=== PATIENT | male | born 1955 | race Caucasian/White ===

== ENCOUNTER 2016-10-23 18:37 | Emergency (ER) | payer OTHER ==
[2016-10-23 18:48] VITALS: BP 118/66; PULSE 99; TEMP 98.6; BMI 29.7
[2016-10-23] MEDS ORDERED: OXYCODONE/APAP 5/325MG COMBO TABLET ONE (19:18)
--- NOTE | 2016-10-23 19:27 | PDOC ---
History of Present Illness - General Chief Complaint: Injury Stated Complaint: RT FOOT INJURY Time Seen by Provider: 10/23/16 18:54 History Source: Patient Exam Limitations: No Limitations - History of Present Illness Initial Comments: 10/23/16 19:23 Patient states got up to go to the bathroom early in the morning, and collided with a piece of furniture. Jammed his right great toe. States has progressively become more painful, and ecchymotic. No other injury Past History - Past Medical History Allergies/Adverse Reactions: Allergies Allergy/AdvReac Type Severity Reaction Status Date / Time No Known Allergies Allergy Verified 10/23/16 18:44 Home Medications: Ambulatory Orders Albuterol Sulfate [Ventolin -] 2 mg PO PRN 08/10/16 Lisinopril [Prinivil] 10 mg PO DAILY 08/10/16 Simvastatin [Zocor -] 40 mg PO HS 08/10/16 Tiotropium [place] [Spiriva] 1 inh PO DAILY 08/10/16 Anemia: No Asthma: Yes Cancer: No Cardiac Disorders: No CVA: No COPD: Yes CHF: No Dementia: No Diabetes: No GI Disorders: No Disorders: No HTN: Yes Hypercholesterolemia: Yes Liver Disease: No Suicide Attempt (Hx): No Seizures: No Thyroid Disease: No - Surgical History Abdominal Surgery: No Appendectomy: No Cardiac Surgery: No Cholecystectomy: No Gastric Stapling: No GI Surgery: No Lung Surgery: No Neurologic Surgery: No Orthopedic Surgery: No - Psycho/Social/Smoking Cessation Hx Anxiety: No Suicidal Ideation: No Smoking Status: Yes Smoking History: Former smoker Have you smoked in the past 12 months: No Number of Cigarettes Smoked Daily: 10 Information on smoking cessation initiated: No 'Breaking Loose' booklet given: 06/27/16 Hx Alcohol Use: No Drug/Substance Use Hx: No Substance Use Type: None Hx Substance Use Treatment: No *Physical Exam - Vital Signs Last Vital Signs Temp Pulse Resp BP Pulse Ox 98.6 F 99 H 18 118/66 96 10/23/16 18:44 10/23/16 18:44 10/23/16 18:44 10/23/16 18:44 10/23/16 18:44 - Physical Exam General Appearance: Yes: Nourished, Appropriately Dressed, Apparent Distress, Mild Distress HEENT: positive: HALLEY, Normal ENT Inspection, TMs Normal, Pharynx Normal Neck: positive: Supple. negative: Tender Respiratory/Chest: positive: Respiratory Distress Gastrointestinal/Abdominal: positive: Soft Extremity: positive: Normal Capillary Refill, Tender, Swelling (left great toe with ecchymoses extending at an TP and to distal toe. Tenderness primarily at PIP joint) Integumentary: positive: Ecchymosis, Bruising Neurologic: positive: dental assistant II-XII NML intact, Fully Oriented, Alert, Normal Mood/ Affect, Normal Response, Motor Strength 01/01 ED Treatment Course - RADIOLOGY Radiology Studies Ordered: Category Date Time Status FOOT-RIGHT [RAD] Stat Radiology 10/23/16 19:01 Taken Progress Note - Progress Note Progress Note: X-ray shows tuft fracture, nondisplaced. Miguel tape and cast shoe applied, will follow-up as needed. Given 2 Percocet tablets for pain relief *DC/Admit/Observation/Transfer Diagnosis at time of Disposition: Fracture of right great toe Qualifiers: Encounter type: initial encounter Fracture type: closed Phalanx: distal Fracture alignment: nondisplaced Qualified Code(s): S92.424A - Nondisplaced fracture of distal phalanx of right great toe, initial encounter for closed fracture - Discharge Dispostion Disposition: HOME Condition at time of disposition: Stable Admit: No - Referrals Referrals: Mell Hernandez MD [Primary Care Provider] - Alberto Holt MD [Staff Physician] - - Patient Instructions Printed Discharge Instructions: DI for Toe Fracture Additional Instructions: Rest, ice to area on and off for 15 minutes 4-6 times a day Avoid heavy lifting or exercise until pain and swelling is resolved or until further directed Keep area highly elevated to reduce swelling Use cast shoe and miguel tape until pain resolves Followup with orthopedist in one to 2 days if not improving, if significantly improved may wait one week for followup with orthopedist May use ibuprofen 2-200 mg tablets every 6 hours as needed for pain
== END 2016-10-23 19:45 | disposition home or self-care (01) ==
LOC: JERFT 18:37
DX: S92.424A Nondisplaced fracture of distal phalanx of right great toe, initial encounter for closed fracture (principal); I10 Essential (primary) hypertension; J44.9 Chronic obstructive pulmonary disease, unspecified; J45.909 Unspecified asthma, uncomplicated; E78.00 Pure hypercholesterolemia, unspecified; W22.03XA Walked into furniture, initial encounter; Y93.01 Activity, walking, marching and hiking; Y92.038 Other place in apartment as the place of occurrence of the external cause
CPT/HCPCS: 73630-TC-RT; 99281-25

== ENCOUNTER 2016-11-29 15:23 | Inpatient (IN) | payer OTHER ==
[2016-11-29] MEDS ORDERED: ONDANSETRON 4 MG/2 ML VIAL ONE (15:38)
[2016-11-29] MEDS ORDERED: ALBUTEROL SO4 2.5/IPRATROPIUM 0.5 INH SOL 3 ML VIAL.NEB. NEB ONE ×4 (15:41→15:46)
[2016-11-29] MEDS ORDERED: DEXAMETHASONE SOD PHOSPHATE 10 MG/1 ML VIAL ONE (15:44)
[2016-11-29] MEDS ORDERED: MAGNESIUM SULF 50% (8.12 MEQ/2 ML-1 GM VIAL) IVPB ONE (15:46)
[2016-11-29] MEDS ORDERED: TERBUTALINE SULFATE 1 MG/1 ML VIAL SQ ONE ×2 (15:47→16:09)
--- NOTE | 2016-11-29 16:00 | PDOC ---
History of Present Illness - General History Source: EMS, Spouse Exam Limitations: Clinical Condition <Mercedes Corona - Last Filed: 11/29/16 17:12> - History of Present Illness Initial Comments: 11/29/16 16:03 - General History Source: EMS, Spouse Exam Limitations: Clinical Condition Patient arrives in extremis, severely short of breath, history limited due to clinical condition - History of Present Illness Initial Comments: 11/29/16 16:01 The patient is a 61-year-old man, accompanied by , with a significant past medical history of hypertension, chronic obstructive pulmonary disease ( requiring intubation on 2005) and emphysema who presents to the emergency department via EMS for further evaluation of shortness of breath. HPI limited as patient arrives in severe respiratory distress. As per patient's , his symptoms started approximately 1 month ago with an intermittent productive cough with yellow-green sputum. She states that his symptoms worsened over the the past 3 days, as he became increasingly short of breath. EMS was activated today, and on arrival, the patient was noted to be in the low 90s on a non- rebreather and was found to have diffuse expiratory wheezes in the field, and was in respiratory distress. He was given 10 milligrams of Decadron and is currently on his second Combivent. He was also placed on a BiPAP, with noted improvement of his shortness of breath and oxygen saturation of 98%. No fever, chills, sick contacts. History provided by EMS, old records and pts who is with him Allergies: No Known Drug Allergies. Past Surgical History: None reported Social History: Former cigarette use. No ETOH and recreational drug use. Primary Care Physician: Dr. Mell Hernandez Software Configuration Analyst: Dr. Juan Medina (Affiliated with [facility]) <Mercedes Corona - Last Filed: 11/29/16 16:02> - General Chief Complaint: Shortness of Breath Stated Complaint: COPD Time Seen by Provider: 11/29/16 15:44 <Kary Mederos - Last Filed: 11/29/16 21:43> - General Chief Complaint: Shortness of Breath Stated Complaint: COPD Time Seen by Provider: 11/29/16 15:44 Past History <Mercedes Corona - Last Filed: 11/29/16 17:12> - Past Medical History Anemia: No Asthma: Yes Cancer: No Cardiac Disorders: No CVA: No COPD: Yes CHF: No Dementia: No Diabetes: No GI Disorders: No Disorders: No HTN: Yes Hypercholesterolemia: Yes Liver Disease: No Suicide Attempt (Hx): No Seizures: No Thyroid Disease: No - Surgical History Abdominal Surgery: No Appendectomy: No Cardiac Surgery: No Cholecystectomy: No Gastric Stapling: No GI Surgery: No Lung Surgery: No Neurologic Surgery: No Orthopedic Surgery: No - Psycho/Social/Smoking Cessation Hx Anxiety: No Suicidal Ideation: No Smoking Status: Yes Smoking History: Former smoker Have you smoked in the past 12 months: Yes Number of Cigarettes Smoked Daily: 10 Information on smoking cessation initiated: No 'Breaking Loose' booklet given: 06/27/16 Hx Alcohol Use: No Drug/Substance Use Hx: No Substance Use Type: None Hx Substance Use Treatment: No <Kary Mederos - Last Filed: 11/29/16 21:43> - Past Medical History Allergies/Adverse Reactions: Allergies Allergy/AdvReac Type Severity Reaction Status Date / Time No Known Allergies Allergy Verified 11/29/16 15:42 Home Medications: Ambulatory Orders Albuterol Sulfate [Ventolin -] 2 mg PO PRN 08/10/16 Lisinopril [Prinivil] 10 mg PO DAILY 08/10/16 Simvastatin [Zocor -] 40 mg PO HS 08/10/16 Tiotropium [place] [Spiriva] 1 inh PO DAILY 08/10/16 Mometasone Furoate [Asmanex Hfa] 1 puff IH BID 11/29/16 Mometasone/Formoterol [Dulera 200 Mcg/5 Mcg Inhaler] 2 inh IH BID 11/29/16 Review of Systems - Review of Systems Able to Perform ROS?: No Comments:: 11/29/16 16:01 Patient in severe respiratory distress. <Mercedes Corona - Last Filed: 11/29/16 17:12> *Physical Exam - Vital Signs Last Vital Signs Temp Pulse Resp BP Pulse Ox 166 H 30 H 163/100 100 11/29/16 15:37 11/29/16 15:37 11/29/16 15:37 11/29/16 15:56 <Mercedes Corona - Last Filed: 11/29/16 17:12> - Vital Signs Last Vital Signs Temp Pulse Resp BP Pulse Ox 166 H 30 H 163/100 98 11/29/16 15:37 11/29/16 15:37 11/29/16 15:37 11/29/16 15:37 - Physical Exam Comments: 11/29/16 15:57 Physical exam Last Vital Signs Temp Pulse Resp BP Pulse Ox 166 H 30 H 163/100 98 11/29/16 15:37 11/29/16 15:37 11/29/16 15:37 11/29/16 15:37 Patient arrives in severe respiratory distress Seen immediately on arrival, documentation done later GENERAL: The patient is awake, alert, and in severe respiratory distress HEAD: Normal with no signs of trauma. EYES: sclera anicteric, conjunctiva are normal. ENT: Moist mucous membranes. NECK: Normal range of motion, supple LUNGS: There is a markedly prolonged expiratory phase and diffuse wheezing with very poor air movement HEART: Tachycardic Regular rate and rhythm, normal S1 and S2 without murmur, rub or gallop. ABDOMEN: Soft, nontender, normoactive bowel sounds. No guarding, no rebound. No masses appreciated. EXTREMITIES: Trace edema, no calf tenderness NEUROLOGICAL: Alert, in severe respiratory distress, moving all extremities SKIN: Warm, Dry, <Kary Mederos - Last Filed: 11/29/16 21:43> ED Treatment Course - LABORATORY CBC & Chemistry Diagram: 11/29/16 15:40 11/29/16 15:40 - ADDITIONAL ORDERS Additional order review: Laboratory Results 11/29/16 15:50 Carboxyhemoglobin 0.7 Methemoglobin 1.0 <Mercedes Corona - Last Filed: 11/29/16 17:12> - LABORATORY CBC & Chemistry Diagram: 11/29/16 15:40 11/29/16 15:40 - RADIOLOGY Radiology Studies Ordered: Category Date Time Status CHEST X-RAY PORTABLE* [RAD] Stat Radiology 11/29/16 15:45 Ordered <Kary Mederos - Last Filed: 11/29/16 21:43> Medical Decision Making - Medical Decision Making 11/29/16 17:[address] Yip. Immediate connection. Case was discussed. 11/29/16 17:10 MicroBlogged Hospitalist. 11/29/16 17:12 Response by Hospitalist. Case was discussed. <Mercedes Corona - Last Filed: 11/29/16 17:12> - Critical Care Time Total Critical Care Time (minutes): 45 Critical Care Statement: The care of this patient involved high complexity decision making to prevent further life threatening deterioration of the patient 's condition and/or to evalute & treat vital organ system(s) failure or risk of failure. - Medical Decision Making 11/29/16 15:58 Patient had 3 nebs prehospital and put on BiPAP prehospital He also had Decadron 10 mg IV prehospital He arrives in severe respiratory distress As I was setting up for intubation we put him on BiPAP, 13/01/16/50% On our BiPAP patient started improving Patient is now starting to improve on the BiPAP, and is starting to be in less respiratory distress Will give another 2 nebs, magnesium IV, terbutaline, patient already had steroids prehospital, and 3 nebs prehospital 11/29/16 16:04 EKG Sinus tachycardia 154 Normal AV and IV conduction time Normal QTC Diffuse nonspecific ST-T wave abnormalities When compared to the EKG of 08/10/16 Normal sinus rhythm was present at that time 11/29/16 16:08 Stat ABG just as are BiPAP was being applied (just took off EMS is BiPAP and ( 7.27/46/122/bicarbonate 20/sat 98% Patient much more comfortable on our BiPAP now heart rate is down to 130, patient is speaking in sentences Will check repeat ABG and approximately half hour 11/29/16 17:11 Much more comfortable now on the BiPAP, speaking on full sentences, heart rate down to 120 Chest x-ray as read by me-possible right-sided infiltrate Patient states he was in [place] a few weeks ago Will start coverage with Levaquin and Zosyn 11/29/16 17:[address] Yip-approves ICU bed Case discussed with hospitalist-will admit Impression-COPD exacerbation with severe respiratory distress, possible pneumonia <Kary Mederos - Last Filed: 11/29/16 21:43> *DC/Admit/Observation/Transfer - Attestations Scribe Attestion: 11/29/16 16:02 Documentation prepared by Mercedes Corona, acting as medical insurance claims specialist for Kary Mederos MD. <Mercedes Corona - Last Filed: 11/29/16 17:12> - Discharge Dispostion Admit: Yes <Kary Mederos - Last Filed: 11/29/16 21:43> Diagnosis at time of Disposition: COPD exacerbation, Respiratory distress Right lower lobe pneumonia Qualifiers: Pneumonia type: due to unspecified organism Qualified Code(s): J18.9 - Pneumonia, unspecified organism - Referrals
[2016-11-29 16:02] LABS: ALLENS TEST POSITIVE; ART PUNCT SITE RIGHT RADIAL; ARTERIAL BLOOD GAS BASE EXCESS -5.9 meq/l (-2-2); ARTERIAL BLOOD GAS HCO3 20.5 meq/L (22-26); ARTERIAL BLOOD GAS pH 7.27 (7.35-7.45); PT. ON O2? YES
[2016-11-29 16:03] LABS: LPM/O2% 50%
[2016-11-29 16:04] LABS: VENT RATE 16
[2016-11-29 16:07] LABS: MCH 28.6 pg (25.7-33.7); MCHC 32.1 g/dl (32.0-35.9); MEAN CELL VOLUME 89.2 fl (80-96); MEAN PLT VOLUME 9.6 fl (7.5-11.1); PLATELET COUNT 276 K/MM3 (134-434); RDW 13.8 % (11.9-15.9)
[2016-11-29] MEDS ORDERED: MAGNESIUM SULF 50% (8.12 MEQ/2 ML-1 GM VIAL) ONE (16:09)
[2016-11-29 16:26] LABS: ALBUMIN 3.7 g/dl (3.4-5.0); BILIRUBIN,TOTAL 0.4 mg/dL (0.2-1.0); CALCIUM 8.9 mg/dL (8.5-10.1); MAGNESIUM 2.4 mg/dL (1.8-2.4)
[2016-11-29 16:28] LABS: TROPONIN I 0.05 ng/ml (0.00-0.05)
[2016-11-29] MEDS ORDERED: LEVOFLOXACIN 500 MG IVPB 100 ML IVPB ONE ×2 (17:10→17:21)
[2016-11-29] MEDS ORDERED: PIPERACILLIN/TAZOB 3.375 GM 3.375 GM in DEXTROSE 5%-WATER - 50 ML IVPB ONE (17:10)
[2016-11-29] MEDS ORDERED: PIPERACILLIN/TAZOB 3.375 GM 50 ML IVPB ONE (17:21)
[2016-11-29] MEDS ORDERED: ONDANSETRON 4 MG/2 ML VIAL IVPB ONE (17:41)
--- NOTE | 2016-11-29 18:03 | HP ---
CHIEF COMPLAINT: Shortness of breath PCP: Dr. Hernandez HISTORY OF PRESENT ILLNESS: This 61 year old male presented to ER today with worsening SOB that has been developing over the last 4 weeks causing extreme diff in breathing today. He has a significant hx of COPD with a past intubation due to an exacerbation. During his EMS transport he received decadron, 3 duonebs and started on BiPap. In the ER the pt also received terbutaline, MagSulfate and moved on to ER BiPap. Initially his presentation was towards intubation however, once pt on BiPap for an hour, his much improved. He will be monitored in ICU for hosptial admission ER course was notable for: (1) COPD excerbation (2) leukocytosis (3) elevated bun'cr noted on labs. Recent Travel: denies PAST MEDICAL HISTORY: COPD, HTN PAST SURGICAL HISTORY: none Social History: Smoking:past Alcohol:denies Drugs: denies Family History: Allergies No Known Allergies Allergy (Verified 11/29/16 15:42) HOME MEDICATIONS: Home Medications Medication Instructions Recorded Albuterol Sulfate [Ventolin -] 2 mg PO PRN 08/10/16 Lisinopril [Prinivil] 10 mg PO DAILY 08/10/16 Simvastatin [Zocor -] 40 mg PO HS 08/10/16 Tiotropium [place] [Spiriva] 1 inh PO DAILY 08/10/16 REVIEW OF SYSTEMS CONSTITUTIONAL: Absent: fever, chills, diaphoresis, generalized weakness, malaise, loss of appetite, weight change HEENT: Absent: rhinorrhea, nasal congestion, throat pain, throat swelling, difficulty swallowing, mouth swelling, ear pain, eye pain, visual changes CARDIOVASCULAR: Absent: chest pain, syncope, palpitations, irregular heart rate, lightheadedness , peripheral edema RESPIRATORY: Positive for : SOB, cough, dyspnea, orthopnea, wheezing GASTROINTESTINAL: Absent: abdominal pain, abdominal distension, nausea, vomiting, diarrhea, constipation, melena, hematochezia GENITOURINARY: Absent: dysuria, frequency, urgency, hesitancy, hematuria, flank pain, genital pain MUSCULOSKELETAL: Absent: myalgia, arthralgia, joint swelling, back pain, neck pain SKIN: Absent: rash, itching, pallor HEMATOLOGIC/IMMUNOLOGIC: Absent: easy bleeding, easy bruising, lymphadenopathy, frequent infections ENDOCRINE: Absent: unexplained weight gain, unexplained weight loss, heat intolerance, cold intolerance NEUROLOGIC: Absent: headache, focal weakness or paresthesias, dizziness, unsteady gait, seizure, mental status changes, bladder or bowel incontinence PSYCHIATRIC: Absent: anxiety, depression, suicidal or homicidal ideation, hallucinations. PHYSICAL EXAMINATION Vital Signs - 24 hr 11/29/16 11/29/16 11/29/16 15:37 15:45 15:56 Temperature Pulse Rate 166 H Pulse Rate [ 150 H Right Radial] Respiratory 30 H 22 Rate Blood Pressure 163/100 Blood Pressure 146/84 [Left Arm] O2 Sat by Pulse 98 100 100 Oximetry (%) 11/29/16 16:53 Temperature 100.4 F H Pulse Rate Pulse Rate [ 132 H Right Radial] Respiratory 22 Rate Blood Pressure Blood Pressure 136/84 [Left Arm] O2 Sat by Pulse 100 Oximetry (%) GENERAL: Awake, alert, and fully oriented, in moderate respiratory acute distress. HEAD: Normal with no signs of trauma. NECK: Normal range of motion, supple without lymphadenopathy, JVD, or masses. LUNGS: Breath sounds equal, diminished bilaterally with right side congestion and rhonchi to auscultation. No wheezes currently or no crackles. No accessory muscle use. HEART: Tachycardic rate 130 and in NSR rhythm, normal S1 and S2 without murmur, rub or gallop. ABDOMEN: Soft, nontender, not distended, normoactive bowel sounds, no guarding, no rebound, no masses. No hepatomegaly or splenomegaly. MUSCULOSKELETAL: Normal range of motion at all joints. No bony deformities or tenderness. No CVA tenderness. UPPER EXTREMITIES: 2+ pulses, warm, well-perfused. No cyanosis. No clubbing. No peripheral edema. LOWER EXTREMITIES: 2+ pulses, warm, well-perfused. No calf tenderness. No peripheral edema. NEUROLOGICAL: Cranial nerves II-XII intact. Normal speech. Normal gait. PSYCHIATRIC: Cooperative. Good eye contact. Appropriate mood and affect. SKIN: Warm, dry, normal turgor, no rashes or lesions noted, normal capillary refill. Laboratory Results - last 24 hr 11/29/16 11/29/16 11/29/16 15:40 15:40 15:40 WBC 14.0 H RBC 4.32 Hgb 12.4 Hct 38.5 MCV 89.2 MCHC 32.1 RDW 13.8 Plt Count 276 MPV 9.6 Anticoagulation Therapy Puncture Site Right radial ABG pH 7.27 L ABG pCO2 at Pt Temp 46.2 H ABG pO2 at Pt Temp 122.0 H ABG HCO3 20.5 L ABG O2 Sat (Measured) 98.0 ABG O2 Content 18.2 ABG Base Excess -5.9 L Luis Eduardo Test Positive Carboxyhemoglobin Methemoglobin O2 Delivery Device Bipap ipap 16 epap 5 Oxygen Flow Rate 50% Vent Mode S/t Vent Rate 16 Mechanical Rate Pressure Support Vent Sodium 140 Potassium 4.8 Chloride 104 Carbon Dioxide 21 D Anion Gap 15 BUN 29 H Creatinine 2.0 H D Creat Clearance w eGFR 34.25 Random Glucose 177 H D Calcium 8.9 Magnesium 2.4 Total Bilirubin 0.4 D AST 51 H D ALT 51 D Alkaline Phosphatase 132 H D Creatine Kinase 109 Troponin I 0.05 D B-Natriuretic Peptide 47.23 Total Protein 7.0 Albumin 3.7 11/29/16 11/29/16 15:45 15:50 WBC RBC Hgb Hct MCV MCHC RDW Plt Count MPV Anticoagulation Therapy Y Puncture Site ABG pH ABG pCO2 at Pt Temp ABG pO2 at Pt Temp ABG HCO3 ABG O2 Sat (Measured) ABG O2 Content ABG Base Excess Luis Eduardo Test Carboxyhemoglobin 0.7 Methemoglobin 1.0 O2 Delivery Device Oxygen Flow Rate Vent Mode Vent Rate Mechanical Rate Y Pressure Support Vent Y Sodium Potassium Chloride Carbon Dioxide Anion Gap BUN Creatinine Creat Clearance w eGFR Random Glucose Calcium Magnesium Total Bilirubin AST ALT Alkaline Phosphatase Creatine Kinase Troponin I B-Natriuretic Peptide Total Protein Albumin ASSESSMENT/PLAN: 61 yr old male with hx of COPD now with current COPD excerbation and shortness of breath 1. COPD -continue Bipap 13/01/16/50% -ICU for monitor tonight -continue duonebs -CXR with ? Right side pna, started levaquin and zosyn -pulse ox -steriods 2. leukocytosis -continue antibiotics 3. elevated Bun /cr -repeat labs in AM -trend cr, first time noted a 2.0 Visit type - Emergency Visit Emergency Visit: Yes Care time: The patient presented to the Emergency Department on the above date and was hospitalized for further evaluation of their emergent condition. - New Patient This patient is new to me today: Yes Date on this admission: 11/29/16 - Critical Care Critical Care patient: Yes Total Critical Care Time (in minutes): 30 Critical Care Statement: The care of this patient involved high complexity decision making to prevent further life threatening deterioration of the patient 's condition and/or to evalute & treat vital organ system(s) failure or risk of failure.
[2016-11-29] MEDS ORDERED: ACETAMINOPHEN 325 MG TABLET (FP) PO PRN (18:06)
[2016-11-29 19:10] LABS: ALLENS TEST POSITIVE; ART PUNCT SITE RIGHT RADIAL; ARTERIAL BLD GAS O2 SATURATION 98.9 % (90-98.9); ARTERIAL BLOOD GAS BASE EXCESS -3.1 meq/l (-2-2); ARTERIAL BLOOD GAS HCO3 22.9 meq/L (22-26); LPM/O2% 50%; METHEMOGLOBIN 1.2 % (0.4-1.5); PT. ON O2? YES; TYPE OF O2 BIPAP
[2016-11-29 19:11] LABS: VENT RATE 16; VT/PRESS 16/5
--- NOTE | 2016-11-29 21:22 | CONSULT ---
Consult Consult Specialty:: Pulm/CC - History of Present Illness History of Present Illness: Pt is a 61yr old man with PMHx including emphysema with one prior intubation in 2005 and HTN. He presents to the ER with CC of SOB with productive green/white cough x "a few days". In the ER WBC 14, ABG with mixed resp/metabolic acidosis and BUN/Cr 29/2.0 (Cr was 1.3 on 08/10/16). Chest xray concerning for community acquire pneumonia. Upon assessment pt 126/77, HR low 100s (sinus on tele), sat upper 90s on bipap fio2 30%, RR 19. Pt denies chest pain/headache/n/v /diarrhea and endorses improved work of breathing with bipap and in NAD. - History Source History Provided By: Patient, Medical Record - Past Medical History Cardio/Vascular: Yes: HTN Pulmonary: Yes: Asthma - Past Surgical History Past Surgical History: Yes: None - Alcohol/Substance Use Hx Alcohol Use: No History of Substance Use: reports: None - Smoking History Smoking history: Former smoker Have you smoked in the past 12 months: Yes Aproximately how many cigarettes per day: 10 If you are a former smoker, when did you quit?: 08/2016 - Social History ADL: Independent History of Recent Travel: No Home Medications - Allergies Allergies/Adverse Reactions: Allergies Allergy/AdvReac Type Severity Reaction Status Date / Time No Known Allergies Allergy Verified 11/29/16 15:42 - Home Medications Home Medications: Ambulatory Orders Albuterol Sulfate [Ventolin -] 2 mg PO PRN 08/10/16 Lisinopril [Prinivil] 10 mg PO DAILY 08/10/16 Simvastatin [Zocor -] 40 mg PO HS 08/10/16 Tiotropium [place] [Spiriva] 1 inh PO DAILY 08/10/16 Mometasone Furoate [Asmanex Hfa] 1 puff IH BID 11/29/16 Mometasone/Formoterol [Dulera 200 Mcg/5 Mcg Inhaler] 2 inh IH BID 11/29/16 Review of Systems - Review of Systems Eyes: reports: Other (hx of cataract) Cardiovascular: reports: Shortness of Breath. denies: Chest Pain Respiratory: reports: Cough, SOB Gastrointestinal: denies: Constipation, Diarrhea, Nausea, Vomiting Genitourinary: denies: Dysuria Neurological: denies: Headache Physical Exam Vital Signs: Vital Signs Period Temp Pulse Resp BP Sys/Rendon Pulse Ox Last 24 Hr 100.4 F 110-166 11-30 118-163/66-100 97-100 Intake & Output 11/26/16 11/27/16 11/28/16 11/29/16 23:59 23:59 23:59 23:59 Intake Total 250 Output Total 1000 Balance -750 Weight 196 lb Constitutional: Yes: Well Nourished, No Distress, Calm Eyes: Yes: Other (bilaterally round and miotic). No: Sclera Icterus HENT: Yes: Normocephalic. No: Atraumatic Cardiovascular: Yes: Tachycardia (sinus on tele), S1, S2 Respiratory: Yes: Diminished (bilateral, diffuse with sounds appreciated in U/L lobes), On BiPap, Rales (faint bilateral at bases) Gastrointestinal: Yes: Normal Bowel Sounds, Soft, Abdomen, Obese, Distention. No: Tenderness ...Rectal Exam: Yes: Deferred Extremities: No: Calf Tenderness, Erythema, Pallor Edema: No Peripheral Pulses WNL: (+2 bilateral pedal pulses) Integumentary: Yes: WNL Neurological: Yes: WNL Labs: Abnormal Lab Results 11/29/16 11/29/16 11/29/16 15:40 15:40 15:40 WBC 14.0 H ABG pH 7.27 L ABG pCO2 at Pt Temp 46.2 H ABG pO2 at Pt Temp 122.0 H ABG HCO3 20.5 L ABG Base Excess -5.9 L BUN 29 H Creatinine 2.0 H D Random Glucose 177 H D AST 51 H D Alkaline Phosphatase 132 H D 11/29/16 19:05 WBC ABG pH 7.30 L ABG pCO2 at Pt Temp 47.7 H ABG pO2 at Pt Temp 151.0 H* ABG HCO3 ABG Base Excess -3.1 L BUN Creatinine Random Glucose AST Alkaline Phosphatase Imaging - Results Chest X-ray: Image Reviewed Assessment/Plan Pt is a 61yr old man with PMHx including emphysema and HTN. Pt now in the ICU for management of COPD exacerbation in setting of likely community acquired pneumonia. Pulm: -o2 support/bipap prn -Nebulizers standing (home) and prn -f/u repeat abg and chest xray in a.m -Started on IV steroids, taper as able ID: leukocytosis -f/u cultures -Dr. Edwards consulted -d/aminta Zosyn and Levaquin and started pt on daily Ceftriaxone pending ID eval -f/u lactic acid Renal: STEFAN (Cr 1.4 --2.0) -f/u bnp/urine creatinine/electrolytes -Monitor -Chest xray not concerning for fluid overload and pt without edema -f/u UA -IVF as tolerated -Replete electrolytes prn Cardiac -BP Control -f/u enzymes -ekg prn Neuro -Pain management Prophylactic -DVT
[2016-11-29] MEDS: MUPIROCIN 2% TOPICAL OINTMENT FOR DECOLONIZATION NS SCH (21:59)
[2016-11-29] MEDS: methylPREDNISolone NA SUCC 40 MG/1 ML VIAL IVPB SCH (21:59)
[2016-11-29] MEDS: CHLORHEXIDINE GLUCONATE 4% CLEANSER FOR DECOLONIZATION TP SCH (22:00)
[2016-11-29] MEDS ORDERED: PATIENT'S OWN MEDICATION (NON-FORMULARY) (Mometasone/Formoterol [Dulera 200 Mcg/5 Mcg Inha IH SCH (22:00)
[2016-11-29] MEDS ORDERED: MOMETASONE FUROATE IH SCH (22:00)
[2016-11-29] MEDS ORDERED: SODIUM CHLORIDE 250 ML IV STA (22:03)
[2016-11-29] MEDS ORDERED: LACTATED RINGERS SOLUTION 1,000 ML IV SCH (22:15)
[2016-11-29 22:22] LABS: PHOSPHOROUS 3.3 mg/dL (2.5-4.9)
[2016-11-29 22:38] LABS: TROPONIN I 2.46 ng/ml (0.00-0.05)
[2016-11-29] MEDS ORDERED: ATORVASTATIN CA 80 MG TABLET (FP) PO ONE (22:44)
[2016-11-29] MEDS ORDERED: METOPROLOL TARTRATE 5 MG/5 ML VIAL IVPUSH ONE (22:45)
[2016-11-29] MEDS ORDERED: ASPIRIN 81 MG CHEWABLE TABLETS PO ONE (23:28)
[2016-11-29] MEDS ORDERED: CLOPIDOGREL BISULFATE 300 MG TABLET PO ONE (23:34)
[2016-11-29 23:38] LABS: URINE APPEARANCE CLEAR; URINE BILIRUBIN NEGATIVE (NEGATIVE); URINE COLOR STRAW; URINE GLUCOSE (UA) NEGATIVE (NEGATIVE); URINE KETONE NEGATIVE (NEGATIVE); URINE LEUK ESTERASE NEGATIVE (NEGATIVE); URINE NITRITE NEGATIVE (NEGATIVE); URINE UROBILINOGEN NEGATIVE E.U./dl (0.2-1.0)
[2016-11-29 23:40] LABS: URINE BLOOD 2+ (NEGATIVE); URINE PROTEIN 1+ (NEGATIVE)
[2016-11-29] MEDS ORDERED: ALBUTEROL SO4 2.5/IPRATROPIUM 0.5 INH SOL 3 ML VIAL.NEB. NEB PRN (23:41)
[2016-11-29 23:51] LABS: INR 1.07 (0.82-1.09); PROTHROMBIN TIME (PATIENT) 11.8 SEC (9.98-11.88)
[2016-11-29 23:54] LABS: ACTIVATED PTT 29.8 SECONDS (26.9-34.4)
[2016-11-30 00:08] LABS: URINE BACTERIA RARE /hpf (NONE SEEN); URINE MUCUS RARE; URINE RBC 4 /hpf (0-3); URINE WBC <1 /hpf (3-5)
[2016-11-30] MEDS ORDERED: HEPARIN NA (PORCINE) 5,000 UNITS/ML 1ML VIAL IVPUSH PRN ×2 (00:20)
[2016-11-30] MEDS: HEPARIN INFUSION - 500 ML IVPB SCH (00:39)
[2016-11-30] MEDS ORDERED: PIPERACILLIN/TAZOB 3.375 GM/50 ML PRE-DOCKED IVPB SCH (02:00)
[2016-11-30] MEDS: methylPREDNISolone NA SUCC 40 MG/1 ML VIAL IVPB SCH (02:22)
[2016-11-30 03:44] LABS: TROPONIN I 3.08 ng/ml (0.00-0.05)
[2016-11-30] MEDS ORDERED: FUROSEMIDE 40 MG/4 ML INJECTABLE VIAL ONE (05:09)
[2016-11-30] MEDS ORDERED: morphine CARPU-JECT 2 MG/1 ML DISP.SYRIN IVPUSH ONE (05:10)
[2016-11-30] MEDS ORDERED: FUROSEMIDE 40 MG/4 ML INJECTABLE VIAL IVPUSH ONE ×2 (05:15→07:07)
[2016-11-30] MEDS ORDERED: methylPREDNISolone NA SUCC 125 MG/2 ML VIAL IVPB ONE (05:16)
[2016-11-30] MEDS ORDERED: morphine CARPU-JECT 2 MG/1 ML DISP.SYRIN ONE (06:00)
[2016-11-30 06:18] LABS: ARTERIAL BLD GAS O2 SATURATION 98.8 % (90-98.9)
[2016-11-30 06:19] LABS: ALLENS TEST POSITIVE; ART PUNCT SITE RIGHT RADIAL; ARTERIAL BLOOD GAS BASE EXCESS -10.8 meq/l (-2-2); ARTERIAL BLOOD GAS pH 7.15 (7.35-7.45); LPM/O2% 50%; PT. ON O2? YES
[2016-11-30 06:20] LABS: TYPE OF O2 BIPAP; VENT RATE 16; VT/PRESS 16/5
[2016-11-30 06:21] LABS: MCH 29.6 pg (25.7-33.7); MCHC 33.3 g/dl (32.0-35.9); MEAN CELL VOLUME 88.9 fl (80-96); MEAN PLT VOLUME 9.2 fl (7.5-11.1); NEUTROPHILS 94.6 % (42.8-82.8); PLATELET COUNT 238 K/MM3 (134-434); WHITE BLOOD COUNT 9.6 K/mm3 (4.0-10.0)
[2016-11-30] MEDS ORDERED: PROPOFOL 100 ML ONE (06:25)
[2016-11-30 06:46] LABS: ALBUMIN 3.5 g/dl (3.4-5.0); CALCIUM 8.5 mg/dL (8.5-10.1); CREATININE 1.9 mg/dL (0.7-1.3); MAGNESIUM 2.6 mg/dL (1.8-2.4); PHOSPHOROUS 6.2 mg/dL (2.5-4.9)
--- NOTE | 2016-11-30 06:49 | PN ---
Progress Note (short form) - Note Progress Note: Called to bedside at 0500 for acute respiratory decompensation secondary to minimal movement. Gen: In moderate distress, diaphoretic Pulm: Wheezing appreciated in bilateral lower lobes, RR 30s, on bipap 50% sating 90s. Diminished breath sounds throughout Cardiac: Tachycardia to 140, denies chest pain Ex: No edema Renal: Using urinal, yellow output Pt given respiratory treatment x 2, 2mg morphine, 80mg solu-medrol, with improvement to work of breathing. Stat chest xray, IVF stopped and 20mg lasix trial. Pt states he feels better, HR decreased to lower 100s, 02 sat upper 90s. Called to bedside at 0615 -- Pt again with acute respiratory distress secondary to minimal movement in bed. Diaphoretic, accessory muscle use, poor airway movement appreciated on auscultation. Nebulizer and morphine given with little improvement. ABG 7.15/53.8/199/18 . Pt agrees to intubation. Discussed with Dr. Chicas who agrees with intubation. Per request Dr. Casarez discussed intubation with and she requests to be be here before pt intubated. Pt 148/ 88,HR 120s (sinus on tele, see chart for EKG), 100% on bipap fio2 50%, RR mid teens. Case discussed again with Dr. Turcios, awaiting to arrive for imminent intubation.
[2016-11-30] MEDS ORDERED: ALBUTEROL SO4 2.5/IPRATROPIUM 0.5 INH SOL 3 ML VIAL.NEB. NEB PRN (06:51)
[2016-11-30 07:03] LABS: TOT PROT 6.5 g/dl (6.4-8.2)
[2016-11-30 07:49] LABS: BILIRUBIN,TOTAL 0.6 mg/dL (0.2-1.0)
[2016-11-30 07:50] LABS: TROPONIN I 2.81 ng/ml (0.00-0.05)
[2016-11-30 09:04] LABS: ARTERIAL BLD GAS O2 SATURATION 95.5 % (90-98.9); ARTERIAL BLOOD GAS HCO3 22.1 meq/L (22-26); ARTERIAL BLOOD GAS PO2 79.8 mmHg (80-100); ARTERIAL BLOOD GAS pH 7.34 (7.35-7.45)
[2016-11-30 09:06] LABS: ALLENS TEST POSITIVE; ART PUNCT SITE LEFT RADIAL; LPM/O2% 45%; MECH. VENT. BIPAP; PT. ON O2? YES; TYPE OF O2 BIPAP; VENT RATE 16; VT/PRESS 16/5
[2016-11-30] MEDS: CEFTRIAXONE 50 ML IVPB SCH (09:32)
[2016-11-30] MEDS: MUPIROCIN 2% TOPICAL OINTMENT FOR DECOLONIZATION NS SCH ×2 (09:32→21:48)
[2016-11-30] MEDS: METOPROLOL TARTRATE 25 MG TABLET (FP) PO SCH ×2 (09:36→21:49)
[2016-11-30] MEDS ORDERED: TIOTROPIUM BROMIDE 18 MCG/INH (DEVICE W/ 5 CAPSULES) IH SCH (10:00)
[2016-11-30] MEDS ORDERED: ACLIDINIUM BROMIDE 400 MCG/INH AERO.POWD IH SCH (10:00)
[2016-11-30] MEDS ORDERED: LISINOPRIL 10 MG TABLET (FP) PO SCH (10:00)
[2016-11-30] MEDS ORDERED: LEVOFLOXACIN 500 MG IVPB 100 ML IVPB SCH (10:00)
--- NOTE | 2016-11-30 11:53 | CON.CARD ---
Consult Consult Specialty:: Cardiology - History of Present Illness History of Present Illness: The patient is a 61-year-old man, accompanied by , with a significant past medical history of hypertension, chronic obstructive pulmonary disease ( requiring intubation on 2005) and emphysema who presents to the emergency department via EMS for further evaluation of shortness of breath. HPI limited as patient arrives in severe respiratory distress. As per patient's , his symptoms started approximately 1 month ago with an intermittent productive cough with yellow-green sputum. She states that his symptoms worsened over the the past 3 days, as he became increasingly short of breath. EMS was activated today, and on arrival, the patient was noted to be in the low 90s on a non- rebreather and was found to have diffuse expiratory wheezes in the field, and was in respiratory distress. He was given 10 milligrams of Decadron and is currently on his second Combivent. He was also placed on a BiPAP, with noted improvement of his shortness of breath and oxygen saturation of 98%. No fever, chills, sick contacts. History provided by EMS, old records and pts who is with him - Past Medical History Cardio/Vascular: Yes: HTN Pulmonary: Yes: Asthma - Past Surgical History Past Surgical History: Yes: None - Alcohol/Substance Use Hx Alcohol Use: No History of Substance Use: reports: None - Smoking History Smoking history: Former smoker Have you smoked in the past 12 months: Yes Aproximately how many cigarettes per day: 10 If you are a former smoker, when did you quit?: 08/2016 - Social History ADL: Independent History of Recent Travel: No Home Medications - Allergies Allergies/Adverse Reactions: Allergies Allergy/AdvReac Type Severity Reaction Status Date / Time No Known Allergies Allergy Verified 11/29/16 15:42 - Home Medications Home Medications: Ambulatory Orders Albuterol Sulfate [Ventolin -] 2 mg PO PRN 08/10/16 Lisinopril [Prinivil] 10 mg PO DAILY 08/10/16 Simvastatin [Zocor -] 40 mg PO HS 08/10/16 Tiotropium [place] [Spiriva] 1 inh PO DAILY 08/10/16 Mometasone Furoate [Asmanex Hfa] 1 puff IH BID 11/29/16 Mometasone/Formoterol [Dulera 200 Mcg/5 Mcg Inhaler] 2 inh IH BID 11/29/16 Review of Systems - Review of Systems Constitutional: reports: No Symptoms Eyes: reports: No Symptoms HENT: reports: No Symptoms Neck: reports: No Symptoms Cardiovascular: reports: No Symptoms Respiratory: reports: SOB, SOB on Exertion Gastrointestinal: reports: No Symptoms Genitourinary: reports: No Symptoms Breasts: reports: No Symptoms Reported Musculoskeletal: reports: No Symptoms Integumentary: reports: No Symptoms Neurological: reports: No Symptoms Endocrine: reports: No Symptoms Hematology/Lymphatic: reports: No Symptoms Psychiatric: reports: No Symptoms Vital Signs: Vital Signs Temperature 98.9 F 11/30/16 10:00 Pulse Rate 105 H 11/30/16 10:45 Respiratory Rate 24 11/30/16 10:00 Blood Pressure 123/73 11/30/16 10:00 O2 Sat by Pulse Oximetry (%) 98 11/30/16 10:45 Constitutional: Yes: Well Nourished, No Distress, Calm Eyes: Yes: WNL, Conjunctiva Clear, EOM Intact HENT: Yes: WNL, Atraumatic, Normocephalic Neck: Yes: WNL, Supple, Trachea Midline Respiratory: Yes: WNL, Regular, CTA Bilaterally Gastrointestinal: Yes: WNL, Normal Bowel Sounds Renal/: Yes: WNL Cardiovascular: Yes: WNL, Regular Rate and Rhythm Musculoskeletal: Yes: WNL Extremities: Yes: WNL Integumentary: Yes: WNL Neurological: Yes: WNL, Alert, Oriented ...Motor Strength: WNL Psychiatric: Yes: WNL, Alert, Oriented - Other Data Labs, Other Data: CBC, BMP 11/30/16 05:20 11/30/16 05:20 INR, PTT INR 1.07 (0.82-1.09) 11/29/16 22:10 Troponin, BNP 11/29/16 11/29/16 11/30/16 21:30 21:30 02:45 Troponin I 2.46 H* D 3.08 H* B-Natriuretic Peptide 261.92 H 11/30/16 05:20 Troponin I 2.81 H* B-Natriuretic Peptide 6095.60 H Troponin, BNP 11/29/16 11/29/16 11/30/16 21:30 21:30 02:45 Troponin I 2.46 H* D 3.08 H* B-Natriuretic Peptide 261.92 H 11/30/16 05:20 Troponin I 2.81 H* B-Natriuretic Peptide 6095.60 H Imaging - Results Chest X-ray: Image Reviewed (basilar infiltrates) EKG: Image Reviewed (s tachy) Assessment/Plan acute resp failure pna copd htn arf s tachy r/o PE elevated tni's nonstemi vs pe plan abx asa plavix heparine-per mi protoco; rx as per pulmonary and ID echo serial ce cardiac w/u and PE w/u d/w Cervantes CCtime 70min
[2016-11-30] MEDS ORDERED: methylPREDNISolone NA SUCC 40 MG/1 ML VIAL IVPB ONE (12:00)
[2016-11-30] MEDS: ALBUTEROL SO4 2.5/IPRATROPIUM 0.5 INH SOL 3 ML VIAL.NEB. NEB SCH ×3 (12:08→23:03)
[2016-11-30] MEDS: PANTOPRAZOLE SODIUM 100 ML IVPB SCH (12:14)
[2016-11-30] MEDS: AZITHROMYCIN IVPB 250 ML IVPB SCH (12:14)
[2016-11-30] MEDS: methylPREDNISolone NA SUCC 125 MG/2 ML VIAL IVPB SCH ×3 (12:16→21:47)
--- NOTE | 2016-11-30 12:31 | PN ---
Teaching Attending Note Name of Resident: Charu Casarez ATTENDING PHYSICIAN STATEMENT I saw and evaluated the patient. I reviewed the resident's note and discussed the case with the resident. I agree with the resident's findings and plan as documented. SUBJECTIVE: Pt seen and examined in the ICU. Remains on BiPAP, states breathing slightly improved. ABG showing resolving acute hypercapnea. No fevers or chills. Denies chest pain. OBJECTIVE: Last Vital Signs Temp Pulse Resp BP Pulse Ox 98.9 F 105 H 24 131/74 99 11/30/16 10:00 11/30/16 12:00 11/30/16 12:00 11/30/16 12:00 11/30/16 12:07 Intake & Output 11/27/16 11/28/16 11/29/16 11/30/16 23:59 23:59 23:59 23:59 Intake Total 250 870 Output Total 1300 400 Balance -1050 470 Weight 196 lb Gen: tachypneic on BiPAP Heart: tachycardic, regular Lung: distant breath sounds Abd: soft, nontender Ext: no edema CBC, BMP 11/30/16 05:20 11/30/16 05:20 ABG Results ABG pH 7.34 (7.35-7.45) L D 11/30/16 09:00 ABG pCO2 at Pt Temp 42.4 mmHg (35-45) D 11/30/16 09:00 ABG pO2 at Pt Temp 79.8 mmHg (80-100) L D 11/30/16 09:00 ABG HCO3 22.1 meq/L (22-26) 11/30/16 09:00 ABG O2 Sat (Measured) 95.5 % (90-98.9) 11/30/16 09:00 ABG O2 Content 16.2 % vol (15-22) 11/30/16 09:00 ABG Base Excess -3.0 meq/l (-2-2) L 11/30/16 09:00 Active Medications Acetaminophen (Tylenol -) 650 mg PO Q4H PRN PRN Reason: FEVER OR PAIN Albuterol Sulfate (Ventolin 0.083% Nebulizer Soln -) 1 amp NEB Q4H PRN PRN Reason: SHORT OF BREATH/WHEEZING Albuterol/Ipratropium (Duoneb -) 1 amp NEB QIDR [facility] Last Admin: 11/30/16 12:08 Dose: 1 amp Aspirin (Asa -) 81 mg PO DAILY@2200 [facility] Atorvastatin Calcium (Lipitor -) 80 mg PO HS [facility] Chlorhexidine Gluconate (Hibiclens For Decolonization -) 1 applic TP HS [facility] Last Admin: 11/29/16 22:00 Dose: 1 applic Clopidogrel Bisulfate (Plavix -) 75 mg PO DAILY@2200 [facility] Heparin Sodium (Porcine) (Heparin -) 1,000 unit IVPUSH PRN PRN PRN Reason: Heparin Heparin Sodium (Porcine) (Heparin -) 5,000 unit IVPUSH PRN PRN PRN Reason: Heparin Ceftriaxone Sodium (Rocephin 1gm Ivpb (Pre-Docked)) 50 mls @ 100 mls/hr IVPB DAILY [facility] Last Admin: 11/30/16 09:32 Dose: 100 mls/hr Heparin Sodium/Dextrose (Heparin Infusion -) 500 mls @ 20 mls/hr IVPB TITR [facility] ; 1,000 UNITS/HR PRN Reason: Protocol Last Admin: 11/30/16 00:39 Dose: 20 mls/hr Azithromycin (Zithromax 500mg Ivpb (Pre-Docked)) 250 mls @ 250 mls/hr IVPB DAILY [facility] Last Admin: 11/30/16 12:14 Dose: 250 mls/hr Pantoprazole Sodium (Protonix 40mg Ivpb (Pre-Docked)) 100 mls @ 200 mls/hr IVPB DAILY [facility] Last Admin: 11/30/16 12:14 Dose: 200 mls/hr Methylprednisolone Sodium Succinate (Solu-Medrol -) 60 mg IVPB Q6H-IV [facility] Last Admin: 11/30/16 12:16 Dose: 60 mg Metoprolol Tartrate (Lopressor -) 12.5 mg PO BID [facility] Last Admin: 11/30/16 09:36 Dose: 12.5 mg Mupirocin (Bactroban Ointment (For Decolonization) -) 1 applic NS BID [facility] Stop: 12/04/16 21:59 Last Admin: 11/30/16 09:32 Dose: 1 applic Non-Formulary Medication (Mometasone Furoate [Asmanex Hfa]) 1 puff IH BID [facility] Non-Formulary Medication (Mometasone/Formoterol [Dulera 200 Mcg/5 Mcg Inhaler]) 2 inh IH BID [facility] ASSESSMENT AND PLAN: Acute Hypoxic and Hypercapneic Respiratory Failure Acute COPD Exacerbation Pneumonia Sepsis Acute NSTEMI vs Demand Ischemia Acute Kidney Injury - continue antibiotics - f/u cultures - ASA, plavix - continue anticoagulation - O2 to keep Spo2 >90% - BiPAP to assist in work of breathing - standing medrol - inhaled bronchodilators - trend cardiac enzymes - echocardiogram - will need cardiac work up when stable - DVT/GI prophyalxis - continue ICU monitoring for tenuous respiratory status
--- NOTE | 2016-11-30 13:50 | PN ---
Physical Exam: SUBJECTIVE: Patient seen and examined at bed side. patient less dyspnic on bipap. in no current acute distress sitting comfortably. denies cp, fevers, chills, n/v/d. 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 OBJECTIVE: Vital Signs Period Temp Pulse Resp BP Sys/Rendon Pulse Ox Last 24 Hr 98.4 F-98.9 F 84-138 11-33 105-164/65-128 97-100 GENERAL: The patient is awake, alert, and fully oriented, in no acute distress. on bipap HEAD: Normal with no signs of trauma. EYES: PERRL, extraocular movements intact, sclera anicteric, conjunctiva clear. No ptosis. ENT: Ears normal, nares patent, oropharynx clear without exudates, moist mucous membranes. NECK: Trachea midline, full range of motion, supple. LUNGS: Distent breath sounds, Breath sounds equal, clear to auscultation bilaterally, no wheezes, no crackles, no accessory muscle use. HEART: Regular rate and rhythm, S1, S2 without murmur, rub or gallop. ABDOMEN: Soft, nontender, nondistended, normoactive bowel sounds, no guarding, no rebound, no hepatosplenomegaly, no masses. EXTREMITIES: 2+ pulses, warm, well-perfused, no edema. NEUROLOGICAL: Cranial nerves II through XII grossly intact. Normal speech, gait not observed. PSYCH: Normal mood, normal affect. SKIN: Warm, dry, normal turgor, no rashes or lesions noted Laboratory Results - last 24 hr 11/29/16 11/29/16 11/29/16 19:05 21:30 21:30 WBC RBC Hgb Hct MCV MCHC RDW Plt Count MPV Neutrophils % Lymphocytes % Monocytes % Eosinophils % Basophils % INR PTT (Actin FS) Puncture Site Right radial ABG pH 7.30 L ABG pCO2 at Pt Temp 47.7 H ABG pO2 at Pt Temp 151.0 H* ABG HCO3 22.9 ABG O2 Sat (Measured) 98.9 ABG O2 Content 16.8 ABG Base Excess -3.1 L Luis Eduardo Test Positive Carboxyhemoglobin 0.9 Methemoglobin 1.2 O2 Delivery Device Bipap Oxygen Flow Rate 50% Vent Mode S/t Vent Rate 16 Mechanical Rate PEEP 0.0 Pressure Support Vent 16/5 Sodium Potassium Chloride Carbon Dioxide Anion Gap BUN Creatinine Creat Clearance w eGFR POC Glucometer Random Glucose Lactic Acid 1.217 Calcium Phosphorus 3.3 D Magnesium Total Bilirubin AST ALT Alkaline Phosphatase Creatine Kinase 502 H D Creatine Kinase Index 1.4 CK-MB (CK-2) 6.792 H CK-MB (CK-2) Rel Index Troponin I 2.46 H* D B-Natriuretic Peptide Total Protein Albumin Urine Color Urine Appearance Urine pH Ur Specific [place] Urine Protein Urine Glucose (UA) Urine Ketones Urine Blood Urine Nitrite Urine Bilirubin Urine Urobilinogen Ur Leukocyte Esterase Urine RBC Urine WBC Ur Epithelial Cells Urine Bacteria Urine Mucus Ur Random Sodium Ur Random Potassium Ur Random Chloride Urine Creatinine 11/29/16 11/29/16 11/29/16 21:30 21:30 22:10 WBC RBC Hgb Hct MCV MCHC RDW Plt Count MPV Neutrophils % Lymphocytes % Monocytes % Eosinophils % Basophils % INR PTT (Actin FS) Puncture Site ABG pH ABG pCO2 at Pt Temp ABG pO2 at Pt Temp ABG HCO3 ABG O2 Sat (Measured) ABG O2 Content ABG Base Excess Luis Eduardo Test Carboxyhemoglobin Methemoglobin O2 Delivery Device Oxygen Flow Rate Vent Mode Vent Rate Mechanical Rate PEEP Pressure Support Vent Sodium Potassium Chloride Carbon Dioxide Anion Gap BUN Creatinine Creat Clearance w eGFR POC Glucometer Random Glucose Lactic Acid Calcium Phosphorus Magnesium Total Bilirubin AST ALT Alkaline Phosphatase Creatine Kinase Creatine Kinase Index CK-MB (CK-2) CK-MB (CK-2) Rel Index Cancelled Troponin I B-Natriuretic Peptide 261.92 H Total Protein Albumin Urine Color Urine Appearance Urine pH Ur Specific [place] Urine Protein Urine Glucose (UA) Urine Ketones Urine Blood Urine Nitrite Urine Bilirubin Urine Urobilinogen Ur Leukocyte Esterase Urine RBC Urine WBC Ur Epithelial Cells Urine Bacteria Urine Mucus Ur Random Sodium 88 Ur Random Potassium 19.1 Ur Random Chloride 86 Urine Creatinine 11/29/16 11/29/16 11/29/16 22:10 22:10 22:10 WBC RBC Hgb Hct MCV MCHC RDW Plt Count MPV Neutrophils % Lymphocytes % Monocytes % Eosinophils % Basophils % INR 1.07 PTT (Actin FS) 29.8 Puncture Site ABG pH ABG pCO2 at Pt Temp ABG pO2 at Pt Temp ABG HCO3 ABG O2 Sat (Measured) ABG O2 Content ABG Base Excess Luis Eduardo Test Carboxyhemoglobin Methemoglobin O2 Delivery Device Oxygen Flow Rate Vent Mode Vent Rate Mechanical Rate PEEP Pressure Support Vent Sodium Potassium Chloride Carbon Dioxide Anion Gap BUN Creatinine Creat Clearance w eGFR POC Glucometer Random Glucose Lactic Acid Calcium Phosphorus Magnesium Total Bilirubin AST ALT Alkaline Phosphatase Creatine Kinase Creatine Kinase Index CK-MB (CK-2) CK-MB (CK-2) Rel Index Troponin I B-Natriuretic Peptide Total Protein Albumin Urine Color Straw Urine Appearance Clear Urine pH 5.0 Ur Specific [place] 1.011 Urine Protein 1+ H Urine Glucose (UA) Negative Urine Ketones Negative Urine Blood 2+ H Urine Nitrite Negative Urine Bilirubin Negative Urine Urobilinogen Negative Ur Leukocyte Esterase Negative Urine RBC 4 Urine WBC <1 Ur Epithelial Cells Rare Urine Bacteria Rare Urine Mucus Rare Ur Random Sodium Ur Random Potassium Ur Random Chloride Urine Creatinine 50.3 11/30/16 11/30/16 11/30/16 02:45 02:45 05:20 WBC 9.6 D RBC 4.03 Hgb 11.9 Hct 35.8 MCV 88.9 MCHC 33.3 RDW 14.0 Plt Count 238 MPV 9.2 Neutrophils % 94.6 H D Lymphocytes % 3.4 L D Monocytes % 2.0 L Eosinophils % 0.0 D Basophils % 0.0 INR PTT (Actin FS) Puncture Site ABG pH ABG pCO2 at Pt Temp ABG pO2 at Pt Temp ABG HCO3 ABG O2 Sat (Measured) ABG O2 Content ABG Base Excess Luis Eduardo Test Carboxyhemoglobin Methemoglobin O2 Delivery Device Oxygen Flow Rate Vent Mode Vent Rate Mechanical Rate PEEP Pressure Support Vent Sodium Potassium Chloride Carbon Dioxide Anion Gap BUN Creatinine Creat Clearance w eGFR POC Glucometer Random Glucose Lactic Acid Calcium Phosphorus Magnesium Total Bilirubin AST ALT Alkaline Phosphatase Creatine Kinase 653 H D Creatine Kinase Index 1.3 CK-MB (CK-2) 8.443 H CK-MB (CK-2) Rel Index Cancelled Troponin I 3.08 H* B-Natriuretic Peptide Total Protein Albumin Urine Color Urine Appearance Urine pH Ur Specific [place] Urine Protein Urine Glucose (UA) Urine Ketones Urine Blood Urine Nitrite Urine Bilirubin Urine Urobilinogen Ur Leukocyte Esterase Urine RBC Urine WBC Ur Epithelial Cells Urine Bacteria Urine Mucus Ur Random Sodium Ur Random Potassium Ur Random Chloride Urine Creatinine 11/30/16 11/30/16 11/30/16 05:20 05:28 06:00 WBC RBC Hgb Hct MCV MCHC RDW Plt Count MPV Neutrophils % Lymphocytes % Monocytes % Eosinophils % Basophils % INR PTT (Actin FS) 57.7 H D Puncture Site ABG pH ABG pCO2 at Pt Temp ABG pO2 at Pt Temp ABG HCO3 ABG O2 Sat (Measured) ABG O2 Content ABG Base Excess Luis Eduardo Test Carboxyhemoglobin Methemoglobin O2 Delivery Device Oxygen Flow Rate Vent Mode Vent Rate Mechanical Rate PEEP Pressure Support Vent Sodium 138 Potassium 4.8 Chloride 101 Carbon Dioxide 23 Anion Gap 14 BUN 33 H Creatinine 1.9 H Creat Clearance w eGFR 36.34 POC Glucometer 108.53358 Random Glucose 174 H Lactic Acid Calcium 8.5 Phosphorus 6.2 H D Magnesium 2.6 H Total Bilirubin 0.6 D AST 52 H ALT 57 Alkaline Phosphatase 125 H Creatine Kinase 758 H Creatine Kinase Index CK-MB (CK-2) CK-MB (CK-2) Rel Index Troponin I 2.81 H* B-Natriuretic Peptide 6095.60 H Total Protein 6.5 Albumin 3.5 Urine Color Urine Appearance Urine pH Ur Specific [place] Urine Protein Urine Glucose (UA) Urine Ketones Urine Blood Urine Nitrite Urine Bilirubin Urine Urobilinogen Ur Leukocyte Esterase Urine RBC Urine WBC Ur Epithelial Cells Urine Bacteria Urine Mucus Ur Random Sodium Ur Random Potassium Ur Random Chloride Urine Creatinine 11/30/16 11/30/16 06:16 09:00 WBC RBC Hgb Hct MCV MCHC RDW Plt Count MPV Neutrophils % Lymphocytes % Monocytes % Eosinophils % Basophils % INR PTT (Actin FS) Puncture Site Right radial Left radial ABG pH 7.15 L* D 7.34 L D ABG pCO2 at Pt Temp 53.8 H 42.4 D ABG pO2 at Pt Temp 199.0 H* 79.8 L D ABG HCO3 18.0 L 22.1 ABG O2 Sat (Measured) 98.8 95.5 ABG O2 Content 18.0 16.2 ABG Base Excess -10.8 L* -3.0 L Luis Eduardo Test Positive Positive Carboxyhemoglobin Methemoglobin O2 Delivery Device Bipap Bipap Oxygen Flow Rate 50% 45% Vent Mode S/t S/t Vent Rate 16 16 Mechanical Rate Bipap PEEP 0.0 0.0 Pressure Support Vent 16/5 16/5 Sodium Potassium Chloride Carbon Dioxide Anion Gap BUN Creatinine Creat Clearance w eGFR POC Glucometer Random Glucose Lactic Acid Calcium Phosphorus Magnesium Total Bilirubin AST ALT Alkaline Phosphatase Creatine Kinase Creatine Kinase Index CK-MB (CK-2) CK-MB (CK-2) Rel Index Troponin I B-Natriuretic Peptide Total Protein Albumin Urine Color Urine Appearance Urine pH Ur Specific [place] Urine Protein Urine Glucose (UA) Urine Ketones Urine Blood Urine Nitrite Urine Bilirubin Urine Urobilinogen Ur Leukocyte Esterase Urine RBC Urine WBC Ur Epithelial Cells Urine Bacteria Urine Mucus Ur Random Sodium Ur Random Potassium Ur Random Chloride Urine Creatinine Active Medications Generic Name Dose Route Start Last Admin Trade Name Freq PRN Reason Stop Dose Admin Acetaminophen 650 mg 11/29/16 18:06 Tylenol - PO Q4H PRN FEVER OR PAIN Albuterol Sulfate 1 amp 11/30/16 11:31 Ventolin 0.083% Nebulizer Soln - NEB Q4H PRN SHORT OF BREATH/WHEEZING Albuterol/Ipratropium 1 amp 11/30/16 12:00 11/30/16 12:08 Duoneb - NEB 1 amp QIDR [facility] Administration Aspirin 81 mg 11/30/16 22:00 Asa - PO DAILY@2200 [facility] Atorvastatin Calcium 80 mg 11/30/16 22:00 Lipitor - PO [facility] Chlorhexidine Gluconate 1 applic 11/29/16 22:00 11/29/16 22:00 Hibiclens For Decolonization - TP 1 applic HS [facility] Administration Clopidogrel Bisulfate 75 mg 11/30/16 22:00 Plavix - PO DAILY@2200 [facility] Heparin Sodium (Porcine) 1,000 unit 11/30/16 00:20 Heparin - IVPUSH PRN PRN Heparin Heparin Sodium (Porcine) 5,000 unit 11/30/16 00:20 Heparin - IVPUSH PRN PRN Heparin Ceftriaxone Sodium 50 mls @ 100 mls/hr 11/30/16 10:00 11/30/16 09:32 Rocephin 1gm Ivpb (Pre-Docked) IVPB 100 mls/hr DAILY [facility] Administration Heparin Sodium/Dextrose 500 mls @ 20 mls/hr 11/30/16 00:30 11/30/16 00:39 Heparin Infusion - IVPB 20 mls/hr TITR [facility] Administration Protocol 1,000 UNITS/HR Azithromycin 250 mls @ 250 mls/hr 11/30/16 12:00 11/30/16 12:14 Zithromax 500mg Ivpb (Pre-Docked) IVPB 250 mls/hr DAILY [facility] Administration Pantoprazole Sodium 100 mls @ 200 mls/hr 11/30/16 12:00 11/30/16 12:14 Protonix 40mg Ivpb (Pre-Docked) IVPB 200 mls/hr DAILY [facility] Administration Methylprednisolone Sodium Succinate 60 mg 11/30/16 12:00 11/30/16 12:16 Solu-Medrol - IVPB 60 mg Q6H-IV [facility] Administration Metoprolol Tartrate 12.5 mg 11/30/16 10:00 11/30/16 09:36 Lopressor - PO 12.5 mg BID [facility] Administration Mupirocin 1 applic 11/29/16 22:00 11/30/16 09:32 Bactroban Ointment (For Decolonization) - NS 12/04/16 21:59 1 applic BID [facility] Administration Non-Formulary Medication 1 puff 11/29/16 22:00 Mometasone Furoate [Asmanex Hfa] IH BID [facility] Non-Formulary Medication 2 inh 11/29/16 22:00 Mometasone/Formoterol [Dulera 200 Mcg/5 Mcg Inhaler] IH BID [facility] ASSESSMENT/PLAN: Pt is a 61yr old man with PMHx including emphysema and HTN. Pt now in the ICU for management of COPD exacerbation in setting of likely community acquired pneumonia. Pulm: Acute COPD Exacerbation with Acute Hypoxic and Hypercapneic Respiratory Failure possibly exacerbated by pneumonia -r/o PE will differ Ct in light of STEFAN. -BiPAP to assist in work of breathing -O2 to keep Spo2 >90% -Nebulizers standing (home) and prn -f/u repeat abg and chest xray in a.m -Started on IV Solu-Medrol 60mg TID, taper as able -continue ceftriaxone and start azithromycin. -Inhaled bronchodilators -ABG in am ID: Sepsis secondary to Pneumonia leukocytosis -f/u cultures -Dr. Edwards consulted -continue ceftriaxone and start azithromycinl -f/u lactic acid Renal: STEFAN (Cr 1.4 --2.0) -f/u bnp/urine creatinine/electrolytes -Monitor -Chest xray not concerning for fluid overload and pt without edema -f/u UA -IVF as tolerated -Replete electrolytes prn Cardiac: Acute NSTEMI vs Demand Ischemia, elevated troponins (nonstemi vs pe) trending up 3.41 at 12:00. no current chest pain. -ASA, plavix, heprin per [place] protocol -continue anticoagulation -trend cardiac enzymes -echocardiogram -will need cardiac work up when stable -BP Control -f/u enzymes -ekg prn Neuro -Pain management Prophylactic -DVT/GI -Protonix -regular diet as tolerated dispo: continue ICU monitoring Visit type - Emergency Visit Emergency Visit: Yes ED Registration Date: 11/29/16 Care time: The patient presented to the Emergency Department on the above date and was hospitalized for further evaluation of their emergent condition. - New Patient This patient is new to me today: Yes Date on this admission: 11/29/16 - Critical Care Critical Care patient: Yes Total Critical Care Time (in minutes): 46 Critical Care Statement: The care of this patient involved high complexity decision making to prevent further life threatening deterioration of the patient 's condition and/or to evalute & treat vital organ system(s) failure or risk of failure.
--- NOTE | 2016-11-30 17:11 | CONSULT ---
Consult Consult Specialty:: infectious disease Reason for Consultation:: pneumonia - History of Present Illness Chief Complaint: sob History of Present Illness: 61 year old male presented to with worsening SOB that has been developing over the last 4 weeks causing extreme diff in breathing today. He has a significant hx of COPD with a past intubation due to an exacerbation. During his EMS transport he received decadron, 3 duonebs and started on BiPap. In the ER the pt also received terbutaline, MagSulfate and moved on to ER BiPap. Initially his presentation was towards intubation however, once pt on BiPap for an hour, his much improved. the above was the admission history taken from the charts and the transfer. Patient was close to intubation but settled down patient currently on ventimask and breathing much better patient has been sick on and off He has a very poor exercise tolerance and gets sob on short distances.his use of prednisone has been increasing patient has been avid smoker and stopped smoking since aug of this year - History Source History Provided By: Patient, Family Member Limitations to Obtaining History: No Limitations - Past Medical History Cardio/Vascular: Yes: HTN Pulmonary: Yes: Asthma - Past Surgical History Past Surgical History: Yes: None - Alcohol/Substance Use Hx Alcohol Use: No History of Substance Use: reports: None - Smoking History Smoking history: Former smoker Have you smoked in the past 12 months: Yes Aproximately how many cigarettes per day: 10 If you are a former smoker, when did you quit?: 08/2016 - Social History ADL: Independent History of Recent Travel: No Home Medications - Allergies Allergies/Adverse Reactions: Allergies Allergy/AdvReac Type Severity Reaction Status Date / Time No Known Allergies Allergy Verified 11/29/16 15:42 - Home Medications Home Medications: Ambulatory Orders Albuterol Sulfate [Ventolin -] 2 mg PO PRN 08/10/16 Lisinopril [Prinivil] 10 mg PO DAILY 08/10/16 Simvastatin [Zocor -] 40 mg PO HS 08/10/16 Tiotropium Vardaman [Spiriva] 1 inh PO DAILY 08/10/16 Mometasone Furoate [Asmanex Hfa] 1 puff IH BID 11/29/16 Mometasone/Formoterol [Dulera 200 Mcg/5 Mcg Inhaler] 2 inh IH BID 11/29/16 Review of Systems - Review of Systems Constitutional: reports: Fever Eyes: reports: No Symptoms HENT: reports: No Symptoms Neck: reports: No Symptoms Cardiovascular: reports: No Symptoms Respiratory: reports: SOB, SOB on Exertion, Other Gastrointestinal: reports: No Symptoms Musculoskeletal: reports: No Symptoms Integumentary: reports: No Symptoms Neurological: reports: No Symptoms Endocrine: reports: No Symptoms Hematology/Lymphatic: reports: No Symptoms Physical Exam Vital Signs: Vital Signs Temperature 98.8 F 11/30/16 12:56 Pulse Rate 105 H 11/30/16 12:56 Respiratory Rate 24 11/30/16 12:56 Blood Pressure 128/91 11/30/16 12:56 O2 Sat by Pulse Oximetry (%) 98 11/30/16 16:53 Constitutional: Yes: Calm, Mild Distress Eyes: Yes: Conjunctiva Clear HENT: Yes: Atraumatic, Normocephalic Neck: Yes: Supple Cardiovascular: Yes: Regular Rate and Rhythm Respiratory: Yes: Regular, Other (distant resp sounds barrell chest) Gastrointestinal: Yes: Normal Bowel Sounds, Soft Musculoskeletal: Yes: WNL Extremities: Yes: WNL Neurological: Yes: Alert, Oriented Psychiatric: Yes: Alert, Oriented Labs: CBC, BMP 11/30/16 05:20 11/30/16 05:20 Imaging - Results Chest X-ray: Report Reviewed, Image Reviewed Assessment/Plan Acute Hypoxic and Hypercapneic Respiratory Failure COPD Exacerbation Pneumonia Sepsis Acute Kidney Injury plan continue current line of abx monitor for fevers watch wbc if patient spikes fever will escalate abx patient still requiring venti mask incentive elis await for cx report cc time 45 min
--- NOTE | 2016-11-30 18:05 | PN ---
Physical Exam: SUBJECTIVE: Patient seen and examined in the ICU. States he is tolerating BIPAP. OBJECTIVE: On bipap, appears stable Troponins rising On a Heparin drip Vital Signs Period Temp Pulse Resp BP Sys/Rendon Pulse Ox Last 24 Hr 98.4 F-98.9 F 84-138 11-33 105-164/65-128 97-100 GENERAL: The patient is awake, alert, and fully oriented, in no acute distress. on bipap therapy, tolerating HEAD: Normal with no signs of trauma. EYES: PERRL, extraocular movements intact, sclera anicteric, conjunctiva clear. No ptosis. ENT: Ears normal, nares patent, oropharynx clear without exudates, moist mucous membranes. NECK: Trachea midline, full range of motion, supple. LUNGS: Breath sounds equal, clear to auscultation bilaterally, no wheezes, no crackles, no accessory muscle use. HEART: Regular rate and rhythm, S1, S2 without murmur, rub or gallop. ABDOMEN: Soft, nontender, nondistended, normoactive bowel sounds, no guarding, no rebound, no hepatosplenomegaly, no masses. EXTREMITIES: 2+ pulses, warm, well-perfused, no edema. NEUROLOGICAL: Normal speech, gait not observed. PSYCH: Normal mood, normal affect. SKIN: Warm, dry, normal turgor, no rashes or lesions noted Laboratory Results - last 24 hr 11/29/16 11/29/16 11/29/16 19:05 21:30 21:30 WBC RBC Hgb Hct MCV MCHC RDW Plt Count MPV Neutrophils % Lymphocytes % Monocytes % Eosinophils % Basophils % INR PTT (Actin FS) Puncture Site Right radial ABG pH 7.30 L ABG pCO2 at Pt Temp 47.7 H ABG pO2 at Pt Temp 151.0 H* ABG HCO3 22.9 ABG O2 Sat (Measured) 98.9 ABG O2 Content 16.8 ABG Base Excess -3.1 L Luis Eduardo Test Positive Carboxyhemoglobin 0.9 Methemoglobin 1.2 O2 Delivery Device Bipap Oxygen Flow Rate 50% Vent Mode S/t Vent Rate 16 Mechanical Rate PEEP 0.0 Pressure Support Vent 16/5 Sodium Potassium Chloride Carbon Dioxide Anion Gap BUN Creatinine Creat Clearance w eGFR POC Glucometer Random Glucose Lactic Acid 1.217 Calcium Phosphorus 3.3 D Magnesium Total Bilirubin AST ALT Alkaline Phosphatase Creatine Kinase 502 H D Creatine Kinase Index 1.4 CK-MB (CK-2) 6.792 H CK-MB (CK-2) Rel Index Troponin I 2.46 H* D B-Natriuretic Peptide Total Protein Albumin Urine Color Urine Appearance Urine pH Ur Specific [place] Urine Protein Urine Glucose (UA) Urine Ketones Urine Blood Urine Nitrite Urine Bilirubin Urine Urobilinogen Ur Leukocyte Esterase Urine RBC Urine WBC Ur Epithelial Cells Urine Bacteria Urine Mucus Ur Random Sodium Ur Random Potassium Ur Random Chloride Urine Creatinine 11/29/16 11/29/16 11/29/16 21:30 21:30 22:10 WBC RBC Hgb Hct MCV MCHC RDW Plt Count MPV Neutrophils % Lymphocytes % Monocytes % Eosinophils % Basophils % INR PTT (Actin FS) Puncture Site ABG pH ABG pCO2 at Pt Temp ABG pO2 at Pt Temp ABG HCO3 ABG O2 Sat (Measured) ABG O2 Content ABG Base Excess Luis Eduardo Test Carboxyhemoglobin Methemoglobin O2 Delivery Device Oxygen Flow Rate Vent Mode Vent Rate Mechanical Rate PEEP Pressure Support Vent Sodium Potassium Chloride Carbon Dioxide Anion Gap BUN Creatinine Creat Clearance w eGFR POC Glucometer Random Glucose Lactic Acid Calcium Phosphorus Magnesium Total Bilirubin AST ALT Alkaline Phosphatase Creatine Kinase Creatine Kinase Index CK-MB (CK-2) CK-MB (CK-2) Rel Index Cancelled Troponin I B-Natriuretic Peptide 261.92 H Total Protein Albumin Urine Color Urine Appearance Urine pH Ur Specific [place] Urine Protein Urine Glucose (UA) Urine Ketones Urine Blood Urine Nitrite Urine Bilirubin Urine Urobilinogen Ur Leukocyte Esterase Urine RBC Urine WBC Ur Epithelial Cells Urine Bacteria Urine Mucus Ur Random Sodium 88 Ur Random Potassium 19.1 Ur Random Chloride 86 Urine Creatinine 11/29/16 11/29/16 11/29/16 22:10 22:10 22:10 WBC RBC Hgb Hct MCV MCHC RDW Plt Count MPV Neutrophils % Lymphocytes % Monocytes % Eosinophils % Basophils % INR 1.07 PTT (Actin FS) 29.8 Puncture Site ABG pH ABG pCO2 at Pt Temp ABG pO2 at Pt Temp ABG HCO3 ABG O2 Sat (Measured) ABG O2 Content ABG Base Excess Luis Eduardo Test Carboxyhemoglobin Methemoglobin O2 Delivery Device Oxygen Flow Rate Vent Mode Vent Rate Mechanical Rate PEEP Pressure Support Vent Sodium Potassium Chloride Carbon Dioxide Anion Gap BUN Creatinine Creat Clearance w eGFR POC Glucometer Random Glucose Lactic Acid Calcium Phosphorus Magnesium Total Bilirubin AST ALT Alkaline Phosphatase Creatine Kinase Creatine Kinase Index CK-MB (CK-2) CK-MB (CK-2) Rel Index Troponin I B-Natriuretic Peptide Total Protein Albumin Urine Color Straw Urine Appearance Clear Urine pH 5.0 Ur Specific [place] 1.011 Urine Protein 1+ H Urine Glucose (UA) Negative Urine Ketones Negative Urine Blood 2+ H Urine Nitrite Negative Urine Bilirubin Negative Urine Urobilinogen Negative Ur Leukocyte Esterase Negative Urine RBC 4 Urine WBC <1 Ur Epithelial Cells Rare Urine Bacteria Rare Urine Mucus Rare Ur Random Sodium Ur Random Potassium Ur Random Chloride Urine Creatinine 50.3 11/30/16 11/30/16 11/30/16 02:45 02:45 05:20 WBC 9.6 D RBC 4.03 Hgb 11.9 Hct 35.8 MCV 88.9 MCHC 33.3 RDW 14.0 Plt Count 238 MPV 9.2 Neutrophils % 94.6 H D Lymphocytes % 3.4 L D Monocytes % 2.0 L Eosinophils % 0.0 D Basophils % 0.0 INR PTT (Actin FS) Puncture Site ABG pH ABG pCO2 at Pt Temp ABG pO2 at Pt Temp ABG HCO3 ABG O2 Sat (Measured) ABG O2 Content ABG Base Excess Luis Eduardo Test Carboxyhemoglobin Methemoglobin O2 Delivery Device Oxygen Flow Rate Vent Mode Vent Rate Mechanical Rate PEEP Pressure Support Vent Sodium Potassium Chloride Carbon Dioxide Anion Gap BUN Creatinine Creat Clearance w eGFR POC Glucometer Random Glucose Lactic Acid Calcium Phosphorus Magnesium Total Bilirubin AST ALT Alkaline Phosphatase Creatine Kinase 653 H D Creatine Kinase Index 1.3 CK-MB (CK-2) 8.443 H CK-MB (CK-2) Rel Index Cancelled Troponin I 3.08 H* B-Natriuretic Peptide Total Protein Albumin Urine Color Urine Appearance Urine pH Ur Specific [place] Urine Protein Urine Glucose (UA) Urine Ketones Urine Blood Urine Nitrite Urine Bilirubin Urine Urobilinogen Ur Leukocyte Esterase Urine RBC Urine WBC Ur Epithelial Cells Urine Bacteria Urine Mucus Ur Random Sodium Ur Random Potassium Ur Random Chloride Urine Creatinine 11/30/16 11/30/16 11/30/16 05:20 05:28 06:00 WBC RBC Hgb Hct MCV MCHC RDW Plt Count MPV Neutrophils % Lymphocytes % Monocytes % Eosinophils % Basophils % INR PTT (Actin FS) 57.7 H D Puncture Site ABG pH ABG pCO2 at Pt Temp ABG pO2 at Pt Temp ABG HCO3 ABG O2 Sat (Measured) ABG O2 Content ABG Base Excess Luis Eduardo Test Carboxyhemoglobin Methemoglobin O2 Delivery Device Oxygen Flow Rate Vent Mode Vent Rate Mechanical Rate PEEP Pressure Support Vent Sodium 138 Potassium 4.8 Chloride 101 Carbon Dioxide 23 Anion Gap 14 BUN 33 H Creatinine 1.9 H Creat Clearance w eGFR 36.34 POC Glucometer [phone] Random Glucose 174 H Lactic Acid Calcium 8.5 Phosphorus 6.2 H D Magnesium 2.6 H Total Bilirubin 0.6 D AST 52 H ALT 57 Alkaline Phosphatase 125 H Creatine Kinase 758 H Creatine Kinase Index CK-MB (CK-2) CK-MB (CK-2) Rel Index Troponin I 2.81 H* B-Natriuretic Peptide 6095.60 H Total Protein 6.5 Albumin 3.5 Urine Color Urine Appearance Urine pH Ur Specific [place] Urine Protein Urine Glucose (UA) Urine Ketones Urine Blood Urine Nitrite Urine Bilirubin Urine Urobilinogen Ur Leukocyte Esterase Urine RBC Urine WBC Ur Epithelial Cells Urine Bacteria Urine Mucus Ur Random Sodium Ur Random Potassium Ur Random Chloride Urine Creatinine 11/30/16 11/30/16 11/30/16 06:16 09:00 12:10 WBC RBC Hgb Hct MCV MCHC RDW Plt Count MPV Neutrophils % Lymphocytes % Monocytes % Eosinophils % Basophils % INR PTT (Actin FS) Puncture Site Right radial Left radial ABG pH 7.15 L* D 7.34 L D ABG pCO2 at Pt Temp 53.8 H 42.4 D ABG pO2 at Pt Temp 199.0 H* 79.8 L D ABG HCO3 18.0 L 22.1 ABG O2 Sat (Measured) 98.8 95.5 ABG O2 Content 18.0 16.2 ABG Base Excess -10.8 L* -3.0 L Luis Eduardo Test Positive Positive Carboxyhemoglobin Methemoglobin O2 Delivery Device Bipap Bipap Oxygen Flow Rate 50% 45% Vent Mode S/t S/t Vent Rate 16 16 Mechanical Rate Bipap PEEP 0.0 0.0 Pressure Support Vent 16/5 16/5 Sodium Potassium Chloride Carbon Dioxide Anion Gap BUN Creatinine Creat Clearance w eGFR POC Glucometer Random Glucose Lactic Acid Calcium Phosphorus Magnesium Total Bilirubin AST ALT Alkaline Phosphatase Creatine Kinase Creatine Kinase Index CK-MB (CK-2) CK-MB (CK-2) Rel Index Troponin I 3.41 H* B-Natriuretic Peptide Total Protein Albumin Urine Color Urine Appearance Urine pH Ur Specific [place] Urine Protein Urine Glucose (UA) Urine Ketones Urine Blood Urine Nitrite Urine Bilirubin Urine Urobilinogen Ur Leukocyte Esterase Urine RBC Urine WBC Ur Epithelial Cells Urine Bacteria Urine Mucus Ur Random Sodium Ur Random Potassium Ur Random Chloride Urine Creatinine 11/30/16 15:59 WBC RBC Hgb Hct MCV MCHC RDW Plt Count MPV Neutrophils % Lymphocytes % Monocytes % Eosinophils % Basophils % INR PTT (Actin FS) Puncture Site ABG pH ABG pCO2 at Pt Temp ABG pO2 at Pt Temp ABG HCO3 ABG O2 Sat (Measured) ABG O2 Content ABG Base Excess Luis Eduardo Test Carboxyhemoglobin Methemoglobin O2 Delivery Device Oxygen Flow Rate Vent Mode Vent Rate Mechanical Rate PEEP Pressure Support Vent Sodium Potassium Chloride Carbon Dioxide Anion Gap BUN Creatinine Creat Clearance w eGFR POC Glucometer [phone] Random Glucose Lactic Acid Calcium Phosphorus Magnesium Total Bilirubin AST ALT Alkaline Phosphatase Creatine Kinase Creatine Kinase Index CK-MB (CK-2) CK-MB (CK-2) Rel Index Troponin I B-Natriuretic Peptide Total Protein Albumin Urine Color Urine Appearance Urine pH Ur Specific [place] Urine Protein Urine Glucose (UA) Urine Ketones Urine Blood Urine Nitrite Urine Bilirubin Urine Urobilinogen Ur Leukocyte Esterase Urine RBC Urine WBC Ur Epithelial Cells Urine Bacteria Urine Mucus Ur Random Sodium Ur Random Potassium Ur Random Chloride Urine Creatinine Active Medications Generic Name Dose Route Start Last Admin Trade Name Freq PRN Reason Stop Dose Admin Acetaminophen 650 mg 11/29/16 18:06 Tylenol - PO Q4H PRN FEVER OR PAIN Albuterol Sulfate 1 amp 11/30/16 11:31 Ventolin 0.083% Nebulizer Soln - NEB Q4H PRN SHORT OF BREATH/WHEEZING Albuterol/Ipratropium 1 amp 11/30/16 12:00 11/30/16 17:08 Duoneb - NEB 1 amp QIDR [facility] Administration Aspirin 81 mg 11/30/16 22:00 Asa - PO DAILY@2200 [facility] Atorvastatin Calcium 80 mg 11/30/16 22:00 Lipitor - PO HS [facility] Chlorhexidine Gluconate 1 applic 11/29/16 22:00 11/29/16 22:00 Hibiclens For Decolonization - TP 1 applic HS [facility] Administration Clopidogrel Bisulfate 75 mg 11/30/16 22:00 Plavix - PO DAILY@2200 [facility] Heparin Sodium (Porcine) 1,000 unit 11/30/16 00:20 Heparin - IVPUSH PRN PRN Heparin Heparin Sodium (Porcine) 5,000 unit 11/30/16 00:20 Heparin - IVPUSH PRN PRN Heparin Ceftriaxone Sodium 50 mls @ 100 mls/hr 11/30/16 10:00 11/30/16 09:32 Rocephin 1gm Ivpb (Pre-Docked) IVPB 100 mls/hr DAILY EFRAÍN Administration Heparin Sodium/Dextrose 500 mls @ 20 mls/hr 11/30/16 00:30 11/30/16 00:39 Heparin Infusion - IVPB 20 mls/hr TITR EFRAÍN Administration Protocol 1,000 UNITS/HR Azithromycin 250 mls @ 250 mls/hr 11/30/16 12:00 11/30/16 12:14 Zithromax 500mg Ivpb (Pre-Docked) IVPB 250 mls/hr DAILY EFRAÍN Administration Pantoprazole Sodium 100 mls @ 200 mls/hr 11/30/16 12:00 11/30/16 12:14 Protonix 40mg Ivpb (Pre-Docked) IVPB 200 mls/hr DAILY EFRAÍN Administration Methylprednisolone Sodium Succinate 60 mg 11/30/16 12:00 11/30/16 16:15 Solu-Medrol - IVPB 60 mg Q6H-IV EFRAÍN Administration Metoprolol Tartrate 12.5 mg 11/30/16 10:00 11/30/16 09:36 Lopressor - PO 12.5 mg BID EFRAÍN Administration Mupirocin 1 applic 11/29/16 22:00 11/30/16 09:32 Bactroban Ointment (For Decolonization) - NS 12/04/16 21:59 1 applic BID EFRAÍN Administration Non-Formulary Medication 1 puff 11/29/16 22:00 Mometasone Furoate [Asmanex Hfa] IH BID [facility] Non-Formulary Medication 2 inh 11/29/16 22:00 Mometasone/Formoterol [Dulera 200 Mcg/5 Mcg Inhaler] IH BID [facility] ASSESSMENT/PLAN: Patient is a 61 yr old male with a past medical history of emphysema and HTN. Patient was admitted to the ICU for acute COPD exacerbation in the setting of community acquired pneumonia. He is not home oxygen dependent. [id number]/[id number] Chest Xray - No new congestive changes since prior study 11/29/2016 Renal ultrasound - bilateral renal cysts Pulmonary: Acute COPD Exacerbation with acute hypoxia, likely exacerbated by pneumonia requiring BIPAP Assessment/Plan: On Bipap to assist the work of breathing, oxygen levels stable , goal is >90% Has nebulizer treatments prn On Solumedrol taper, On Antibiotics of Ceftriaxone and Azithromycin Monitor respiratory status Repeat ABG and chest xray in a.m ID: Sepsis: Met SIRS criteria on admission Assessment/Plan: Sepsis likely secondary to to Pneumonia Leukocytosis, tachycardia, fevers on admission On Ceftriaxone, Azithromycin per ID Blood and Urine cultures negative Lactic acid remained normal ID following : Acute Kidney Injury in the setting of sepsis - improving Assessment/Plan: Follow up on BUN/Creatinine Continue IVF Cardiology: Elevated Troponins - NSTEMI vs Demand Ischemia, elevated troponins Denies chest pain On ASA, Plavix, Heparin Drip Monitor cardiac enzymes Echo, once stable, will need further cardiac workup F.E.N. Fluids: On heparin drip Electrolytes: monitor Nutrition: as tolerated Disposition: continue ICU monitoring Visit type - Emergency Visit Emergency Visit: Yes ED Registration Date: 11/29/16 Care time: The patient presented to the Emergency Department on the above date and was hospitalized for further evaluation of their emergent condition. - New Patient This patient is new to me today: Yes Date on this admission: 12/01/16 - Critical Care Critical Care patient: Yes Total Critical Care Time (in minutes): 45 Critical Care Statement: The care of this patient involved high complexity decision making to prevent further life threatening deterioration of the patient 's condition and/or to evalute & treat vital organ system(s) failure or risk of failure. - Discharge Referral Referred to [facility] Med P.C.: No
[2016-11-30] MEDS ORDERED: ALPRAZolam 0.25 MG TABLET PO ONE (21:30)
[2016-11-30] MEDS: ASPIRIN 81 MG CHEWABLE TABLETS PO SCH (21:48)
[2016-11-30] MEDS: ATORVASTATIN CA 80 MG TABLET (FP) PO SCH (21:49)
[2016-11-30] MEDS: CHLORHEXIDINE GLUCONATE 4% CLEANSER FOR DECOLONIZATION TP SCH (21:49)
[2016-11-30] MEDS: CLOPIDOGREL BISULFATE 75 MG TABLET (FP) PO SCH (21:49)
[2016-12-01] MEDS: methylPREDNISolone NA SUCC 125 MG/2 ML VIAL IVPB SCH ×4 (02:48→20:29)
[2016-12-01] MEDS: HEPARIN INFUSION - 500 ML IVPB SCH ×2 (02:48→22:00)
[2016-12-01] MEDS ORDERED: morphine CARPU-JECT 2 MG/1 ML DISP.SYRIN ONE (04:55)
[2016-12-01] MEDS: ALBUTEROL SO4 2.5/IPRATROPIUM 0.5 INH SOL 3 ML VIAL.NEB. NEB SCH ×3 (05:22→18:11)
[2016-12-01 06:19] LABS: BASOPHIL 0.2 % (0-2.0); MCH 29.2 pg (25.7-33.7); MCHC 33.4 g/dl (32.0-35.9); MEAN CELL VOLUME 87.5 fl (80-96); MEAN PLT VOLUME 9.2 fl (7.5-11.1); NEUTROPHILS 92.8 % (42.8-82.8); PLATELET COUNT 252 K/MM3 (134-434); RDW 13.9 % (11.9-15.9); WHITE BLOOD COUNT 16.2 K/mm3 (4.0-10.0)
[2016-12-01 06:56] LABS: ALBUMIN 3.6 g/dl (3.4-5.0); MAGNESIUM 2.7 mg/dL (1.8-2.4)
[2016-12-01 07:00] LABS: BILIRUBIN,TOTAL 0.4 mg/dL (0.2-1.0); CREATININE 1.8 mg/dL (0.7-1.3); PHOSPHOROUS 5.6 mg/dL (2.5-4.9); TOT PROT 6.7 g/dl (6.4-8.2)
[2016-12-01] MEDS ORDERED: morphine CARPU-JECT 2 MG/1 ML DISP.SYRIN IVPUSH ONE (07:00)
[2016-12-01 07:20] LABS: TROPONIN I 1.12 ng/ml (0.00-0.05)
[2016-12-01 07:33] LABS: ARTERIAL BLD GAS O2 SATURATION 98.1 % (90-98.9); ARTERIAL BLOOD GAS BASE EXCESS -0.1 meq/l (-2-2); ARTERIAL BLOOD GAS HCO3 25.1 meq/L (22-26); ARTERIAL BLOOD GAS pH 7.36 (7.35-7.45)
[2016-12-01 07:34] LABS: ALLENS TEST POSITIVE; ART PUNCT SITE RIGHT RADIAL; LPM/O2% 50%; PT. ON O2? yes
--- NOTE | 2016-12-01 07:41 | PN ---
Physical Exam: SUBJECTIVE: Patient seen and examined at a bed side. patient had an episode of anxiety last night on bipap with history of anxiety. denies cp, fevrs, chills, N/V/D. last BM 6 days ago, normally he has one to two BM a week. desaturated on RA, saturating well on bipap and venti mask. Trial on NC today. duplex legs today. toponin trending down OBJECTIVE: Vital Signs Period Temp Pulse Resp BP Sys/Rendon Pulse Ox Last 24 Hr 98.2 F-98.9 F 71-130 11- 122-151/68-91 94-100 GENERAL: The patient is awake, alert, and fully oriented, in no acute distress. on NC sitting comfortably. HEAD: Normal with no signs of trauma. EYES: PERRL, extraocular movements intact, sclera anicteric, conjunctiva clear. No ptosis. ENT: Ears normal, nares patent, oropharynx clear without exudates, moist mucous membranes. NECK: Trachea midline, full range of motion, supple. LUNGS: increased air entry, in breath sounds from yesterday, expiratory wheezing , no crackles, no accessory muscle use on NC. HEART: Regular rate and rhythm, S1, S2 without murmur, rub or gallop. ABDOMEN: Soft, nontender, mild distended, normoactive bowel sounds, no guarding , no rebound, no hepatosplenomegaly, no masses. EXTREMITIES: 2+ pulses, warm, well-perfused, no edema. NEUROLOGICAL: Normal speech, gait not observed. no focal neurological def PSYCH: Normal mood, normal affect. SKIN: Warm, dry, normal turgor, no rashes or lesions noted Laboratory Results - last 24 hr 11/30/16 11/30/16 11/30/16 02:45 02:45 05:20 WBC RBC Hgb Hct MCV MCHC RDW Plt Count MPV Neutrophils % Lymphocytes % Monocytes % Eosinophils % Basophils % PTT (Actin FS) Puncture Site ABG pH ABG pCO2 at Pt Temp ABG pO2 at Pt Temp ABG HCO3 ABG O2 Sat (Measured) ABG O2 Content ABG Base Excess Luis Eduardo Test O2 Delivery Device Oxygen Flow Rate Vent Mode Vent Rate Mechanical Rate PEEP Pressure Support Vent Sodium Potassium Chloride Carbon Dioxide Anion Gap BUN Creatinine Creat Clearance w eGFR POC Glucometer Random Glucose Calcium Phosphorus Magnesium Total Bilirubin 0.6 D AST ALT Alkaline Phosphatase Creatine Kinase Creatine Kinase Index 1.3 CK-MB (CK-2) 8.443 H CK-MB (CK-2) Rel Index Cancelled Troponin I 2.81 H* Total Protein Albumin 11/30/16 11/30/16 11/30/16 06:00 09:00 12:10 WBC RBC Hgb Hct MCV MCHC RDW Plt Count MPV Neutrophils % Lymphocytes % Monocytes % Eosinophils % Basophils % PTT (Actin FS) 57.7 H D Puncture Site Left radial ABG pH 7.34 L D ABG pCO2 at Pt Temp 42.4 D ABG pO2 at Pt Temp 79.8 L D ABG HCO3 22.1 ABG O2 Sat (Measured) 95.5 ABG O2 Content 16.2 ABG Base Excess -3.0 L Luis Eduardo Test Positive O2 Delivery Device Bipap Oxygen Flow Rate 45% Vent Mode S/t Vent Rate 16 Mechanical Rate Bipap PEEP 0.0 Pressure Support Vent 16/5 Sodium Potassium Chloride Carbon Dioxide Anion Gap BUN Creatinine Creat Clearance w eGFR POC Glucometer Random Glucose Calcium Phosphorus Magnesium Total Bilirubin AST ALT Alkaline Phosphatase Creatine Kinase Creatine Kinase Index CK-MB (CK-2) CK-MB (CK-2) Rel Index Troponin I 3.41 H* Total Protein Albumin 11/30/16 11/30/16 12/01/16 15:59 17:30 05:05 WBC RBC Hgb Hct MCV MCHC RDW Plt Count MPV Neutrophils % Lymphocytes % Monocytes % Eosinophils % Basophils % PTT (Actin FS) 63.8 H Puncture Site ABG pH ABG pCO2 at Pt Temp ABG pO2 at Pt Temp ABG HCO3 ABG O2 Sat (Measured) ABG O2 Content ABG Base Excess Luis Eduardo Test O2 Delivery Device Oxygen Flow Rate Vent Mode Vent Rate Mechanical Rate PEEP Pressure Support Vent Sodium Potassium Chloride Carbon Dioxide Anion Gap BUN Creatinine Creat Clearance w eGFR POC Glucometer [phone] Random Glucose Calcium Phosphorus Magnesium Total Bilirubin AST ALT Alkaline Phosphatase Creatine Kinase Creatine Kinase Index CK-MB (CK-2) CK-MB (CK-2) Rel Index Troponin I 2.19 H* D Total Protein Albumin 12/01/16 12/01/16 12/01/16 05:05 06:00 06:00 WBC 16.2 H D RBC 4.21 Hgb 12.3 Hct 36.8 MCV 87.5 MCHC 33.4 RDW 13.9 Plt Count 252 MPV 9.2 Neutrophils % 92.8 H Lymphocytes % 2.0 L D Monocytes % 5.0 D Eosinophils % 0.0 Basophils % 0.2 D PTT (Actin FS) Puncture Site ABG pH ABG pCO2 at Pt Temp ABG pO2 at Pt Temp ABG HCO3 ABG O2 Sat (Measured) ABG O2 Content ABG Base Excess Luis Eduardo Test O2 Delivery Device Oxygen Flow Rate Vent Mode Vent Rate Mechanical Rate PEEP Pressure Support Vent Sodium 137 Potassium 4.4 Chloride 97 L Carbon Dioxide 28 D Anion Gap 12 BUN 44 H D Creatinine 1.8 H Creat Clearance w eGFR 38.68 POC Glucometer Random Glucose 137 H D Calcium 9.0 Phosphorus 5.6 H Magnesium 2.7 H Total Bilirubin 0.4 D AST 47 H ALT 53 Alkaline Phosphatase 115 Creatine Kinase 907 H Creatine Kinase Index CK-MB (CK-2) CK-MB (CK-2) Rel Index Troponin I 1.12 H* D Total Protein 6.7 Albumin 3.6 12/01/16 06:00 WBC RBC Hgb Hct MCV MCHC RDW Plt Count MPV Neutrophils % Lymphocytes % Monocytes % Eosinophils % Basophils % PTT (Actin FS) Puncture Site ABG pH ABG pCO2 at Pt Temp ABG pO2 at Pt Temp ABG HCO3 ABG O2 Sat (Measured) ABG O2 Content ABG Base Excess Luis Eduardo Test O2 Delivery Device Oxygen Flow Rate Vent Mode Vent Rate Mechanical Rate PEEP Pressure Support Vent Sodium Potassium Chloride Carbon Dioxide Anion Gap BUN Creatinine Creat Clearance w eGFR POC Glucometer Random Glucose Calcium Phosphorus Magnesium Total Bilirubin AST ALT Alkaline Phosphatase Creatine Kinase Creatine Kinase Index CK-MB (CK-2) CK-MB (CK-2) Rel Index Cancelled Troponin I Total Protein Albumin Active Medications Generic Name Dose Route Start Last Admin Trade Name Freq PRN Reason Stop Dose Admin Acetaminophen 650 mg 11/29/16 18:06 Tylenol - PO Q4H PRN FEVER OR PAIN Albuterol Sulfate 1 amp 11/30/16 11:31 Ventolin 0.083% Nebulizer Soln - NEB Q4H PRN SHORT OF BREATH/WHEEZING Albuterol/Ipratropium 1 amp 11/30/16 12:00 12/01/16 05:22 Duoneb - NEB 1 amp QIDR EFRAÍN Administration Aspirin 81 mg 11/30/16 22:00 11/30/16 21:48 Asa - PO 81 mg DAILY@2200 EFRAÍN Administration Atorvastatin Calcium 80 mg 11/30/16 22:00 11/30/16 21:49 Lipitor - PO 80 mg HS EFRAÍN Administration Chlorhexidine Gluconate 1 applic 11/29/16 22:00 11/30/16 21:49 Hibiclens For Decolonization - TP 1 applic HS EFRAÍN Administration Clopidogrel Bisulfate 75 mg 11/30/16 22:00 11/30/16 21:49 Plavix - PO 75 mg DAILY@2200 EFRAÍN Administration Heparin Sodium (Porcine) 1,000 unit 11/30/16 00:20 Heparin - IVPUSH PRN PRN Heparin Heparin Sodium (Porcine) 5,000 unit 11/30/16 00:20 Heparin - IVPUSH PRN PRN Heparin Ceftriaxone Sodium 50 mls @ 100 mls/hr 11/30/16 10:00 11/30/16 09:32 Rocephin 1gm Ivpb (Pre-Docked) IVPB 100 mls/hr DAILY EFRAÍN Administration Heparin Sodium/Dextrose 500 mls @ 20 mls/hr 11/30/16 00:30 12/01/16 02:48 Heparin Infusion - IVPB 20 mls/hr TITR EFRAÍN Administration Protocol 1,000 UNITS/HR Azithromycin 250 mls @ 250 mls/hr 11/30/16 12:00 11/30/16 12:14 Zithromax 500mg Ivpb (Pre-Docked) IVPB 250 mls/hr DAILY EFRAÍN Administration Pantoprazole Sodium 100 mls @ 200 mls/hr 11/30/16 12:00 11/30/16 12:14 Protonix 40mg Ivpb (Pre-Docked) IVPB 200 mls/hr DAILY EFRAÍN Administration Methylprednisolone Sodium Succinate 60 mg 11/30/16 12:00 12/01/16 02:48 Solu-Medrol - IVPB 60 mg Q6H-IV EFRAÍN Administration Metoprolol Tartrate 12.5 mg 11/30/16 10:00 11/30/16 21:49 Lopressor - PO 12.5 mg BID EFRAÍN Administration Mupirocin 1 applic 11/29/16 22:00 11/30/16 21:48 Bactroban Ointment (For Decolonization) - NS 12/04/16 21:59 1 applic BID EFRAÍN Administration Non-Formulary Medication 1 puff 11/29/16 22:00 Mometasone Furoate [Asmanex Hfa] IH BID [facility] Non-Formulary Medication 2 inh 11/29/16 22:00 Mometasone/Formoterol [Dulera 200 Mcg/5 Mcg Inhaler] IH BID [facility] Bilateral lower extremity venous ultrasound. Clinical information given: evaluate for DVT There is no sonographic evidence of deep vein thrombosis. An approximately 3 x 1.7 x 1.3 cm hypoechoic structure is seen within the left popliteal fossa probably representing a cyst. Intraluminal debris is noted. There is no obvious right popliteal fossa cyst. Impression: No DVT is identified involving either leg. Please see above. A 3 x 1.7 x 1.3 cm left popliteal cyst is noted containing internal debris. ASSESSMENT/PLAN: Pt is a 61yr old man with PMHx including emphysema and HTN. Pt now in the ICU for management of COPD exacerbation in setting of likely community acquired pneumonia. Pulm: Acute COPD Exacerbation with Acute Hypoxic and Hypercapneic Respiratory Failure possibly exacerbated by pneumonia. clinically patient less dyspnic yes requires high volume oxygen on NC. -r/o PE will differ Ct in light of STEFAN. -duplex legs no DVT, left popliteal cyst. -BiPAP to assist in work of breathing PRN -O2 to keep Spo2 >90% -Nebulizers standing (home) and prn -f/u repeat abg and chest xray in a.m -continue n IV Solu-Medrol 60mg q6h, taper as able- breathing improving more breath sounds today. -continue ceftriaxone day 2 and start azithromycin day 2. -Inhaled bronchodilators -ABG in am ID: Sepsis secondary to Pneumonia- improving, afebrile, leukocytosis 2/2 to demargination -f/u cultures -continue ceftriaxone and start azithromycinl -f/u lactic acid Renal: STEFAN (base line ~Cr 1.4). improving -f/u bnp -Monitor -Chest xray not concerning for fluid overload and pt without edema -f/u UA -IVF as tolerated -Replete electrolytes prn Cardiac: Acute NSTEMI vs Demand Ischemia, troponins trending down,(nonstemi vs pe) trending down, no current chest pain. -ASA, plavix, heprin per [place] protocol -continue anticoagulation -trend cardiac enzymes -echocardiogram- LV sytolic function moderatly reduced. technically limited, will repeat once patient stable. -will need cardiac work up when stable -BP Control -f/u enzymes -ekg prn left popliteal cyst on duplex legs. -monitor and treat as outpatient Neuro -Pain management Prophylactic -DVT/GI -Protonix -regular diet as tolerated dispo: continue ICU monitoring Visit type - Emergency Visit Emergency Visit: Yes ED Registration Date: 11/29/16 Care time: The patient presented to the Emergency Department on the above date and was hospitalized for further evaluation of their emergent condition. - New Patient This patient is new to me today: No - Critical Care Critical Care patient: Yes Total Critical Care Time (in minutes): 45 Critical Care Statement: The care of this patient involved high complexity decision making to prevent further life threatening deterioration of the patient 's condition and/or to evalute & treat vital organ system(s) failure or risk of failure.
--- NOTE | 2016-12-01 08:04 | EKG ---
Test Reason : Blood Pressure : / mmHG Vent. Rate : 099 BPM Atrial Rate : 099 BPM P-R Int : 162 ms QRS Dur : 068 ms QT Int : 340 ms P-R-T Axes : 073 012 011 degrees QTc Int : 436 ms NORMAL SINUS RHYTHM SEPTAL INFARCT , AGE UNDETERMINED NONSPECIFIC T WAVE ABNORMALITY WHEN COMPARED WITH ECG OF 29-NOV-2016 15:34, VENT. RATE HAS DECREASED BY 55 BPM SEPTAL INFARCT IS NOW PRESENT ST NO LONGER DEPRESSED IN LATERAL LEADS NONSPECIFIC T WAVE ABNORMALITY NOW EVIDENT IN INFERIOR LEADS Confirmed by RAJAT MARTINEZ, EVANGELINA ([id number]) on 12/01/2016 8:03:58 AM Referred By: Confirmed By:EVANGELINA EARL MD
[2016-12-01 09:25] LABS: THYROID STIMULATING HORMONE 0.27 uIU/ml (0.358-3.74)
[2016-12-01] MEDS: ALBUTEROL SO4 0.083% IH SOL 2.5 MG/3 ML VIAL.NEB. NEB PRN ×2 (10:00→14:05)
[2016-12-01] MEDS: PANTOPRAZOLE SODIUM 100 ML IVPB SCH (10:14)
[2016-12-01] MEDS: CEFTRIAXONE 50 ML IVPB SCH (10:14)
[2016-12-01] MEDS: METOPROLOL TARTRATE 25 MG TABLET (FP) PO SCH ×2 (10:15→21:43)
[2016-12-01] MEDS: MUPIROCIN 2% TOPICAL OINTMENT FOR DECOLONIZATION NS SCH ×2 (10:15→22:00)
[2016-12-01] MEDS: AZITHROMYCIN IVPB 250 ML IVPB SCH (11:09)
--- NOTE | 2016-12-01 12:12 | PN ---
Teaching Attending Note Name of Resident: Charu Casarez ATTENDING PHYSICIAN STATEMENT I saw and evaluated the patient. I reviewed the resident's note and discussed the case with the resident. I agree with the resident's findings and plan as documented. SUBJECTIVE: Pt seen and examined in the ICU. Still short of breath but improving from yesterday. Tolerating off BiPAP. OBJECTIVE: Last Vital Signs Temp Pulse Resp BP Pulse Ox 98.2 F 86 16 137/84 92 L 12/01/16 10:00 12/01/16 10:00 12/01/16 10:00 12/01/16 10:00 12/01/16 11:10 Intake & Output 11/28/16 11/29/16 11/30/16 12/01/16 23:59 23:59 23:59 23:59 Intake Total 250 2010 640 Output Total 1300 2000 Balance -1050 10 640 Weight 196 lb 195 lb 5 oz Gen: mildly tachypneic at rest Heart: RRR Lung: distant breath sounds, scattered wheeze Abd: soft, nontender Ext: no edema CBC, BMP 12/01/16 05:05 12/01/16 06:00 Active Medications Acetaminophen (Tylenol -) 650 mg PO Q4H PRN PRN Reason: FEVER OR PAIN Albuterol Sulfate (Ventolin 0.083% Nebulizer Soln -) 1 amp NEB Q4H PRN PRN Reason: SHORT OF BREATH/WHEEZING Last Admin: 12/01/16 10:00 Dose: 1 amp Albuterol/Ipratropium (Duoneb -) 1 amp NEB QIDR [facility] Last Admin: 12/01/16 11:33 Dose: 1 amp Aspirin (Asa -) 81 mg PO DAILY@0 [facility] Last Admin: 11/30/16 21:48 Dose: 81 mg Atorvastatin Calcium (Lipitor -) 80 mg PO HS [facility] Last Admin: 11/30/16 21:49 Dose: 80 mg Chlorhexidine Gluconate (Hibiclens For Decolonization -) 1 applic TP HS [facility] Last Admin: 11/30/16 21:49 Dose: 1 applic Clopidogrel Bisulfate (Plavix -) 75 mg PO DAILY@2200 [facility] Last Admin: 11/30/16 21:49 Dose: 75 mg Docusate Sodium (Colace -) 100 mg PO BID [facility] Heparin Sodium (Porcine) (Heparin -) 1,000 unit IVPUSH PRN PRN PRN Reason: Heparin Heparin Sodium (Porcine) (Heparin -) 5,000 unit IVPUSH PRN PRN PRN Reason: Heparin Ceftriaxone Sodium (Rocephin 1gm Ivpb (Pre-Docked)) 50 mls @ 100 mls/hr IVPB DAILY [facility] Last Admin: 12/01/16 10:14 Dose: 100 mls/hr Heparin Sodium/Dextrose (Heparin Infusion -) 500 mls @ 20 mls/hr IVPB TITR EFRAÍN ; 1,000 UNITS/HR PRN Reason: Protocol Last Admin: 12/01/16 02:48 Dose: 20 mls/hr Azithromycin (Zithromax 500mg Ivpb (Pre-Docked)) 250 mls @ 250 mls/hr IVPB DAILY [facility] Last Admin: 12/01/16 11:09 Dose: 250 mls/hr Pantoprazole Sodium (Protonix 40mg Ivpb (Pre-Docked)) 100 mls @ 200 mls/hr IVPB DAILY [facility] Last Admin: 12/01/16 10:14 Dose: 200 mls/hr Methylprednisolone Sodium Succinate (Solu-Medrol -) 60 mg IVPB Q6H-IV [facility] Last Admin: 12/01/16 10:15 Dose: 60 mg Metoprolol Tartrate (Lopressor -) 12.5 mg PO BID [facility] Last Admin: 12/01/16 10:15 Dose: 12.5 mg Mupirocin (Bactroban Ointment (For Decolonization) -) 1 applic NS BID [facility] Stop: 12/04/16 21:59 Last Admin: 12/01/16 10:15 Dose: 1 applic Non-Formulary Medication (Mometasone Furoate [Asmanex Hfa]) 1 puff IH BID [facility] Non-Formulary Medication (Mometasone/Formoterol [Dulera 200 Mcg/5 Mcg Inhaler]) 2 inh IH BID [facility] ASSESSMENT AND PLAN: Acute Hypoxic and Hypercapneic Respiratory Failure Acute COPD Exacerbation Pneumonia Sepsis Acute NSTEMI vs Demand Ischemia Acute Kidney Injury - continue antibiotics - f/u cultures - ASA, plavix - continue anticoagulation - check LE dopplers - O2 to keep Spo2 >90% - BiPAP to assist in work of breathing - continue medrol at current dose - inhaled bronchodilators - will need cardiac work up when stable - DVT/GI prophyalxis - continue ICU monitoring for tenuous respiratory status
--- NOTE | 2016-12-01 13:10 | PN ---
Progress Note, Physician Chief Complaint: Pt, with and son visiting, denies chest pain or dyspnea. History of Present Illness: The patient is a 61-year-old man, accompanied by , with a significant past medical history of hypertension, chronic obstructive pulmonary disease ( requiring intubation in 2005) and emphysema, who presents to the emergency department via EMS for further evaluation of shortness of breath. HPI limited as patient arrives in severe respiratory distress. As per patient's , his symptoms started approximately 1 month ago with an intermittent productive cough with yellow-green sputum. She states that his symptoms worsened over the the past 3 days, as he became increasingly short of breath. EMS was activated today, and on arrival, the patient was noted to be in the low 90s on a non- rebreather and was found to have diffuse expiratory wheezes in the field, and was in respiratory distress. He was given 10 milligrams of Decadron and received a second Combivent. He was also placed on a BiPAP, with noted improvement of his shortness of breath and oxygen saturation of 98%. No fever, chills, sick contacts. History provided by EMS, old records and pts who is with him Allergies: No Known Drug Allergies. Past Surgical History: None reported Social History: Former cigarette use. No ETOH and recreational drug use. Primary Care Physician: Dr. Mell Hernandez Jewelry Salesperson: Dr. Juan Medina (Affiliated with [facility]) - Current Medication List Current Medications: Active Medications Acetaminophen (Tylenol -) 650 mg PO Q4H PRN PRN Reason: FEVER OR PAIN Albuterol Sulfate (Ventolin 0.083% Nebulizer Soln -) 1 amp NEB Q4H PRN PRN Reason: SHORT OF BREATH/WHEEZING Last Admin: 12/01/16 10:00 Dose: 1 amp Albuterol/Ipratropium (Duoneb -) 1 amp NEB QIDR [facility] Last Admin: 12/01/16 11:33 Dose: 1 amp Aspirin (Asa -) 81 mg PO DAILY@2200 [facility] Last Admin: 11/30/16 21:48 Dose: 81 mg Atorvastatin Calcium (Lipitor -) 80 mg PO HS [facility] Last Admin: 11/30/16 21:49 Dose: 80 mg Chlorhexidine Gluconate (Hibiclens For Decolonization -) 1 applic TP HS [facility] Last Admin: 11/30/16 21:49 Dose: 1 applic Clopidogrel Bisulfate (Plavix -) 75 mg PO DAILY@2200 [facility] Last Admin: 11/30/16 21:49 Dose: 75 mg Docusate Sodium (Colace -) 100 mg PO BID [facility] Heparin Sodium (Porcine) (Heparin -) 1,000 unit IVPUSH PRN PRN PRN Reason: Heparin Heparin Sodium (Porcine) (Heparin -) 5,000 unit IVPUSH PRN PRN PRN Reason: Heparin Ceftriaxone Sodium (Rocephin 1gm Ivpb (Pre-Docked)) 50 mls @ 100 mls/hr IVPB DAILY [facility] Last Admin: 12/01/16 10:14 Dose: 100 mls/hr Heparin Sodium/Dextrose (Heparin Infusion -) 500 mls @ 20 mls/hr IVPB TITR EFRAÍN ; 1,000 UNITS/HR PRN Reason: Protocol Last Admin: 12/01/16 02:48 Dose: 20 mls/hr Azithromycin (Zithromax 500mg Ivpb (Pre-Docked)) 250 mls @ 250 mls/hr IVPB DAILY [facility] Last Admin: 12/01/16 11:09 Dose: 250 mls/hr Pantoprazole Sodium (Protonix 40mg Ivpb (Pre-Docked)) 100 mls @ 200 mls/hr IVPB DAILY [facility] Last Admin: 12/01/16 10:14 Dose: 200 mls/hr Methylprednisolone Sodium Succinate (Solu-Medrol -) 60 mg IVPB Q6H-IV [facility] Last Admin: 12/01/16 10:15 Dose: 60 mg Metoprolol Tartrate (Lopressor -) 12.5 mg PO BID [facility] Last Admin: 12/01/16 10:15 Dose: 12.5 mg Mupirocin (Bactroban Ointment (For Decolonization) -) 1 applic NS BID [facility] Stop: 12/04/16 21:59 Last Admin: 12/01/16 10:15 Dose: 1 applic Non-Formulary Medication (Mometasone Furoate [Asmanex Hfa]) 1 puff IH BID [facility] Non-Formulary Medication (Mometasone/Formoterol [Dulera 200 Mcg/5 Mcg Inhaler]) 2 inh IH BID [facility] - Objective Vital Signs: Vital Signs Temperature 98.2 F 12/01/16 10:00 Pulse Rate 88 12/01/16 12:00 Respiratory Rate 16 12/01/16 12:00 Blood Pressure 123/71 12/01/16 12:00 O2 Sat by Pulse Oximetry (%) 92 L 12/01/16 11:10 Constitutional: Yes: No Distress, Calm Labs: CBC, BMP 12/01/16 05:05 12/01/16 06:00 INR, PTT INR 1.07 (0.82-1.09) 11/29/16 22:10 Problem List - Problems (1) Asthma exacerbation in COPD Code(s): J44.1 - CHRONIC OBSTRUCTIVE PULMONARY DISEASE W (ACUTE) EXACERBATION J45.901 - UNSPECIFIED ASTHMA WITH (ACUTE) EXACERBATION (2) Hypertension Code(s): I10 - ESSENTIAL (PRIMARY) HYPERTENSION (3) Renal insufficiency Code(s): N28.9 - DISORDER OF KIDNEY AND URETER, UNSPECIFIED (4) Right lower lobe pneumonia Code(s): J18.9 - PNEUMONIA, UNSPECIFIED ORGANISM Qualifiers: Pneumonia type: due to unspecified organism Qualified Code(s): J18.1 - Lobar pneumonia, unspecified organism (5) Acute on chronic systolic (congestive) heart failure Assessment/Plan: Continue metoprolol. Restart lisinopril (pt is on 10 mg daily at home); f/u BUN/Cr, electrolytes (hx chronic renal insufficiency). TNI trending down, but still >0.5. Coronary artery evaluation when stable (pt had stress treadmill MIBI in 2007 at [facility], but says he had a bad reaction, with severe dyspnea and rapid heart rate. He will require dobuatmine stress MIBI and/or coronary angiogram). F/u TFTs (TSH is low). Code(s): I50.23 - ACUTE ON CHRONIC SYSTOLIC (CONGESTIVE) HEART FAILURE (6) Hyperlipidemia Assessment/Plan: was on simvastatin at home; agree with change to the more potent atorvastatin, and at a higher dose (f/u mildly elevated AST). Code(s): E78.5 - HYPERLIPIDEMIA, UNSPECIFIED (7) Elevated troponin Assessment/Plan: TNI trending down, but still > 0.5. The elevation portends increased risk of future cardiac event, whether or not it was due to a NSTEMI at this time. LDL cholesterol 147 mg/dL;f/u profile after being on lipitor 80 mg/d; may require addition of Zetia. Will require coronary artery evaluation when stable. Code(s): R74.8 - ABNORMAL LEVELS OF OTHER SERUM ENZYMES
[2016-12-01] MEDS: LISINOPRIL 10 MG TABLET (FP) PO SCH (14:25)
[2016-12-01] MEDS: DOCUSATE SODIUM 100 MG CAPSULE (FP) PO SCH ×2 (14:27→21:43)
--- NOTE | 2016-12-01 15:38 | PN ---
Progress Note, Physician History of Present Illness: patient feeling much better still continues to de sat transitioned to nasal cannula feeling better - Current Medication List Current Medications: Active Medications Acetaminophen (Tylenol -) 650 mg PO Q4H PRN PRN Reason: FEVER OR PAIN Last Admin: 12/01/16 14:00 Dose: 650 mg Albuterol Sulfate (Ventolin 0.083% Nebulizer Soln -) 1 amp NEB Q4H PRN PRN Reason: SHORT OF BREATH/WHEEZING Last Admin: 12/01/16 14:05 Dose: 1 amp Albuterol/Ipratropium (Duoneb -) 1 amp NEB QIDR [facility] Last Admin: 12/01/16 11:33 Dose: 1 amp Aspirin (Asa -) 81 mg PO DAILY@0 [facility] Last Admin: 11/30/16 21:48 Dose: 81 mg Atorvastatin Calcium (Lipitor -) [address] [facility] Last Admin: 11/30/16 21:49 Dose: 80 mg Chlorhexidine Gluconate (Hibiclens For Decolonization -) [address] [facility] Last Admin: 11/30/16 21:49 Dose: 1 applic Clopidogrel Bisulfate (Plavix -) 75 mg PO DAILY@2199 [facility] Last Admin: 11/30/16 21:49 Dose: 75 mg Docusate Sodium (Colace -) 100 mg PO BID [facility] Last Admin: 12/01/16 14:27 Dose: Not Given Heparin Sodium (Porcine) (Heparin -) 1,000 unit IVPUSH PRN PRN PRN Reason: Heparin Heparin Sodium (Porcine) (Heparin -) 5,000 unit IVPUSH PRN PRN PRN Reason: Heparin Ceftriaxone Sodium (Rocephin 1gm Ivpb (Pre-Docked)) 50 mls @ 100 mls/hr IVPB DAILY [facility] Last Admin: 12/01/16 10:14 Dose: 100 mls/hr Heparin Sodium/Dextrose (Heparin Infusion -) 500 mls @ 20 mls/hr IVPB TITR [facility] ; 1,000 UNITS/HR PRN Reason: Protocol Last Admin: 12/01/16 02:48 Dose: 20 mls/hr Azithromycin (Zithromax 500mg Ivpb (Pre-Docked)) 250 mls @ 250 mls/hr IVPB DAILY [facility] Last Admin: 12/01/16 11:09 Dose: 250 mls/hr Pantoprazole Sodium (Protonix 40mg Ivpb (Pre-Docked)) 100 mls @ 200 mls/hr IVPB DAILY [facility] Last Admin: 12/01/16 10:14 Dose: 200 mls/hr Lisinopril (Prinivil) 10 mg PO DAILY [facility] Last Admin: 12/01/16 14:25 Dose: 10 mg Methylprednisolone Sodium Succinate (Solu-Medrol -) 60 mg IVPB Q6H-IV [facility] Last Admin: 12/01/16 14:25 Dose: 60 mg Metoprolol Tartrate (Lopressor -) 12.5 mg PO BID [facility] Last Admin: 12/01/16 10:15 Dose: 12.5 mg Mupirocin (Bactroban Ointment (For Decolonization) -) 1 applic NS BID [facility] Stop: 12/04/16 21:59 Last Admin: 12/01/16 10:15 Dose: 1 applic Non-Formulary Medication (Mometasone Furoate [Asmanex Hfa]) 1 puff IH BID [facility] Non-Formulary Medication (Mometasone/Formoterol [Dulera 200 Mcg/5 Mcg Inhaler]) 2 inh IH BID [facility] - Objective Vital Signs: Vital Signs Temperature 99.3 F 12/01/16 14:00 Pulse Rate 84 12/01/16 14:00 Respiratory Rate 16 12/01/16 14:00 Blood Pressure 134/72 12/01/16 14:00 O2 Sat by Pulse Oximetry (%) 94 L 12/01/16 14:00 Constitutional: Yes: No Distress, Calm Cardiovascular: Yes: Regular Rate and Rhythm Respiratory: Yes: Regular, Poor Air Entry (bases), Other (distant air sound) Gastrointestinal: Yes: Normal Bowel Sounds, Soft Musculoskeletal: Yes: WNL Extremities: Yes: WNL Integumentary: Yes: WNL Neurological: Yes: Alert, Oriented Psychiatric: Yes: Alert, Oriented Labs: CBC, BMP 12/01/16 05:05 12/01/16 06:00 INR, PTT INR 1.07 (0.82-1.09) 11/29/16 22:10 - ....Imaging Chest X-ray: Report Reviewed, Image Reviewed Assessment/Plan Acute Hypoxic and Hypercapneic Respiratory Failure COPD Exacerbation Pneumonia Sepsis Acute Kidney Injury plan continue current line of abx monitor for fevers watch wbc incentive elis await for cx report await for sputum report discussed in detail with family cc time 40 min
[2016-12-01 17:22] LABS: THYROID STIMULATING HORMONE 0.26 uIU/ml (0.358-3.74)
--- NOTE | 2016-12-01 17:43 | EKG ---
Test Reason : Blood Pressure : / mmHG Vent. Rate : 123 BPM Atrial Rate : 123 BPM P-R Int : 160 ms QRS Dur : 072 ms QT Int : 302 ms P-R-T Axes : 080 013 042 degrees QTc Int : 432 ms SINUS TACHYCARDIA NONSPECIFIC ST ABNORMALITY ABNORMAL ECG WHEN COMPARED WITH ECG OF 29-NOV-2016 22:54, Confirmed by ISAEL BOJORQUEZ MD ([id number]) on 12/01/2016 5:43:12 PM Referred By: Confirmed By:ISAEL BOJORQUEZ MD
--- NOTE | 2016-12-01 17:46 | EKG ---
Test Reason : Blood Pressure : / mmHG Vent. Rate : 154 BPM Atrial Rate : 144 BPM P-R Int : 000 ms QRS Dur : 076 ms QT Int : 240 ms P-R-T Axes : 000 019 097 degrees QTc Int : 384 ms PROBABLE SINUS TACHYCARDIA NONSPECIFIC ST AND T WAVE ABNORMALITY ABNORMAL ECG WHEN COMPARED WITH ECG OF 10-AUG-2016 18:25, VENT. RATE HAS INCREASED BY 73 BPM Confirmed by ISAEL BOJORQUEZ MD ([id number]) on 12/01/2016 5:46:42 PM Referred By: Confirmed By:ISAEL BOOJRQUEZ MD
--- NOTE | 2016-12-01 18:06 | PN ---
Physical Exam: SUBJECTIVE: Patient seen and examined, states he feels well, denies chest pain or shortness of breath. Seen earlier in ICU, at bedside. OBJECTIVE: Tolerating 4 liters of nasal cannual, oxygen saturation @ 92%, breathing non labored Wheezing noted on bilateral lung escalera Incentive spirometer as tolerated when more stable Troponins trending down Vital Signs Period Temp Pulse Resp BP Sys/Rendon Pulse Ox Last 24 Hr 98.2 F-99.3 F 71-99 11-18 122-151/69-86 92-100 GENERAL: The patient is awake, alert, and fully oriented, in no acute distress. on 4 liters of nasal cannula, tolerating it fairly @ 4 liters HEAD: Normal with no signs of trauma. EYES: PERRL, extraocular movements intact, sclera anicteric, conjunctiva clear. No ptosis. ENT: Ears normal, nares patent, oropharynx clear without exudates, moist mucous membranes. NECK: Trachea midline, full range of motion, supple. LUNGS: anterior lung sounds with wheezing, posterior lungs with wheezing HEART: Regular rate and rhythm, S1, S2 without murmur, rub or gallop. ABDOMEN: Soft, nontender, nondistended, normoactive bowel sounds, no guarding, no rebound, no hepatosplenomegaly, no masses. EXTREMITIES: 2+ pulses, warm, well-perfused, no edema. NEUROLOGICAL: Normal speech, gait not observed. PSYCH: Normal mood, normal affect. SKIN: Warm, dry, normal turgor, no rashes or lesions noted Laboratory Results - last 24 hr 11/30/16 12/01/16 12/01/16 17:30 05:05 05:05 WBC 16.2 H D RBC 4.21 Hgb 12.3 Hct 36.8 MCV 87.5 MCHC 33.4 RDW 13.9 Plt Count 252 MPV 9.2 Neutrophils % 92.8 H Lymphocytes % 2.0 L D Monocytes % 5.0 D Eosinophils % 0.0 Basophils % 0.2 D PTT (Actin FS) 63.8 H Puncture Site ABG pH ABG pCO2 at Pt Temp ABG pO2 at Pt Temp ABG HCO3 ABG O2 Sat (Measured) ABG O2 Content ABG Base Excess Luis Eduardo Test O2 Delivery Device Oxygen Flow Rate PEEP Sodium Potassium Chloride Carbon Dioxide Anion Gap BUN Creatinine Creat Clearance w eGFR Random Glucose Calcium Phosphorus Magnesium Total Bilirubin AST ALT Alkaline Phosphatase Creatine Kinase Creatine Kinase Index CK-MB (CK-2) CK-MB (CK-2) Rel Index Troponin I 2.19 H* D Total Protein Albumin Triglycerides Cholesterol Total LDL Cholesterol HDL Cholesterol TSH 12/01/16 12/01/16 12/01/16 06:00 06:00 06:00 WBC RBC Hgb Hct MCV MCHC RDW Plt Count MPV Neutrophils % Lymphocytes % Monocytes % Eosinophils % Basophils % PTT (Actin FS) Puncture Site ABG pH ABG pCO2 at Pt Temp ABG pO2 at Pt Temp ABG HCO3 ABG O2 Sat (Measured) ABG O2 Content ABG Base Excess Luis Eduardo Test O2 Delivery Device Oxygen Flow Rate PEEP Sodium 137 Potassium 4.4 Chloride 97 L Carbon Dioxide 28 D Anion Gap 12 BUN 44 H D Creatinine 1.8 H Creat Clearance w eGFR 38.68 Random Glucose 137 H D Calcium 9.0 Phosphorus 5.6 H Magnesium 2.7 H Total Bilirubin 0.4 D AST 47 H ALT 53 Alkaline Phosphatase 115 Creatine Kinase 907 H Creatine Kinase Index 0.9 CK-MB (CK-2) 8.749 H CK-MB (CK-2) Rel Index Cancelled Troponin I 1.12 H* D Total Protein 6.7 Albumin 3.6 Triglycerides 138 Cholesterol 227 H Total LDL Cholesterol 149 H HDL Cholesterol 72 H TSH 0.27 L 12/01/16 07:25 WBC RBC Hgb Hct MCV MCHC RDW Plt Count MPV Neutrophils % Lymphocytes % Monocytes % Eosinophils % Basophils % PTT (Actin FS) Puncture Site Right radial ABG pH 7.36 ABG pCO2 at Pt Temp 45.5 H ABG pO2 at Pt Temp 106.0 H D ABG HCO3 25.1 ABG O2 Sat (Measured) 98.1 ABG O2 Content 16.5 ABG Base Excess -0.1 Luis Eduardo Test Positive O2 Delivery Device ventimask Oxygen Flow Rate 50% PEEP 0.0 Sodium Potassium Chloride Carbon Dioxide Anion Gap BUN Creatinine Creat Clearance w eGFR Random Glucose Calcium Phosphorus Magnesium Total Bilirubin AST ALT Alkaline Phosphatase Creatine Kinase Creatine Kinase Index CK-MB (CK-2) CK-MB (CK-2) Rel Index Troponin I Total Protein Albumin Triglycerides Cholesterol Total LDL Cholesterol HDL Cholesterol TSH Active Medications Generic Name Dose Route Start Last Admin Trade Name Freq PRN Reason Stop Dose Admin Acetaminophen 650 mg 11/29/16 18:06 12/01/16 14:00 Tylenol - PO 650 mg Q4H PRN Administration FEVER OR PAIN Albuterol Sulfate 1 amp 11/30/16 11:31 12/01/16 14:05 Ventolin 0.083% Nebulizer Soln - NEB 1 amp Q4H PRN Administration SHORT OF BREATH/WHEEZING Albuterol/Ipratropium 1 amp 11/30/16 12:00 12/01/16 11:33 Duoneb - NEB 1 amp QIDR [facility] Administration Aspirin 81 mg 11/30/16 22:00 11/30/16 21:48 Asa - PO 81 mg DAILY@2200 [facility] Administration Atorvastatin Calcium 80 mg 11/30/16 22:00 11/30/16 21:49 Lipitor - PO 80 mg HS [facility] Administration Chlorhexidine Gluconate 1 applic 11/29/16 22:00 11/30/16 21:49 Hibiclens For Decolonization - TP 1 applic HS [facility] Administration Clopidogrel Bisulfate 75 mg 11/30/16 22:00 11/30/16 21:49 Plavix - PO 75 mg DAILY@2200 [facility] Administration Docusate Sodium 100 mg 12/01/16 11:30 12/01/16 14:27 Colace - PO Not Given BID [facility] Heparin Sodium (Porcine) 1,000 unit 11/30/16 00:20 Heparin - IVPUSH PRN PRN Heparin Heparin Sodium (Porcine) 5,000 unit 11/30/16 00:20 Heparin - IVPUSH PRN PRN Heparin Ceftriaxone Sodium 50 mls @ 100 mls/hr 11/30/16 10:00 12/01/16 10:14 Rocephin 1gm Ivpb (Pre-Docked) IVPB 100 mls/hr DAILY [facility] Administration Heparin Sodium/Dextrose 500 mls @ 20 mls/hr 11/30/16 00:30 12/01/16 02:48 Heparin Infusion - IVPB 20 mls/hr TITR [facility] Administration Protocol 1,000 UNITS/HR Azithromycin 250 mls @ 250 mls/hr 11/30/16 12:00 12/01/16 11:09 Zithromax 500mg Ivpb (Pre-Docked) IVPB 250 mls/hr DAILY [facility] Administration Pantoprazole Sodium 100 mls @ 200 mls/hr 11/30/16 12:00 12/01/16 10:14 Protonix 40mg Ivpb (Pre-Docked) IVPB 200 mls/hr DAILY [facility] Administration Lisinopril 10 mg 12/01/16 13:45 12/01/16 14:25 Prinivil PO 10 mg DAILY [facility] Administration Methylprednisolone Sodium Succinate 60 mg 11/30/16 12:00 12/01/16 14:25 Solu-Medrol - IVPB 60 mg Q6H-IV [facility] Administration Metoprolol Tartrate 12.5 mg 11/30/16 10:00 12/01/16 10:15 Lopressor - PO 12.5 mg BID [facility] Administration Mupirocin 1 applic 11/29/16 22:00 12/01/16 10:15 Bactroban Ointment (For Decolonization) - NS 12/04/16 21:59 1 applic BID [facility] Administration Non-Formulary Medication 1 puff 11/29/16 22:00 Mometasone Furoate [Asmanex Hfa] IH BID [facility] Non-Formulary Medication 2 inh 11/29/16 22:00 Mometasone/Formoterol [Dulera 200 Mcg/5 Mcg Inhaler] IH BID [facility] ASSESSMENT/PLAN: Patient is a 61 yr old male with a past medical history of emphysema and HTN. Patient was admitted to the ICU for acute COPD exacerbation in the setting of community acquired pneumonia. He is not home oxygen dependent. Imagin11/29/2106 Chest Xray - No new congestive changes since prior study 11/29/2016 Renal ultrasound - bilateral renal cysts Pulmonary: Acute COPD Exacerbation with acute hypoxia, likely exacerbated by pneumonia initially requiring BIPAP and possible intubation Assessment/Plan: Now tolerting 4 liters of nasal cannula. Oxygen levels stable, goal is >90%, currently 92% on 4 liters Has nebulizer treatments prn On Solumedrol 60mg IVPB q6 hours, taper as tolerated On Antibiotics of Ceftriaxone and Azithromycin Monitor respiratory status ABG with normal PH and acid base disorder ID: Sepsis: Met SIRS criteria on admission Assessment/Plan: Sepsis likely secondary to to Pneumonia Leukocytosis, tachycardia, fevers on admission On Ceftriaxone, Azithromycin per ID Blood and Urine cultures negative to date Lactic acid remained normal ID following : Acute Kidney Injury in the setting of sepsis - improving Assessment/Plan: Follow up on BUN/Creatinine Continue IVF Cardiology: Elevated Troponins - NSTEMI vs Demand Ischemia, elevated troponins Assessment/Plan: Denies chest pain, troponins trending down On ASA, Plavix, Heparin Drip Monitor cardiac enzymes Echo, once stable, will need further cardiac workup Coronary artery evaluation when stable as per cardiology Hyperlipidemia Assessment/Plan: On Atorvastatin 80mg @ hs F.E.N. Fluids: On heparin drip Electrolytes: monitor Nutrition: as tolerated Disposition: continue ICU monitoring Visit type - Emergency Visit Emergency Visit: Yes ED Registration Date: 11/29/16 Care time: The patient presented to the Emergency Department on the above date and was hospitalized for further evaluation of their emergent condition. - New Patient This patient is new to me today: No - Critical Care Critical Care patient: Yes Total Critical Care Time (in minutes): 60 Critical Care Statement: The care of this patient involved high complexity decision making to prevent further life threatening deterioration of the patient 's condition and/or to evalute & treat vital organ system(s) failure or risk of failure. - Discharge Referral Referred to [facility] No
[2016-12-01 19:51] LABS: TROPONIN I 0.65 ng/ml (0.00-0.05)
[2016-12-01] MEDS ORDERED: ALPRAZolam 0.25 MG TABLET PO ONE (21:00)
[2016-12-01] MEDS: CLOPIDOGREL BISULFATE 75 MG TABLET (FP) PO SCH (21:43)
[2016-12-01] MEDS: ASPIRIN 81 MG CHEWABLE TABLETS PO SCH (21:44)
[2016-12-01] MEDS: ATORVASTATIN CA 80 MG TABLET (FP) PO SCH (21:44)
[2016-12-01] MEDS: CHLORHEXIDINE GLUCONATE 4% CLEANSER FOR DECOLONIZATION TP SCH (22:00)
[2016-12-02] MEDS: methylPREDNISolone NA SUCC 125 MG/2 ML VIAL IVPB SCH ×4 (02:06→21:19)
[2016-12-02] MEDS: ALBUTEROL SO4 2.5/IPRATROPIUM 0.5 INH SOL 3 ML VIAL.NEB. NEB SCH ×4 (05:35→17:47)
[2016-12-02 06:13] LABS: MCH 29.5 pg (25.7-33.7); MCHC 33.9 g/dl (32.0-35.9); MEAN CELL VOLUME 87.1 fl (80-96); MEAN PLT VOLUME 9.6 fl (7.5-11.1); PLATELET COUNT 234 K/MM3 (134-434); RDW 13.8 % (11.9-15.9); WHITE BLOOD COUNT 13.5 K/mm3 (4.0-10.0)
[2016-12-02 06:46] LABS: CALCIUM 8.8 mg/dL (8.5-10.1); CREATININE 1.6 mg/dL (0.7-1.3); MAGNESIUM 2.6 mg/dL (1.8-2.4); PHOSPHOROUS 4.3 mg/dL (2.5-4.9)
[2016-12-02] MEDS ORDERED: LISINOPRIL 5 MG TABLET (FP) PO SCH (10:00)
[2016-12-02] MEDS: PANTOPRAZOLE SODIUM 100 ML IVPB SCH (10:01)
[2016-12-02] MEDS: LISINOPRIL 10 MG TABLET (FP) PO SCH (10:02)
[2016-12-02] MEDS: CEFTRIAXONE 50 ML IVPB SCH (10:03)
[2016-12-02] MEDS: METOPROLOL TARTRATE 25 MG TABLET (FP) PO SCH ×2 (10:03→21:18)
[2016-12-02] MEDS: DOCUSATE SODIUM 100 MG CAPSULE (FP) PO SCH ×3 (10:03→21:25)
[2016-12-02] MEDS: MUPIROCIN 2% TOPICAL OINTMENT FOR DECOLONIZATION NS SCH (10:03)
[2016-12-02] MEDS: ALBUTEROL SO4 0.083% IH SOL 2.5 MG/3 ML VIAL.NEB. NEB PRN ×2 (10:20→14:15)
[2016-12-02] MEDS: AZITHROMYCIN IVPB 250 ML IVPB SCH (10:34)
[2016-12-02 10:39] LABS: TROPONIN I 0.57 ng/ml (0.00-0.05)
--- NOTE | 2016-12-02 13:39 | PN ---
Progress Note, Physician History of Present Illness: The patient is a 61-year-old man, accompanied by , with a significant past medical history of hypertension, chronic obstructive pulmonary disease ( requiring intubation on 2005) and emphysema who presents to the emergency department via EMS for further evaluation of shortness of breath. HPI limited as patient arrives in severe respiratory distress. As per patient's , his symptoms started approximately 1 month ago with an intermittent productive cough with yellow-green sputum. She states that his symptoms worsened over the the past 3 days, as he became increasingly short of breath. EMS was activated today, and on arrival, the patient was noted to be in the low 90s on a non- rebreather and was found to have diffuse expiratory wheezes in the field, and was in respiratory distress. He was given 10 milligrams of Decadron and is currently on his second Combivent. He was also placed on a BiPAP, with noted improvement of his shortness of breath and oxygen saturation of 98%. No fever, chills, sick contacts. History provided by EMS, old records and pts who is with him - Current Medication List Current Medications: Active Medications Acetaminophen (Tylenol -) 650 mg PO Q4H PRN PRN Reason: FEVER OR PAIN Last Admin: 12/01/16 14:00 Dose: 650 mg Albuterol Sulfate (Ventolin 0.083% Nebulizer Soln -) 1 amp NEB Q4H PRN PRN Reason: SHORT OF BREATH/WHEEZING Last Admin: 12/02/16 10:20 Dose: 1 amp Albuterol/Ipratropium (Duoneb -) 1 amp NEB QIDR [facility] Last Admin: 12/02/16 11:12 Dose: 1 amp Aspirin (Asa -) 81 mg PO DAILY@0 [facility] Last Admin: 12/01/16 21:44 Dose: 81 mg Atorvastatin Calcium (Lipitor -) 80 mg PO [facility] Last Admin: 12/01/16 21:44 Dose: 80 mg Chlorhexidine Gluconate (Hibiclens For Decolonization -) 1 applic TP [facility] Last Admin: 12/01/16 22:00 Dose: 1 applic Clopidogrel Bisulfate (Plavix -) 75 mg PO DAILY@2200 [facility] Last Admin: 12/01/16 21:43 Dose: 75 mg Docusate Sodium (Colace -) 100 mg PO BID [facility] Last Admin: 12/02/16 10:03 Dose: 100 mg Heparin Sodium (Porcine) (Heparin -) 1,000 unit IVPUSH PRN PRN PRN Reason: Heparin Heparin Sodium (Porcine) (Heparin -) 5,000 unit IVPUSH PRN PRN PRN Reason: Heparin Ceftriaxone Sodium (Rocephin 1gm Ivpb (Pre-Docked)) 50 mls @ 100 mls/hr IVPB DAILY [facility] Last Admin: 12/02/16 10:03 Dose: 100 mls/hr Heparin Sodium/Dextrose (Heparin Infusion -) 500 mls @ 20 mls/hr IVPB TITR [facility] ; 1,000 UNITS/HR PRN Reason: Protocol Last Admin: 12/01/16 22:00 Dose: 20 mls/hr Azithromycin (Zithromax 500mg Ivpb (Pre-Docked)) 250 mls @ 250 mls/hr IVPB DAILY [facility] Last Admin: 12/02/16 10:34 Dose: 250 mls/hr Pantoprazole Sodium (Protonix 40mg Ivpb (Pre-Docked)) 100 mls @ 200 mls/hr IVPB DAILY [facility] Last Admin: 12/02/16 10:01 Dose: 200 mls/hr Lisinopril (Prinivil) 10 mg PO DAILY [facility] Last Admin: 12/02/16 10:02 Dose: 10 mg Methylprednisolone Sodium Succinate (Solu-Medrol -) 60 mg IVPB Q6H-IV [facility] Last Admin: 12/02/16 09:58 Dose: 60 mg Metoprolol Tartrate (Lopressor -) 12.5 mg PO BID [facility] Last Admin: 12/02/16 10:03 Dose: 12.5 mg Mupirocin (Bactroban Ointment (For Decolonization) -) 1 applic NS BID [facility] Stop: 12/04/16 21:59 Last Admin: 12/02/16 10:03 Dose: 1 applic - Objective Vital Signs: Vital Signs Temperature 98.6 F 12/02/16 10:00 Pulse Rate 74 12/02/16 12:19 Respiratory Rate 22 12/02/16 12:19 Blood Pressure 132/87 12/02/16 12:19 O2 Sat by Pulse Oximetry (%) 93 L 12/02/16 11:37 Eyes: Yes: WNL, Conjunctiva Clear, EOM Intact HENT: Yes: WNL, Atraumatic, Normocephalic Neck: Yes: WNL, Supple, Trachea Midline Cardiovascular: Yes: WNL, Regular Rate and Rhythm Respiratory: Yes: WNL, Regular, CTA Bilaterally Gastrointestinal: Yes: WNL, Normal Bowel Sounds Genitourinary: Yes: WNL Musculoskeletal: Yes: WNL Extremities: Yes: WNL Edema: No Integumentary: Yes: WNL Neurological: Yes: WNL, Alert, Oriented ...Motor Strength: WNL Psychiatric: Yes: WNL Labs: CBC, BMP 12/02/16 05:20 12/02/16 05:20 INR, PTT INR 1.07 (0.82-1.09) 11/29/16 22:10 Assessment/Plan 1) Asthma exacerbation in COPD Code(s): J44.1 - CHRONIC OBSTRUCTIVE PULMONARY DISEASE W (ACUTE) EXACERBATION J45.901 - UNSPECIFIED ASTHMA WITH (ACUTE) EXACERBATION (2) Hypertension Code(s): I10 - ESSENTIAL (PRIMARY) HYPERTENSION (3) Renal insufficiency Code(s): N28.9 - DISORDER OF KIDNEY AND URETER, UNSPECIFIED (4) Right lower lobe pneumonia Code(s): J18.9 - PNEUMONIA, UNSPECIFIED ORGANISM Qualifiers: Pneumonia type: due to unspecified organism Qualified Code(s): J18.1 - Lobar pneumonia, unspecified organism (5) Acute on chronic systolic (congestive) heart failure Assessment/Plan: Continue metoprolol. Restart lisinopril (pt is on 10 mg daily at home); f/u BUN/Cr, electrolytes (hx chronic renal insufficiency). TNI trending down, Coronary artery evaluation when stable (pt had stress treadmill MIBI in 2007 at [facility], but says he had a bad reaction, with severe dyspnea and rapid heart rate. He will require dobuatmine stress MIBI and/or coronary angiogram). F/u TFTs (TSH is low). Code(s): I50.23 - ACUTE ON CHRONIC SYSTOLIC (CONGESTIVE) HEART FAILURE (6) Hyperlipidemia Assessment/Plan: was on simvastatin at home; agree with change to the more potent atorvastatin, and at a higher dose (f/u mildly elevated AST). Code(s): E78.5 - HYPERLIPIDEMIA, UNSPECIFIED (7) Elevated troponin Assessment/Plan: TNI trending down, but still > 0.5. The elevation portends increased risk of future cardiac event, whether or not it was due to a NSTEMI at this time. LDL cholesterol 147 mg/dL;f/u profile after being on lipitor 80 mg/d; may require addition of Zetia. Will require coronary artery evaluation when stable. Code(s): R74.8 - ABNORMAL LEVELS OF OTHER SERUM ENZYMES cc time 35 min
--- NOTE | 2016-12-02 15:49 | PN ---
Teaching Attending Note Name of Resident: Charu Casarez ATTENDING PHYSICIAN STATEMENT I saw and evaluated the patient. I reviewed the resident's note and discussed the case with the resident. I agree with the resident's findings and plan as documented. SUBJECTIVE: Pt seen and examined in the ICU. Breathing slowly improving. Denies chest pain. Used BiPAP overnight, currently on nasal cannula. OBJECTIVE: Last Vital Signs Temp Pulse Resp BP Pulse Ox 98.9 F 74 22 132/87 92 L 12/02/16 13:41 12/02/16 13:41 12/02/16 13:41 12/02/16 12:00 12/02/16 15:39 Intake & Output 11/29/16 11/30/16 12/01/16 12/02/16 23:59 23:59 23:59 23:59 Intake Total 250 2009 740 340 Output Total 1300 1999 1800 1550 Balance -1050 10 -5370 -1210 Weight 196 lb 195 lb 5 oz 191 lb 9.307 oz Gen: tachypneic with speaking Heart: RRR Lung: poor air movement, scattered wheezes Abd: soft, nontender Ext: no edema CBC, BMP 12/02/16 05:20 12/02/16 05:20 Active Medications Acetaminophen (Tylenol -) 650 mg PO Q4H PRN PRN Reason: FEVER OR PAIN Last Admin: 12/01/16 14:00 Dose: 650 mg Albuterol Sulfate (Ventolin 0.083% Nebulizer Soln -) 1 amp NEB Q4H PRN PRN Reason: SHORT OF BREATH/WHEEZING Last Admin: 12/02/16 14:15 Dose: 1 amp Albuterol/Ipratropium (Duoneb -) 1 amp NEB QIDR [facility] Last Admin: 12/02/16 11:12 Dose: 1 amp Aspirin (Asa -) 81 mg PO DAILY@0 [facility] Last Admin: 12/01/16 21:44 Dose: 81 mg Atorvastatin Calcium (Lipitor -) 80 mg PO [facility] Last Admin: 12/01/16 21:44 Dose: 80 mg Chlorhexidine Gluconate (Hibiclens For Decolonization -) 1 applic TP [facility] Last Admin: 12/01/16 22:00 Dose: 1 applic Clopidogrel Bisulfate (Plavix -) 75 mg PO DAILY@0 [facility] Last Admin: 12/01/16 21:43 Dose: 75 mg Docusate Sodium (Colace -) 100 mg PO BID [facility] Last Admin: 12/02/16 10:03 Dose: 100 mg Heparin Sodium (Porcine) (Heparin -) 1,000 unit IVPUSH PRN PRN PRN Reason: Heparin Heparin Sodium (Porcine) (Heparin -) 5,000 unit IVPUSH PRN PRN PRN Reason: Heparin Ceftriaxone Sodium (Rocephin 1gm Ivpb (Pre-Docked)) 50 mls @ 100 mls/hr IVPB DAILY [facility] Last Admin: 12/02/16 10:03 Dose: 100 mls/hr Heparin Sodium/Dextrose (Heparin Infusion -) 500 mls @ 20 mls/hr IVPB TITR [facility] ; 1,000 UNITS/HR PRN Reason: Protocol Last Admin: 12/01/16 22:00 Dose: 20 mls/hr Azithromycin (Zithromax 500mg Ivpb (Pre-Docked)) 250 mls @ 250 mls/hr IVPB DAILY [facility] Last Admin: 12/02/16 10:34 Dose: 250 mls/hr Pantoprazole Sodium (Protonix 40mg Ivpb (Pre-Docked)) 100 mls @ 200 mls/hr IVPB DAILY [facility] Last Admin: 12/02/16 10:01 Dose: 200 mls/hr Lisinopril (Prinivil) 10 mg PO DAILY [facility] Last Admin: 12/02/16 10:02 Dose: 10 mg Methylprednisolone Sodium Succinate (Solu-Medrol -) 60 mg IVPB Q6H-IV [facility] Last Admin: 12/02/16 09:58 Dose: 60 mg Metoprolol Tartrate (Lopressor -) 12.5 mg PO BID [facility] Last Admin: 12/02/16 10:03 Dose: 12.5 mg Mupirocin (Bactroban Ointment (For Decolonization) -) 1 applic NS BID [facility] Stop: 12/04/16 21:59 Last Admin: 12/02/16 10:03 Dose: 1 applic ASSESSMENT AND PLAN: Acute Hypoxic and Hypercapneic Respiratory Failure Acute COPD Exacerbation Pneumonia Sepsis Acute NSTEMI vs Demand Ischemia Acute Kidney Injury - continue antibiotics - ASA, plavix - LE dopplers negative, have alternative explanation for hypoxia given severe COPD exacerbation/pneumonia, do not clinically suspect PE at this time, can d/c anticoagulation - O2 to keep Spo2 >90% - BiPAP to assist in work of breathing - continue medrol at current dose - inhaled bronchodilators - will need cardiac work up when stable - DVT/GI prophyalxis - can monitor on telemetry with continuous pulse oximetry monitoring critical care time spent reviewing chart, evaluating patient and formulating plan 36 min
[2016-12-02] MEDS ORDERED: LORAZEPAM CARPU-JECT 2 MG/ML DISP.SYRIN IVPUSH PRN (16:40)
--- NOTE | 2016-12-02 16:54 | PN ---
Progress Note, Physician History of Present Illness: looks a lot better tolerating nasal cannula breathing better - Current Medication List Current Medications: Active Medications Acetaminophen (Tylenol -) 650 mg PO Q4H PRN PRN Reason: FEVER OR PAIN Last Admin: 12/01/16 14:00 Dose: 650 mg Albuterol Sulfate (Ventolin 0.083% Nebulizer Soln -) 1 amp NEB Q4H PRN PRN Reason: SHORT OF BREATH/WHEEZING Last Admin: 12/02/16 14:15 Dose: 1 amp Albuterol/Ipratropium (Duoneb -) 1 amp NEB QIDR [facility] Last Admin: 12/02/16 11:12 Dose: 1 amp Aspirin (Asa -) 81 mg PO DAILY@2200 [facility] Last Admin: 12/01/16 21:44 Dose: 81 mg Atorvastatin Calcium (Lipitor -) 80 mg PO HS [facility] Last Admin: 12/01/16 21:44 Dose: 80 mg Chlorhexidine Gluconate (Hibiclens For Decolonization -) 1 applic TP [facility] Last Admin: 12/01/16 22:00 Dose: 1 applic Clopidogrel Bisulfate (Plavix -) 75 mg PO DAILY@0 [facility] Last Admin: 12/01/16 21:43 Dose: 75 mg Docusate Sodium (Colace -) 100 mg PO BID [facility] Last Admin: 12/02/16 10:03 Dose: 100 mg Heparin Sodium (Porcine) (Heparin -) 1,000 unit IVPUSH PRN PRN PRN Reason: Heparin Heparin Sodium (Porcine) (Heparin -) 5,000 unit IVPUSH PRN PRN PRN Reason: Heparin Ceftriaxone Sodium (Rocephin 1gm Ivpb (Pre-Docked)) 50 mls @ 100 mls/hr IVPB DAILY [facility] Last Admin: 12/02/16 10:03 Dose: 100 mls/hr Heparin Sodium/Dextrose (Heparin Infusion -) 500 mls @ 20 mls/hr IVPB TITR EFRAÍN ; 1,000 UNITS/HR PRN Reason: Protocol Last Admin: 12/01/16 22:00 Dose: 20 mls/hr Azithromycin (Zithromax 500mg Ivpb (Pre-Docked)) 250 mls @ 250 mls/hr IVPB DAILY [facility] Last Admin: 12/02/16 10:34 Dose: 250 mls/hr Pantoprazole Sodium (Protonix 40mg Ivpb (Pre-Docked)) 100 mls @ 200 mls/hr IVPB DAILY [facility] Last Admin: 12/02/16 10:01 Dose: 200 mls/hr Lisinopril (Prinivil) 10 mg PO DAILY [facility] Last Admin: 12/02/16 10:02 Dose: 10 mg Lorazepam (Ativan Injection -) 1 mg IVPUSH Q12H PRN PRN Reason: ANXIETY Methylprednisolone Sodium Succinate (Solu-Medrol -) 60 mg IVPB Q6H-IV [facility] Last Admin: 12/02/16 09:58 Dose: 60 mg Metoprolol Tartrate (Lopressor -) 12.5 mg PO BID [facility] Last Admin: 12/02/16 10:03 Dose: 12.5 mg Mupirocin (Bactroban Ointment (For Decolonization) -) 1 applic NS BID [facility] Stop: 12/04/16 21:59 Last Admin: 12/02/16 10:03 Dose: 1 applic - Objective Vital Signs: Vital Signs Temperature 98.9 F 12/02/16 13:41 Pulse Rate 78 12/02/16 16:32 Respiratory Rate 23 12/02/16 16:32 Blood Pressure 164/95 12/02/16 16:32 O2 Sat by Pulse Oximetry (%) 92 L 12/02/16 15:39 Constitutional: Yes: No Distress, Calm Neck: Yes: Supple, Trachea Midline Cardiovascular: Yes: Regular Rate and Rhythm Respiratory: Yes: Regular, Poor Air Entry (bases) Gastrointestinal: Yes: Normal Bowel Sounds, Soft Musculoskeletal: Yes: WNL Extremities: Yes: WNL Integumentary: Yes: WNL Neurological: Yes: Alert, Oriented Psychiatric: Yes: Alert, Oriented Labs: CBC, BMP 12/02/16 05:20 12/02/16 05:20 INR, PTT INR 1.07 (0.82-1.09) 11/29/16 22:10 - ....Imaging Chest X-ray: Report Reviewed, Image Reviewed Assessment/Plan Acute Hypoxic and Hypercapneic Respiratory Failure COPD Exacerbation Pneumonia Sepsis Acute Kidney Injury plan continue abx for now will start deescalating from tomorrow incentive elis resp support rest as per icu cc time 40 min
--- NOTE | 2016-12-02 19:22 | PN ---
Physical Exam: SUBJECTIVE: Patient seen and examined at a bed side. Used BiPAP overnight, patient had an episode of anxiety and desaturation on 3L NC this morning, relived when switched to Venti mask and Bipap. last one BM to days denies cp, fevers, chills, N/V/D. troponin trending down OBJECTIVE: Vital Signs Period Temp Pulse Resp BP Sys/Rendon Pulse Ox Last 24 Hr 98.6 F-99.4 F 74-95 15-23 117-164/54-99 92-100 GENERAL: The patient is awake, alert, and fully oriented, in no acute distress. on NC sitting comfortably. eating breakfast with a large salt shaker from home next to him. HEAD: Normal with no signs of trauma. EYES: PERRL, extraocular movements intact, sclera anicteric, conjunctiva clear. No ptosis. ENT: Ears normal, nares patent, oropharynx clear without exudates, moist mucous membranes. NECK: Trachea midline, full range of motion, supple. LUNGS: increased air entry on left from yesterday, some improvment on air entry on left. expiratory wheezing , no crackles, no accessory muscle use on NC. HEART: Regular rate and rhythm, S1, S2 without murmur, rub or gallop. ABDOMEN: Soft, nontender, mild distended, normoactive bowel sounds, no guarding , no rebound, no hepatosplenomegaly, no masses. EXTREMITIES: 2+ pulses, warm, well-perfused, no edema. NEUROLOGICAL: Normal speech, gait not observed. no focal neurological def PSYCH: Normal mood, normal affect. SKIN: Warm, dry, normal turgor, no rashes or lesions noted Laboratory Results - last 24 hr 12/01/16 12/01/16 12/01/16 06:00 06:28 14:32 WBC RBC Hgb Hct MCV MCHC RDW Plt Count MPV PTT (Actin FS) Sodium Potassium Chloride Carbon Dioxide Anion Gap BUN Creatinine POC Glucometer 170.34941 [phone] Random Glucose Calcium Phosphorus Magnesium Creatine Kinase Creatine Kinase Index CK-MB (CK-2) CK-MB (CK-2) Rel Index Troponin I Free T3 2.8 12/01/16 12/01/16 12/01/16 16:30 16:30 22:52 WBC RBC Hgb Hct MCV MCHC RDW Plt Count MPV PTT (Actin FS) Sodium Potassium Chloride Carbon Dioxide Anion Gap BUN Creatinine POC Glucometer [phone] Random Glucose Calcium Phosphorus Magnesium Creatine Kinase 473 H D Creatine Kinase Index CK-MB (CK-2) CK-MB (CK-2) Rel Index Cancelled Troponin I 0.65 H* D Free T3 12/02/16 12/02/16 12/02/16 05:20 05:20 05:20 WBC 13.5 H RBC 4.02 Hgb 11.9 Hct 35.0 L MCV 87.1 MCHC 33.9 RDW 13.8 Plt Count 234 MPV 9.6 PTT (Actin FS) Sodium 139 Potassium 3.6 Chloride 98 Carbon Dioxide 27 Anion Gap 14 BUN 43 H Creatinine 1.6 H POC Glucometer Random Glucose 160 H Calcium 8.8 Phosphorus 4.3 D Magnesium 2.6 H Creatine Kinase 270 D Creatine Kinase Index 2.5 CK-MB (CK-2) 6.694 H CK-MB (CK-2) Rel Index Cancelled Troponin I 0.57 H Free T3 12/02/16 12/02/16 12/02/16 05:36 06:10 07:10 WBC RBC Hgb Hct MCV MCHC RDW Plt Count MPV PTT (Actin FS) 54.4 H Sodium Potassium Chloride Carbon Dioxide Anion Gap BUN Creatinine POC Glucometer 164.99359 Random Glucose Calcium Phosphorus Magnesium Creatine Kinase Cancelled Creatine Kinase Index CK-MB (CK-2) CK-MB (CK-2) Rel Index Troponin I Cancelled Free T3 Active Medications Generic Name Dose Route Start Last Admin Trade Name Freq PRN Reason Stop Dose Admin Acetaminophen 650 mg 11/29/16 18:06 12/01/16 14:00 Tylenol - PO 650 mg Q4H PRN Administration FEVER OR PAIN Albuterol Sulfate 1 amp 11/30/16 11:31 12/02/16 14:15 Ventolin 0.083% Nebulizer Soln - NEB 1 amp Q4H PRN Administration SHORT OF BREATH/WHEEZING Albuterol/Ipratropium 1 amp 11/30/16 12:00 12/02/16 17:47 Duoneb - NEB 1 amp QIDR EFRAÍN Administration Aspirin 81 mg 11/30/16 22:00 12/01/16 21:44 Asa - PO 81 mg DAILY@2200 EFRAÍN Administration Atorvastatin Calcium 80 mg 11/30/16 22:00 12/01/16 21:44 Lipitor - PO 80 mg HS EFRAÍN Administration Chlorhexidine Gluconate 1 applic 11/29/16 22:00 12/01/16 22:00 Hibiclens For Decolonization - TP 1 applic HS EFRAÍN Administration Clopidogrel Bisulfate 75 mg 11/30/16 22:00 12/01/16 21:43 Plavix - PO 75 mg DAILY@2200 EFRAÍN Administration Docusate Sodium 100 mg 12/01/16 11:30 12/02/16 10:03 Colace - PO 100 mg BID EFRAÍN Administration Heparin Sodium (Porcine) 1,000 unit 11/30/16 00:20 Heparin - IVPUSH PRN PRN Heparin Heparin Sodium (Porcine) 5,000 unit 11/30/16 00:20 Heparin - IVPUSH PRN PRN Heparin Ceftriaxone Sodium 50 mls @ 100 mls/hr 11/30/16 10:00 12/02/16 10:03 Rocephin 1gm Ivpb (Pre-Docked) IVPB 100 mls/hr DAILY EFRAÍN Administration Heparin Sodium/Dextrose 500 mls @ 20 mls/hr 11/30/16 00:30 12/01/16 22:00 Heparin Infusion - IVPB 20 mls/hr TITR EFRAÍN Administration Protocol 1,000 UNITS/HR Azithromycin 250 mls @ 250 mls/hr 11/30/16 12:00 12/02/16 10:34 Zithromax 500mg Ivpb (Pre-Docked) IVPB 250 mls/hr DAILY EFRAÍN Administration Pantoprazole Sodium 100 mls @ 200 mls/hr 11/30/16 12:00 12/02/16 10:01 Protonix 40mg Ivpb (Pre-Docked) IVPB 200 mls/hr DAILY EFRAÍN Administration Lisinopril 10 mg 12/01/16 13:45 12/02/16 10:02 Prinivil PO 10 mg DAILY EFRAÍN Administration Lorazepam 1 mg 12/02/16 16:40 Ativan Injection - IVPUSH Q12H PRN ANXIETY Methylprednisolone Sodium Succinate 60 mg 11/30/16 12:00 12/02/16 17:23 Solu-Medrol - IVPB 60 mg Q6H-IV EFRAÍN Administration Metoprolol Tartrate 12.5 mg 11/30/16 10:00 12/02/16 10:03 Lopressor - PO 12.5 mg BID EFRAÍN Administration Mupirocin 1 applic 04/02/17 22:00 12/02/16 10:03 Bactroban Ointment (For Decolonization) - NS 12/04/16 21:59 1 applic BID EFRAÍN Administration ASSESSMENT/PLAN: Pt is a 61yr old man with PMHx including emphysema and HTN. Pt now in the ICU for management of COPD exacerbation in setting of likely community acquired pneumonia. Pulm: Acute COPD Exacerbation with Acute Hypoxic and Hypercapneic Respiratory Failure possibly exacerbated by pneumonia. clinically patient less dyspnic yes requires high volume oxygen on NC. - LE Doppler negative, have alternative explanation for hypoxia given severe COPD exacerbation/pneumonia, do not clinically suspect PE at this time, can d/c anticoagulation -CXR concerned for retrocardiac mass or infiltrate per radiology Dr. Nuha Buitrago. -BiPAP to assist in work of breathing PRN -O2 to keep Spo2 >90% -Nebulizers standing (home) and prn -d/c patient home inhalers -f/u repeat abg and chest xray in a.m -continue current dose IV Solu-Medrol 60mg q6h, taper as able- breathing improving more breath sounds today on the left. -continue ceftriaxone day 3 and start azithromycin day 3. will start deescalating from tomorrow -incentive elis ID: Sepsis secondary to Pneumonia- improving, afebrile, leukocytosis 2/2 to demargination -f/u cultures -continue ceftriaxone and start azithromycinl -f/u lactic acid Renal: STEFAN (base line ~Cr 1.4). improving -f/u bnp -Monitor -Chest xray not concerning for fluid overload and pt without edema -f/u UA -IVF as tolerated -Replete electrolytes prn Cardiac: Acute NSTEMI vs Demand Ischemia, troponins trending down,(nonstemi vs pe) trending down, no current chest pain. -ASA, plavix, -d/c heprin - have alternative explanation for hypoxia given severe COPD exacerbation/pneumonia, do not clinically suspect PE at this time, -trend cardiac enzymes -echocardiogram- LV sytolic function moderatly reduced. technically limited, will repeat once patient stable. -will need cardiac work up when stable -BP Control -f/u enzymes -ekg prn Acute on chronic systolic CHF: -Continue metoprolol. -Restart lisinopril (pt is on 10 mg daily at home); -f/u BUN/Cr, electrolytes (hx chronic renal insufficiency). (pt had stress treadmill MIBI in 2007 at [facility], but says he had a bad reaction, with severe dyspnea and rapid heart rate. He will require dobuatmine stress MIBI and/or coronary angiogram) per cardiology attending -Coronary artery evaluation when stable LDL cholesterol 147 mg/dL;f/u profile after being on lipitor 80 mg/d; Patient reports high calorie, sodium, lipid diet, patient reports drinking cola 2 liter bottle per day. discussed with patient diet and lifestyle modification. patient is reluctant to changing lifestyle. will consider adding Zetia. left popliteal cyst on duplex legs. -monitor and treat as outpatient Neuro -Pain management Prophylactic -DVT heparin sq -GI Protonix -low fat diet diet as tolerated Dispo:transfer to [facility] with continuous pulse oximetry monitoring Visit type - Emergency Visit Emergency Visit: Yes ED Registration Date: 11/29/16 Care time: The patient presented to the Emergency Department on the above date and was hospitalized for further evaluation of their emergent condition. - New Patient This patient is new to me today: No - Critical Care Critical Care patient: Yes Total Critical Care Time (in minutes): 52 Critical Care Statement: The care of this patient involved high complexity decision making to prevent further life threatening deterioration of the patient 's condition and/or to evalute & treat vital organ system(s) failure or risk of failure.
[2016-12-02] MEDS ORDERED: ACETAMINOPHEN 325 MG TABLET (FP) PO PRN (20:51)
[2016-12-02] MEDS ORDERED: ALBUTEROL SO4 0.083% IH SOL 2.5 MG/3 ML VIAL.NEB. NEB PRN (20:51)
[2016-12-02] MEDS ORDERED: HEPARIN NA (PORCINE) 5,000 UNITS/ML 1ML VIAL IVPUSH PRN ×2 (20:51)
--- NOTE | 2016-12-02 20:55 | PN ---
Physical Exam: SUBJECTIVE: Patient seen and examined in ICU. Moving around causes resp distress. He wants to sit in chair today OBJECTIVE: Vital Signs Period Temp Pulse Resp BP Sys/Rendon Pulse Ox Last 24 Hr 98.6 F-99.4 F 74-94 15-23 117-164/54-99 92-100 PE Neuro: alert, awake, cn 2-12intact Pulm: Diminished, + wheezing, poor air entry +NC CV:s s1 s2 rrr no mrg Abd: s nt nd + bs : reid Ext: warm no le edema Laboratory Results - last 24 hr 12/01/16 12/01/16 12/01/16 06:00 06:28 14:32 WBC RBC Hgb Hct MCV MCHC RDW Plt Count MPV PTT (Actin FS) Sodium Potassium Chloride Carbon Dioxide Anion Gap BUN Creatinine POC Glucometer 170.17034 [phone] Random Glucose Calcium Phosphorus Magnesium Creatine Kinase Creatine Kinase Index CK-MB (CK-2) CK-MB (CK-2) Rel Index Troponin I Free T3 2.8 12/01/16 12/01/16 12/02/16 16:30 22:52 05:20 WBC 13.5 H RBC 4.02 Hgb 11.9 Hct 35.0 L MCV 87.1 MCHC 33.9 RDW 13.8 Plt Count 234 MPV 9.6 PTT (Actin FS) Sodium Potassium Chloride Carbon Dioxide Anion Gap BUN Creatinine POC Glucometer 168.83721 Random Glucose Calcium Phosphorus Magnesium Creatine Kinase Creatine Kinase Index CK-MB (CK-2) CK-MB (CK-2) Rel Index Cancelled Troponin I Free T3 12/02/16 12/02/16 12/02/16 05:20 05:20 05:36 WBC RBC Hgb Hct MCV MCHC RDW Plt Count MPV PTT (Actin FS) Sodium 139 Potassium 3.6 Chloride 98 Carbon Dioxide 27 Anion Gap 14 BUN 43 H Creatinine 1.6 H POC Glucometer 164.71458 Random Glucose 160 H Calcium 8.8 Phosphorus 4.3 D Magnesium 2.6 H Creatine Kinase 270 D Creatine Kinase Index 2.5 CK-MB (CK-2) 6.694 H CK-MB (CK-2) Rel Index Cancelled Troponin I 0.57 H Free T3 12/02/16 12/02/16 06:10 07:10 WBC RBC Hgb Hct MCV MCHC RDW Plt Count MPV PTT (Actin FS) 54.4 H Sodium Potassium Chloride Carbon Dioxide Anion Gap BUN Creatinine POC Glucometer Random Glucose Calcium Phosphorus Magnesium Creatine Kinase Cancelled Creatine Kinase Index CK-MB (CK-2) CK-MB (CK-2) Rel Index Troponin I Cancelled Free T3 Current Medications Generic Name Dose Route Start Last Admin Trade Name Freq PRN Reason Stop Dose Admin Acetaminophen 650 mg 12/02/16 20:51 Tylenol - PO Q4H PRN FEVER OR PAIN Albuterol Sulfate 1 amp 12/02/16 20:51 Ventolin 0.083% Nebulizer Soln - NEB Q4H PRN SHORT OF BREATH/WHEEZING Albuterol/Ipratropium 1 amp 12/03/16 00:00 Duoneb - NEB QIDR [facility] Aspirin 81 mg 12/02/16 22:00 Asa - PO DAILY@2200 [facility] Atorvastatin Calcium 80 mg 12/02/16 22:00 Lipitor - PO HS [facility] Clopidogrel Bisulfate 75 mg 12/02/16 22:00 Plavix - PO DAILY@2200 [facility] Docusate Sodium 100 mg 12/02/16 22:00 Colace - PO BID [facility] Heparin Sodium (Porcine) 5,000 unit 12/02/16 22:00 Heparin - SQ TID [facility] Heparin Sodium (Porcine) 1,000 unit 12/02/16 20:51 Heparin - IVPUSH PRN PRN Heparin Heparin Sodium (Porcine) 5,000 unit 12/02/16 20:51 Heparin - IVPUSH PRN PRN Heparin Ceftriaxone Sodium 50 mls @ 100 mls/hr 12/03/16 10:00 Rocephin 1gm Ivpb (Pre-Docked) IVPB DAILY [facility] Pantoprazole Sodium 100 mls @ 200 mls/hr 12/03/16 10:00 Protonix 40mg Ivpb (Pre-Docked) IVPB DAILY [facility] Azithromycin 250 mls @ 250 mls/hr 12/03/16 10:00 Zithromax 500mg Ivpb (Pre-Docked) IVPB DAILY [facility] Lisinopril 10 mg 12/03/16 10:00 Prinivil PO DAILY [facility] Lorazepam 1 mg 12/02/16 16:40 Ativan Injection - IVPUSH Q12H PRN ANXIETY Methylprednisolone Sodium Succinate 60 mg 12/02/16 21:00 Solu-Medrol - IVPB Q6H-IV EFRAÍN Metoprolol Tartrate 12.5 mg 12/02/16 22:00 Lopressor - PO BID EFRAÍN Assessment: 61 year old male with hypertension, chronic obstructive pulmonary disease (requiring intubation in 2005) and emphysema admitted with worsening shortness of breath. Plan: 1. Acute hypoxic respiratory failure d/t Severe COPD exacerbation - BiPAP HS and PRN - Medrol 60mg q6hr - Supplemental 02, goal spo2 >92% 2. Sepsis d/t Community PNA - Continue Ceftriaxone - Continue Azithro - ID seeing 3. Elevated trops/CAD - Possible NSTEMI vs. demand - Trops downtrended however >0.5 - Will need cath in future, once stable - Continue ASA/Plavix - Heparin gtt stopped, less likely PE as dopplers negative and hypoxia likely due to severe copd with acute episode in AM - Discussed w/ ICU attending 3. HTN - Lisinopril 10mg daily 4. Acute on chronic CHF - Continue metoprolol 12.5mg BID 5. STEFAN - Resolving Visit type - Emergency Visit Emergency Visit: Yes ED Registration Date: 11/29/16 Care time: The patient presented to the Emergency Department on the above date and was hospitalized for further evaluation of their emergent condition. - New Patient This patient is new to me today: Yes Date on this admission: 12/02/16 - Critical Care Critical Care patient: No
[2016-12-02] MEDS: CLOPIDOGREL BISULFATE 75 MG TABLET (FP) PO SCH (21:18)
[2016-12-02] MEDS: ATORVASTATIN CA 80 MG TABLET (FP) PO SCH (21:18)
[2016-12-02] MEDS: HEPARIN NA (PORCINE) 5,000 UNITS/ML 1ML VIAL SQ SCH (21:19)
[2016-12-02] MEDS: ASPIRIN 81 MG CHEWABLE TABLETS PO SCH (21:19)
[2016-12-03] MEDS: ALBUTEROL SO4 2.5/IPRATROPIUM 0.5 INH SOL 3 ML VIAL.NEB. NEB SCH ×5 (00:17→23:33)
[2016-12-03] MEDS: methylPREDNISolone NA SUCC 125 MG/2 ML VIAL IVPB SCH ×4 (04:17→22:03)
[2016-12-03] MEDS: HEPARIN NA (PORCINE) 5,000 UNITS/ML 1ML VIAL SQ SCH ×3 (06:09→22:03)
[2016-12-03 08:04] LABS: MCH 29.2 pg (25.7-33.7); MCHC 33.3 g/dl (32.0-35.9); MEAN CELL VOLUME 87.9 fl (80-96); MEAN PLT VOLUME 9.5 fl (7.5-11.1); PLATELET COUNT 201 K/MM3 (134-434); RDW 13.7 % (11.9-15.9); WHITE BLOOD COUNT 13.5 K/mm3 (4.0-10.0)
[2016-12-03 08:29] LABS: CALCIUM 8.6 mg/dL (8.5-10.1); MAGNESIUM 2.7 mg/dL (1.8-2.4)
[2016-12-03 08:31] LABS: CREATININE 1.6 mg/dL (0.7-1.3); PHOSPHOROUS 4.3 mg/dL (2.5-4.9)
[2016-12-03] MEDS ORDERED: PANTOPRAZOLE SODIUM 100 ML IVPB SCH (10:00)
[2016-12-03] MEDS: ALPRAZolam 0.25 MG TABLET PO PRN ×2 (10:31→23:32)
[2016-12-03] MEDS: LISINOPRIL 10 MG TABLET (FP) PO SCH (10:32)
[2016-12-03] MEDS: AZITHROMYCIN IVPB 250 ML IVPB SCH (10:33)
[2016-12-03] MEDS: CEFTRIAXONE 50 ML IVPB SCH (10:33)
[2016-12-03] MEDS: DOCUSATE SODIUM 100 MG CAPSULE (FP) PO SCH (10:33)
[2016-12-03] MEDS: METOPROLOL TARTRATE 25 MG TABLET (FP) PO SCH ×2 (10:33→22:05)
--- NOTE | 2016-12-03 11:10 | PN ---
Physical Exam: SUBJECTIVE: Patient seen and examined. He became SOB and tired ambulating to nurses station. He is OOB to chair now, stable on NC Events: - Ibrahim pulled; + void - Heparin gtt discontinued yesterday 12/02 OBJECTIVE: Vital Signs Period Temp Pulse Resp BP Sys/Rendon Pulse Ox Last 24 Hr 98.3 F-99 F 70-81 20-24 124-164/66-95 92-96 PE Neuro: alert, awake, cn 2-12 intact Pulm: air entry improved, however still diminished, no wheezing, + NC 4L CV:s s1 s2 rrr no mrg Abd: s nt nd + bs Ext: warm no le edema CBCD WBC 13.5 K/mm3 (4.0-10.0) H 12/03/16 05:50 RBC 4.10 M/mm3 (4.00-5.60) 12/03/16 05:50 Hgb 12.0 GM/dL (11.7-16.9) 12/03/16 05:50 Hct 36.0 % (35.4-49) 12/03/16 05:50 MCV 87.9 fl (80-96) 12/03/16 05:50 MCHC 33.3 g/dl (32.0-35.9) 12/03/16 05:50 RDW 13.7 % (11.9-15.9) 12/03/16 05:50 Plt Count 201 K/MM3 (134-434) 12/03/16 05:50 MPV 9.5 fl (7.5-11.1) 12/03/16 05:50 CMP Sodium 141 mmol/L (136-145) 12/03/16 05:50 Potassium 4.4 mmol/L (3.5-5.1) D 12/03/16 05:50 Chloride 102 mmol/L (98-107) 12/03/16 05:50 Carbon Dioxide 25 mmol/L (21-32) 12/03/16 05:50 Anion Gap 14 (8-16) 12/03/16 05:50 BUN 50 mg/dL (7-18) H 12/03/16 05:50 Creatinine 1.6 mg/dL (0.7-1.3) H 12/03/16 05:50 Creat Clearance w eGFR 38.68 (>60) 12/01/16 06:00 Calcium 8.6 mg/dL (8.5-10.1) 12/03/16 05:50 Total Bilirubin 0.4 mg/dL (0.2-1.0) D 12/01/16 06:00 AST 47 U/L (15-37) H 12/01/16 06:00 ALT 53 U/L (12-78) 12/01/16 06:00 Alkaline Phosphatase 115 U/L (45-117) 12/01/16 06:00 Total Protein 6.7 g/dl (6.4-8.2) 12/01/16 06:00 Albumin 3.6 g/dl (3.4-5.0) 12/01/16 06:00 Active Medications Generic Name Dose Route Start Last Admin Trade Name Freq PRN Reason Stop Dose Admin Acetaminophen 650 mg 12/02/16 20:51 Tylenol - PO Q4H PRN FEVER OR PAIN Albuterol Sulfate 1 amp 12/02/16 20:51 Ventolin 0.083% Nebulizer Soln - NEB Q4H PRN SHORT OF BREATH/WHEEZING Albuterol/Ipratropium 1 amp 12/03/16 00:00 12/03/16 06:15 Duoneb - NEB 1 amp QIDR EFRAÍN Administration Alprazolam 0.5 mg 12/03/16 09:17 12/03/16 10:31 Xanax - PO 0.5 mg BID PRN Administration Aspirin 81 mg 12/02/16 22:00 12/02/16 21:19 Asa - PO 81 mg DAILY@2200 EFRAÍN Administration Atorvastatin Calcium 80 mg 12/02/16 22:00 12/02/16 21:18 Lipitor - PO 80 mg HS EFRAÍN Administration Clopidogrel Bisulfate 75 mg 12/02/16 22:00 12/02/16 21:18 Plavix - PO 75 mg DAILY@2200 EFRAÍN Administration Docusate Sodium 100 mg 12/02/16 22:00 12/03/16 10:33 Colace - PO Not Given BID [facility] Heparin Sodium (Porcine) 5,000 unit 12/02/16 22:00 12/03/16 06:09 Heparin - SQ 5,000 unit TID EFRAÍN Administration Ceftriaxone Sodium 50 mls @ 100 mls/hr 12/03/16 10:00 12/03/16 10:33 Rocephin 1gm Ivpb (Pre-Docked) IVPB 100 mls/hr DAILY EFRAÍN Administration Pantoprazole Sodium 100 mls @ 200 mls/hr 12/03/16 10:00 12/03/16 10:33 Protonix 40mg Ivpb (Pre-Docked) IVPB 200 mls/hr DAILY EFRAÍN Administration Azithromycin 250 mls @ 250 mls/hr 12/03/16 10:00 12/03/16 10:33 Zithromax 500mg Ivpb (Pre-Docked) IVPB 250 mls/hr DAILY EFRAÍN Administration Lisinopril 10 mg 12/03/16 10:00 12/03/16 10:32 Prinivil PO 10 mg DAILY EFRAÍN Administration Methylprednisolone Sodium Succinate 60 mg 12/02/16 21:00 12/03/16 09:31 Solu-Medrol - IVPB 60 mg Q6H-IV EFRAÍN Administration Metoprolol Tartrate 12.5 mg 12/02/16 22:00 12/03/16 10:33 Lopressor - PO 12.5 mg BID EFRAÍN Administration Assessment: 61 year old male with hypertension, chronic obstructive pulmonary disease (requiring intubation in 2005) and emphysema admitted with worsening shortness of breath. Plan: 1. Acute hypoxic respiratory failure d/t Severe COPD exacerbation - Medrol 60mg q6hr - BiPAP HS and PRN - Supplemental 02, goal spo2 >92% - Pulm seeing 2. Sepsis d/t Community PNA - Continue Ceftriaxone (day 4) - Continue Azithro (day 4) - ID to de escalate today 3. Elevated trops/CAD - Possible NSTEMI vs. demand - Trops downtrended however >0.5 - Will need cath in future, once stable - Continue ASA/Plavix 4. HTN - Lisinopril 10mg daily 5. Acute on chronic CHF - Continue metoprolol 12.5mg BID 6. STEFAN - Baseline appears ~1.4 - If worsens will trial gentle fluids - On CHEKO Visit type - Emergency Visit Emergency Visit: Yes ED Registration Date: 11/29/16 Care time: The patient presented to the Emergency Department on the above date and was hospitalized for further evaluation of their emergent condition. - New Patient This patient is new to me today: No - Critical Care Critical Care patient: No
[2016-12-03] MEDS ORDERED: PT OWN MED DRAWER 7, Y5N ONE (14:35)
[2016-12-03] MEDS: METHADONE HCL 10 MG TABLET PO SCH ×2 (16:12→17:51)
--- NOTE | 2016-12-03 16:46 | PN ---
Progress Note, Physician History of Present Illness: patient doing much better no issues still requiring nasal cannula but says much better - Current Medication List Current Medications: Active Medications Acetaminophen (Tylenol -) 650 mg PO Q4H PRN PRN Reason: FEVER OR PAIN Albuterol Sulfate (Ventolin 0.083% Nebulizer Soln -) 1 amp NEB Q4H PRN PRN Reason: SHORT OF BREATH/WHEEZING Albuterol/Ipratropium (Duoneb -) 1 amp NEB QIDR [facility] Last Admin: 12/03/16 11:00 Dose: 1 amp Alprazolam (Xanax -) 0.5 mg PO BID PRN Last Admin: 12/03/16 10:31 Dose: 0.5 mg Aspirin (Asa -) 81 mg PO DAILY@2200 [facility] Last Admin: 12/02/16 21:19 Dose: 81 mg Atorvastatin Calcium (Lipitor -) 80 mg PO HS [facility] Last Admin: 12/02/16 21:18 Dose: 80 mg Clopidogrel Bisulfate (Plavix -) 75 mg PO DAILY@2200 [facility] Last Admin: 12/02/16 21:18 Dose: 75 mg Heparin Sodium (Porcine) (Heparin -) 5,000 unit SQ TID [facility] Last Admin: 12/03/16 16:09 Dose: 5,000 unit Ceftriaxone Sodium (Rocephin 1gm Ivpb (Pre-Docked)) 50 mls @ 100 mls/hr IVPB DAILY [facility] Last Admin: 12/03/16 10:33 Dose: 100 mls/hr Azithromycin (Zithromax 500mg Ivpb (Pre-Docked)) 250 mls @ 250 mls/hr IVPB DAILY [facility] Last Admin: 12/03/16 10:33 Dose: 250 mls/hr Lisinopril (Prinivil) 10 mg PO DAILY [facility] Last Admin: 12/03/16 10:32 Dose: 10 mg Methadone HCl (Dolophine -) 50 mg PO DAILY [facility] Last Admin: 12/03/16 16:12 Dose: 50 mg Methylprednisolone Sodium Succinate (Solu-Medrol -) 60 mg IVPB Q6H-IV [facility] Last Admin: 12/03/16 16:09 Dose: 60 mg Metoprolol Tartrate (Lopressor -) 12.5 mg PO BID [facility] Last Admin: 12/03/16 10:33 Dose: 12.5 mg Pantoprazole Sodium (Protonix -) 40 mg PO DAILY [facility] - Objective Vital Signs: Vital Signs Temperature 98.8 F 12/03/16 14:49 Pulse Rate 83 12/03/16 14:49 Respiratory Rate 20 12/03/16 14:49 Blood Pressure 128/69 12/03/16 14:49 O2 Sat by Pulse Oximetry (%) 93 L 12/02/16 20:53 Constitutional: Yes: No Distress, Calm HENT: Yes: Atraumatic Neck: Yes: Supple, Trachea Midline Cardiovascular: Yes: Regular Rate and Rhythm Respiratory: Yes: Regular, Poor Air Entry Gastrointestinal: Yes: Normal Bowel Sounds, Soft Musculoskeletal: Yes: WNL Extremities: Yes: WNL Neurological: Yes: Alert, Oriented Psychiatric: Yes: Alert Labs: CBC, BMP 12/03/16 05:50 12/03/16 05:50 INR, PTT INR 1.07 (0.82-1.09) 11/29/16 22:10 Assessment/Plan Acute Hypoxic and Hypercapneic Respiratory Failure COPD Exacerbation Pneumonia Sepsis Acute Kidney Injury plan continue abx for now will stop abx tomorrow incentive elis resp support
--- NOTE | 2016-12-03 16:49 | PN ---
Progress Note (short form) - Note Progress Note: Breathing slowly improving. Denies chest pain. Tolerating NC O2. Intake & Output 11/30/16 12/01/16 12/02/16 12/03/16 23:59 23:59 23:59 23:59 Intake Total 2009 740 1130 Output Total 1999 1799 2350 900 Balance 10 -1060 -1220 -900 Weight 195 lb 5 oz 191 lb 9.307 oz 188 lb 12.8 oz Last Vital Signs Temp Pulse Resp BP Pulse Ox 98.8 F 83 20 128/69 93 L 12/03/16 14:49 12/03/16 14:49 12/03/16 14:49 12/03/16 14:49 12/02/16 20:53 Active Medications Acetaminophen (Tylenol -) 650 mg PO Q4H PRN PRN Reason: FEVER OR PAIN Albuterol Sulfate (Ventolin 0.083% Nebulizer Soln -) 1 amp NEB Q4H PRN PRN Reason: SHORT OF BREATH/WHEEZING Albuterol/Ipratropium (Duoneb -) 1 amp NEB QIDR [facility] Last Admin: 12/03/16 11:00 Dose: 1 amp Alprazolam (Xanax -) 0.5 mg PO BID PRN Last Admin: 12/03/16 10:31 Dose: 0.5 mg Aspirin (Asa -) 81 mg PO DAILY@2200 [facility] Last Admin: 12/02/16 21:19 Dose: 81 mg Atorvastatin Calcium (Lipitor -) 80 mg PO HS [facility] Last Admin: 12/02/16 21:18 Dose: 80 mg Clopidogrel Bisulfate (Plavix -) 75 mg PO DAILY@2200 [facility] Last Admin: 12/02/16 21:18 Dose: 75 mg Heparin Sodium (Porcine) (Heparin -) 5,000 unit SQ TID [facility] Last Admin: 12/03/16 16:09 Dose: 5,000 unit Ceftriaxone Sodium (Rocephin 1gm Ivpb (Pre-Docked)) 50 mls @ 100 mls/hr IVPB DAILY [facility] Last Admin: 12/03/16 10:33 Dose: 100 mls/hr Azithromycin (Zithromax 500mg Ivpb (Pre-Docked)) 250 mls @ 250 mls/hr IVPB DAILY [facility] Last Admin: 12/03/16 10:33 Dose: 250 mls/hr Lisinopril (Prinivil) 10 mg PO DAILY [facility] Last Admin: 12/03/16 10:32 Dose: 10 mg Methadone HCl (Dolophine -) 50 mg PO DAILY [facility] Last Admin: 12/03/16 16:12 Dose: 50 mg Methylprednisolone Sodium Succinate (Solu-Medrol -) 60 mg IVPB Q6H-IV [facility] Last Admin: 12/03/16 16:09 Dose: 60 mg Metoprolol Tartrate (Lopressor -) 12.5 mg PO BID [facility] Last Admin: 12/03/16 10:33 Dose: 12.5 mg Pantoprazole Sodium (Protonix -) 40 mg PO DAILY [facility] Gen: NAD Heart: RRR Lung: decreased BS at the bases, scattered wheezes/rhonchi Abd: soft, nontender Ext: no edema Laboratory Results - last 24 hr 12/03/16 12/03/16 12/03/16 05:50 05:50 05:50 WBC 13.5 H RBC 4.10 Hgb 12.0 Hct 36.0 MCV 87.9 MCHC 33.3 RDW 13.7 Plt Count 201 MPV 9.5 PTT (Actin FS) 26.2 L D Sodium 141 Potassium 4.4 D Chloride 102 Carbon Dioxide 25 Anion Gap 14 BUN 50 H Creatinine 1.6 H Random Glucose 142 H Calcium 8.6 Phosphorus 4.3 Magnesium 2.7 H ASSESSMENT AND PLAN: Acute Hypoxic and Hypercapneic Respiratory Failure Acute COPD Exacerbation Pneumonia Sepsis Acute NSTEMI vs Demand Ischemia Acute Kidney Injury - continue antibiotics per ID - ASA, plavix - O2 to keep Spo2 >90% - BiPAP to assist in work of breathing - continue medrol at current dose -> taper in AM if stable/improved - inhaled bronchodilators - will need cardiac work up when stable - DVT/GI prophyalxis - No smoking Dr Yip
[2016-12-03] MEDS: ATORVASTATIN CA 80 MG TABLET (FP) PO SCH (22:04)
[2016-12-03] MEDS: ASPIRIN 81 MG CHEWABLE TABLETS PO SCH (22:04)
[2016-12-03] MEDS: CLOPIDOGREL BISULFATE 75 MG TABLET (FP) PO SCH (22:05)
[2016-12-04] MEDS: methylPREDNISolone NA SUCC 125 MG/2 ML VIAL IVPB SCH ×4 (03:49→21:46)
[2016-12-04] MEDS: HEPARIN NA (PORCINE) 5,000 UNITS/ML 1ML VIAL SQ SCH ×3 (06:29→21:46)
[2016-12-04] MEDS: ALBUTEROL SO4 2.5/IPRATROPIUM 0.5 INH SOL 3 ML VIAL.NEB. NEB SCH ×4 (06:40→23:10)
[2016-12-04 07:32] LABS: MCHC 32.7 g/dl (32.0-35.9); MEAN CELL VOLUME 88.8 fl (80-96); MEAN PLT VOLUME 9.7 fl (7.5-11.1); PLATELET COUNT 199 K/MM3 (134-434); RDW 13.8 % (11.9-15.9); WHITE BLOOD COUNT 12.2 K/mm3 (4.0-10.0)
[2016-12-04 07:53] LABS: ALBUMIN 3.2 g/dl (3.4-5.0); CALCIUM 8.9 mg/dL (8.5-10.1)
[2016-12-04 07:57] LABS: BILIRUBIN,TOTAL 0.3 mg/dL (0.2-1.0); COCKROFT - GAULT 54.71; CREATININE 1.8 mg/dL (0.7-1.3); TOT PROT 6.1 g/dl (6.4-8.2)
[2016-12-04 08:29] LABS: TYPE OF O2 BIPAP; VT/PRESS 16/5
--- NOTE | 2016-12-04 09:27 | PN ---
Progress Note, Physician Chief Complaint: Pt, denies chest pain or dyspnea. He does not want to undergo stress testing or coronary angiogram. History of Present Illness: The patient is a 61-year-old man, accompanied by , with a significant past medical history of hypertension, chronic obstructive pulmonary disease ( requiring intubation in 2005) and emphysema, who presents to the emergency department via EMS for further evaluation of shortness of breath. HPI limited as patient arrives in severe respiratory distress. As per patient's , his symptoms started approximately 1 month ago with an intermittent productive cough with yellow-green sputum. She states that his symptoms worsened over the the past 3 days, as he became increasingly short of breath. EMS was activated today, and on arrival, the patient was noted to be in the low 90s on a non- rebreather and was found to have diffuse expiratory wheezes in the field, and was in respiratory distress. He was given 10 milligrams of Decadron and received a second Combivent. He was also placed on a BiPAP, with noted improvement of his shortness of breath and oxygen saturation of 98%. No fever, chills, sick contacts. History provided by EMS, old records and pts who is with him Allergies: No Known Drug Allergies. Past Surgical History: None reported Social History: Former cigarette use. No ETOH and recreational drug use. Primary Care Physician: Dr. Mell Hernandez [employer] Ware[employer] Supervisor: Dr. Juan Medina (Affiliated with [facility]) - Current Medication List Current Medications: Active Medications Acetaminophen (Tylenol -) 650 mg PO Q4H PRN PRN Reason: FEVER OR PAIN Albuterol Sulfate (Ventolin 0.083% Nebulizer Soln -) 1 amp NEB Q4H PRN PRN Reason: SHORT OF BREATH/WHEEZING Albuterol/Ipratropium (Duoneb -) 1 amp NEB QIDR [facility] Last Admin: 12/04/16 06:40 Dose: Not Given Alprazolam (Xanax -) 0.5 mg PO BID PRN Last Admin: 12/03/16 23:32 Dose: 0.5 mg Aspirin (Asa -) 81 mg PO DAILY@2200 [facility] Last Admin: 12/03/16 22:04 Dose: 81 mg Atorvastatin Calcium (Lipitor -) 80 mg PO HS [facility] Last Admin: 12/03/16 22:04 Dose: 80 mg Clopidogrel Bisulfate (Plavix -) 75 mg PO DAILY@2200 [facility] Last Admin: 12/03/16 22:05 Dose: 75 mg Heparin Sodium (Porcine) (Heparin -) 5,000 unit SQ TID [facility] Last Admin: 12/04/16 06:29 Dose: 5,000 unit Ceftriaxone Sodium (Rocephin 1gm Ivpb (Pre-Docked)) 50 mls @ 100 mls/hr IVPB DAILY [facility] Last Admin: 12/03/16 10:33 Dose: 100 mls/hr Azithromycin (Zithromax 500mg Ivpb (Pre-Docked)) 250 mls @ 250 mls/hr IVPB DAILY [facility] Last Admin: 12/03/16 10:33 Dose: 250 mls/hr Lisinopril (Prinivil) 10 mg PO DAILY [facility] Last Admin: 12/03/16 10:32 Dose: 10 mg Methadone HCl (Dolophine -) 50 mg PO DAILY [facility] Last Admin: 12/03/16 17:51 Dose: Not Given Methylprednisolone Sodium Succinate (Solu-Medrol -) 60 mg IVPB Q6H-IV [facility] Last Admin: 12/04/16 03:49 Dose: 60 mg Metoprolol Tartrate (Lopressor -) 12.5 mg PO BID [facility] Last Admin: 12/03/16 22:05 Dose: 12.5 mg Pantoprazole Sodium (Protonix -) 40 mg PO DAILY [facility] - Objective Vital Signs: Vital Signs Temperature 98.1 F 12/03/16 21:00 Pulse Rate 78 12/04/16 05:53 Respiratory Rate 20 12/04/16 05:53 Blood Pressure 135/75 12/04/16 05:53 O2 Sat by Pulse Oximetry (%) 97 12/03/16 22:00 Constitutional: Yes: Anxious Eyes: Yes: WNL HENT: Yes: WNL Neck: Yes: WNL Cardiovascular: Yes: Regular Rate and Rhythm Respiratory: Yes: Diminished Gastrointestinal: Yes: Soft ...Rectal Exam: Yes: Deferred Genitourinary: No: Anuria Musculoskeletal: Yes: Muscle Weakness Edema: Yes Edema: LLE: Trace, RLE: Trace Peripheral Pulses WNL: Yes Peripheral Pulses: Left Doralis Pedis: 1+ Neurological: Yes: Alert, Oriented Psychiatric: Yes: Alert, Oriented Labs: CBC, BMP 12/04/16 05:35 12/04/16 05:35 INR, PTT INR 1.07 (0.82-1.09) 11/29/16 22:10 Problem List - Problems (1) Asthma exacerbation in COPD Assessment/Plan: steroids, bronchodilators, O2 per manager monitoring. Pt is dyspneic on minimal exertion (eg just getting up from bed to go to the bathroom). Code(s): J44.1 - CHRONIC OBSTRUCTIVE PULMONARY DISEASE W (ACUTE) EXACERBATION J45.901 - UNSPECIFIED ASTHMA WITH (ACUTE) EXACERBATION (2) Hypertension Code(s): I10 - ESSENTIAL (PRIMARY) HYPERTENSION (3) Renal insufficiency Code(s): N28.9 - DISORDER OF KIDNEY AND URETER, UNSPECIFIED (4) Right lower lobe pneumonia Code(s): J18.9 - PNEUMONIA, UNSPECIFIED ORGANISM Qualifiers: Pneumonia type: due to unspecified organism Qualified Code(s): J18.1 - Lobar pneumonia, unspecified organism (5) Acute on chronic systolic (congestive) heart failure Assessment/Plan: Continue metoprolol. Restarted lisinopril (pt is on 10 mg daily at home); f/u BUN/Cr, electrolytes ( hx chronic renal insufficiency). TNI trending down, but still >0.5. Coronary artery evaluation when stable (pt had stress treadmill MIBI in 2007 at [facility], but says he had a bad reaction, with severe dyspnea and rapid heart rate. He will require dobuatmine stress MIBI and/or coronary angiogram). At present, however, pt does not want to undergo any furhter testing of the coronaries, despite being told of elevated TNI and the risks he has of future major cardiac events. Free T3 wnl. Code(s): I50.23 - ACUTE ON CHRONIC SYSTOLIC (CONGESTIVE) HEART FAILURE (6) Hyperlipidemia Assessment/Plan: was on simvastatin at home; agree with change to the more potent atorvastatin, and at a higher dose (f/u mildly elevated AST). Code(s): E78.5 - HYPERLIPIDEMIA, UNSPECIFIED (7) Elevated troponin Code(s): R74.8 - ABNORMAL LEVELS OF OTHER SERUM ENZYMES
[2016-12-04] MEDS: METHADONE HCL 10 MG TABLET PO SCH (09:36)
[2016-12-04] MEDS: PANTOPRAZOLE 40 MG TABLET (FP) PO SCH (09:37)
[2016-12-04] MEDS: METOPROLOL TARTRATE 25 MG TABLET (FP) PO SCH ×2 (09:37→21:46)
[2016-12-04] MEDS: LISINOPRIL 10 MG TABLET (FP) PO SCH (09:37)
[2016-12-04] MEDS: CEFTRIAXONE 50 ML IVPB SCH (09:39)
[2016-12-04] MEDS: AZITHROMYCIN IVPB 250 ML IVPB SCH (09:39)
--- NOTE | 2016-12-04 13:19 | PN ---
Progress Note (short form) - Note Progress Note: PULMONARY H/O COPDRECENTLY QUIT SMOKING/H/O ETT/MVV IN PAST FOR COPD AWAKE/ANXIOUS VSS/AFEBRILE ANICTERIC DISTANT B/L BREATH SOUNDS S1S2 BS+ OBESE NO EDEMA LABS/MEDS/NOTES/IMAGING/MEDS REVIEWED Acute Hypoxic and Hypercapneic Respiratory Failure Acute COPD Exacerbation Pneumonia Sepsis Acute NSTEMI vs Demand Ischemia Acute Kidney Injury - continue antibiotics per ID - ASA, plavix - O2 to keep Spo2 >90% - BiPAP to assist in work of breathing - continue medrol at current dose -> taper in AM if stable/improved - inhaled bronchodilators - will need cardiac work up when stable - DVT/GI prophyalxis - No smoking Dwain MADRIGAL MD
--- NOTE | 2016-12-04 15:56 | PN ---
Progress Note, Physician History of Present Illness: stable no new issues no complaints - Current Medication List Current Medications: Active Medications Acetaminophen (Tylenol -) 650 mg PO Q4H PRN PRN Reason: FEVER OR PAIN Albuterol Sulfate (Ventolin 0.083% Nebulizer Soln -) 1 amp NEB Q4H PRN PRN Reason: SHORT OF BREATH/WHEEZING Albuterol/Ipratropium (Duoneb -) 1 amp NEB QIDR [facility] Last Admin: 12/04/16 11:15 Dose: 1 amp Alprazolam (Xanax -) 0.5 mg PO BID PRN Last Admin: 12/03/16 23:32 Dose: 0.5 mg Aspirin (Asa -) 81 mg PO DAILY@2200 [facility] Last Admin: 12/03/16 22:04 Dose: 81 mg Atorvastatin Calcium (Lipitor -) 80 mg PO HS [facility] Last Admin: 12/03/16 22:04 Dose: 80 mg Clopidogrel Bisulfate (Plavix -) 75 mg PO DAILY@2200 [facility] Last Admin: 12/03/16 22:05 Dose: 75 mg Heparin Sodium (Porcine) (Heparin -) 5,000 unit SQ TID [facility] Last Admin: 12/04/16 14:00 Dose: Not Given Lisinopril (Prinivil) 10 mg PO DAILY [facility] Last Admin: 12/04/16 09:37 Dose: 10 mg Methadone HCl (Dolophine -) 50 mg PO DAILY [facility] Last Admin: 12/04/16 09:36 Dose: 50 mg Methylprednisolone Sodium Succinate (Solu-Medrol -) 60 mg IVPB Q6H-IV [facility] Last Admin: 12/04/16 15:44 Dose: 60 mg Metoprolol Tartrate (Lopressor -) 12.5 mg PO BID [facility] Last Admin: 12/04/16 09:37 Dose: 12.5 mg Pantoprazole Sodium (Protonix -) 40 mg PO DAILY [facility] Last Admin: 12/04/16 09:37 Dose: 40 mg - Objective Vital Signs: Vital Signs Temperature 98.4 F 12/04/16 14:07 Pulse Rate 83 12/04/16 14:07 Respiratory Rate 20 12/04/16 14:07 Blood Pressure 135/74 12/04/16 14:07 O2 Sat by Pulse Oximetry (%) 97 12/03/16 22:00 Constitutional: Yes: No Distress, Calm Cardiovascular: Yes: Regular Rate and Rhythm Respiratory: Yes: Regular, On Nasal O2 Gastrointestinal: Yes: Normal Bowel Sounds, Soft Musculoskeletal: Yes: WNL Extremities: Yes: WNL Neurological: Yes: Alert, Oriented Psychiatric: Yes: Alert, Oriented Labs: CBC, BMP 12/04/16 05:35 12/04/16 05:35 INR, PTT INR 1.07 (0.82-1.09) 11/29/16 22:10 - ....Imaging Chest X-ray: Report Reviewed, Image Reviewed Assessment/Plan Acute Hypoxic and Hypercapneic Respiratory Failure COPD Exacerbation Pneumonia Sepsis Acute Kidney Injury plan stoppen abx continue as per pul incentive spior physio rest as per primary
--- NOTE | 2016-12-04 16:03 | PN ---
Progress Note (short form) - Note Progress Note: Subjective: The patient was seen and examined at the bedside, he reports breathing is "easier" today. He states he is getting up and walking to the bathroom without shortness of breath. Current Medications Generic Name Dose Route Start Last Admin Trade Name Freq PRN Reason Stop Dose Admin Acetaminophen 650 mg 12/02/16 20:51 Tylenol - PO Q4H PRN FEVER OR PAIN Albuterol Sulfate 1 amp 12/02/16 20:51 Ventolin 0.083% Nebulizer Soln - NEB Q4H PRN SHORT OF BREATH/WHEEZING Albuterol/Ipratropium 1 amp 12/03/16 00:00 12/04/16 11:15 Duoneb - NEB 1 amp QIDR [facility] Administration Alprazolam 0.5 mg 12/03/16 09:17 12/03/16 23:32 Xanax - PO 0.5 mg BID PRN Administration Aspirin 81 mg 12/02/16 22:00 12/03/16 22:04 Asa - PO 81 mg DAILY@2200 [facility] Administration Atorvastatin Calcium 80 mg 12/02/16 22:00 12/03/16 22:04 Lipitor - PO 80 mg HS [facility] Administration Clopidogrel Bisulfate 75 mg 12/02/16 22:00 12/03/16 22:05 Plavix - PO 75 mg DAILY@2200 [facility] Administration Heparin Sodium (Porcine) 5,000 unit 12/02/16 22:00 12/04/16 14:00 Heparin - SQ Not Given TID [facility] Lisinopril 10 mg 12/03/16 10:00 12/04/16 09:37 Prinivil PO 10 mg DAILY [facility] Administration Methadone HCl 50 mg 12/03/16 14:45 12/04/16 09:36 Dolophine - PO 50 mg DAILY [facility] Administration Methylprednisolone Sodium Succinate 60 mg 12/02/16 21:00 12/04/16 15:44 Solu-Medrol - IVPB 60 mg Q6H-IV [facility] Administration Metoprolol Tartrate 12.5 mg 12/02/16 22:00 12/04/16 09:37 Lopressor - PO 12.5 mg BID [facility] Administration Pantoprazole Sodium 40 mg 12/04/16 10:00 12/04/16 09:37 Protonix - PO 40 mg DAILY [facility] Administration Objective: Vital Signs Period Temp Pulse Resp BP Sys/Rendon Pulse Ox Last 24 Hr 98.1 F-98.8 F 78-88 18-20 135-141/74-87 97 Phyiscal Exam: General: NAD, A&Ox3 Lungs: Diminished breath sounds b/l. Mild wheezing noted. Remains on nasal cannula Heart: RRR, S1S2 Abd: Soft, non-tender, non-distended. Normoactive bowel sounds Ext: Multiple bruising to b/l upper extremities Neuro: CN 2-12 intact CBCD WBC 12.2 K/mm3 (4.0-10.0) H 12/04/16 05:35 RBC 4.05 M/mm3 (4.00-5.60) 12/04/16 05:35 Hgb 11.7 GM/dL (11.7-16.9) 12/04/16 05:35 Hct 35.9 % (35.4-49) 12/04/16 05:35 MCV 88.8 fl (80-96) 12/04/16 05:35 MCHC 32.7 g/dl (32.0-35.9) 12/04/16 05:35 RDW 13.8 % (11.9-15.9) 12/04/16 05:35 Plt Count 199 K/MM3 (134-434) 12/04/16 05:35 MPV 9.7 fl (7.5-11.1) 12/04/16 05:35 CMP Sodium 139 mmol/L (136-145) 12/04/16 05:35 Potassium 4.7 mmol/L (3.5-5.1) 12/04/16 05:35 Chloride 101 mmol/L (98-107) 12/04/16 05:35 Carbon Dioxide 25 mmol/L (21-32) 12/04/16 05:35 Anion Gap 13 (8-16) 12/04/16 05:35 BUN 54 mg/dL (7-18) H 12/04/16 05:35 Creatinine 1.8 mg/dL (0.7-1.3) H 12/04/16 05:35 Creat Clearance w eGFR 38.68 (>60) 12/04/16 05:35 Random Glucose 182 mg/dL (74-106) H D 12/04/16 05:35 Calcium 8.9 mg/dL (8.5-10.1) 12/04/16 05:35 Total Bilirubin 0.3 mg/dL (0.2-1.0) D 12/04/16 05:35 AST 20 U/L (15-37) D 12/04/16 05:35 ALT 42 U/L (12-78) D 12/04/16 05:35 Alkaline Phosphatase 84 U/L (45-117) D 12/04/16 05:35 Total Protein 6.1 g/dl (6.4-8.2) L 12/04/16 05:35 Albumin 3.2 g/dl (3.4-5.0) L 12/04/16 05:35 CARDIAC ENZYMES Creatine Kinase 270 IU/L (39-308) D 12/02/16 05:20 Troponin I 0.57 ng/ml (0.00-0.05) H 12/02/16 05:20 Microbiology 12/01/16 13:30 Sputum - Expectorated Gram Stain - Final 12/01/16 13:30 Sputum - Expectorated Sputum Culture - Final NORMAL RESPIRATORY MARGARET 11/29/16 22:10 Nasopharyngeal Swab Respiratory Virus Panel - Preliminary 11/29/16 17:20 Blood - Peripheral Venous Blood Culture - Preliminary NO GROWTH OBTAINED AFTER 96 HOURS, INCUBATION TO CONTINUE FOR 1 DAYS. 11/29/16 17:20 Blood - Peripheral Venous Blood Culture - Preliminary NO GROWTH OBTAINED AFTER 96 HOURS, INCUBATION TO CONTINUE FOR 1 DAYS. 11/29/16 22:10 Urine - Urine Clean Catch Urine Culture - Final NO GROWTH OBTAINED 11/29/16 22:10 Nasopharyngeal Swab Influenza Types A,B Antigen (STACI) - Final 11/29/16 22:10 Nasopharyngeal Swab - Final Assessment: This is a 61 year old male with PMHx of HTN, COPD (requiring intubation in 2005), emphysema, who presented with shortness of breath. Plan: 1) Pulmonary: Acute hypoxic respiratory failure 2/2 severe COPD exacerbation - Continue Solu-Medrol at current dose 60mg q6h - Bipap qhs - O2 via NC prn - Duonebs - Appreciate pulmonary consult 2) ID: Sepsis 2/2 community acquired pneumonia - Stopped all abx on 12/04 - Remains afebrile - Leukocytosis (likely reactive to steroids) - Appreciate ID consult 3) Cardiology: Acute on chronic systolic heart failure - Continue Metoprolol - Continue Lisinopril Elevated troponins - Peaked at 3.41, trended down - Continue ASA - Continue Plavix - Will need cath once stable from pulmonary perspective HTN - As above 4) : STEFAN on CKD - Baseline Cr ~1.4 - Worsening today 1.8 - Will hold ACEi - Renal ultrasound with b/l renal cysts (CTAP 08/10 with no mention of renal cysts) - F/u repeat urine electrolytes - F/u nephrology consult 5) F/E/N: - Cholesterol/fat/sodium restricted diet - Monitor electrolytes 6) Prophylaxis: - OOB ambulating - On Heparin 5,000u sq tid 7) Dispo: - Requires continued inpatient care CODE STATUS: FULL CODE Visit type - Emergency Visit Emergency Visit: Yes ED Registration Date: 11/29/16 Care time: The patient presented to the Emergency Department on the above date and was hospitalized for further evaluation of their emergent condition. - New Patient This patient is new to me today: Yes Date on this admission: 12/04/16 - Critical Care Critical Care patient: No
[2016-12-04] MEDS: ATORVASTATIN CA 80 MG TABLET (FP) PO SCH (21:46)
[2016-12-04] MEDS: CLOPIDOGREL BISULFATE 75 MG TABLET (FP) PO SCH (21:46)
[2016-12-04] MEDS: ASPIRIN 81 MG CHEWABLE TABLETS PO SCH (21:46)
[2016-12-04] MEDS: ALPRAZolam 0.25 MG TABLET PO PRN (23:18)
[2016-12-05] MEDS: methylPREDNISolone NA SUCC 125 MG/2 ML VIAL IVPB SCH ×3 (03:13→17:18)
[2016-12-05] MEDS: HEPARIN NA (PORCINE) 5,000 UNITS/ML 1ML VIAL SQ SCH ×3 (06:13→21:29)
[2016-12-05] MEDS: ALBUTEROL SO4 2.5/IPRATROPIUM 0.5 INH SOL 3 ML VIAL.NEB. NEB SCH ×4 (06:39→23:15)
[2016-12-05 07:46] LABS: MCH 29.1 pg (25.7-33.7); MCHC 32.9 g/dl (32.0-35.9); MEAN CELL VOLUME 88.5 fl (80-96); MEAN PLT VOLUME 9.6 fl (7.5-11.1); PLATELET COUNT 188 K/MM3 (134-434); RDW 13.9 % (11.9-15.9); WHITE BLOOD COUNT 11.8 K/mm3 (4.0-10.0)
[2016-12-05 08:19] LABS: CALCIUM 8.8 mg/dL (8.5-10.1); COCKROFT - GAULT 55.8; CREATININE 1.7 mg/dL (0.7-1.3)
[2016-12-05] MEDS: METHADONE HCL 10 MG TABLET PO SCH (09:09)
[2016-12-05] MEDS: METOPROLOL TARTRATE 25 MG TABLET (FP) PO SCH ×2 (09:47→21:28)
[2016-12-05] MEDS: PANTOPRAZOLE 40 MG TABLET (FP) PO SCH (09:47)
--- NOTE | 2016-12-05 10:27 | PN ---
Progress Note (short form) - Note Progress Note: PULMONARY H/O COPD RECENTLY QUIT SMOKING /H/O ETT/MVV IN PAST FOR RESP FAILURE AWAKE/ANXIOUS VSS/AFEBRILE ANICTERIC DISTANT B/L BREATH SOUNDS S1S2 BS+ OBESE NO EDEMA LABS/MEDS/NOTES/IMAGING/MEDS REVIEWED Acute Hypoxic and Hypercapneic Respiratory Failure Acute COPD Exacerbation Pneumonia Sepsis Acute Kidney Injury - continue antibiotics per ID - ASA, plavix - O2 to keep Spo2 >90% - BiPAP to assist in work of breathing - taper medrol - inhaled bronchodilators - will need cardiac work up when stable - DVT/GI prophyalxis - smoking cessation - ok to transfer to med walker Dwain MADRIGAL MD
--- NOTE | 2016-12-05 13:48 | PN ---
Progress Note, Physician History of Present Illness: stable improving - Current Medication List Current Medications: Active Medications Acetaminophen (Tylenol -) 650 mg PO Q4H PRN PRN Reason: FEVER OR PAIN Albuterol Sulfate (Ventolin 0.083% Nebulizer Soln -) 1 amp NEB Q4H PRN PRN Reason: SHORT OF BREATH/WHEEZING Albuterol/Ipratropium (Duoneb -) 1 amp NEB QIDR [facility] Last Admin: 12/05/16 11:50 Dose: 1 amp Alprazolam (Xanax -) 0.5 mg PO BID PRN Last Admin: 12/04/16 23:18 Dose: 0.5 mg Aspirin (Asa -) 81 mg PO DAILY@2200 [facility] Last Admin: 12/04/16 21:46 Dose: 81 mg Atorvastatin Calcium (Lipitor -) 80 mg PO HS [facility] Last Admin: 12/04/16 21:46 Dose: 80 mg Clopidogrel Bisulfate (Plavix -) 75 mg PO DAILY@2200 [facility] Last Admin: 12/04/16 21:46 Dose: 75 mg Heparin Sodium (Porcine) (Heparin -) 5,000 unit SQ TID [facility] Last Admin: 12/05/16 06:13 Dose: 5,000 unit Lisinopril (Prinivil) 10 mg PO DAILY [facility] Last Admin: 12/04/16 09:37 Dose: 10 mg Methadone HCl (Dolophine -) 50 mg PO DAILY [facility] Last Admin: 12/05/16 09:09 Dose: 50 mg Methylprednisolone Sodium Succinate (Solu-Medrol -) 60 mg IVPB Q6H-IV [facility] Last Admin: 12/05/16 09:10 Dose: 60 mg Metoprolol Tartrate (Lopressor -) 12.5 mg PO BID [facility] Last Admin: 12/05/16 09:47 Dose: 12.5 mg Pantoprazole Sodium (Protonix -) 40 mg PO DAILY [facility] Last Admin: 12/05/16 09:47 Dose: 40 mg - Objective Vital Signs: Vital Signs Temperature 98.0 F 12/05/16 09:00 Pulse Rate 81 12/05/16 09:00 Respiratory Rate 20 12/05/16 10:00 Blood Pressure 137/54 12/05/16 09:00 O2 Sat by Pulse Oximetry (%) 96 12/05/16 10:00 Constitutional: Yes: No Distress, Calm Cardiovascular: Yes: Regular Rate and Rhythm Respiratory: Yes: Regular, On Nasal O2, Poor Air Entry Gastrointestinal: Yes: Normal Bowel Sounds, Soft Musculoskeletal: Yes: WNL Extremities: Yes: WNL Neurological: Yes: Alert, Oriented Psychiatric: Yes: Alert Labs: CBC, BMP 12/05/16 05:35 12/05/16 05:35 INR, PTT INR 1.07 (0.82-1.09) 11/29/16 22:10 Assessment/Plan Acute Hypoxic and Hypercapneic Respiratory Failure COPD Exacerbation Pneumonia Sepsis Acute Kidney Injury plan stable off of abx continue as per pul incentive spior physio rest as per primary
--- NOTE | 2016-12-05 14:01 | PN ---
Progress Note, Physician Chief Complaint: Pt, denies chest pain; dyspnea even just getting up to go to the bathroom. History of Present Illness: The patient is a 61-year-old man, accompanied by , with a significant past medical history of hypertension, chronic obstructive pulmonary disease ( requiring intubation in 2005), emphysema, and obesity, who presents to the emergency department via EMS for further evaluation of shortness of breath. HPI limited as patient arrives in severe respiratory distress. As per patient's , his symptoms started approximately 1 month ago with an intermittent productive cough with yellow-green sputum. She states that his symptoms worsened over the the past 3 days, as he became increasingly short of breath. EMS was activated today, and on arrival, the patient was noted to be in the low 90s on a non-rebreather and was found to have diffuse expiratory wheezes in the field, and was in respiratory distress. He was given 10 milligrams of Decadron and received a second Combivent. He was also placed on a BiPAP, with noted improvement of his shortness of breath and oxygen saturation of 98%. No fever, chills, sick contacts. History provided by EMS, old records and pts who is with him Allergies: No Known Drug Allergies. Past Surgical History: None reported Social History: Former cigarette use. No ETOH and recreational drug use. Primary Care Physician: Dr. Mell Hernandez Mail Order Sorter: Dr. Juan Medina (Affiliated with [facility]) - Current Medication List Current Medications: Active Medications Acetaminophen (Tylenol -) 650 mg PO Q4H PRN PRN Reason: FEVER OR PAIN Albuterol Sulfate (Ventolin 0.083% Nebulizer Soln -) 1 amp NEB Q4H PRN PRN Reason: SHORT OF BREATH/WHEEZING Albuterol/Ipratropium (Duoneb -) 1 amp NEB QIDR [facility] Last Admin: 12/05/16 11:50 Dose: 1 amp Alprazolam (Xanax -) 0.5 mg PO BID PRN Last Admin: 12/04/16 23:18 Dose: 0.5 mg Aspirin (Asa -) 81 mg PO DAILY@2200 [facility] Last Admin: 12/04/16 21:46 Dose: 81 mg Atorvastatin Calcium (Lipitor -) 80 mg PO HS [facility] Last Admin: 12/04/16 21:46 Dose: 80 mg Clopidogrel Bisulfate (Plavix -) 75 mg PO DAILY@2200 [facility] Last Admin: 12/04/16 21:46 Dose: 75 mg Heparin Sodium (Porcine) (Heparin -) 5,000 unit SQ TID [facility] Last Admin: 12/05/16 06:13 Dose: 5,000 unit Lisinopril (Prinivil) 10 mg PO DAILY [facility] Last Admin: 12/04/16 09:37 Dose: 10 mg Methadone HCl (Dolophine -) 50 mg PO DAILY [facility] Last Admin: 12/05/16 09:09 Dose: 50 mg Methylprednisolone Sodium Succinate (Solu-Medrol -) 60 mg IVPB Q6H-IV [facility] Last Admin: 12/05/16 09:10 Dose: 60 mg Metoprolol Tartrate (Lopressor -) 12.5 mg PO BID [facility] Last Admin: 12/05/16 09:47 Dose: 12.5 mg Pantoprazole Sodium (Protonix -) 40 mg PO DAILY [facility] Last Admin: 12/05/16 09:47 Dose: 40 mg - Objective Vital Signs: Vital Signs Temperature 98.0 F 12/05/16 09:00 Pulse Rate 81 12/05/16 09:00 Respiratory Rate 20 12/05/16 10:00 Blood Pressure 137/54 12/05/16 09:00 O2 Sat by Pulse Oximetry (%) 96 12/05/16 10:00 Constitutional: Yes: Anxious, Obese Eyes: Yes: WNL HENT: Yes: WNL Neck: Yes: WNL Cardiovascular: Yes: Tachycardia Respiratory: Yes: Diminished. No: Wheezes Gastrointestinal: Yes: Soft, Abdomen, Obese ...Rectal Exam: Yes: Deferred Genitourinary: No: Anuria Breast(s): Yes: WNL Musculoskeletal: Yes: Muscle Weakness Extremities: Yes: Cool Edema: No Peripheral Pulses WNL: No Peripheral Pulses: Left Doralis Pedis: 1+, Right Dorsalis Pedis: 1+ Integumentary: Yes: WNL Neurological: Yes: Alert, Oriented Psychiatric: Yes: Alert, Oriented Labs: CBC, BMP 12/05/16 05:35 12/05/16 05:35 INR, PTT INR 1.07 (0.82-1.09) 11/29/16 22:10 - ....Imaging Chest X-ray: Image Reviewed (no acute pathology (12/03/16).) Problem List - Problems (1) Asthma exacerbation in COPD Assessment/Plan: steroids, bronchodilators, 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 Pt is dyspneic on minimal exertion (eg just getting up from bed to go to the bathroom). Besices COPD, hi is likely severely deconditioned (as he says, he does virtually nothing in the way of physical activity, and is overweight). Code(s): J44.1 - CHRONIC OBSTRUCTIVE PULMONARY DISEASE W (ACUTE) EXACERBATION J45.901 - UNSPECIFIED ASTHMA WITH (ACUTE) EXACERBATION (2) Hypertension Code(s): I10 - ESSENTIAL (PRIMARY) HYPERTENSION (3) Renal insufficiency Code(s): N28.9 - DISORDER OF KIDNEY AND URETER, UNSPECIFIED (4) Right lower lobe pneumonia Code(s): J18.9 - PNEUMONIA, UNSPECIFIED ORGANISM Qualifiers: Pneumonia type: due to unspecified organism Qualified Code(s): J18.1 - Lobar pneumonia, unspecified organism (5) Acute on chronic systolic (congestive) heart failure Assessment/Plan: Continue metoprolol. Restarted lisinopril (pt is on 10 mg daily at home); f/u BUN/Cr, electrolytes ( hx chronic renal insufficiency). TNI trending down, but still >0.5. Ideally, coronary artery evaluation when stable (pt had stress treadmill MIBI in 2007 at [facility], but says he had a bad reaction, with severe dyspnea and rapid heart rate. He will require dobuatmine stress MIBI and/or coronary angiogram). At present, however, pt does not want to undergo any furhter testing of the coronaries ((he reiterated this today), despite being told of elevated TNI and the risks he has of future major cardiac events. Free T3 wnl. Code(s): I50.23 - ACUTE ON CHRONIC SYSTOLIC (CONGESTIVE) HEART FAILURE (6) Hyperlipidemia Assessment/Plan: was on simvastatin at home; agree with change to the more potent atorvastatin, and at a higher dose (f/u mildly elevated AST). Code(s): E78.5 - HYPERLIPIDEMIA, UNSPECIFIED (7) Elevated troponin Code(s): R74.8 - ABNORMAL LEVELS OF OTHER SERUM ENZYMES
--- NOTE | 2016-12-05 14:08 | PN ---
Progress Note, Physician Chief Complaint: Pt, denies chest pain; dyspnea is less severe when he gets up and walks across the room. History of Present Illness: The patient is a 61-year-old man, accompanied by , with a significant past medical history of hypertension, chronic obstructive pulmonary disease ( requiring intubation in 2005), emphysema, and obesity, who presents to the emergency department via EMS for further evaluation of shortness of breath. HPI limited as patient arrives in severe respiratory distress. As per patient's , his symptoms started approximately 1 month ago with an intermittent productive cough with yellow-green sputum. She states that his symptoms worsened over the the past 3 days, as he became increasingly short of breath. EMS was activated today, and on arrival, the patient was noted to be in the low 90s on a non-rebreather and was found to have diffuse expiratory wheezes in the field, and was in respiratory distress. He was given 10 milligrams of Decadron and received a second Combivent. He was also placed on a BiPAP, with noted improvement of his shortness of breath and oxygen saturation of 98%. No fever, chills, sick contacts. History provided by EMS, old records and pts who is with him Allergies: No Known Drug Allergies. Past Surgical History: None reported Social History: Former cigarette use. No ETOH and recreational drug use. Primary Care Physician: Dr. Mell Hernandez Hotel Server: Dr. Juan Medina (Affiliated with [facility]) - Current Medication List Current Medications: Active Medications Acetaminophen (Tylenol -) 650 mg PO Q4H PRN PRN Reason: FEVER OR PAIN Albuterol Sulfate (Ventolin 0.083% Nebulizer Soln -) 1 amp NEB Q4H PRN PRN Reason: SHORT OF BREATH/WHEEZING Albuterol/Ipratropium (Duoneb -) 1 amp NEB QIDR [facility] Last Admin: 12/05/16 11:50 Dose: 1 amp Alprazolam (Xanax -) 0.5 mg PO BID PRN Last Admin: 12/04/16 23:18 Dose: 0.5 mg Aspirin (Asa -) 81 mg PO DAILY@2200 [facility] Last Admin: 12/04/16 21:46 Dose: 81 mg Atorvastatin Calcium (Lipitor -) 80 mg PO HS [facility] Last Admin: 12/04/16 21:46 Dose: 80 mg Clopidogrel Bisulfate (Plavix -) 75 mg PO DAILY@2200 [facility] Last Admin: 12/04/16 21:46 Dose: 75 mg Heparin Sodium (Porcine) (Heparin -) 5,000 unit SQ TID [facility] Last Admin: 12/05/16 06:13 Dose: 5,000 unit Lisinopril (Prinivil) 10 mg PO DAILY [facility] Last Admin: 12/04/16 09:37 Dose: 10 mg Methadone HCl (Dolophine -) 50 mg PO DAILY [facility] Last Admin: 12/05/16 09:09 Dose: 50 mg Methylprednisolone Sodium Succinate (Solu-Medrol -) 60 mg IVPB Q6H-IV [facility] Last Admin: 12/05/16 09:10 Dose: 60 mg Metoprolol Tartrate (Lopressor -) 12.5 mg PO BID [facility] Last Admin: 12/05/16 09:47 Dose: 12.5 mg Pantoprazole Sodium (Protonix -) 40 mg PO DAILY [facility] Last Admin: 12/05/16 09:47 Dose: 40 mg - Objective Vital Signs: Vital Signs Temperature 98.0 F 12/05/16 09:00 Pulse Rate 81 12/05/16 09:00 Respiratory Rate 20 12/05/16 10:00 Blood Pressure 137/54 12/05/16 09:00 O2 Sat by Pulse Oximetry (%) 96 12/05/16 10:00 Constitutional: Yes: Calm Eyes: Yes: WNL HENT: Yes: WNL Neck: Yes: WNL Cardiovascular: Yes: Regular Rate and Rhythm Respiratory: Yes: Diminished Gastrointestinal: Yes: Soft ...Rectal Exam: Yes: Deferred Genitourinary: No: Anuria Extremities: Yes: Cool Edema: No Peripheral Pulses WNL: Yes Integumentary: Yes: WNL Neurological: Yes: Alert, Oriented Psychiatric: Yes: Alert, Oriented Labs: CBC, BMP 12/05/16 05:35 12/05/16 05:35 INR, PTT INR 1.07 (0.82-1.09) 11/29/16 22:10 Abnormal Lab Results 12/05/16 12/05/16 05:35 05:35 WBC 11.8 H RBC 3.91 L Hgb 11.4 L Hct 34.6 L BUN 51 H Creatinine 1.7 H Random Glucose 160 H Problem List - Problems (1) Asthma exacerbation in COPD Assessment/Plan: steroids, bronchodilators, O2 per radiation therapist. Pt is dyspneic on minimal exertion (eg just getting up from bed to go to the bathroom). Besides COPD, hi is likely severely deconditioned (as he says, he does virtually nothing in the way of physical activity, and is overweight). Code(s): J44.1 - CHRONIC OBSTRUCTIVE PULMONARY DISEASE W (ACUTE) EXACERBATION J45.901 - UNSPECIFIED ASTHMA WITH (ACUTE) EXACERBATION (2) Hypertension Assessment/Plan: continue present medications. Diet modifications, weight loss, and increase in exercise are important. Code(s): I10 - ESSENTIAL (PRIMARY) HYPERTENSION (3) Renal insufficiency Code(s): N28.9 - DISORDER OF KIDNEY AND URETER, UNSPECIFIED (4) Right lower lobe pneumonia Code(s): J18.9 - PNEUMONIA, UNSPECIFIED ORGANISM Qualifiers: Pneumonia type: due to unspecified organism Qualified Code(s): J18.1 - Lobar pneumonia, unspecified organism (5) Acute on chronic systolic (congestive) heart failure Code(s): I50.23 - ACUTE ON CHRONIC SYSTOLIC (CONGESTIVE) HEART FAILURE (6) Hyperlipidemia Assessment/Plan: was on simvastatin at home; agree with change to the more potent atorvastatin, and at a higher dose (f/u mildly elevated AST). Code(s): E78.5 - HYPERLIPIDEMIA, UNSPECIFIED (7) Elevated troponin Assessment/Plan: Likely due to NSTEMI. TNI trending down, but still > 0.5. LDL cholesterol 147 mg/dL;f/u profile after being on lipitor 80 mg/d; may require addition of Zetia. Will require coronary artery evaluation when stable, but pt does not want either stress MIBI or angiogram. Telemetry may be discontinued (order was done yesterday). Code(s): R74.8 - ABNORMAL LEVELS OF OTHER SERUM ENZYMES (8) NSTEMI (non-ST elevated myocardial infarction) Assessment/Plan: see under "elevated TNI". Code(s): I21.4 - NON-ST ELEVATION (NSTEMI) MYOCARDIAL INFARCTION
[2016-12-05 14:36] VITALS: BMI 27.8
--- NOTE | 2016-12-05 14:36 | CON.NEP ---
Consult Consult Specialty:: nephrology Reason for Consultation:: ckd/ renal cysts - History of Present Illness Chief Complaint: dyspnea History of Present Illness: This is a 61 yearold man whopresented with dyspnea,copd exacerbation who also was found to have renal insufficiency and renal cysts. His renal function has improved since admission. Says he can urinate well. Has no history of ckd or renal cysts. Has back pain but does not take NSAIDs. - Past Medical History Cardio/Vascular: Yes: HTN Pulmonary: Yes: Asthma, COPD, O2 Dependent - Past Surgical History Past Surgical History: Yes: None - Alcohol/Substance Use Hx Alcohol Use: No History of Substance Use: reports: None - Smoking History Smoking history: Former smoker Have you smoked in the past 12 months: Yes Aproximately how many cigarettes per day: 10 If you are a former smoker, when did you quit?: 08/2016 - Social History ADL: Independent History of Recent Travel: No Home Medications - Allergies Allergies/Adverse Reactions: Allergies Allergy/AdvReac Type Severity Reaction Status Date / Time No Known Allergies Allergy Verified 11/29/16 15:42 - Home Medications Home Medications: Ambulatory Orders Albuterol Sulfate [Ventolin -] 2 mg PO PRN 08/10/16 Lisinopril [Prinivil] 10 mg PO DAILY 08/10/16 Simvastatin [Zocor -] 40 mg PO HS 08/10/16 Tiotropium [place] [Spiriva] 1 inh PO DAILY 08/10/16 Mometasone Furoate [Asmanex Hfa] 1 puff IH BID 11/29/16 Mometasone/Formoterol [Dulera 200 Mcg/5 Mcg Inhaler] 2 inh IH BID 11/29/16 Alprazolam [Xanax] 0.5 mg PO BID 12/03/16 Review of Systems - Review of Systems Constitutional: reports: No Symptoms Eyes: reports: No Symptoms HENT: reports: No Symptoms Neck: reports: No Symptoms Cardiovascular: reports: No Symptoms Respiratory: reports: Cough, SOB, SOB on Exertion Gastrointestinal: reports: No Symptoms Genitourinary: reports: No Symptoms Breasts: reports: No Symptoms Reported Musculoskeletal: reports: Back Pain Integumentary: reports: No Symptoms Neurological: reports: No Symptoms Endocrine: reports: No Symptoms Hematology/Lymphatic: reports: No Symptoms Psychiatric: reports: No Symptoms Nephrology Consult - Height Height: 5 ft 9 in - Weight Weight: 188 lb 4 oz - BMI Body Mass Index (BMI): 27.8 - Lab Results CBC,BMP: CBC, BMP 12/05/16 05:35 12/05/16 05:35 Anion Gap: Anion Gap Anion Gap 11 (8-16) 12/05/16 05:35 - Imaging Ultrasound: Report Reviewed (renal cysts- one is complex) - Physical Examination Vital Signs: Vital Signs Temperature 98.0 F 12/05/16 09:00 Pulse Rate 81 12/05/16 09:00 Respiratory Rate 20 12/05/16 10:00 Blood Pressure 137/54 12/05/16 09:00 O2 Sat by Pulse Oximetry (%) 96 12/05/16 10:00 Constitutional: Yes: Well Nourished, Mild Distress Eyes: Yes: Conjunctiva Clear HENT: Yes: Atraumatic, Normocephalic Neck: Yes: Supple, Trachea Midline Cardiovascular: Yes: Regular Rate and Rhythm Respiratory: Yes: Rhonchi, SOB Gastrointestinal: Yes: Normal Bowel Sounds Renal/: Yes: WNL Musculoskeletal: Yes: Back Pain Extremities: Yes: WNL Edema: LLE: Trace, RLE: Trace Integumentary: Yes: WNL Neurological: Yes: Alert, Oriented Psychiatric: Yes: Alert, Oriented Assessment/Plan IMPRESSION 1. CKD 2. 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 calcifications in liver 4. copd exacerbation 5. mild marisela. Had Fena of 2.5 PLAN pt already had a CT scan of kidneys and no mention of malignancy obtain urine for protein and creatinine hep panel mayra spep repeat bmp will follow MV
--- NOTE | 2016-12-05 14:47 | PN ---
Physical Exam: SUBJECTIVE: Patient seen and examined. His breathing is better, he can walk to the end of the walters without distress. OBJECTIVE: Vital Signs Period Temp Pulse Resp BP Sys/Rendon Pulse Ox Last 24 Hr 98 F-98.2 F 65-87 20-20 126-151/54-109 96 PE Neuro: alert, awake, cn 2-12 intact Pulm: bilateral rhonchi, air movement improved, no cough +NC CV:s s1 s2 rrr no mrg Abd: s nt nd + bs Ext: warm no le edema Laboratory Results - last 24 hr 12/05/16 12/05/16 05:35 05:35 WBC 11.8 H RBC 3.91 L Hgb 11.4 L Hct 34.6 L MCV 88.5 MCHC 32.9 RDW 13.9 Plt Count 188 MPV 9.6 Sodium 139 Potassium 4.7 Chloride 101 Carbon Dioxide 27 Anion Gap 11 BUN 51 H Creatinine 1.7 H Random Glucose 160 H Calcium 8.8 Active Medications Generic Name Dose Route Start Last Admin Trade Name Freq PRN Reason Stop Dose Admin Acetaminophen 650 mg 12/02/16 20:51 Tylenol - PO Q4H PRN FEVER OR PAIN Albuterol Sulfate 1 amp 12/02/16 20:51 Ventolin 0.083% Nebulizer Soln - NEB Q4H PRN SHORT OF BREATH/WHEEZING Albuterol/Ipratropium 1 amp 12/03/16 00:00 12/05/16 11:50 Duoneb - NEB 1 amp QIDR [facility] Administration Alprazolam 0.5 mg 12/03/16 09:17 12/04/16 23:18 Xanax - PO 0.5 mg BID PRN Administration Aspirin 81 mg 12/02/16 22:00 12/04/16 21:46 Asa - PO 81 mg DAILY@2200 [facility] Administration Atorvastatin Calcium 80 mg 12/02/16 22:00 12/04/16 21:46 Lipitor - PO 80 mg HS [facility] Administration Clopidogrel Bisulfate 75 mg 12/02/16 22:00 12/04/16 21:46 Plavix - PO 75 mg DAILY@2200 [facility] Administration Heparin Sodium (Porcine) 5,000 unit 12/02/16 22:00 12/05/16 06:13 Heparin - SQ 5,000 unit TID [facility] Administration Lisinopril 10 mg 12/03/16 10:00 12/04/16 09:37 Prinivil PO 10 mg DAILY [facility] Administration Methadone HCl 50 mg 12/03/16 14:45 12/05/16 09:09 Dolophine - PO 50 mg DAILY [facility] Administration Methylprednisolone Sodium Succinate 40 mg 12/05/16 18:00 Solu-Medrol - IVPB Q8H-IV [facility] Metoprolol Tartrate 12.5 mg 12/02/16 22:00 12/05/16 09:47 Lopressor - PO 12.5 mg BID [facility] Administration Pantoprazole Sodium 40 mg 12/04/16 10:00 12/05/16 09:47 Protonix - PO 40 mg DAILY [facility] Administration Assessment: 61 year old male with hypertension, chronic obstructive pulmonary disease (requiring intubation in 2005) and emphysema admitted with worsening shortness of breath. Plan: 1. Acute hypoxic respiratory failure 2/2 severe COPD exacerbation - Taper medrol 40mg q8 - Bipap qhs - Duonebs - D/w Pulm 2. Sepsis 2/2 community acquired pneumonia - Continue observing off abx, stopped 12/04 - Remains afebrile - Leukocytosis (likely reactive to steroids) 3. STEFAN on CKD - Baseline Cr ~1.4, FeNA 2.5 - Renal work up initiated, ROLAND, SPEP, urine protein/cr ratio - Hold CHEKO - Renal ultrasound with b/l renal cysts, CT negative for renal malignancy - Renal seeing 4. Acute on chronic systolic heart failure - Continue Metoprolol 12.5mg BID - Continue Lisinopril 10mg 5. Elevated troponins/CAD - Peaked at 3.41, down trended - Continue ASA - Continue Plavix - Will need cath once stable from pulmonary perspective 6. HTN - Lisinopril 10mg daily Visit type - Emergency Visit Emergency Visit: Yes ED Registration Date: 11/29/16 Care time: The patient presented to the Emergency Department on the above date and was hospitalized for further evaluation of their emergent condition. - New Patient This patient is new to me today: No - Critical Care Critical Care patient: No
[2016-12-05 14:58] LABS: URINE CREATININE 52.9 mg/dL
--- NOTE | 2016-12-05 16:27 | EKG ---
Test Reason : Blood Pressure : / mmHG Vent. Rate : 088 BPM Atrial Rate : 088 BPM P-R Int : 152 ms QRS Dur : 080 ms QT Int : 364 ms P-R-T Axes : 082 033 024 degrees QTc Int : 440 ms NORMAL SINUS RHYTHM NORMAL ECG WHEN COMPARED WITH ECG OF 30-NOV-2016 06:17, ST NO LONGER DEPRESSED IN ANTEROLATERAL LEADS NONSPECIFIC T WAVE ABNORMALITY NO LONGER EVIDENT IN LATERAL LEADS Confirmed by CANDIDO MARTINEZ, KAILYN ([id number]) on 12/05/2016 4:27:29 PM Referred By: KAILYN REY Confirmed By:KAILYN REY MD
[2016-12-05] MEDS: ASPIRIN 81 MG CHEWABLE TABLETS PO SCH (21:28)
[2016-12-05] MEDS: CLOPIDOGREL BISULFATE 75 MG TABLET (FP) PO SCH (21:29)
[2016-12-05] MEDS: ATORVASTATIN CA 80 MG TABLET (FP) PO SCH (21:29)
[2016-12-05] MEDS: ALPRAZolam 0.25 MG TABLET PO PRN (22:59)
[2016-12-05 23:21] LABS: URINE CREATININE 56.1 mg/dL
[2016-12-06] MEDS: methylPREDNISolone NA SUCC 125 MG/2 ML VIAL IVPB SCH ×2 (03:29→09:09)
[2016-12-06] MEDS: HEPARIN NA (PORCINE) 5,000 UNITS/ML 1ML VIAL SQ SCH ×3 (06:10→21:59)
[2016-12-06] MEDS: ALBUTEROL SO4 2.5/IPRATROPIUM 0.5 INH SOL 3 ML VIAL.NEB. NEB SCH ×4 (06:26→23:19)
[2016-12-06 08:12] LABS: BASOPHIL 0.1 % (0-2.0); MCHC 32.6 g/dl (32.0-35.9); MEAN CELL VOLUME 89.1 fl (80-96); NEUTROPHILS 93.2 % (42.8-82.8); PLATELET COUNT 197 K/MM3 (134-434); RDW 13.9 % (11.9-15.9); WHITE BLOOD COUNT 13.9 K/mm3 (4.0-10.0)
[2016-12-06 08:38] LABS: CALCIUM 8.6 mg/dL (8.5-10.1); COCKROFT - GAULT 59.34; CREATININE 1.6 mg/dL (0.7-1.3)
[2016-12-06] MEDS: PANTOPRAZOLE 40 MG TABLET (FP) PO SCH (09:09)
[2016-12-06] MEDS: METOPROLOL TARTRATE 25 MG TABLET (FP) PO SCH ×2 (09:09→22:00)
[2016-12-06] MEDS: LISINOPRIL 10 MG TABLET (FP) PO SCH (09:10)
[2016-12-06] MEDS: METHADONE HCL 10 MG TABLET PO SCH (09:11)
--- NOTE | 2016-12-06 10:20 | PN ---
Progress Note (short form) - Note Progress Note: PULMONARY H/O COPD RECENTLY QUIT SMOKING /H/O ETT/MVV IN PAST FOR RESP FAILURE AWAKE/ VSS/AFEBRILE ANICTERIC DISTANT B/L BREATH SOUNDS S1S2 BS+ OBESE NO EDEMA LABS/MEDS/NOTES/IMAGING/MEDS REVIEWED Acute Hypoxic and Hypercapneic Respiratory Failure Acute COPD Exacerbation Pneumonia Sepsis Acute Kidney Injury - continue antibiotics per ID - ASA, plavix - O2 to keep Spo2 >90% - BiPAP to assist in work of breathing - medrol discontinued/prednisone started - inhaled bronchodilators - DVT/GI prophyalxis - smoking cessation - ok to transfer to med walker Dwain MADRIGAL MD
[2016-12-06] MEDS ORDERED: LISINOPRIL 10 MG TABLET (FP) PO ONE (10:45)
--- NOTE | 2016-12-06 10:49 | PN ---
Progress Note, Physician - Current Medication List Current Medications: Active Medications Acetaminophen (Tylenol -) 650 mg PO Q4H PRN PRN Reason: FEVER OR PAIN Albuterol Sulfate (Ventolin 0.083% Nebulizer Soln -) 1 amp NEB Q4H PRN PRN Reason: SHORT OF BREATH/WHEEZING Albuterol/Ipratropium (Duoneb -) 1 amp NEB QIDR [facility] Last Admin: 12/06/16 06:26 Dose: 1 amp Alprazolam (Xanax -) 0.5 mg PO BID PRN Last Admin: 12/05/16 22:59 Dose: 0.5 mg Aspirin (Asa -) 81 mg PO DAILY@2200 [facility] Last Admin: 12/05/16 21:28 Dose: 81 mg Atorvastatin Calcium (Lipitor -) 80 mg PO HS [facility] Last Admin: 12/05/16 21:29 Dose: 80 mg Clopidogrel Bisulfate (Plavix -) 75 mg PO DAILY@2200 [facility] Last Admin: 12/05/16 21:29 Dose: 75 mg Heparin Sodium (Porcine) (Heparin -) 5,000 unit SQ TID [facility] Last Admin: 12/06/16 06:10 Dose: 5,000 unit Lisinopril (Prinivil) 10 mg PO DAILY [facility] Last Admin: 12/06/16 09:10 Dose: 10 mg Methadone HCl (Dolophine -) 50 mg PO DAILY [facility] Last Admin: 12/06/16 09:11 Dose: 50 mg Metoprolol Tartrate (Lopressor -) 12.5 mg PO BID [facility] Last Admin: 12/06/16 09:09 Dose: 12.5 mg Pantoprazole Sodium (Protonix -) 40 mg PO DAILY [facility] Last Admin: 12/06/16 09:09 Dose: 40 mg Prednisone (Deltasone -) 40 mg PO DAILY [facility] - Objective Vital Signs: Vital Signs Temperature 98.0 F 12/06/16 08:46 Pulse Rate 81 12/06/16 08:46 Respiratory Rate 20 12/06/16 08:46 Blood Pressure 145/70 12/06/16 08:46 O2 Sat by Pulse Oximetry (%) 99 12/05/16 20:55 Labs: CBC, BMP 12/06/16 05:35 12/06/16 05:35 INR, PTT INR 1.07 (0.82-1.09) 11/29/16 22:10 Problem List - Problems (1) Asthma exacerbation in COPD Assessment/Plan: steroids, bronchodilators, O2 per dispatcher motor vehicle. Pt is dyspneic on minimal exertion (eg just getting up from bed to go to the bathroom). Besides COPD, hi is likely severely deconditioned (as he says, he does virtually nothing in the way of physical activity, and is overweight). ? hx bronchial asthma; apparently tolertes metoprolol. Code(s): J44.1 - CHRONIC OBSTRUCTIVE PULMONARY DISEASE W (ACUTE) EXACERBATION J45.901 - UNSPECIFIED ASTHMA WITH (ACUTE) EXACERBATION (2) Hypertension Assessment/Plan: Increase lisinopril from 10 mg to 20 mg daily; f/u BUN/Cr (at "baseline" noted since 06/14) and electrolytes. Diet modifications, weight loss, and increase in exercise are important. Code(s): I10 - ESSENTIAL (PRIMARY) HYPERTENSION (3) Renal insufficiency Assessment/Plan: f/u serially; on incresed lisinopril for HTN. Code(s): N28.9 - DISORDER OF KIDNEY AND URETER, UNSPECIFIED (4) Right lower lobe pneumonia Code(s): J18.9 - PNEUMONIA, UNSPECIFIED ORGANISM Qualifiers: Pneumonia type: due to unspecified organism Qualified Code(s): J18.1 - Lobar pneumonia, unspecified organism (5) Acute on chronic systolic (congestive) heart failure Assessment/Plan: Continue metoprolol. Restarted lisinopril (pt is on 10 mg daily at home; increased to 20 mg daily for elevatged BP); f/u BUN/Cr, electrolytes (hx chronic renal insufficiency). TNI trending down, but still >0.5. Ideally, coronary artery evaluation when stable (pt had stress treadmill MIBI in 2007 at [facility], but says he had a bad reaction, with severe dyspnea and rapid heart rate. He will require dobuatmine stress MIBI and/or coronary angiogram). At present, however, pt does not want to undergo any furhter testing of the coronaries ((he reiterated this), despite being told of elevated TNI and the risks he has of future major cardiac events. Free T3 wnl. Code(s): I50.23 - ACUTE ON CHRONIC SYSTOLIC (CONGESTIVE) HEART FAILURE (6) Hyperlipidemia Assessment/Plan: was on simvastatin at home; agree with change to the more potent atorvastatin, and at a higher dose (f/u mildly elevated AST). Code(s): E78.5 - HYPERLIPIDEMIA, UNSPECIFIED (7) Elevated troponin Assessment/Plan: Likely due to NSTEMI. TNI trending down, but still > 0.5. LDL cholesterol 147 mg/dL;f/u profile after being on lipitor 80 mg/d; may require addition of Zetia. Will require coronary artery evaluation when stable, but pt does not want either stress MIBI or angiogram. Telemetry may be discontinued. Code(s): R74.8 - ABNORMAL LEVELS OF OTHER SERUM ENZYMES (8) NSTEMI (non-ST elevated myocardial infarction) Assessment/Plan: see under "elevated TNI". Code(s): I21.4 - NON-ST ELEVATION (NSTEMI) MYOCARDIAL INFARCTION (9) Obesity Assessment/Plan: poor dietary habits (high salt and fast foods) noted while in hospital. Code(s): E66.9 - OBESITY, UNSPECIFIED
[2016-12-06] MEDS: predniSONE 20 MG TABLET (UD) PO SCH (12:13)
--- NOTE | 2016-12-06 13:10 | PN ---
Progress Note (short form) - Note Progress Note: RENAL Pt awake and alert has no complaints Last Vital Signs Temp Pulse Resp BP Pulse Ox 98.0 F 100 H 20 145/70 93 L 12/06/16 08:46 12/06/16 12:54 12/06/16 10:00 12/06/16 08:46 12/06/16 12:54 lungs mild exp wheeze on right cvs s1s2 rr abd soft ext no edema neuro a+ox3 CBC, BMP 12/06/16 05:35 12/06/16 05:35 Current Medications Generic Name Dose Route Start Last Admin Trade Name Freq PRN Reason Stop Dose Admin Acetaminophen 650 mg 12/02/16 20:51 Tylenol - PO Q4H PRN FEVER OR PAIN Albuterol Sulfate 1 amp 12/02/16 20:51 Ventolin 0.083% Nebulizer Soln - NEB Q4H PRN SHORT OF BREATH/WHEEZING Albuterol/Ipratropium 1 amp 12/03/16 00:00 12/06/16 12:19 Duoneb - NEB 1 amp QIDR EFRA[facility]N Administration Alprazolam 0.5 mg 12/03/16 09:17 12/05/16 22:59 Xanax - PO 0.5 mg BID PRN Administration Aspirin 81 mg 12/02/16 22:00 12/05/16 21:28 Asa - PO 81 mg DAILY@2200 [facility] Administration Atorvastatin Calcium 80 mg 12/02/16 22:00 12/05/16 21:29 Lipitor - PO 80 mg HS [facility] Administration Clopidogrel Bisulfate 75 mg 12/02/16 22:00 12/05/16 21:29 Plavix - PO 75 mg DAILY@2200 [facility] Administration Heparin Sodium (Porcine) 5,000 unit 12/02/16 22:00 12/06/16 06:10 Heparin - SQ 5,000 unit TID [facility] Administration Lisinopril 20 mg 12/07/16 10:00 Prinivil PO DAILY [facility] Methadone HCl 50 mg 12/03/16 14:45 12/06/16 09:11 Dolophine - PO 50 mg DAILY [facility] Administration Metoprolol Tartrate 12.5 mg 12/02/16 22:00 12/06/16 09:09 Lopressor - PO 12.5 mg BID [facility]N Administration Pantoprazole Sodium 40 mg 12/04/16 10:00 12/06/16 09:09 Protonix - PO 40 mg DAILY [facility] Administration Prednisone 40 mg 12/06/16 10:30 12/06/16 12:13 Deltasone - PO 40 mg DAILY [facility] Administration IMPRESSION 1. CKD 2. 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 calcifications in liver 4. copd exacerbation 5. mild marisela. Had Fena of 2.5 PLAN pt already had a CT scan of kidneys and no mention of malignancy obtain urine for protein and creatinine- showed a PC ratio of 0.375 other work up pending will need outpatient follow up MV
--- NOTE | 2016-12-06 14:44 | PN ---
Physical Exam: SUBJECTIVE: Patient seen and examined. He has no acute complaints, he is not using his NC while sitting in bed. OBJECTIVE: Vital Signs Period Temp Pulse Resp BP Sys/Rendon Pulse Ox Last 24 Hr 98.0 F-98.9 F 68-100 20-20 137-148/70-84 93-99 PE Neuro: alert, awake, cn 2-12 intact Pulm: bilateral rhonchi L>R CV:s s1 s2 rrr no mrg Abd: s nt nd + bs Ext: warm no le edema 12/06/16 12/06/16 05:35 05:35 WBC 13.9 H RBC 3.95 L Hgb 11.5 L Hct 35.2 L MCV 89.1 MCHC 32.6 RDW 13.9 Plt Count 197 MPV 10.0 Neutrophils % 93.2 H Lymphocytes % 1.8 L Monocytes % 4.9 Eosinophils % 0.0 Basophils % 0.1 Sodium 139 Potassium 4.8 Chloride 102 Carbon Dioxide 27 Anion Gap 10 BUN 44 H Creatinine 1.6 H Random Glucose 148 H Calcium 8.6 U Random Total Protein Urine Creatinine Protein/Creatinin Ratio Hepatitis C Antibody 12/05/16 20:40 U Random Total Protein 21 H Urine Creatinine 56.1 Protein/Creatinin Ratio 0.375 Active Medications Generic Name Dose Route Start Last Admin Trade Name Freq PRN Reason Stop Dose Admin Acetaminophen 650 mg 12/02/16 20:51 Tylenol - PO Q4H PRN FEVER OR PAIN Albuterol Sulfate 1 amp 12/02/16 20:51 Ventolin 0.083% Nebulizer Soln - NEB Q4H PRN SHORT OF BREATH/WHEEZING Albuterol/Ipratropium 1 amp 12/03/16 00:00 12/06/16 12:19 Duoneb - NEB 1 amp QIDR [facility] Administration Alprazolam 0.5 mg 12/03/16 09:17 12/05/16 22:59 Xanax - PO 0.5 mg BID PRN Administration Aspirin 81 mg 12/02/16 22:00 12/05/16 21:28 Asa - PO 81 mg DAILY@2200 [facility] Administration Atorvastatin Calcium 80 mg 12/02/16 22:00 12/05/16 21:29 Lipitor - PO 80 mg HS [facility] Administration Clopidogrel Bisulfate 75 mg 12/02/16 22:00 12/05/16 21:29 Plavix - PO 75 mg DAILY@2200 [facility] Administration Heparin Sodium (Porcine) 5,000 unit 12/02/16 22:00 12/06/16 06:10 Heparin - SQ 5,000 unit TID [facility] Administration Lisinopril 20 mg 12/07/16 10:00 Prinivil PO DAILY [facility] Methadone HCl 50 mg 12/03/16 14:45 12/06/16 09:11 Dolophine - PO 50 mg DAILY [facility] Administration Metoprolol Tartrate 12.5 mg 12/02/16 22:00 12/06/16 09:09 Lopressor - PO 12.5 mg BID [facility] Administration Pantoprazole Sodium 40 mg 12/04/16 10:00 12/06/16 09:09 Protonix - PO 40 mg DAILY [facility] Administration Prednisone 40 mg 12/06/16 10:30 12/06/16 12:13 Deltasone - PO 40 mg DAILY [facility] Administration Imaging: -Renal US: b/l renal cysts, CT negative for renal malignancy Assessment: 61 year old male with hypertension, chronic obstructive pulmonary disease (requiring intubation in 2005) and emphysema admitted with worsening shortness of breath. Plan: 1. Acute hypoxic respiratory failure 2/2 severe COPD exacerbation - Taper medrol to prednisone 40mg daily today - Bipap qhs - Duonebs qid - Pre and post home o2 for tomorrow 2. Sepsis 2/2 community acquired pneumonia - Continue observing off abx, stopped 12/04 - Leukocytosis (likely reactive to steroids) 3. STEFAN on CKD - Baseline Cr ~1.4, today improved - Urine PC ration .375 - Renal work up initiated, ROLAND, SPEP - Ok to monitor on CHEKO 4. Acute on chronic systolic heart failure - Continue Metoprolol 12.5mg BID - Increase Lisinopril 20mg 5. Elevated troponins/CAD - Peaked at 3.41, down trended - Continue ASA - Continue Plavix - Will need cath once stable from pulmonary perspective 6. HTN - Meds above Visit type - Emergency Visit Emergency Visit: Yes ED Registration Date: 11/29/16 Care time: The patient presented to the Emergency Department on the above date and was hospitalized for further evaluation of their emergent condition. - New Patient This patient is new to me today: No - Critical Care Critical Care patient: No
--- NOTE | 2016-12-06 17:06 | PN ---
Progress Note, Physician History of Present Illness: doing much better breathing without nasal cannula able to walk - Current Medication List Current Medications: Active Medications Acetaminophen (Tylenol -) 650 mg PO Q4H PRN PRN Reason: FEVER OR PAIN Albuterol Sulfate (Ventolin 0.083% Nebulizer Soln -) 1 amp NEB Q4H PRN PRN Reason: SHORT OF BREATH/WHEEZING Albuterol/Ipratropium (Duoneb -) 1 amp NEB QIDR [facility] Last Admin: 12/06/16 12:19 Dose: 1 amp Alprazolam (Xanax -) 0.5 mg PO BID PRN Last Admin: 12/05/16 22:59 Dose: 0.5 mg Aspirin (Asa -) 81 mg PO DAILY@2200 [facility] Last Admin: 12/05/16 21:28 Dose: 81 mg Atorvastatin Calcium (Lipitor -) 80 mg PO HS [facility] Last Admin: 12/05/16 21:29 Dose: 80 mg Clopidogrel Bisulfate (Plavix -) 75 mg PO DAILY@2200 [facility] Last Admin: 12/05/16 21:29 Dose: 75 mg Heparin Sodium (Porcine) (Heparin -) 5,000 unit SQ TID [facility] Last Admin: 12/06/16 16:20 Dose: 5,000 unit Lisinopril (Prinivil) 20 mg PO DAILY [facility] Methadone HCl (Dolophine -) 50 mg PO DAILY [facility] Last Admin: 12/06/16 09:11 Dose: 50 mg Metoprolol Tartrate (Lopressor -) 12.5 mg PO BID [facility] Last Admin: 12/06/16 09:09 Dose: 12.5 mg Pantoprazole Sodium (Protonix -) 40 mg PO DAILY [facility] Last Admin: 12/06/16 09:09 Dose: 40 mg Prednisone (Deltasone -) 40 mg PO DAILY [facility] Last Admin: 12/06/16 12:13 Dose: 40 mg - Objective Vital Signs: Vital Signs Temperature 98.0 F 12/06/16 08:46 Pulse Rate 100 H 12/06/16 12:54 Respiratory Rate 20 12/06/16 10:00 Blood Pressure 145/70 12/06/16 08:46 O2 Sat by Pulse Oximetry (%) 93 L 12/06/16 12:54 Constitutional: Yes: No Distress, Calm Cardiovascular: Yes: Regular Rate and Rhythm Respiratory: Yes: Regular, Poor Air Entry Gastrointestinal: Yes: Normal Bowel Sounds, Soft Musculoskeletal: Yes: WNL Extremities: Yes: WNL Neurological: Yes: Alert, Oriented Psychiatric: Yes: Alert, Oriented Labs: CBC, BMP 12/06/16 05:35 12/06/16 05:35 INR, PTT INR 1.07 (0.82-1.09) 11/29/16 22:10 Assessment/Plan Acute Hypoxic and Hypercapneic Respiratory Failure COPD Exacerbation Pneumonia Sepsis Acute Kidney Injury plan stable off of abx continue as per pul incentive spior physio rest as per primary
[2016-12-06] MEDS: ATORVASTATIN CA 80 MG TABLET (FP) PO SCH (21:59)
[2016-12-06] MEDS: ALPRAZolam 0.25 MG TABLET PO PRN (22:00)
[2016-12-06] MEDS: CLOPIDOGREL BISULFATE 75 MG TABLET (FP) PO SCH (22:00)
[2016-12-06] MEDS: ASPIRIN 81 MG CHEWABLE TABLETS PO SCH (22:00)
[2016-12-07] MEDS: HEPARIN NA (PORCINE) 5,000 UNITS/ML 1ML VIAL SQ SCH ×2 (05:51→14:18)
[2016-12-07] MEDS: ALBUTEROL SO4 2.5/IPRATROPIUM 0.5 INH SOL 3 ML VIAL.NEB. NEB SCH ×2 (06:22→11:15)
[2016-12-07 07:54] LABS: CALCIUM 8.7 mg/dL (8.5-10.1)
[2016-12-07 07:56] LABS: COCKROFT - GAULT 62.95; CREATININE 1.5 mg/dL (0.7-1.3)
[2016-12-07 07:58] LABS: BASOPHIL 0.1 % (0-2.0); MCH 29.2 pg (25.7-33.7); MCHC 32.7 g/dl (32.0-35.9); MEAN CELL VOLUME 89.2 fl (80-96); NEUTROPHILS 87.1 % (42.8-82.8); PLATELET COUNT 209 K/MM3 (134-434); RDW 13.8 % (11.9-15.9)
[2016-12-07] MEDS ORDERED: LISINOPRIL 20 MG TABLET (FP) PO SCH (10:00)
[2016-12-07] MEDS: predniSONE 20 MG TABLET (UD) PO SCH (10:05)
[2016-12-07] MEDS: METHADONE HCL 10 MG TABLET PO SCH (10:06)
[2016-12-07] MEDS: METOPROLOL TARTRATE 25 MG TABLET (FP) PO SCH (10:06)
[2016-12-07] MEDS: PANTOPRAZOLE 40 MG TABLET (FP) PO SCH (10:07)
--- NOTE | 2016-12-07 11:39 | PN ---
Progress Note, Physician History of Present Illness: pulmonary alert,feeling better,nad,-cp - Current Medication List Current Medications: Active Medications Acetaminophen (Tylenol -) 650 mg PO Q4H PRN PRN Reason: FEVER OR PAIN Albuterol Sulfate (Ventolin 0.083% Nebulizer Soln -) 1 amp NEB Q4H PRN PRN Reason: SHORT OF BREATH/WHEEZING Albuterol/Ipratropium (Duoneb -) 1 amp NEB QIDR [facility] Last Admin: 12/07/16 06:22 Dose: 1 amp Alprazolam (Xanax -) 0.5 mg PO BID PRN Last Admin: 12/06/16 22:00 Dose: 0.5 mg Aspirin (Asa -) 81 mg PO DAILY@2200 [facility] Last Admin: 12/06/16 22:00 Dose: 81 mg Atorvastatin Calcium (Lipitor -) 80 mg PO HS [facility] Last Admin: 12/06/16 21:59 Dose: 80 mg Clopidogrel Bisulfate (Plavix -) 75 mg PO DAILY@2200 [facility] Last Admin: 12/06/16 22:00 Dose: 75 mg Heparin Sodium (Porcine) (Heparin -) 5,000 unit SQ TID [facility] Last Admin: 12/07/16 05:51 Dose: 5,000 unit Lisinopril (Prinivil) 20 mg PO DAILY [facility] Last Admin: 12/07/16 10:07 Dose: 20 mg Methadone HCl (Dolophine -) 50 mg PO DAILY [facility] Last Admin: 12/07/16 10:06 Dose: 50 mg Metoprolol Tartrate (Lopressor -) 12.5 mg PO BID [facility] Last Admin: 12/07/16 10:06 Dose: 12.5 mg Pantoprazole Sodium (Protonix -) 40 mg PO DAILY [facility] Last Admin: 12/07/16 10:07 Dose: 40 mg Prednisone (Deltasone -) 40 mg PO DAILY [facility] Last Admin: 12/07/16 10:05 Dose: 40 mg - Objective Vital Signs: Vital Signs Temperature 98 F 12/07/16 05:28 Pulse Rate 63 12/07/16 05:28 Respiratory Rate 20 12/07/16 05:28 Blood Pressure 111/57 12/07/16 05:28 O2 Sat by Pulse Oximetry (%) 96 12/06/16 20:38 Constitutional: Yes: Well Nourished, Calm Eyes: Yes: WNL HENT: Yes: WNL Neck: Yes: WNL Cardiovascular: Yes: Regular Rate and Rhythm, S1, S2 Respiratory: Yes: Diminished Gastrointestinal: Yes: Normal Bowel Sounds, Soft Extremities: Yes: WNL Edema: No Labs: CBC, BMP 12/07/16 05:35 12/07/16 05:35 INR, PTT INR 1.07 (0.82-1.09) 11/29/16 22:10 Problem List - Problems (1) Asthma exacerbation in COPD Code(s): J44.1 - CHRONIC OBSTRUCTIVE PULMONARY DISEASE W (ACUTE) EXACERBATION J45.901 - UNSPECIFIED ASTHMA WITH (ACUTE) EXACERBATION (2) Elevated troponin Code(s): R74.8 - ABNORMAL LEVELS OF OTHER SERUM ENZYMES (3) Obesity Code(s): E66.9 - OBESITY, UNSPECIFIED (4) Renal insufficiency Code(s): N28.9 - DISORDER OF KIDNEY AND URETER, UNSPECIFIED (5) COPD exacerbation Code(s): J44.1 - CHRONIC OBSTRUCTIVE PULMONARY DISEASE W (ACUTE) EXACERBATION (6) Hyperlipidemia Code(s): E78.5 - HYPERLIPIDEMIA, UNSPECIFIED (7) Hypertension Code(s): I10 - ESSENTIAL (PRIMARY) HYPERTENSION (8) NSTEMI (non-ST elevated myocardial infarction) Code(s): I21.4 - NON-ST ELEVATION (NSTEMI) MYOCARDIAL INFARCTION (9) Acute respiratory failure with hypoxia Code(s): J96.01 - ACUTE RESPIRATORY FAILURE WITH HYPOXIA (10) Acute respiratory failure with hypoxia and hypercapnia Code(s): J96.01 - ACUTE RESPIRATORY FAILURE WITH HYPOXIA J96.02 - ACUTE RESPIRATORY FAILURE WITH HYPERCAPNIA Assessment/Plan ASSESSMENT AND PLAN: Acute Hypoxic and Hypercapneic Respiratory Failure Acute COPD Exacerbation improving Pneumonia Sepsis Acute NSTEMI vs Demand Ischemia Acute Kidney Injury - ASA, plavix - O2 to keep Spo2 >90% - prednisone - inhaled bronchodilators - cardiac work up - DVT/GI prophyalxis DR MCLEAN
--- NOTE | 2016-12-07 13:40 | PN ---
Progress Note, Physician History of Present Illness: The patient is a 61-year-old man, accompanied by , with a significant past medical history of hypertension, chronic obstructive pulmonary disease ( requiring intubation on 2005) and emphysema who presents to the emergency department via EMS for further evaluation of shortness of breath. HPI limited as patient arrives in severe respiratory distress. As per patient's , his symptoms started approximately 1 month ago with an intermittent productive cough with yellow-green sputum. She states that his symptoms worsened over the the past 3 days, as he became increasingly short of breath. EMS was activated today, and on arrival, the patient was noted to be in the low 90s on a non- rebreather and was found to have diffuse expiratory wheezes in the field, and was in respiratory distress. He was given 10 milligrams of Decadron and is currently on his second Combivent. He was also placed on a BiPAP, with noted improvement of his shortness of breath and oxygen saturation of 98%. No fever, chills, sick contacts. History provided by EMS, old records and pts who is with him - Current Medication List Current Medications: Active Medications Acetaminophen (Tylenol -) 650 mg PO Q4H PRN PRN Reason: FEVER OR PAIN Albuterol Sulfate (Ventolin 0.083% Nebulizer Soln -) 1 amp NEB Q4H PRN PRN Reason: SHORT OF BREATH/WHEEZING Albuterol/Ipratropium (Duoneb -) 1 amp NEB QIDR [facility] Last Admin: 12/07/16 06:22 Dose: 1 amp Alprazolam (Xanax -) 0.5 mg PO BID PRN Last Admin: 12/06/16 22:00 Dose: 0.5 mg Aspirin (Asa -) 81 mg PO DAILY@2199 [facility] Last Admin: 12/06/16 22:00 Dose: 81 mg Atorvastatin Calcium (Lipitor -) 80 mg PO HS [facility] Last Admin: 12/06/16 21:59 Dose: 80 mg Clopidogrel Bisulfate (Plavix -) 75 mg PO DAILY@0 [facility] Last Admin: 12/06/16 22:00 Dose: 75 mg Heparin Sodium (Porcine) (Heparin -) 5,000 unit SQ TID [facility] Last Admin: 12/07/16 05:51 Dose: 5,000 unit Lisinopril (Prinivil) 20 mg PO DAILY [facility] Last Admin: 12/07/16 10:07 Dose: 20 mg Methadone HCl (Dolophine -) 50 mg PO DAILY [facility] Last Admin: 12/07/16 10:06 Dose: 50 mg Metoprolol Tartrate (Lopressor -) 12.5 mg PO BID [facility] Last Admin: 12/07/16 10:06 Dose: 12.5 mg Pantoprazole Sodium (Protonix -) 40 mg PO DAILY [facility] Last Admin: 12/07/16 10:07 Dose: 40 mg Prednisone (Deltasone -) 40 mg PO DAILY [facility] Last Admin: 12/07/16 10:05 Dose: 40 mg - Objective Vital Signs: Vital Signs Temperature 97.9 F 12/07/16 10:00 Pulse Rate 77 12/07/16 10:00 Respiratory Rate 20 12/07/16 10:00 Blood Pressure 129/73 12/07/16 10:00 O2 Sat by Pulse Oximetry (%) 97 12/07/16 10:00 Eyes: Yes: WNL, Conjunctiva Clear, EOM Intact HENT: Yes: WNL, Atraumatic, Normocephalic Neck: Yes: WNL, Supple, Trachea Midline Cardiovascular: Yes: WNL, Regular Rate and Rhythm Respiratory: Yes: WNL, Regular, CTA Bilaterally Gastrointestinal: Yes: WNL, Normal Bowel Sounds Genitourinary: Yes: WNL Musculoskeletal: Yes: WNL Extremities: Yes: WNL Edema: No Integumentary: Yes: WNL Neurological: Yes: WNL, Alert, Oriented ...Motor Strength: WNL Psychiatric: Yes: WNL Labs: CBC, BMP 12/07/16 05:35 12/07/16 05:35 INR, PTT INR 1.07 (0.82-1.09) 11/29/16 22:10 Assessment/Plan - Problems (1) Asthma exacerbation in COPD Assessment/Plan: steroids, bronchodilators, O2 per hand glove cleaner. apparently tolertes metoprolol. Code(s): J44.1 - CHRONIC OBSTRUCTIVE PULMONARY DISEASE W (ACUTE) EXACERBATION J45.901 - UNSPECIFIED ASTHMA WITH (ACUTE) EXACERBATION (2) Hypertension Assessment/Plan: BP well controled Increase lisinopril from 10 mg to 20 mg daily; f/u BUN/Cr (at "baseline" noted since 06/14) and electrolytes. Diet modifications, weight loss, and increase in exercise are important. Code(s): I10 - ESSENTIAL (PRIMARY) HYPERTENSION (3) Renal insufficiency Assessment/Plan: f/u serially; on incresed lisinopril for HTN. Code(s): N28.9 - DISORDER OF KIDNEY AND URETER, UNSPECIFIED (4) Right lower lobe pneumonia Code(s): J18.9 - PNEUMONIA, UNSPECIFIED ORGANISM Qualifiers: Pneumonia type: due to unspecified organism Qualified Code(s): J18.1 - Lobar pneumonia, unspecified organism (5) Acute on chronic systolic (congestive) heart failure Assessment/Plan: Ideally, coronary artery evaluation when stable (pt had stress treadmill MIBI in 2007 at [facility], but says he had a bad reaction, with severe dyspnea and rapid heart rate. He will require dobuatmine stress MIBI and/or coronary angiogram). At present, however, pt does not want to undergo any furhter testing of the coronaries ((he reiterated this), despite being told of elevated TNI and the risks he has of future major cardiac events. Code(s): I50.23 - ACUTE ON CHRONIC SYSTOLIC (CONGESTIVE) HEART FAILURE (6) Hyperlipidemia Assessment/Plan: was on simvastatin at home; agree with change to the more potent atorvastatin, and at a higher dose (f/u mildly elevated AST). Code(s): E78.5 - HYPERLIPIDEMIA, UNSPECIFIED (7) Elevated troponin Assessment/Plan: Likely due to NSTEMI. TNI trending down, but still > 0.5. LDL cholesterol 147 mg/dL;f/u profile after being on lipitor 80 mg/d; may require addition of Zetia. Will require coronary artery evaluation when stable, but pt does not want either stress MIBI or angiogram. Telemetry may be discontinued. Code(s): R74.8 - ABNORMAL LEVELS OF OTHER SERUM ENZYMES (8) NSTEMI (non-ST elevated myocardial infarction) Assessment/Plan: see under "elevated TNI". Code(s): I21.4 - NON-ST ELEVATION (NSTEMI) MYOCARDIAL INFARCTION (9) Obesity Assessment/Plan: poor dietary habits (high salt and fast foods) noted while in hospital. Code(s): E66.9 - OBESITY, UNSPECIFIED will d/c telemetry since patient reluctant to have any further cardiac workup.
--- NOTE | 2016-12-07 14:20 | PN ---
Progress Note, Physician History of Present Illness: Pt seen and examined at bedside. He is awake and alert. He says he feels well. He denies dysuria or hematuria. - Current Medication List Current Medications: Active Medications Acetaminophen (Tylenol -) 650 mg PO Q4H PRN PRN Reason: FEVER OR PAIN Albuterol Sulfate (Ventolin 0.083% Nebulizer Soln -) 1 amp NEB Q4H PRN PRN Reason: SHORT OF BREATH/WHEEZING Albuterol/Ipratropium (Duoneb -) 1 amp NEB QIDR [facility] Last Admin: 12/07/16 11:15 Dose: 1 amp Alprazolam (Xanax -) 0.5 mg PO BID PRN Last Admin: 12/06/16 22:00 Dose: 0.5 mg Aspirin (Asa -) 81 mg PO DAILY@2200 [facility] Last Admin: 12/06/16 22:00 Dose: 81 mg Atorvastatin Calcium (Lipitor -) 80 mg PO HS [facility] Last Admin: 12/06/16 21:59 Dose: 80 mg Clopidogrel Bisulfate (Plavix -) 75 mg PO DAILY@2200 [facility] Last Admin: 12/06/16 22:00 Dose: 75 mg Heparin Sodium (Porcine) (Heparin -) 5,000 unit SQ TID [facility] Last Admin: 12/07/16 05:51 Dose: 5,000 unit Lisinopril (Prinivil) 20 mg PO DAILY [facility] Last Admin: 12/07/16 10:07 Dose: 20 mg Methadone HCl (Dolophine -) 50 mg PO DAILY [facility] Last Admin: 12/07/16 10:06 Dose: 50 mg Metoprolol Tartrate (Lopressor -) 12.5 mg PO BID [facility] Last Admin: 12/07/16 10:06 Dose: 12.5 mg Pantoprazole Sodium (Protonix -) 40 mg PO DAILY [facility] Last Admin: 12/07/16 10:07 Dose: 40 mg Prednisone (Deltasone -) 40 mg PO DAILY [facility] Last Admin: 12/07/16 10:05 Dose: 40 mg - Objective Vital Signs: Vital Signs Temperature 97.9 F 12/07/16 10:00 Pulse Rate 77 12/07/16 10:00 Respiratory Rate 20 12/07/16 10:00 Blood Pressure 129/73 12/07/16 10:00 O2 Sat by Pulse Oximetry (%) 97 12/07/16 10:00 Constitutional: Yes: Calm Eyes: Yes: Conjunctiva Clear HENT: Yes: Atraumatic Cardiovascular: Yes: S1, S2 Respiratory: Yes: CTA Bilaterally Gastrointestinal: Yes: Normal Bowel Sounds, Soft Genitourinary: Yes: WNL Musculoskeletal: Yes: WNL Edema: No Neurological: Yes: Oriented Psychiatric: Yes: Oriented Labs: CBC, BMP 12/07/16 05:35 12/07/16 05:35 INR, PTT INR 1.07 (0.82-1.09) 11/29/16 22:10 Assessment/Plan Current Medications Generic Name Dose Route Start Last Admin Trade Name Freq PRN Reason Stop Dose Admin Acetaminophen 650 mg 12/02/16 20:51 Tylenol - PO Q4H PRN FEVER OR PAIN Albuterol Sulfate 1 amp 12/02/16 20:51 Ventolin 0.083% Nebulizer Soln - NEB Q4H PRN SHORT OF BREATH/WHEEZING Albuterol/Ipratropium 1 amp 12/03/16 00:00 12/07/16 11:15 Duoneb - NEB 1 amp QIDR [facility] Administration Alprazolam 0.5 mg 12/03/16 09:17 12/06/16 22:00 Xanax - PO 0.5 mg BID PRN Administration Aspirin 81 mg 12/02/16 22:00 12/06/16 22:00 Asa - PO 81 mg DAILY@2200 [facility] Administration Atorvastatin Calcium 80 mg 12/02/16 22:00 12/06/16 21:59 Lipitor - PO 80 mg HS [facility] Administration Clopidogrel Bisulfate 75 mg 12/02/16 22:00 12/06/16 22:00 Plavix - PO 75 mg DAILY@2200 [facility] Administration Heparin Sodium (Porcine) 5,000 unit 12/02/16 22:00 12/07/16 14:18 Heparin - SQ Not Given TID [facility] Lisinopril 20 mg 12/07/16 10:00 12/07/16 10:07 Prinivil PO 20 mg DAILY [facility] Administration Methadone HCl 50 mg 12/03/16 14:45 12/07/16 10:06 Dolophine - PO 50 mg DAILY [facility] Administration Metoprolol Tartrate 12.5 mg 12/02/16 22:00 12/07/16 10:06 Lopressor - PO 12.5 mg BID [facility] Administration Pantoprazole Sodium 40 mg 12/04/16 10:00 12/07/16 10:07 Protonix - PO 40 mg DAILY [facility] Administration Prednisone 40 mg 12/06/16 10:30 12/07/16 10:05 Deltasone - PO 40 mg DAILY [facility] Administration Impression 1. CKD with acute component 2. HTN 3. CAD 4. COPD 5. hyperlipidemia 6. Sepsis 7. PNA 8. renal cysts 9. CHF Plan - renal function is stabilizing - will see pt in office - avoid nsaids - renal workup is in progress - discussed with medical team Dr Reid
--- NOTE | 2016-12-07 14:46 | DS ---
Physical Exam: SUBJECTIVE: Patient seen and examined. He is ambulating without difficulty, he has no cough, no chest pain reported OBJECTIVE: Vital Signs Period Temp Pulse Resp BP Sys/Rendon Pulse Ox Last 24 Hr 97.9 F-99 F 63-91 20-20 111-138/57-73 96-97 PE Neuro: alert, awake, cn 2-12 intact Pulm: basilar crackles, no wheezing, no sob CV:s s1 s2 rrr no mrg Abd: s nt nd + bs Ext: warm no le edema Laboratory Results - last 24 hr 12/07/16 12/07/16 12/07/16 05:35 05:35 05:35 WBC 17.0 H RBC 3.98 L Hgb 11.6 L Hct 35.5 MCV 89.2 MCHC 32.7 RDW 13.8 Plt Count 209 MPV 10.0 Neutrophils % 87.1 H Lymphocytes % 3.9 L D Monocytes % 8.9 D Eosinophils % 0.0 Basophils % 0.1 Sodium 142 Potassium 4.4 Chloride 102 Carbon Dioxide 29 Anion Gap 11 BUN 43 H Creatinine 1.5 H Random Glucose 99 D Hemoglobin A1c % 7.3 H D Calcium 8.7 HOSPITAL COURSE: Date of Admission:11/29/16 Date of Discharge: 12/07/16 Minutes to complete discharge: 35 Discharge Summary Reason For Visit: COPD, RIGHT LOWER LOBE PNEUMONIA Current Active Problems Acute on chronic systolic (congestive) heart failure (Acute) Acute respiratory failure with hypoxia (Acute) Acute respiratory failure with hypoxia and hypercapnia (Acute) Asthma exacerbation in COPD (Acute) Elevated troponin (Acute) Hyperlipidemia (Acute) Hypertension (Acute) NSTEMI (non-ST elevated myocardial infarction) (Acute) Obesity (Acute) Renal insufficiency (Acute) Right lower lobe pneumonia (Acute) Hospital Course: Initial Hospital Course: Briefly, this 61 year old male with hypertension, chronic obstructive pulmonary disease (requiring intubation in 2005) and emphysema admitted with worsening SOB that has been developing over the last 4 weeks causing. He has a significant hx of COPD with a past intubation due to an exacerbation. Bipap was started with EMS, presented to the ED given further steroid and respiratory treatments and sent to the ICU. He was not intubated, he was stable on Biapap. Imaging: -Renal US: b/l renal cysts, CT negative for renal malignancy Subsequent Hospital Course/Progress Note/Discharge Summary by p: Plan: 1. Acute hypoxic respiratory failure 2/2 severe COPD exacerbation - s/p IV steroids - Home with Prednisone taper - Resume home COPD meds as listed - Pulm f/u 2. Sepsis 2/2 community acquired pneumonia - s/p 5 days ceftriaxone/azithro completed on 12/04 3. STEFAN on CKD - Baseline Cr ~1.4, today near baseline - Urine PC ration .375 - Renal work up initiated, ROLAND, SPEP - Ok to monitor on CHEKO - Renal follow up in office, referral enclosed 4. Acute on chronic systolic heart failure - Started and will go home Metoprolol 12.5mg BID - Increased Lisinopril 20mg, to maintain 5. Elevated troponins/CAD - Peaked at 3.41, down trended - Started on ASA - Started on Plavix - Will need cath once stable from pulmonary perspective - Cardiology follow up in office in 1-2 weeks 6. HTN - Meds above 7. 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 (referrals enclosed) - Steroid taper as above - Pt aware and agrees to above plan Condition: Stable - Instructions Diet, Activity, Other Instructions: Please return to the ED for any new, persistent, or worsening symptoms. Follow up with your PCP in 1 week In 1-2 weeks make appt with [employer] Dr. Mcadams so he can do stress test in your office. New cardiac medications: Metoprolol 12.5mg BID, Plavix 75mg daily, Aspirin 81mg daily, Lisinopril increased to 20mg daily Take home COPD medications as regular and finish your Prednisone taper (steroids ) as directed and until completed Referral information for Kidney Doctor: Dr. Reid is enclosed, you will need to make an appt for a Wednesday in 1-2 weeks for follow up on your Kindey blood tests Referrals: Jurgen Bradley MD [Staff Physician] - Mell Hernandez MD [Primary Care Provider] - Segundo Mcadams MD [Staff Physician] - Devan Reid MD [Staff Physician] - Disposition: HOME - Home Medications Comprehensive Discharge Medication List: Ambulatory Orders Albuterol Sulfate [Ventolin -] 2 mg PO PRN 08/10/16 Tiotropium [place] [Spiriva] 1 inh PO DAILY 08/10/16 Mometasone Furoate [Asmanex Hfa] 1 puff IH BID 11/29/16 Mometasone/Formoterol [Dulera 200 Mcg/5 Mcg Inhaler] 2 inh IH BID 11/29/16 Alprazolam [Xanax] 0.5 mg PO BID 12/03/16 Aspirin [ASA -] 81 mg PO DAILY #30 tab 12/07/16 Atorvastatin Ca [Lipitor] 80 mg PO HS #30 tablet 12/07/16 Clopidogrel Bisulfate [Plavix -] 75 mg PO DAILY #30 tablet 12/07/16 Lisinopril [Prinivil] 20 mg PO DAILY #30 tablet 12/07/16 Metoprolol Tartrate [Lopressor -] 12.5 mg PO BID #30 tablet 12/07/16 Prednisone 10 mg PO DAILY #22 tablet 12/07/16 This patient is new to me today: No Emergency Visit: Yes ED Registration Date: 11/29/16 Care time: The patient presented to the Emergency Department on the above date and was hospitalized for further evaluation of their emergent condition. Critical Care patient: No - Discharge Referral Referred to [facility] Med P.C.: No
[2016-12-07 15:11] VITALS: BP 119/74; PULSE 80; TEMP 98.8
[2016-12-08 06:06] LABS: HBeAG Negative (Negative); HEP B SURFACE AB Non Reactive (.); HEP BE AB Negative (Negative)
[2016-12-09 00:07] LABS: A/G RATIO 1.3 (0.7-1.7); ALBUMIN 3.2 g/dL (2.9-4.4); GLOBULIN, TOTAL 2.4 g/dL (2.2-3.9); M-SPIKE Not Observed g/dL (Not Observed); TOTAL PROTEIN 5.6 g/dL (6.0-8.5)
== END 2016-12-07 17:41 | disposition home or self-care (01) | DRG 871 ==
LOC: JER 15:23 → JERBED 17:17 → JICU 20:52 → J4W 12-02 22:07
PROVIDERS: ADMIT Internal Medicine; ATTEND Nurse Practitioner Acute Care
PROC: 5A09557 Assistance with Respiratory Ventilation, Greater than 96 Consecutive Hours, Continuous Positive Airway Pressure (ICD-10-PCS; principal; 2016-12-03)
DX: A41.9 Sepsis, unspecified organism (principal); J18.9 Pneumonia, unspecified organism; J96.01 Acute respiratory failure with hypoxia; I50.23 Acute on chronic systolic (congestive) heart failure; J96.02 Acute respiratory failure with hypercapnia; J44.1 Chronic obstructive pulmonary disease with (acute) exacerbation; I13.0 Hypertensive heart and chronic kidney disease with heart failure and stage 1 through stage 4 chronic kidney disease, or unspecified chronic kidney disease; N17.9 Acute kidney failure, unspecified; N18.9 Chronic kidney disease, unspecified; I25.10 Atherosclerotic heart disease of native coronary artery without angina pectoris; N28.1 Cyst of kidney, acquired; E66.9 Obesity, unspecified; Z68.28 Body mass index [BMI] 28.0-28.9, adult; Z87.891 Personal history of nicotine dependence
CPT/HCPCS: 36415; 36600; 71010-TC; 76775-TC; 80048; 80053; 80061; 81003; 81015; 82375; 82436; 82550; 82553; 82570; 82803; 83036; 83050; 83605; 83721; 83735; 83880; 84100; 84133; 84155; 84156; 84165; 84300; 84443; 84481; 84484; 85025; 85027; 85610; 85730; 86038; 86704; 86705; 86706; 86707; 87040; 87070; 87086; 87205; 87254; 87340; 87350; 87804; 93005; 93010; 93306-TC; 93970-TC; 94640; 94660; 94761; 97116-GP; 97161-GP; 99285-25; J1644

== ENCOUNTER → 2017-02-01 | Emergency (ER) | payer OTHER ==
[~2017-02-01] MED LIST: ALBUTEROL SO4 2.5/IPRATROPIUM 0.5 INH SOL 3 ML VIAL.NEB. NEB ONE; SODIUM POLYSTYRENE SULFONATE 15 GM/60 ML BOTTLE ONE; SODIUM POLYSTYRENE SULFONATE 15 GM/60 ML BOTTLE PO ONE; methylPREDNISolone NA SUCC 125 MG/2 ML VIAL IVPB ONE; methylPREDNISolone NA SUCC 125 MG/2 ML VIAL ONE
--- NOTE | 2017-02-01 15:45 | PDOC ---
Rapid Medical Evaluation Chief Complaint: Shortness of Breath Medical Evaluation: Allergies Allergy/AdvReac Type Severity Reaction Status Date / Time No Known Allergies Allergy Verified 11/29/16 15:42 02/01/17 15:43 I have performed a brief in-person evaluation of this patient. The patient presents with a chief complaint of:short of breath, cough, back pain , history of COPD Pertinent physical exam findings:none I have ordered the following:CXR The patient will proceed to the ED for further evaluation.
[2017-02-01 15:47] VITALS: BMI 28.4
--- NOTE | 2017-02-01 17:53 | PDOC ---
History of Present Illness - History of Present Illness Initial Comments: 02/01/17 17:55 Patient is a 61 year old male with significant medical hx of HTN, COPD ( requiring intubation 2005) who is presenting to the ED with one week of back pain and one day of shortness of breath. The patient reports developing back pain a week ago that started lower and traveled upwards. Right now, his pain is localized to his upper back and worsens with positional change, coughing, and sneezing. His pain is relieved when he lies back at certain angles. The patient had an onset of shortness of breath last night, which he characterizes as an exacerbation of her COPD, that is not accompanied with any chest pain, and relieved with three treatments of ProAir. Patient was recently discharged from admission for COPD exacerbation and right lower lobe pneumonia two months ago ( - 12/07); he states that his back pain is similar to his past pneumonia. Patient denies any fevers, chills, nausea, vomiting, diarrhea, cough, or chest pain. PCP: Mell Hernandez MD [employer]: Dr. Juan Medina (Affiliated with [facility]) Surgical Hx: Cataract surgery Social Hx: Former tobacco smoker after 40 years of use. Denies alcohol or illicit drug use. <Dolly Lorenzo - Last Filed: 02/01/17 18:29> <Deepti Campbell - Last Filed: 02/01/17 23:33> - General Chief Complaint: Shortness of Breath Stated Complaint: SOB, BACK PAIN Past History <Dolly Lorenzo - Last Filed: 02/01/17 18:29> - Past Medical History Anemia: No Asthma: Yes Cancer: No Cardiac Disorders: No CVA: No COPD: Yes CHF: No Dementia: No Diabetes: No GI Disorders: No Disorders: No HTN: Yes Hypercholesterolemia: Yes Liver Disease: No Suicide Attempt (Hx): No Seizures: No Thyroid Disease: No - Surgical History Abdominal Surgery: No Appendectomy: No Cardiac Surgery: No Cholecystectomy: No Gastric Stapling: No GI Surgery: No Lung Surgery: No Neurologic Surgery: No Orthopedic Surgery: No - Psycho/Social/Smoking Cessation Hx Anxiety: No Suicidal Ideation: No Smoking Status: Yes Smoking History: Former smoker Have you smoked in the past 12 months: No Number of Cigarettes Smoked Daily: 10 If you are a former smoker, when did you quit?: 08/2016 Information on smoking cessation initiated: No 'Breaking Loose' booklet given: 06/27/16 Hx Alcohol Use: No Drug/Substance Use Hx: No Substance Use Type: None Hx Substance Use Treatment: No <Deepti Campbell - Last Filed: 02/01/17 23:33> - Past Medical History Allergies/Adverse Reactions: Allergies Allergy/AdvReac Type Severity Reaction Status Date / Time No Known Allergies Allergy Verified 11/29/16 15:42 Home Medications: Ambulatory Orders Albuterol Sulfate [Ventolin -] 2 mg PO PRN 08/10/16 Tiotropium [place] [Spiriva] 1 inh PO DAILY 08/10/16 Mometasone Furoate [Asmanex Hfa] 1 puff IH BID 11/29/16 Alprazolam [Xanax] 0.5 mg PO BID 12/03/16 Aspirin [ASA -] 81 mg PO DAILY #30 tab 12/07/16 Atorvastatin Ca [Lipitor] 80 mg PO HS #30 tablet 12/07/16 Clopidogrel Bisulfate [Plavix -] 75 mg PO DAILY #30 tablet 12/07/16 Lisinopril [Prinivil] 20 mg PO DAILY #30 tablet 12/07/16 Metoprolol Tartrate [Lopressor -] 12.5 mg PO BID #30 tablet 12/07/16 Respiratory Specific PMHX - Complaint Specific PMHX Angina: No Bronchitis: Yes Pneumonia: No Pulmonary Embolus: No <Deepti Campbell - Last Filed: 02/01/17 23:33> Review of Systems - Review of Systems Comments:: 02/01/17 17:55 CONSTITUTIONAL: Absent: fever, chills, diaphoresis, generalized weakness, malaise, loss of appetite HEENT: Absent: rhinorrhea, nasal congestion, throat pain, throat swelling, difficulty swallowing, mouth swelling, ear pain, eye pain, visual changes CARDIOVASCULAR: Absent: chest pain, syncope, palpitations, irregular heart rate, lightheadedness , peripheral edema RESPIRATORY: Present: shortness of breath Absent: cough, dyspnea with exertion, orthopnea, wheezing, stridor, hemoptysis GASTROINTESTINAL: Absent: abdominal pain, abdominal distension, nausea, vomiting, diarrhea, constipation, melena, hematochezia GENITOURINARY: Absent: dysuria, frequency, urgency, hesitancy, hematuria, flank pain, genital pain MUSCULOSKELETAL: Present: upper back pain Absent: myalgia, arthralgia, joint swelling SKIN: Absent: rash, itching, pallor HEMATOLOGIC/IMMUNOLOGIC: Absent: easy bleeding, easy bruising, lymphadenopathy, frequent infections ENDOCRINE: Absent: unexplained weight gain, unexplained weight loss, heat intolerance, cold intolerance NEUROLOGIC: Absent: headache, focal weakness or paresthesia, dizziness, unsteady gait, seizure, mental status changes, bladder or bowel incontinence. PSYCHIATRIC: Absent: anxiety, depression, suicidal or homicidal ideation, hallucinations <Dolly Lorenzo - Last Filed: 02/01/17 18:29> *Physical Exam - Vital Signs Last Vital Signs Temp Pulse Resp BP Pulse Ox 98.0 F 100 H 20 126/72 98 02/01/17 15:41 02/01/17 15:41 02/01/17 15:41 02/01/17 15:41 02/01/17 15:41 - Physical Exam Comments: 02/01/17 17:55 GENERAL: Well developed, well nourished. Awake and alert. No acute distress. HEENT: Normocephalic, atraumatic. PERRLA, EOMI. No conjunctival pallor. Sclera are non- icteric. Moist mucous membranes. Oropharynx is clear. NECK: Supple. Full ROM. No JVD. Carotid pulses 2+ and symmetric, without bruits. No thyromegaly. No lymphadenopathy. CARDIOVASCULAR: Regular rate and rhythm. No murmurs, rubs, or gallops. Distal pulses are 2+ and symmetric. PULMONARY: Slightly decreased breath sounds, tachypneic. No evidence of respiratory distress. No wheezing, rales or rhonchi. ABDOMINAL: Soft. Non-tender. Non-distended. No rebound or guarding. No organomegaly. Normoactive bowel sounds. MUSCULOSKELETAL: Normal range of motion at all joints. No bony deformities or tenderness. No CVA tenderness. EXTREMITIES: No cyanosis. No clubbing. No edema. No calf tenderness. SKIN: Warm and dry. Normal capillary refill. No rashes. No jaundice. NEUROLOGICAL: Alert, awake, appropriate. Cranial nerves 2-12 intact. Normal speech. Gait is normal without ataxia. PSYCHIATRIC: Cooperative. Good eye contact. Appropriate mood and affect. <Dolly Lorenzo - Last Filed: 02/01/17 18:29> - Vital Signs Last Vital Signs Temp Pulse Resp BP Pulse Ox 98.0 F 100 H 20 126/72 98 02/01/17 15:41 02/01/17 15:41 02/01/17 15:41 02/01/17 15:41 02/01/17 15:41 <Deepti Campbell - Last Filed: 02/01/17 23:33> ED Treatment Course - LABORATORY CBC & Chemistry Diagram: 02/01/17 18:15 02/01/17 18:15 - RADIOLOGY Radiograph Interpretation: 02/01/17 18:29 Chest X-Ray Impression: No significant interval change or acute lung disease is present. Reported By: Red Pop MD <Dolly Lorenzo - Last Filed: 02/01/17 18:29> - LABORATORY CBC & Chemistry Diagram: 02/01/17 18:15 02/01/17 18:15 <Deepti Campbell - Last Filed: 02/01/17 23:33> Medical Decision Making - Medical Decision Making 02/01/17 23:30 pt came in with c/o thoracic pain for past week no anterior chest pain PMH of copd -mild wheezing on exam -cxr no infiltrates -denies fever,chills,productive cough labs reviewed, chronic kidney insuff ct of chest did show a new finding since last ct scan . He hsa T4 compression fracture IMP copd, T4 compression fracture <Deepti Campbell - Last Filed: 02/01/17 23:33> *DC/Admit/Observation/Transfer - Attestations Scribe Attestion: 02/01/17 17:56 Documentation prepared by Dolly Lorenzo, acting as medical billing specialist for Deepti Campbell MD. <Dolly Lorenzo - Last Filed: 02/01/17 18:29> <Deepti Campbell - Last Filed: 02/01/17 23:33> Diagnosis at time of Disposition: COPD exacerbation Back pain Qualifiers: Back pain location: thoracic back pain Chronicity: unspecified Back pain laterality: bilateral Qualified Code(s): M54.6 - Pain in thoracic spine - Discharge Dispostion Disposition: HOME Condition at time of disposition: Stable - Referrals Referrals: Din,Mell, MD [Primary Care Provider] - - Patient Instructions Printed Discharge Instructions: DI for Chronic Obstructive Pulmonary Disease, DI for Thoracic Back Pain Additional Instructions: please follow up with your physician this week
[2017-02-01 18:35] LABS: MCH 29.6 pg (25.7-33.7); MCHC 33.2 g/dl (32.0-35.9); MEAN CELL VOLUME 89.3 fl (80-96); MEAN PLT VOLUME 9.5 fl (7.5-11.1); PLATELET COUNT 248 K/MM3 (134-434); RDW 14.8 % (11.9-15.9); WHITE BLOOD COUNT 10.7 K/mm3 (4.0-10.0)
[2017-02-01 18:53] LABS: ALBUMIN 3.6 g/dl (3.4-5.0); CALCIUM 9.7 mg/dL (8.5-10.1); COCKROFT - GAULT 58.9; CREATININE 1.6 mg/dL (0.7-1.3)
[2017-02-01 18:54] LABS: TROPONIN I < 0.02 ng/ml (0.00-0.05)
[2017-02-01 18:56] LABS: BILIRUBIN,TOTAL 0.2 mg/dL (0.2-1.0)
[2017-02-01 20:05] LABS: METAMYELOCYTE 1 % (0-2); PLATELET ESTIMATE ADEQUATE (NORMAL)
[2017-02-01 23:36] VITALS: BP 129/70; PULSE 98; TEMP 98.1
--- NOTE | 2017-02-02 11:42 | EKG ---
Test Reason : Blood Pressure : / mmHG Vent. Rate : 088 BPM Atrial Rate : 088 BPM P-R Int : 164 ms QRS Dur : 072 ms QT Int : 340 ms P-R-T Axes : 065 004 021 degrees QTc Int : 411 ms NORMAL SINUS RHYTHM NORMAL ECG WHEN COMPARED WITH ECG OF 04-DEC-2016 10:39, NO SIGNIFICANT CHANGE WAS FOUND Confirmed by STEFANIA BOWMAN MD ([id number]) on 02/02/2017 11:42:00 AM Referred By: Confirmed By:STEFANIA BOWMAN MD
== END | disposition home or self-care (01) ==
LOC: JER 15:05
PROC: 3E0F7GC Introduction of Other Therapeutic Substance into Respiratory Tract, Via Natural or Artificial Opening (ICD-10-PCS; principal; 2017-02-01)
PROC: 3E0333Z Introduction of Anti-inflammatory into Peripheral Vein, Percutaneous Approach (ICD-10-PCS; 2017-02-01)
DX: J44.1 Chronic obstructive pulmonary disease with (acute) exacerbation (principal); I10 Essential (primary) hypertension
CPT/HCPCS: 36415; 71020-TC; 71250-TC; 80053; 82550; 84484; 85025; 93005; 93010; 99284-25

== ENCOUNTER 2018-06-01 15:27 | Observation (INO) | payer OTHER ==
--- NOTE | 2018-06-01 16:13 | PDOC ---
Attending Attestation - Resident Resident Name: Kwesi Torres - ED Attending Attestation I have performed the following: I have examined & evaluated the patient, The case was reviewed & discussed with the resident, I agree w/resident's findings & plan, Exceptions are as noted - HPI HPI: 06/01/18 16:43 62yo male with asthma, cad, chf, copd on chronic 2L home o2 presents for eval of 2 episodes of GATES/SOB/palpitations. No cp. States mild LE swelling. Chronic LB pain. No orthopnea. Pt states he used his nebs and increased O2 last night to resolve the episode. States he took xanax today because he felt panicky after the sob started again. No cp during either event. No bm x 3 days. Feels abd is larger than normal. - Physicial Exam PE: 06/01/18 16:54 Gen: aaox3, conversational dyspnea, on NC 2L heent: mmm, perrl, eomi heart: +s1s2 tachy lungs: cta b/l abd: soft, no tympany, +bs, no ttp ext: trace edema LE neuro: awake, at baseline MS, anxious - Medical Decision Making 06/01/18 16:13 I, Dr. Ann Marie Bowie, DO, attest that this document has been prepared under my direction and personally reviewed by me in its entirety. I further attest, that it accurately reflects all work, treatment, procedures and medical decision -making performed by me. 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
--- NOTE | 2018-06-01 16:22 | PDOC ---
History of Present Illness - General Chief Complaint: Shortness of Breath Stated Complaint: DIFFICULTY BREATHING Time Seen by Provider: 06/01/18 15:52 - History of Present Illness Initial Comments: 62 yo male with a hx of asthma, cad, chf, copd on chronic 2L home o2 presents to the ED with his heart racing and stating he had an anxiety attack earlier on today which resolved after he self administered xanax. The patient currently has no complaints. Denies chest pain, SOB, difficulty breathing, palpitations, diaphoresis, impending doom, or chest tightness. He has mild lower back pain as a result of multiple compression fractures but he states that's not why he came into the ER. Social hx: Denies alcohol, cigarrette use, or illicit drug use. PCP: Past History - Past Medical History Allergies/Adverse Reactions: Allergies Allergy/AdvReac Type Severity Reaction Status Date / Time No Known Allergies Allergy Verified 06/01/18 15:51 Home Medications: Ambulatory Orders Albuterol Sulfate [Ventolin -] 2 mg PO PRN 08/10/16 Tiotropium [place] [Spiriva] 1 inh PO DAILY 08/10/16 Mometasone Furoate [Asmanex Hfa] 1 puff IH BID 11/29/16 Alprazolam [Xanax] 0.5 mg PO BID 12/03/16 Aspirin [ASA -] 81 mg PO DAILY #30 tab 12/07/16 Atorvastatin Ca [Lipitor] 80 mg PO HS #30 tablet 12/07/16 Lisinopril [Prinivil] 20 mg PO DAILY #30 tablet 12/07/16 Azithromycin [Zithromax 250mg Tablets -] 250 mg PO DAILY #5 tab 10/23/17 Montelukast Na [Singulair -] 10 mg PO HS #30 tablet 10/23/17 Pantoprazole Sodium [Protonix -] 40 mg PO DAILY #30 tablet.ec 10/23/17 Prednisone 10 mg PO DAILY #60 tablet 10/23/17 Famotidine [Pepcid -] 20 mg PO BID #14 tablet 02/25/18 Polyethylene Glycol 3350 [Miralax (For Bowel Prep) -] 17 gm PO BID #1 bottle Anemia: No Asthma: Yes Cancer: No Cardiac Disorders: No CVA: No COPD: Yes CHF: No Dementia: No Diabetes: No GI Disorders: No Disorders: No HTN: Yes Hypercholesterolemia: Yes Liver Disease: No Seizures: No Thyroid Disease: No - Surgical History Abdominal Surgery: No Appendectomy: No Cardiac Surgery: No Cholecystectomy: No Gastric Stapling: No GI Surgery: No Lung Surgery: No Neurologic Surgery: No Orthopedic Surgery: No - Suicide/Smoking/Psychosocial Hx Smoking Status: Yes Smoking History: Never smoked Have you smoked in the past 12 months: No Number of Cigarettes Smoked Daily: 10 If you are a former smoker, when did you quit?: 08/2016 Information on smoking cessation initiated: No 'Breaking Loose' booklet given: 06/27/16 Hx Alcohol Use: No Drug/Substance Use Hx: No Substance Use Type: None Hx Substance Use Treatment: No Review of Systems - Review of Systems Constitutional: Yes: See HPI. No: Chills, Diaphoresis, Fever HEENTM: No: Blurred Vision, Throat Pain, Throat Swelling Respiratory: No: Cough, Orthopnea, Shortness of Breath, SOB with Exertion, Wheezing, Productive cough, Hemoptysis Cardiac (ROS): No: Chest Pain, Irregular Heart Rate, Lightheadedness, Palpitations ABD/GI: No: Abdominal Distended, Constipated, Diarrhea, Nausea, Poor Fluid Intake, Vomiting : No: Burning, Dysuria, Frequency, Flank Pain, Hematuria Musculoskeletal: Yes: Back Pain, Joint Pain, Joint Stiffness. No: Muscle Weakness, Neck Pain Integumentary: Yes: Change in Hair/Nails (clubbing). No: Bruising, Change in Color Neurological: No: Headache, Numbness, Paresthesia, Unsteady Gait, Dizziness Psychiatric: Yes: Anxiety, Depression Endocrine: No: Excessive Sweating, Flushing, Intolerance to Cold Hematologic/Lymphatic: Yes: Anemia. No: Blood Clots, Easy Bleeding, Easy Bruising, Bleeding Diathesis *Physical Exam - Vital Signs Last Vital Signs Temp Pulse Resp BP Pulse Ox 98.3 F 90 24 H 134/72 100 06/01/18 15:48 06/01/18 15:48 06/01/18 15:48 06/01/18 15:48 06/01/18 16:01 - Physical Exam General Appearance: Yes: Nourished, Appropriately Dressed. No: Apparent Distress HEENT: positive: EOMI, HALLEY, Normal ENT Inspection, Normal Voice Neck: positive: Trachea midline, Supple. negative: Tender, Rigid, Lymphadenopathy (R), Lymphadenopathy (L) Respiratory/Chest: positive: Lungs Clear, Normal Breath Sounds, Respiratory Distress. negative: Accessory Muscle Use, Decreased Breath Sounds, Rhonchi, Wheezing, Dullness Cardiovascular: positive: Regular Rhythm, S1, S2, Tachycardia. negative: JVD, Murmur Vascular Pulses: Dorsalis-Pedis (R): 2+, Doralis-Pedis (L): 2+ Gastrointestinal/Abdominal: positive: Normal Bowel Sounds, Soft. negative: Tender, Increased Bowel Sounds, Distended, Guarding, Rebound Lymphatic: negative: Adenopathy Musculoskeletal: positive: Normal Inspection, Decreased Range of Motion, Vertebral Tenderness. negative: CVA Tenderness Extremity: positive: Normal Capillary Refill, Normal Inspection, Normal Range of Motion, Cyanosis Integumentary: positive: Normal Color, Dry, Warm, Cyanotic. negative: Jaundice Neurologic: positive: project development leader II-XII NML intact, Fully Oriented, Alert, Normal Mood/ Affect, Normal Response, Motor Strength 01/01 ED Treatment Course - LABORATORY CBC & Chemistry Diagram: 06/01/18 16:45 06/01/18 16:45 Medical Decision Making - Medical Decision Making 62 yo M w/ a hx of COPD, asthma, anxiety, cad, chf, here after having an anxiety attack. He also had an anxiety attack last night. Here in the ED we are trying to figure out what is causing his increased frequency of anxiety attacks. EKG showed new septal Q waves not seen on his prior EKG. Given his cardiac hx we will keep him in the hospital and look for other sources of stress. Plan: Cbc, cmp, cardiac profile, CXR, abdominal xr re-assess. CXR showed new thoracic vertebral fractures. Plan is to OBS patient for SOB and new EKG changes. *DC/Admit/Observation/Transfer Diagnosis at time of Disposition: Abnormal finding on EKG, SOB (shortness of breath) - Discharge Dispostion Condition at time of disposition: Guarded Decision to Admit order: Yes - Referrals - Patient Instructions - Post Discharge Activity
[2018-06-01] MEDS ORDERED: IBUPROFEN 600 MG TABLET (FP) PO ONE ×2 (16:24→16:26)
[2018-06-01 17:13] LABS: BASO % 0.4 % (0-2.0); EOS % 0.1 % (0-4.5); HEMATOCRIT 28.6 % (35.4-49); HEMOGLOBIN 9.2 GM/dL (11.7-16.9); MCH 28.5 pg (25.7-33.7); MCHC 32.2 g/dl (32.0-35.9); MEAN CELL VOLUME 88.5 fl (80-96); MEAN PLT VOLUME 8.9 fl (7.5-11.1); NEUT % 93.5 % (42.8-82.8); PLATELET COUNT 221 K/MM3 (134-434); RBC 3.23 M/mm3 (4.00-5.60); RDW 15.6 % (11.9-15.9); WHITE BLOOD COUNT 7.7 K/mm3 (4.0-10.0)
[2018-06-01 17:37] LABS: ALBUMIN 2.9 g/dl (3.4-5.0); ALK PHOS 106 U/L (45-117); ANION GAP 4 MMOL/L (8-16); BILIRUBIN,TOTAL 0.1 mg/dL (0.2-1); BLOOD UREA NITROGEN 34 mg/dL (7-18); CALCIUM 8.7 mg/dL (8.5-10.1); CHLORIDE 112 mmol/L (98-107); CO2 21 mmol/L (21-32); CREATININE 1.5 mg/dL (0.55-1.3); GLUCOSE,RANDOM 235 mg/dL (74-106); N-TERMINAL BNP 67.2 pg/ml (5-125); POTASSIUM 5.2 mmol/L (3.5-5.1); SGOT/AST 8 U/L (15-37); SGPT/ALT 26 U/L (13-61); SODIUM 137 mmol/L (136-145); TOT PROT 5.7 g/dl (6.4-8.2)
[2018-06-01] MEDS ORDERED: SODIUM CHLORIDE 0.9% 500 ML INFUS.BAG IV ONE (18:01)
[2018-06-01] MEDS ORDERED: HEPARIN NA (PORCINE) 5,000 UNITS/ML 1ML VIAL SQ SCH (19:00)
[2018-06-01] MEDS ORDERED: ALBUTEROL SO4 2 MG TABLET PO SCH ×2 (19:00→20:30)
[2018-06-01] MEDS ORDERED: LACTATED RINGERS SOLUTION 1,000 ML IV SCH (19:00)
[2018-06-01] MEDS ORDERED: ALPRAZolam 0.25 MG TABLET ONE (20:18)
[2018-06-01] MEDS ORDERED: HEPARIN NA (PORCINE) 5,000 UNITS/ML 1ML VIAL ONE (20:18)
[2018-06-01] MEDS ORDERED: MONTELUKAST NA 10 MG TABLET ONE (20:18)
[2018-06-01] MEDS ORDERED: ATORVASTATIN CA 80 MG TABLET (FP) ONE (20:18)
--- NOTE | 2018-06-01 21:13 | HP ---
CHIEF COMPLAINT: shortness of breath HISTORY OF PRESENT ILLNESS: 62 year old male with a history of asthma, CAD, CHF, back fractures COPD, on 2L O2 at home presents for couple hour history of dizziness, sweating, and chest discomfort. He reports he was not doing anything in particular at home when he started to feel shortness of breath, after which he got dizzy and began sweating. He reports the chest discomfort was on the left side and it was mild. He reports taking a xanax and a nebulizer, after which he felt better, but he decided to come to the ED for evaluation. Reports something similar happened 4 years ago after he fell, when he experienced dizziness and shortness of breath - at that time he also reported R sided hearing loss. Currently, patient denies any complaints. Denies chest pain, SOB, nausea, vomiting, diarrhea, fevers, chills. ER course was notable for: (1) Trop (-) (2) EKG shows new septal Q waves (3) Recent Travel: denies PAST MEDICAL HISTORY: as listed above PAST SURGICAL HISTORY: denies surgery Social History: Smoking: current 1ppd since he was an adolescent Alcohol: denies Drugs: denies Family History: denies Allergies No Known Allergies Allergy (Verified 06/01/18 15:51) HOME MEDICATIONS: Home Medications Medication Instructions Recorded Albuterol Sulfate [Ventolin -] 2 mg PO PRN 08/10/16 Tiotropium [place] [Spiriva] 1 inh PO DAILY 08/10/16 Mometasone Furoate [Asmanex Hfa] 1 puff IH BID 11/29/16 Alprazolam [Xanax] 0.5 mg PO BID 12/03/16 Aspirin [ASA -] 81 mg PO DAILY #30 tab 12/07/16 Atorvastatin Ca [Lipitor] 80 mg PO HS #30 tablet 12/07/16 Lisinopril [Prinivil] 20 mg PO DAILY #30 tablet 12/07/16 Azithromycin [Zithromax 250mg 250 mg PO DAILY #5 tab 10/23/17 Tablets -] Montelukast Na [Singulair -] 10 mg PO HS #30 tablet 10/23/17 Pantoprazole Sodium [Protonix -] 40 mg PO DAILY #30 tablet.ec 10/23/17 Prednisone 10 mg PO DAILY #60 tablet 10/23/17 Famotidine [Pepcid -] 20 mg PO BID #14 tablet 02/25/18 Polyethylene Glycol 3350 [Miralax 17 gm PO BID #1 bottle 02/25/18 (For Bowel Prep) -] REVIEW OF SYSTEMS CONSTITUTIONAL: Absent: fever, chills, diaphoresis, generalized weakness, malaise, loss of appetite, weight change HEENT: Absent: rhinorrhea, nasal congestion, throat pain, throat swelling, difficulty swallowing, mouth swelling, ear pain, eye pain, visual changes CARDIOVASCULAR: Absent: chest pain, syncope, palpitations, irregular heart rate, lightheadedness , peripheral edema RESPIRATORY: Absent: cough, shortness of breath, dyspnea with exertion, orthopnea, wheezing, stridor, hemoptysis GASTROINTESTINAL: Absent: abdominal pain, abdominal distension, nausea, vomiting, diarrhea, constipation, melena, hematochezia GENITOURINARY: Absent: dysuria, frequency, urgency, hesitancy, hematuria, flank pain, genital pain MUSCULOSKELETAL: Absent: myalgia, arthralgia, joint swelling, back pain, neck pain SKIN: Absent: rash, itching, pallor HEMATOLOGIC/IMMUNOLOGIC: Absent: easy bleeding, easy bruising, lymphadenopathy, frequent infections ENDOCRINE: Absent: unexplained weight gain, unexplained weight loss, heat intolerance, cold intolerance NEUROLOGIC: Absent: headache, focal weakness or paresthesias, dizziness, unsteady gait, seizure, mental status changes, bladder or bowel incontinence PSYCHIATRIC: Absent: anxiety, depression, suicidal or homicidal ideation, hallucinations. PHYSICAL EXAMINATION Vital Signs - 24 hr 06/01/18 06/01/18 15:48 16:01 Temperature 98.3 F Pulse Rate 90 Respiratory 24 H Rate Blood Pressure 134/72 O2 Sat by Pulse 100 100 Oximetry (%) GENERAL: A&Ox3, no acute distress EYES: PERRLA, EOMI ENT: Moist mucus membranes NECK: No JVD LUNGS: CTA, no wheezes, on 2L O2 by NC HEART: systolic murmur noted on exam, RRR ABDOMEN: Large abdomen, soft, nontender, BS present MUSCULOSKELETAL: No CVA Tenderness EXTREMITIES: 2+ pulses, 1+ edema in b/l lower extremities NEUROLOGICAL: Cranial nerves II-XII intact. Laboratory Results - last 24 hr 06/01/18 06/01/18 16:45 16:45 WBC 7.7 RBC 3.23 L Hgb 9.2 L Hct 28.6 L D MCV 88.5 MCH 28.5 MCHC 32.2 RDW 15.6 D Plt Count 221 MPV 8.9 Absolute Neuts (auto) 7.2 Neutrophils % 93.5 H Lymphocytes % 3.0 L D Monocytes % 3.0 L Eosinophils % 0.1 D Basophils % 0.4 Nucleated RBC % 0 Sodium 137 Potassium 5.2 H Chloride 112 H Carbon Dioxide 21 Anion Gap 4 L BUN 34 H Creatinine 1.5 H Creat Clearance w eGFR 47.58 Random Glucose 235 H Calcium 8.7 Total Bilirubin 0.1 L AST 8 L ALT 26 Alkaline Phosphatase 106 Creatine Kinase 38 Troponin I < 0.02 B-Natriuretic Peptide 67.2 Total Protein 5.7 L Albumin 2.9 L TSH 0.51 D ASSESSMENT/PLAN: 62 year old male with a history of asthma, CAD, CHF, back fractures COPD, on 2L O2 at home presents for couple hour history of dizziness, sweating, and chest discomfort. #Sweating, Dizziness, Chest discomfort: -with new Q waves reported on EKG, will admit obs to r/o ACS -ASA 325 given -continue ASA 81 -echocardiogram ordered -trend troponins -repeat EKG now and in the morning -stress test -lipid profile -statin 80mg HS #CKD: patient's creatinine is at baseline -fluid hydration with LR @ 83cc/hr #COPD: currently not short of breath -xanax for anxiety -2L O2 Nasal cannula -prednisone 10 -montelukast -tiotropium -will confirm if patient is on azithromycin currently #DM: patient has new diagnosis of DM based on blood glucose, could be artificially elevated due to steroid use -A1C -BGM -ISS, low dose because naive #HTN: not hypertensive -lisinopril 20 #FEN -LR @ 83cc/hr -replete lytes as necessary in AM -diabetic diet #Prophylaxis -heparin prophylaxis #Disposition -admit tele obs Visit type - Emergency Visit Emergency Visit: Yes Care time: The patient presented to the Emergency Department on the above date and was hospitalized for further evaluation of their emergent condition. - New Patient This patient is new to me today: Yes Date on this admission: 06/01/18 - Critical Care Critical Care patient: No
[2018-06-01] MEDS ORDERED: MOMETASONE FUROATE IH SCH ×2 (22:00)
[2018-06-01] MEDS ORDERED: PATIENT'S OWN MEDICATION (NON-FORMULARY) (Alprazolam [Xanax] 0.5 MG) PO SCH (22:00)
[2018-06-01] MEDS ORDERED: PATIENT'S OWN MEDICATION (NON-FORMULARY) (Famotidine [Pepcid -] 20 MG) PO SCH (22:00)
[2018-06-01] MEDS ORDERED: INSULIN (NOVOLOG) ASPART 100 UNITS/ML 10ML VIAL ONE (22:18)
[2018-06-01] MEDS: POLYETHYLENE GLYCOL 3350 255 GM BTL PO SCH (22:40)
[2018-06-01] MEDS: MONTELUKAST NA 10 MG TABLET PO SCH (22:40)
[2018-06-01] MEDS: ATORVASTATIN CA 80 MG TABLET (FP) PO SCH (22:40)
[2018-06-01] MEDS: HEPARIN NA (PORCINE) 5,000 UNITS/ML 1ML VIAL SQ SCH (22:40)
[2018-06-01] MEDS: INSULIN SLIDING SCALE (NOVOLOG) 1 VIAL SQ SCH (22:41)
[2018-06-01] MEDS: ALPRAZolam 0.25 MG TABLET PO SCH (22:44)
[2018-06-01 23:22] LABS: PLATELET ESTIMATE ADEQUATE
[2018-06-01 23:52] LABS: COCAINE, UR NEGATIVE ng/ml (CUTOFF=300); OPIATES, URI NEGATIVE ng/ml (CUTOFF=300); PHENCYCLIDINE,URINE NEGATIVE ng/ml (CUTOFF=25); URINE AMPHETAMINES NEGATIVE ng/ml (CUTOFF=500); URINE BARBITURATES NEGATIVE ng/ml (CUTOFF=200)
[2018-06-01 23:54] LABS: URINE BENZODIAZEPINES POSITIVE ng/ml (CUTOFF=200)
[2018-06-01 23:55] LABS: METHADONE, UR POSITIVE ng/ml (CUTOFF=300)
--- NOTE | 2018-06-02 07:08 | PN ---
Teaching Attending Note Name of Resident: Faraz Rollins ATTENDING PHYSICIAN STATEMENT I saw and evaluated the patient. I reviewed the resident's note and discussed the case with the resident. I agree with the resident's findings and plan as documented.
[2018-06-02] MEDS: HEPARIN NA (PORCINE) 5,000 UNITS/ML 1ML VIAL SQ SCH ×3 (07:26→21:26)
[2018-06-02] MEDS: INSULIN SLIDING SCALE (NOVOLOG) 1 VIAL SQ SCH ×3 (07:26→22:00)
[2018-06-02 07:44] LABS: HEMATOCRIT 30.4 % (35.4-49); HEMOGLOBIN 9.9 GM/dL (11.7-16.9); MCH 28.6 pg (25.7-33.7); MCHC 32.5 g/dl (32.0-35.9); MEAN CELL VOLUME 88.1 fl (80-96); MEAN PLT VOLUME 9.1 fl (7.5-11.1); PLATELET COUNT 222 K/MM3 (134-434); RBC 3.45 M/mm3 (4.00-5.60); RDW 15.6 % (11.9-15.9); WHITE BLOOD COUNT 9.1 K/mm3 (4.0-10.0)
[2018-06-02 08:07] LABS: ANION GAP 7 MMOL/L (8-16); BLOOD UREA NITROGEN 31 mg/dL (7-18); CALCIUM 8.9 mg/dL (8.5-10.1); CHLORIDE 111 mmol/L (98-107); CO2 24 mmol/L (21-32); CREATININE 1.3 mg/dL (0.55-1.3); GLUCOSE,RANDOM 67 mg/dL (74-106); MAGNESIUM 2.3 mg/dL (1.8-2.4); POTASSIUM 4.9 mmol/L (3.5-5.1); SODIUM 142 mmol/L (136-145)
[2018-06-02] MEDS ORDERED: predniSONE 10 MG TABLET (UD) PO SCH (10:00)
[2018-06-02] MEDS ORDERED: PATIENT'S OWN MEDICATION (NON-FORMULARY) (Tiotropium Bromide [Spiriva] 1 INH) PO SCH (10:00)
[2018-06-02] MEDS: POLYETHYLENE GLYCOL 3350 255 GM BTL PO SCH ×2 (10:26→21:58)
[2018-06-02] MEDS: ASPIRIN 81 MG CHEWABLE TABLETS PO SCH (10:26)
[2018-06-02] MEDS: TIOTROPIUM BROMIDE 2.5 MCG (SPIRIVA) RESPIMAT INHALER IH SCH (10:27)
[2018-06-02] MEDS: PANTOPRAZOLE 40 MG TABLET (FP) PO SCH (10:27)
[2018-06-02] MEDS: LISINOPRIL 20 MG TABLET (FP) PO SCH (10:27)
[2018-06-02] MEDS: AZITHROMYCIN 250 MG TABLET PO SCH (10:27)
[2018-06-02] MEDS ORDERED: REGADENOSON 0.4 MG/5 ML PRE-FILLED SYRINGE IVPUSH ONE (10:30)
[2018-06-02] MEDS ORDERED: ALPRAZolam 0.25 MG TABLET ONE (12:10)
[2018-06-02] MEDS: ALPRAZolam 0.25 MG TABLET PO SCH ×2 (12:26→21:26)
--- NOTE | 2018-06-02 15:23 | ECHO ---
Name: LEWIS VALIENTE Exam:Adult Echocardiogram Study Date: 06/02/2018 09:27 AM Age: 62 yrs Reason For Study: ACS Height: 67 in Weight: 165 lb BSA: 1.9 m2 MMode/2D Measurements & Calculations IVSd: 0.92 cm Ao root diam: 3.0 cm LVIDd: 4.5 cm LA dimension: 3.3 cm LVIDs: 3.2 cm LVPWd: 0.83 cm EDV(Teich): 94.5 ml ESV(Teich): 41.7 ml Doppler Measurements & Calculations MV E max arnel: 78.6 cm/sec Med Peak E' Arnel: 6.5 cm/sec MV A max arnel: 87.3 cm/sec Med E/e': 12.0 MV E/A: 0.90 Lat Peak E' Arnel: 10.0 cm/sec MV dec time: 0.13 sec Lat E/e': 7.9 Procedure A complete two-dimensional transthoracic echocardiogram was performed (2D, M-mode, Doppler and color flow Doppler). The study was technically adequate with some images being suboptimal in quality. The patien t was in normal sinus rhythm during the exam. Left Ventricle The left ventricle is grossly normal size. Unable to assess EF due to limited visualization of LV in all windows. Grossly mildly reduced LV function. The transmitral spectral Doppler flow pattern is suggest vera of impaired LV relaxation. Regional wall motion abnormalities cannot be excluded due to limited visualiz ation. Right Ventricle The right ventricle is not well visualized. Atria The left atrial size is normal. Mitral Valve The mitral valve leaflets appear normal. There is no evidence of stenosis, fluttering, or prolapse. Tricuspid Valve The tricuspid valve is normal. No tricuspid regurgitation. There was insufficient TR detected to calc ulate RV systolic pressure. Aortic Valve The aortic valve is normal in structure and function. Pulmonic Valve The pulmonic valve is not well visualized. Great Vessels The aortic root is normal size. Interpretation Summary Unable to assess EF due to limited visualization of LV in all windows. Grossly mildly reduced LV func tion. The transmitral spectral Doppler flow pattern is suggestive of impaired LV relaxation. The right ventricle is not well visualized. MD Kendal Callahan 06/02/2018 03:22 PM
--- NOTE | 2018-06-02 17:16 | CON.CARD ---
Consult Consult Specialty:: cardiology Reason for Consultation:: shortness of breath - History of Present Illness Chief Complaint: Pt A&Ox3; anxious; no chest pain or dyspnea presently. History of Present Illness: 62yo male with asthma, cad, chf, copd on chronic 2L home o2 presents for eval of 2 episodes of GATES/SOB/palpitations. No cp. States mild LE swelling. Chronic LB pain. No orthopnea. Pt states he used his nebs and increased O2 last night to resolve the episode. States he took xanax today because he felt panicky after the sob started again. No cp during either event. No BM x 3 days. Feels abdomen is larger than normal. - History Source History Provided By: Patient, Medical Record Limitations to Obtaining History: No Limitations - Past Medical History Cardio/Vascular: Yes: CHF (systolic (mild) LVEF by ECHO (limited study)), HTN Pulmonary: Yes: Asthma, COPD, O2 Dependent - Past Surgical History Past Surgical History: Yes: None - Alcohol/Substance Use Hx Alcohol Use: No History of Substance Use: reports: None - Smoking History Smoking history: Current every day smoker Have you smoked in the past 12 months: No Aproximately how many cigarettes per day: 10 If you are a former smoker, when did you quit?: 08/2016 - Social History ADL: Independent History of Recent Travel: No Home Medications - Allergies Allergies/Adverse Reactions: Allergies Allergy/AdvReac Type Severity Reaction Status Date / Time No Known Allergies Allergy Verified 06/01/18 15:51 - Home Medications Home Medications: Ambulatory Orders Albuterol Sulfate [Ventolin -] 2 mg PO PRN 08/10/16 Tiotropium [place] [Spiriva] 1 inh PO DAILY 08/10/16 Mometasone Furoate [Asmanex Hfa] 1 puff IH BID 11/29/16 Alprazolam [Xanax] 0.5 mg PO BID 12/03/16 Aspirin [ASA -] 81 mg PO DAILY #30 tab 12/07/16 Atorvastatin Ca [Lipitor] 80 mg PO HS #30 tablet 12/07/16 Lisinopril [Prinivil] 20 mg PO DAILY #30 tablet 12/07/16 Azithromycin [Zithromax 250mg Tablets -] 250 mg PO DAILY #5 tab 10/23/17 Montelukast Na [Singulair -] 10 mg PO HS #30 tablet 10/23/17 Pantoprazole Sodium [Protonix -] 40 mg PO DAILY #30 tablet.ec 10/23/17 Prednisone 10 mg PO DAILY #60 tablet 10/23/17 Famotidine [Pepcid -] 20 mg PO BID #14 tablet 02/25/18 Polyethylene Glycol 3350 [Miralax (For Bowel Prep) -] 17 gm PO BID #1 bottle Amoxicillin/Potassium Clav [Amox-Clav 500-125 mg Tablet] 1 each PO BID 06/02/18 Family Disease History - Family Disease History Family History: Denies Vital Signs: Vital Signs Temperature 98.5 F 06/02/18 14:12 Pulse Rate 101 H 06/02/18 15:48 Respiratory Rate 18 06/02/18 15:48 Blood Pressure 126/72 06/02/18 15:48 O2 Sat by Pulse Oximetry (%) 100 06/02/18 15:48 - Other Data Labs, Other Data: CBC, BMP 06/02/18 06:45 06/02/18 06:45 Troponin, BNP 06/01/18 06/02/18 06/02/18 16:45 01:21 06:45 Troponin I < 0.02 < 0.02 < 0.02 B-Natriuretic Peptide 67.2 Troponin, BNP 06/01/18 06/02/18 06/02/18 16:45 01:21 06:45 Troponin I < 0.02 < 0.02 < 0.02 B-Natriuretic Peptide 67.2 Problem List - Problems (1) Acute chronic obstructive pulmonary disease with respiratory distress Assessment/Plan: 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 Since being on nasal O2, pt has had to use "asthma pumps" only infrequently for the past several blu. Quit cigarettes in 2017 (after 40 years of 1/2 ppd). On disability this year for COPD Tox screen : marijuana, methadone. Code(s): J44.9 - CHRONIC OBSTRUCTIVE PULMONARY DISEASE, UNSPECIFIED; R06.03 - ACUTE RESPIRATORY DISTRESS (2) Abnormal finding on EKG Assessment/Plan: sinus tachycardia; ? septal infarct ECHO: very limited study; mildly reduced LVEF (suggest repeat: pt says he will be better able to change body position to possibly allow better ECHO views). Code(s): R94.31 - ABNORMAL ELECTROCARDIOGRAM [ECG] [EKG] (3) Back pain Assessment/Plan: chronic back pain since lifting something heavy years ago; on disability since earlier this year for COPD. Code(s): M54.9 - DORSALGIA, UNSPECIFIED Qualifiers: Back pain location: thoracic back pain Chronicity: unspecified Back pain laterality: bilateral Qualified Code(s): M54.6 - Pain in thoracic spine (4) SOB (shortness of breath) Code(s): R06.02 - SHORTNESS OF BREATH (5) Hyperlipidemia Assessment/Plan: on simvastatin at home ; agree with change to more potent agent atorvastatin, and the high dose. Code(s): E78.5 - HYPERLIPIDEMIA, UNSPECIFIED (6) Hypertension Assessment/Plan: on lisinopril. Code(s): I10 - ESSENTIAL (PRIMARY) HYPERTENSION (7) Panic anxiety syndrome Assessment/Plan: on Xanax F/u with psychological counseling. Code(s): F41.0 - PANIC DISORDER [EPISODIC PAROXYSMAL ANXIETY] (8) [place] cardiac risk 10-20% in next 10 years Assessment/Plan: Increase statin dose (agree with change from simvastatin to atorvastatin). Stopped smoking cigarettes in 2017; tox screen + for marijuana. Dietary change; weight loss (truncal obesity likely contributer to dyspnea). BP control. For stress ECHO (pt does not want "artificial substances in my blood", such as MIBI or dobutamine.Pt says he can walk on a treadmill "because I can keep my back staight". Code(s): Z91.89 - OTH PERSONAL RISK FACTORS, NOT ELSEWHERE CLASSIFIED
[2018-06-02] MEDS ORDERED: predniSONE 20 MG TABLET (UD) PO ONE (18:44)
--- NOTE | 2018-06-02 18:55 | PN ---
Teaching Attending Note Name of Resident: Tita Julian ATTENDING PHYSICIAN STATEMENT I saw and evaluated the patient. I reviewed the resident's note and discussed the case with the resident. I agree with the resident's findings and plan as documented. SUBJECTIVE:currently asymptomatic. states he was in the bathroom with the shower running and he was about to shave his face and he developed sudden onset of dyspnea and anxiety due to difficulty breathing with all the steam in the bathroom. symptoms resolved after taking xanax when EMS arrived. no repeat episodes. never had CP or dizzyness. had stress test more than 10 years ago that he was unable to complete because he couldnt run on the treadmill. states he had some SOB last week and started his own steroid taper like instructed by his doctor where he starts with 80mg and drops by 10mg every day and takes azithromcyin while on increased steroids. denies CP, fever, chills, palpitaitons , pain/numbness radiating down the arm or to the jaw quit smoking last year OBJECTIVE: Last Vital Signs Temp Pulse Resp BP Pulse Ox 98.5 F 101 H 18 126/72 100 06/02/18 14:12 06/02/18 15:48 06/02/18 15:48 06/02/18 15:48 06/02/18 15:48 general NAd CV S1 S2 RRR no rubs/murmur/gallop no chest wall tenderness Lungs CTA B/L no wheezing/rale/srhonchi ASSESSMENT AND PLAN: 62yo M with PMH CAD, CHF and COPD on home o2 2L NC presented to the ER with sudden onset of SOB which was reported as CP in the ER 1. CP- r/o CS. CE neg x3. has significant risk factors. initially ordered for treadmill stress test which he refused and switch to NMST which he also refused because he didnt want artificial medications in his system. now agreeable to stress test. NPO for test in the AM. Echo results noted. cardio consulted. cont asa/high intensity statin/ acei 2. COPD- saturating 100% on 2L NC. will increase steroids to complete his taper. 30mg today, 20mg tomorrow. cont azithro while on steroids per his instruction from PMD. cont inhalers, nebs prn 3. Hyperglycemia- A1c 6.6. possible due to steroid use. dietary modifications. repeat A1c in 3 months. if not improved may need to start medications 4. Hyperkalemia- resolved 5. CHF- no signs of volume overload. 6. DVT ppx- hep sq 7. d/c planning tomorrow pending results of stress test
--- NOTE | 2018-06-02 19:35 | PN ---
Physical Exam: SUBJECTIVE: Patient seen and examined at bedside this morning. No acute events overnight. Patient on 2L NC. He denies chest pain, SOB, palpitations, dizziness , headache, abdominal pain or dysuria. OBJECTIVE: Vital Signs Period Temp Pulse Resp BP Sys/Rendon Pulse Ox Last 24 Hr 98.4 F-98.9 F 83-118 18-20 120-136/71-98 99-100 GENERAL: The patient is awake, alert, and fully oriented, on 2L NC. HEAD: Normal with no signs of trauma. EYES: PERRLA, EOMI, sclera anicteric, conjunctiva clear. NECK: Trachea midline, full range of motion, supple. LUNGS: Breath sounds equal, clear to auscultation bilaterally. HEART: Regular rate and rhythm, S1, S2 without murmur, rub or gallop. ABDOMEN: Soft, mildly distended, nontender, normoactive bowel sounds, no guarding, no rebound, no hepatosplenomegaly, no masses. EXTREMITIES: 2+ pulses, warm, well-perfused, +1 peripheral edema. NEUROLOGICAL: Cranial nerves II through XII grossly intact. Normal speech, gait not observed. PSYCH: Normal mood, normal affect. SKIN: Warm, dry, normal turgor, no rashes or lesions noted Laboratory Results - last 24 hr 06/01/18 06/01/18 06/01/18 16:45 21:56 22:48 WBC RBC Hgb Hct MCV MCH MCHC RDW Plt Count MPV Total Counted 100 Neutrophils % (Manual) 87.0 H Band Neutrophils % 3.0 Lymphocytes % (Manual) 4.0 L Monocytes % (Manual) 6 Hypochromia 2+ Platelet Estimate Adequate Microcytosis 3+ Sodium Potassium Chloride Carbon Dioxide Anion Gap BUN Creatinine Creat Clearance w eGFR POC Glucometer [phone] Random Glucose Hemoglobin A1c % Calcium Phosphorus Magnesium Creatine Kinase Troponin I Opiates Screen Negative Methadone Screen Positive A* Barbiturate Screen Negative Phencyclidine Screen Negative Ur Amphetamines Screen Negative MDMA (Ecstasy) Screen Negative Benzodiazepines Screen Positive A* Cocaine Screen Negative U Marijuana (THC) Screen Positive A* 06/02/18 06/02/18 06/02/18 01:21 01:21 06:45 WBC 9.1 RBC 3.45 L Hgb 9.9 L Hct 30.4 L MCV 88.1 MCH 28.6 MCHC 32.5 RDW 15.6 Plt Count 222 MPV 9.1 Total Counted Neutrophils % (Manual) Band Neutrophils % Lymphocytes % (Manual) Monocytes % (Manual) Hypochromia Platelet Estimate Microcytosis Sodium Potassium Chloride Carbon Dioxide Anion Gap BUN Creatinine Creat Clearance w eGFR POC Glucometer Random Glucose Hemoglobin A1c % 6.6 H Calcium Phosphorus Magnesium Creatine Kinase 41 Troponin I < 0.02 Opiates Screen Methadone Screen Barbiturate Screen Phencyclidine Screen Ur Amphetamines Screen MDMA (Ecstasy) Screen Benzodiazepines Screen Cocaine Screen U Marijuana (THC) Screen 06/02/18 06/02/18 06/02/18 06:45 06:45 12:17 WBC RBC Hgb Hct MCV MCH MCHC RDW Plt Count MPV Total Counted Neutrophils % (Manual) Band Neutrophils % Lymphocytes % (Manual) Monocytes % (Manual) Hypochromia Platelet Estimate Microcytosis Sodium 142 Potassium 4.9 Chloride 111 H Carbon Dioxide 24 Anion Gap 7 L BUN 31 H Creatinine 1.3 Creat Clearance w eGFR 56.12 POC Glucometer [phone] Random Glucose 67 L Hemoglobin A1c % Calcium 8.9 Phosphorus 4.0 Magnesium 2.3 Creatine Kinase 34 Troponin I < 0.02 Opiates Screen Methadone Screen Barbiturate Screen Phencyclidine Screen Ur Amphetamines Screen MDMA (Ecstasy) Screen Benzodiazepines Screen Cocaine Screen U Marijuana (THC) Screen Active Medications Generic Name Dose Route Start Last Admin Trade Name Freq PRN Reason Stop Dose Admin Albuterol Sulfate 2 mg 06/01/18 20:30 Ventolin - PO PRN EFRAÍN Alprazolam 0.5 mg 06/01/18 22:00 06/02/18 12:26 Xanax - PO 0.5 mg BID EFRAÍN Administration Aspirin 81 mg 06/02/18 10:00 06/02/18 10:26 Asa - PO 81 mg DAILY EFRAÍN Administration Atorvastatin Calcium 80 mg 06/01/18 22:00 06/01/18 22:40 Lipitor - PO 80 mg HS EFRAÍN Administration Azithromycin 250 mg 06/02/18 10:00 06/02/18 10:27 Zithromax - PO 250 mg DAILY EFRAÍN Administration Heparin Sodium (Porcine) 5,000 unit 06/01/18 22:00 06/02/18 14:00 Heparin - SQ Not Given TID [facility] Insulin Aspart 1 vial 06/01/18 22:00 06/02/18 12:25 Novolog Vial Sliding Scale - SQ Not Given ACHS EFRAÍN Protocol Lisinopril 20 mg 06/02/18 10:00 06/02/18 10:27 Prinivil PO 20 mg DAILY EFRAÍN Administration Montelukast Sodium 10 mg 06/01/18 22:00 06/01/18 22:40 Singulair - PO 10 mg HS EFRAÍN Administration Non-Formulary Medication 1 puff 06/01/18 22:00 Mometasone Furoate [Asmanex Hfa] IH BID EFRAÍN Pantoprazole Sodium 40 mg 06/02/18 10:00 06/02/18 10:27 Protonix - PO 40 mg DAILY EFRAÍN Administration Polyethylene Glycol 17 gm 06/01/18 22:00 06/02/18 10:26 Miralax (For Bowel Prep) - PO 17 gm BID EFRAÍN Administration Prednisone 20 mg 06/03/18 10:00 Deltasone - PO DAILY EFRAÍN Tiotropium [place] 2 puff 06/02/18 10:00 06/02/18 10:27 Spiriva Respimat IH 2 puff DAILY EFRAÍN Administration Imaging Echo - Unable to assess EF due to limited visualization of LV in all windows. Grossly mildly reduced LV function. The transmitral spectral Doppler flow pattern is suggestive of impaired LV relaxation. The right ventricle is not well visualized. CXR - No acute chest pathology Abdominal Xray - No evidence of bowel obstruction ASSESSMENT/PLAN: Patient is a 62 year old male with a history of asthma, CAD, CHF, back fractures COPD, on 2L O2 at home presents for couple hour history of dizziness, sweating, and chest discomfort. #r/o ACS: Patient presented with SOB, sweating, dizziness, chest discomfort: -New Q waves reported on EKG -Repeat EKG showed sinus tachycardia -ASA 325 given, continue ASA 81 mg daily -Echocardiogram - reduced LV function -Troponins 0.02 x3 -CK negative x3 -Cardiology (Dr. Mcadams) consulted. Recommendations appreciated. -Patient refused to have nuclear or dobutamine stress test done today. He is not comfortable having "artificial substances in my blood". -For stress ECHO tomorrow, patient will walk on a treadmill -lipid profile: TG 238, Chol 215, LDL 128, HDL 61 -Continue Lipitor 80mg daily #Hyperglycemia -HbA1c - 6.6 -likely secondary to prolonged steroid use -can not totally rule out DM -Will repeat HbA1c after 3 months -Dietary consult. -BGM ACHS -SSI implemented. #Urine toxicology positive for methadone, BZDs, Marijuana #CKD: patient's creatinine is at baseline -will monitor #COPD: -xanax for anxiety -2L O2 Nasal cannula -prednisone 10 -montelukast -tiotropium #HTN: controlled -lisinopril 20 #FEN -Not on any standing fluids -encourage increased oral fluid intake -replete lytes as necessary in AM -diabetic diet #Prophylaxis -heparin prophylaxis #Disposition -admit tele obs Visit type - Emergency Visit Emergency Visit: Yes ED Registration Date: 06/01/18 Care time: The patient presented to the Emergency Department on the above date and was hospitalized for further evaluation of their emergent condition. - New Patient This patient is new to me today: Yes Date on this admission: 06/02/18 - Critical Care Critical Care patient: No
[2018-06-02 20:29] LABS: CHOLESTEROL 215 mg/dL (50-200); HDL CHOLESTEROL 61 mg/dL (40-60); TRIGLYCERIDES 238 mg/dL (0-150)
[2018-06-02] MEDS ORDERED: IBUPROFEN 600 MG TABLET (FP) PO ONE (20:51)
[2018-06-02] MEDS: ATORVASTATIN CA 80 MG TABLET (FP) PO SCH (21:26)
[2018-06-02] MEDS: MONTELUKAST NA 10 MG TABLET PO SCH (21:26)
--- NOTE | 2018-06-02 21:38 | EKG ---
Test Reason : Blood Pressure : / mmHG Vent. Rate : 112 BPM Atrial Rate : 112 BPM P-R Int : 144 ms QRS Dur : 066 ms QT Int : 310 ms P-R-T Axes : 048 003 054 degrees QTc Int : 423 ms POOR DATA QUALITY, INTERPRETATION MAY BE ADVERSELY AFFECTED SINUS TACHYCARDIA OTHERWISE NORMAL ECG WHEN COMPARED WITH ECG OF 01-JUN-2018 16:42, CRITERIA FOR SEPTAL INFARCT ARE NO LONGER PRESENT Confirmed by MARY MARTINEZ, VIC ([id number]) on 06/02/2018 9:38:31 PM Referred By: ZORAIDA PURI DR Confirmed By:VIC HERNANDEZ MD
--- NOTE | 2018-06-02 22:04 | EKG ---
Test Reason : Blood Pressure : / mmHG Vent. Rate : 107 BPM Atrial Rate : 107 BPM P-R Int : 146 ms QRS Dur : 074 ms QT Int : 310 ms P-R-T Axes : 056 008 065 degrees QTc Int : 413 ms SINUS TACHYCARDIA SEPTAL INFARCT , AGE UNDETERMINED ABNORMAL ECG WHEN COMPARED WITH ECG OF 25-FEB-2018 12:18, SEPTAL INFARCT IS NOW PRESENT Confirmed by VIC HERNANDEZ MD ([id number]) on 06/02/2018 10:03:52 PM Referred By: Confirmed By:VIC HERNANDEZ MD
[2018-06-03] MEDS: HEPARIN NA (PORCINE) 5,000 UNITS/ML 1ML VIAL SQ SCH ×2 (05:32→14:12)
[2018-06-03] MEDS: INSULIN SLIDING SCALE (NOVOLOG) 1 VIAL SQ SCH ×3 (06:10→17:52)
[2018-06-03] MEDS ORDERED: METHADONE HCL 40 MG DISPERSABLE TABLET PO ONE (06:47)
[2018-06-03 07:12] LABS: HEMATOCRIT 32.3 % (35.4-49); HEMOGLOBIN 10.4 GM/dL (11.7-16.9); MCH 28.3 pg (25.7-33.7); MCHC 32.2 g/dl (32.0-35.9); PLATELET COUNT 238 K/MM3 (134-434); RBC 3.68 M/mm3 (4.00-5.60); RDW 15.6 % (11.9-15.9); WHITE BLOOD COUNT 9.2 K/mm3 (4.0-10.0)
[2018-06-03 08:10] LABS: ANION GAP 7 MMOL/L (8-16); BLOOD UREA NITROGEN 34 mg/dL (7-18); CALCIUM 9.1 mg/dL (8.5-10.1); CHLORIDE 107 mmol/L (98-107); CO2 25 mmol/L (21-32); CREATININE 1.5 mg/dL (0.55-1.3); GLUCOSE,RANDOM 95 mg/dL (74-106); SODIUM 139 mmol/L (136-145)
[2018-06-03 08:15] LABS: POTASSIUM 6.1 mmol/L (3.5-5.1)
[2018-06-03] MEDS ORDERED: SODIUM POLYSTYRENE SULFONATE 15 GM/60 ML BOTTLE PO ONE (08:39)
--- NOTE | 2018-06-03 09:14 | EKG ---
Test Reason : Blood Pressure : / mmHG Vent. Rate : 083 BPM Atrial Rate : 083 BPM P-R Int : 148 ms QRS Dur : 070 ms QT Int : 340 ms P-R-T Axes : 065 060 061 degrees QTc Int : 399 ms NORMAL SINUS RHYTHM NORMAL ECG WHEN COMPARED WITH ECG OF 02-JUN-2018 14:43, QUESTIONABLE CHANGE IN QRS AXIS Confirmed by TOD GRECO MD ([id number]) on 06/03/2018 9:13:51 AM Referred By: Confirmed By:TOD GRECO MD
[2018-06-03] MEDS ORDERED: predniSONE 10 MG TABLET (UD) PO SCH (10:00)
--- NOTE | 2018-06-03 10:07 | PN ---
Progress Note, Physician History of Present Illness: 62yo male with asthma, cad, chf, copd on chronic 2L home o2 presents for eval of 2 episodes of GATES/SOB/palpitations. No cp. States mild LE swelling. Chronic LB pain. No orthopnea. Pt states he used his nebs and increased O2 last night to resolve the episode. States he took xanax today because he felt panicky after the sob started again. No cp during either event. No BM x 3 days. Feels abdomen is larger than normal. - Current Medication List Current Medications: Active Medications Albuterol Sulfate (Ventolin -) 2 mg PO PRN [facility] Alprazolam (Xanax -) 0.5 mg PO BID [facility] Last Admin: 06/02/18 21:26 Dose: 0.5 mg Aspirin (Asa -) 81 mg PO DAILY [facility] Last Admin: 06/02/18 10:26 Dose: 81 mg Atorvastatin Calcium (Lipitor -) 80 mg PO HS [facility] Last Admin: 06/02/18 21:26 Dose: 80 mg Azithromycin (Zithromax -) 250 mg PO DAILY [facility] Last Admin: 06/02/18 10:27 Dose: 250 mg Heparin Sodium (Porcine) (Heparin -) 5,000 unit SQ TID [facility] Last Admin: 06/03/18 05:32 Dose: 5,000 unit Insulin Aspart (Novolog Vial Sliding Scale -) 1 vial SQ ACHS [facility]; Protocol Last Admin: 06/03/18 06:10 Dose: Not Given Lisinopril (Prinivil) 20 mg PO DAILY [facility] Last Admin: 06/02/18 10:27 Dose: 20 mg Montelukast Sodium (Singulair -) 10 mg PO HS [facility] Last Admin: 06/02/18 21:26 Dose: 10 mg Non-Formulary Medication (Mometasone Furoate [Asmanex Hfa]) 1 puff IH BID [facility] Pantoprazole Sodium (Protonix -) 40 mg PO DAILY [facility] Last Admin: 06/02/18 10:27 Dose: 40 mg Polyethylene Glycol (Miralax (For Bowel Prep) -) 17 gm PO BID [facility] Last Admin: 06/02/18 21:58 Dose: Not Given Prednisone (Deltasone -) 20 mg PO DAILY [facility] Tiotropium [place] (Spiriva Respimat) 2 puff IH DAILY [facility] Last Admin: 06/02/18 10:27 Dose: 2 puff - Objective Vital Signs: Vital Signs Temperature 98.9 F 06/03/18 08:28 Pulse Rate 92 H 06/03/18 08:28 Respiratory Rate 20 06/03/18 08:28 Blood Pressure 126/79 06/03/18 08:28 O2 Sat by Pulse Oximetry (%) 100 06/03/18 08:28 Eyes: Yes: WNL, Conjunctiva Clear, EOM Intact HENT: Yes: WNL, Atraumatic, Normocephalic Neck: Yes: WNL, Supple, Trachea Midline Cardiovascular: Yes: WNL, Regular Rate and Rhythm Respiratory: Yes: WNL, Regular, CTA Bilaterally Gastrointestinal: Yes: WNL, Normal Bowel Sounds Genitourinary: Yes: WNL Musculoskeletal: Yes: WNL Extremities: Yes: WNL Edema: No Integumentary: Yes: WNL Neurological: Yes: WNL, Alert, Oriented ...Motor Strength: WNL Psychiatric: Yes: WNL Labs: CBC, BMP 06/03/18 05:30 06/03/18 05:30 Assessment/Plan (1) Acute chronic obstructive pulmonary disease with respiratory distress Assessment/Plan: 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 Since being on nasal O2, pt has had to use "asthma pumps" only infrequently for the past several blu. Quit cigarettes in 2017 (after 40 years of 1/2 ppd). On disability this year for COPD Tox screen : marijuana, methadone. Code(s): J44.9 - CHRONIC OBSTRUCTIVE PULMONARY DISEASE, UNSPECIFIED; R06.03 - ACUTE RESPIRATORY DISTRESS (2) Abnormal finding on EKG Assessment/Plan: sinus tachycardia; ? septal infarct ECHO: very limited study; mildly reduced LVEF (suggest repeat: pt says he will be better able to change body position to possibly allow better ECHO views). Code(s): R94.31 - ABNORMAL ELECTROCARDIOGRAM [ECG] [EKG] (3) Back pain Assessment/Plan: chronic back pain since lifting something heavy years ago; on disability since earlier this year for COPD. Code(s): M54.9 - DORSALGIA, UNSPECIFIED Qualifiers: Back pain location: thoracic back pain Chronicity: unspecified Back pain laterality: bilateral Qualified Code(s): M54.6 - Pain in thoracic spine (4) SOB (shortness of breath) Code(s): R06.02 - SHORTNESS OF BREATH (5) Hyperlipidemia Assessment/Plan: on simvastatin at home ; agree with change to more potent agent atorvastatin, and the high dose. Code(s): E78.5 - HYPERLIPIDEMIA, UNSPECIFIED (6) Hypertension Assessment/Plan: on lisinopril. Code(s): I10 - ESSENTIAL (PRIMARY) HYPERTENSION (7) Panic anxiety syndrome Assessment/Plan: on Xanax F/u with psychological counseling. Code(s): F41.0 - PANIC DISORDER [EPISODIC PAROXYSMAL ANXIETY] (8) [place] cardiac risk 10-20% in next 10 years Assessment/Plan: Increase statin dose (agree with change from simvastatin to atorvastatin). Stopped smoking cigarettes in 2017; tox screen + for marijuana. Dietary change; weight loss (truncal obesity likely contributer to dyspnea). BP control. For stress ECHO (pt does not want "artificial substances in my blood", such as MIBI or dobutamine.Pt says he can walk on a treadmill "because I can keep my back staight". Code(s): Z91.89 - OTH PERSONAL RISK FACTORS, NOT ELSEWHERE CLASSIFIED
[2018-06-03] MEDS: PANTOPRAZOLE 40 MG TABLET (FP) PO SCH (10:41)
[2018-06-03] MEDS: LISINOPRIL 20 MG TABLET (FP) PO SCH (10:41)
[2018-06-03] MEDS: AZITHROMYCIN 250 MG TABLET PO SCH (10:41)
[2018-06-03] MEDS: ASPIRIN 81 MG CHEWABLE TABLETS PO SCH (10:41)
[2018-06-03] MEDS: ALPRAZolam 0.25 MG TABLET PO SCH (10:42)
[2018-06-03] MEDS: POLYETHYLENE GLYCOL 3350 255 GM BTL PO SCH (10:42)
[2018-06-03] MEDS: TIOTROPIUM BROMIDE 2.5 MCG (SPIRIVA) RESPIMAT INHALER IH SCH (10:42)
--- NOTE | 2018-06-03 12:16 | PN ---
Teaching Attending Note Name of Resident: Tita Julian ATTENDING PHYSICIAN STATEMENT I saw and evaluated the patient. I reviewed the resident's note and discussed the case with the resident. I agree with the resident's findings and plan as documented. SUBJECTIVE:asymptomatic. denies CP, SOB, fever, chills, diaphoresis, N/V/C/D OBJECTIVE: Last Vital Signs Temp Pulse Resp BP Pulse Ox 98.9 F 92 H 20 126/79 100 06/03/18 08:28 06/03/18 08:28 06/03/18 08:28 06/03/18 08:28 06/03/18 08:28 general NAD ASSESSMENT AND PLAN: 62yo M with PMH CAD, CHF and COPD on home o2 2L NC presented to the ER with sudden onset of SOB which was reported as CP in the ER 1. CP- r/o CS. CE neg x3. no events since arrival. NPO for stress test today. cont asa/high intensity statin/ acei 2. COPD- saturating 100% on 2L NC. cont steroid taper. azithro. cont inhalers, nebs prn 3. Hyperglycemia- A1c 6.6. possible due to steroid use. dietary modifications. repeat A1c in 3 months. if not improved may need to start medications 4. Hyperkalemia- elevated today. no peaked T waves on monitor. kayeylate given. repeat 5. STEFAN- likely dehydration vs medication. urinating without difficulty. will repeat. 6. CHF- no signs of volume overload. 7. DVT ppx- hep sq 8. d/c planning pending results of stress test
[2018-06-03 17:32] VITALS: BMI 27.1
[2018-06-03] MEDS ORDERED: MOMETASONE FUROATE IH SCH (18:15)
[2018-06-03] MEDS ORDERED: ALBUTEROL SO4 2 MG TABLET PO SCH (18:15)
--- NOTE | 2018-06-03 19:01 | DS ---
Physical Exam: SUBJECTIVE: Patient seen and examined at bedside this morning. No acute events overnight. Patient on 2L NC. He denies chest pain, SOB, palpitations, dizziness , headache, abdominal pain or dysuria. OBJECTIVE: Vital Signs Period Temp Pulse Resp BP Sys/Rendon Pulse Ox Last 24 Hr 98.2 F-98.9 F 82-134 20-22 108-134/76-79 100-100 PHYSICAL EXAM GENERAL: The patient is awake, alert, and fully oriented, on 2L NC. HEAD: Normal with no signs of trauma. EYES: PERRLA, EOMI, sclera anicteric, conjunctiva clear. NECK: Trachea midline, full range of motion, supple. LUNGS: Breath sounds equal, clear to auscultation bilaterally. HEART: Regular rate and rhythm, S1, S2 without murmur, rub or gallop. ABDOMEN: Soft, mildly distended, nontender, normoactive bowel sounds, no guarding, no rebound, no hepatosplenomegaly, no masses. EXTREMITIES: 2+ pulses, warm, well-perfused, +1 peripheral edema. NEUROLOGICAL: Cranial nerves II through XII grossly intact. Normal speech, gait not observed. PSYCH: Normal mood, normal affect. SKIN: Warm, dry, normal turgor, no rashes or lesions noted LABS Laboratory Results - last 24 hr 06/02/18 06/02/18 06/03/18 19:45 21:57 05:25 WBC RBC Hgb Hct MCV MCH MCHC RDW Plt Count MPV Sodium Potassium Chloride Carbon Dioxide Anion Gap BUN Creatinine Creat Clearance w eGFR POC Glucometer 166 129 Random Glucose Calcium Triglycerides 238 H Cholesterol 215 H Total LDL Cholesterol 128 H HDL Cholesterol 61 H 06/03/18 06/03/18 06/03/18 05:30 05:30 12:05 WBC 9.2 RBC 3.68 L Hgb 10.4 L Hct 32.3 L MCV 88.0 MCH 28.3 MCHC 32.2 RDW 15.6 Plt Count 238 MPV 9.0 Sodium 139 Potassium 6.1 H* 5.1 Chloride 107 Carbon Dioxide 25 Anion Gap 7 L BUN 34 H Creatinine 1.5 H Creat Clearance w eGFR 47.58 POC Glucometer Random Glucose 95 Calcium 9.1 Triglycerides Cholesterol Total LDL Cholesterol HDL Cholesterol 06/03/18 12:05 WBC RBC Hgb Hct MCV MCH MCHC RDW Plt Count MPV Sodium Potassium Chloride Carbon Dioxide Anion Gap BUN Creatinine Creat Clearance w eGFR POC Glucometer 103 Random Glucose Calcium Triglycerides Cholesterol Total LDL Cholesterol HDL Cholesterol Imaging: Chest xray - No acute chest pathology Abdominal xray - No evidence of bowel obstruction Echo - Unable to assess EF due to limited visualization of LV in all windows. Grossly mildly reduced LV function. The transmitral spectral doppler flow pattern is suggestive of impaired LV relaxation. The right ventricle is not well visualized. HOSPITAL COURSE: Date of Admission:06/01/18 Date of Discharge: 06/03/18 Patient is a 62 year old male with a history of asthma, CAD, CHF, back fractures COPD, on 2L O2 at home presents for couple hour history of dizziness, sweating, and chest discomfort. Patient was admitted to rule out ACS. Serial cardiac enzymes and EKGs, and echocardiogram done. Cardiology consulted. Stress test ordered. Patient unable to tolerate treadmill stress test due to back fractures and shortness of breath from COPD, and refused to undergo nuclear or dobutamine stress test as he is not comfortable having "artificial substances in my blood". Patient was discharged with instructions to follow-up with seam feller, Dr. Mcadams, for outpatient stress test. Patient was also noted to be hyperglycemic, likely from prolonged steroid use. HbA1c 6.6. Patient was instructed to follow-up with PCP for a repeat HbA1c in 3 months and to consult dietitian for glucose control. Minutes to complete discharge: 40 Discharge Summary Reason For Visit: SHORTNESS OF BREATH / ABNORMAL ELECTROCARDIOGRAPHY Condition: Stable - Instructions Diet, Activity, Other Instructions: You were admitted because you had shortness of breath and chest discomfort. Several tests were done to check your heart. You had ultrasound of the heart and an exercise stress test was recommended. This would show how your heart works during physical activity. It is important that you follow-up with the seam feller (Dr. Mcadams), to do the stress test as outpatient. Your blood sugar was also noted to be high. HbA1c level, which gives an average of your blood sugar over the past 3 months was noted to be elevated. This may have been caused by steroid use. It is recommended that you follow-up with your primary care doctor and have a repeat HbA1c in 3 months. We also recommend to keep a balanced diet and to minimize sweets, sugary food, bread, pasta, and other foods high in carbohydrates. Continue your home medications as prescribed. Follow-ups -Follow-up with your primary care doctor (Dr. Hernandez) in 1 week. -Follow-up with the seam feller (Dr. Mcadams) in 1 week. Call the office at to schedule an appointment. Call [phone] or go to the ED if with any worsening shortness of breath, chest pain, fevers, chills or any new concerns noted. Referrals: Mell Hernandez MD [Primary Care Provider] - Segundo Mcadams MD [Staff Physician] - Disposition: HOME - Home Medications Comprehensive Discharge Medication List: Ambulatory Orders Albuterol Sulfate [Ventolin -] 2 mg PO PRN 08/10/16 Tiotropium Ord [Spiriva] 1 inh PO DAILY 08/10/16 Mometasone Furoate [Asmanex Hfa] 1 puff IH BID 11/29/16 Alprazolam [Xanax] 0.5 mg PO BID 12/03/16 Aspirin [ASA -] 81 mg PO DAILY #30 tab 12/07/16 Atorvastatin Ca [Lipitor] 80 mg PO HS #30 tablet 12/07/16 Lisinopril [Prinivil] 20 mg PO DAILY #30 tablet 12/07/16 Montelukast Na [Singulair -] 10 mg PO HS #30 tablet 10/23/17 Pantoprazole Sodium [Protonix -] 40 mg PO DAILY #30 tablet.ec 10/23/17 Prednisone 10 mg PO DAILY #60 tablet 10/23/17 Famotidine [Pepcid -] 20 mg PO BID #14 tablet 02/25/18 Polyethylene Glycol 3350 [Miralax 255 gm Btl -] 17 gm PO BID #1 bottle 02/25/18 This patient is new to me today: Yes Date on this admission: 06/04/18 Emergency Visit: Yes ED Registration Date: 06/01/18 Care time: The patient presented to the Emergency Department on the above date and was hospitalized for further evaluation of their emergent condition. Critical Care patient: No - Discharge Referral Referred to [facility] No
[2018-06-03 19:40] VITALS: BP 124/76; PULSE 105; TEMP 98
== END 2018-06-03 18:56 | disposition home or self-care (01) ==
LOC: JER 15:27 → JERBED 21:20 → J4W 06-02 15:12 → UNDODISOB 06-03 18:10
PROVIDERS: ADMIT Internal Medicine; ATTEND Internal Medicine
PROC: 3E0337Z Introduction of Electrolytic and Water Balance Substance into Peripheral Vein, Percutaneous Approach (ICD-10-PCS; principal; 2018-06-01)
PROC: 3E013GC Introduction of Other Therapeutic Substance into Subcutaneous Tissue, Percutaneous Approach (ICD-10-PCS; 2018-06-01)
PROC: 3E0F7GC Introduction of Other Therapeutic Substance into Respiratory Tract, Via Natural or Artificial Opening (ICD-10-PCS; 2018-06-01)
DX: R94.31 Abnormal electrocardiogram [ECG] [EKG] (principal); R06.03 Acute respiratory distress; J44.9 Chronic obstructive pulmonary disease, unspecified; R06.02 Shortness of breath; E11.22 Type 2 diabetes mellitus with diabetic chronic kidney disease; I12.9 Hypertensive chronic kidney disease with stage 1 through stage 4 chronic kidney disease, or unspecified chronic kidney disease; N18.9 Chronic kidney disease, unspecified; I11.0 Hypertensive heart disease with heart failure; E78.5 Hyperlipidemia, unspecified; I25.10 Atherosclerotic heart disease of native coronary artery without angina pectoris; I50.9 Heart failure, unspecified; M54.9 Dorsalgia, unspecified; F41.0 Panic disorder [episodic paroxysmal anxiety]; Z91.89 Other specified personal risk factors, not elsewhere classified
CPT/HCPCS: 36415; 71045-TC-FY; 74019-TC-FY; 80048; 80053; 80061; 80307; 82550; 82962; 83036; 83721; 83735; 83880; 84100; 84132; 84443; 84484; 85025; 85027; 93005; 93010; 93306-TC; 99285-25; G0378; J1644

== ENCOUNTER 2018-10-09 20:13 | Inpatient (IN) | payer OTHER ==
[2018-10-09 20:19] VITALS: BMI 26.4
--- NOTE | 2018-10-09 22:14 | PDOC ---
History of Present Illness - General Chief Complaint: Revisit, Lab Variance Stated Complaint: REFFERED BY SID Time Seen by Provider: 10/09/18 21:24 History Source: Patient Exam Limitations: No Limitations - History of Present Illness Initial Comments: 10/09/18 22:09 Patient is a 63M with history of back surgery 2 weeks ago, CAD, COPD, HTN here today complaining of lab variance. Patient states that he had labs done where he was told he was hyperkalemic. Patient states he was also due to get a DVT US of his leg because it has been swollen for the past week or so. Patient endorses shortness of breath at baseline. Endorses right sided chest pain that he states his rib pain. Denies fevers, chills. Endorses nausea, denies vomiting. Denies cough, headache, focal weaknesses. Endorses back pain that radiates down his leg. Past History - Past Medical History Allergies/Adverse Reactions: Allergies Allergy/AdvReac Type Severity Reaction Status Date / Time No Known Allergies Allergy Verified 10/09/18 20:19 Home Medications: Ambulatory Orders Albuterol Sulfate [Ventolin -] 2 mg PO PRN 08/10/16 Tiotropium [place] [Spiriva] 1 inh PO DAILY 08/10/16 Mometasone Furoate [Asmanex Hfa] 1 puff IH BID 11/29/16 Alprazolam [Xanax] 0.5 mg PO BID 12/03/16 Aspirin [ASA -] 81 mg PO DAILY #30 tab 12/07/16 Atorvastatin Ca [Lipitor] 80 mg PO HS #30 tablet 12/07/16 Lisinopril [Prinivil] 20 mg PO DAILY #30 tablet 12/07/16 Montelukast Na [Singulair -] 10 mg PO HS #30 tablet 10/23/17 Pantoprazole Sodium [Protonix -] 40 mg PO DAILY #30 tablet.ec 10/23/17 Prednisone 10 mg PO DAILY #60 tablet 10/23/17 Famotidine [Pepcid -] 20 mg PO BID #14 tablet 02/25/18 Polyethylene Glycol 3350 [Miralax 255 gm Btl -] 17 gm PO BID #1 bottle 02/25/18 Anemia: No Asthma: Yes Cancer: No Cardiac Disorders: No CVA: No COPD: Yes CHF: No Dementia: No Diabetes: No GI Disorders: No Disorders: No HTN: Yes Hypercholesterolemia: Yes Liver Disease: No Seizures: No Thyroid Disease: No - Surgical History Abdominal Surgery: No Appendectomy: No Cardiac Surgery: No Cholecystectomy: No Gastric Stapling: No GI Surgery: No Lung Surgery: No Neurologic Surgery: No Orthopedic Surgery: No - Immunization History Immunization Up to Date: Yes - Suicide/Smoking/Psychosocial Hx Smoking Status: Yes Smoking History: Never smoked Have you smoked in the past 12 months: No Number of Cigarettes Smoked Daily: 10 If you are a former smoker, when did you quit?: 08/2016 'Breaking Loose' booklet given: 06/27/16 Hx Alcohol Use: No Drug/Substance Use Hx: No Substance Use Type: None Hx Substance Use Treatment: No Review of Systems - Review of Systems Comments:: 10/09/18 22:12 GENERAL/CONSTITUTIONAL: No fever or chills. No weakness. HEAD, EYES, EARS, NOSE AND THROAT: No change in vision. No sore throat. CARDIOVASCULAR:+chest pain +shortness of breath RESPIRATORY: No cough, wheezing, or hemoptysis. GASTROINTESTINAL: No nausea, vomiting, diarrhea or constipation. GENITOURINARY: No dysuria, frequency, or change in urination. MUSCULOSKELETAL: No joint or muscle swelling or pain. No neck pain +back pain. SKIN: No rash NEUROLOGIC: No headache, vertigo, loss of consciousness, or change in strength/ sensation. ENDOCRINE: No increased thirst. No abnormal weight change HEMATOLOGIC/LYMPHATIC: No anemia, easy bleeding, or history of blood clots. ALLERGIC/IMMUNOLOGIC: No hives or skin allergy. *Physical Exam - Vital Signs Last Vital Signs Temp Pulse Resp BP Pulse Ox 98.8 F 124 H 20 142/67 99 10/09/18 20:15 10/09/18 20:15 10/09/18 20:15 10/09/18 20:15 10/09/18 20:15 - Physical Exam Comments: 10/09/18 22:13 GENERAL: Awake, alert, and fully oriented, in no acute distress HEAD: No signs of trauma, normocephalic, atraumatic EYES: PERRLA, EOMI, sclera anicteric, conjunctiva clear ENT: Auricles normal inspection, hearing grossly normal, nares patent, oropharynx clear without exudates. Moist mucosa NECK: Normal ROM, supple, no lymphadenopathy, JVD, or masses BACK: Well healing surgical scars, no focal tenderness LUNGS: No distress, speaks full sentences, clear to auscultation bilaterally HEART: Regular rate and rhythm, normal S1 and S2, no murmurs, rubs or gallops, peripheral pulses normal and equal bilaterally. ABDOMEN: Soft, nontender, normoactive bowel sounds. No guarding, no rebound. No masses EXTREMITIES: Normal inspection, Normal range of motion, 2+ edema in left leg. No clubbing or cyanosis. NEUROLOGICAL: Cranial nerves II through XII grossly intact. Normal speech, normal gait, no focal sensorimotor deficits SKIN: Warm, Dry, normal turgor, no rashes or lesions noted. Moderate Sedation - Procedure Monitoring Vital Signs: Procedure Monitoring Vital Signs Temperature 98.8 F 10/09/18 20:15 Pulse Rate 124 H 10/09/18 20:15 Respiratory Rate 20 10/09/18 20:15 Blood Pressure 142/67 10/09/18 20:15 O2 Sat by Pulse Oximetry (%) 99 10/09/18 20:15 ED Treatment Course - LABORATORY CBC & Chemistry Diagram: 10/09/18 22:40 10/09/18 22:40 - RADIOLOGY Radiology Studies Ordered: Category Date Time Status CHEST CTA [CT] Stat CT Scan 10/09/18 21:41 Ordered CHEST X-RAY PORTABLE* [RAD] Stat Radiology 10/09/18 21:41 Ordered DUPLEX VASCUL US-1 LEG [US] Stat Ultrasound 10/09/18 21:41 Ordered Medical Decision Making - Medical Decision Making 10/09/18 22:14 Patient is 63M with history of asthma, CAD, COPD, HTN, recent back surgery here today with leg swelling, tachycardia, chest pain. DDx includes, but is not limited to: rhabdo, PE, DVT, STEFAN, hyperkalemia. 10/09/18 23:08 EKG shows nsr, no st elevations/depressions. Normal axis. Normal intervals. No t wave abnormalities. No findings consistent with hyperkalemia. CBC normal. D-dimer mildly elevated. CMP/trop, DVT US, CTA pending. 10/09/18 23:[address] Saul. Pending DVT US, CTA, CMP results. *DC/Admit/Observation/Transfer Diagnosis at time of Disposition: Shortness of breath - Discharge Dispostion Condition at time of disposition: Stable - Referrals - Patient Instructions - Post Discharge Activity
[2018-10-09] MEDS ORDERED: SODIUM CHLORIDE 1,000 ML IV STA (22:15)
--- NOTE | 2018-10-09 22:18 | PDOC ---
Attending Attestation - Resident Resident Name: Adrian Garcia - ED Attending Attestation I have performed the following: I have examined & evaluated the patient, The case was reviewed & discussed with the resident, I agree w/resident's findings & plan, Exceptions are as noted - HPI HPI: 10/09/18 22:56 "The patient is a 63 year old male, with a significant PMH of HTN, HLD, asthma, COPD, who was advised by there PCP to come to the emergency department for hyperkalemia on outpt labs. Pt states anthony the had recent vertebroplasty 2 weeks ago. Since then, he has been experiencing R sided chest pain associated with SOB and leg swelling. Denies F/C. Denies abdominal pain/N/V/D. Allergies: NKA Past surgical history: Back surgery. PCP: Dr. Mell Hernandez - Physicial Exam PE: 10/09/18 22:57 "GENERAL: Awake, alert, and fully oriented, in no acute distress. HEAD: No signs of trauma EYES: PERRLA, EOMI, sclera anicteric, conjunctiva clear ENT: Auricles normal inspection, hearing grossly normal, nares patent, oropharynx clear without exudates. Moist mucosa NECK: Nontender, no stepoffs, Normal ROM, supple, no lymphadenopathy, JVD, or masses LUNGS: Breath sounds equal, clear to auscultation bilaterally. No wheezes, and no crackles HEART: Regular rate and rhythm, normal S1 and S2, no murmurs, rubs or gallops ABDOMEN: Soft, nontender, normoactive bowel sounds. No guarding, no rebound. No masses EXTREMITIES: + BLE edema, L>R NEUROLOGICAL: Cranial nerves II through XII intact. 5/5 strength and sensation in all extremities, Normal speech, normal gait, normal cerebellar function SKIN: Warm, Dry, normal turgor, no rashes or lesions noted. - Critical Care Time Total Critical Care Time: 60 Critical Care Statement: The care of this patient involved high complexity decision making to prevent further life threatening deterioration of the patient 's condition and/or to evaluate & treat vital organ system(s) failure or risk of failure. - Medical Decision Making 10/09/18 22:58 63 M sent in by PMD for hyperkalemia, also complaining of CP/SOB. Found to have asymmetric leg swelling. Given recent surgery, will need to r/o PE/DVT. Also consider ACS. - Labs, trop, Ddimer - EKG - CTA chest - Venous doppler 10/09/18 23:55 Labs notable for K 6.2 Cr 1.7, near pt's basleine Will tx with Ca, insulin, D50, fluids Unable to obtain CTA given pt's renal insuff. Will empirically start on heparin LLE doppler pending
[2018-10-09 22:49] LABS: BASO % 0.6 % (0-2.0); EOS % 0.5 % (0-4.5); HEMATOCRIT 28.6 % (35.4-49); HEMOGLOBIN 9.6 GM/dL (11.7-16.9); LYMPH % 8.3 % (8-40); MCH 29.2 pg (25.7-33.7); MCHC 33.6 g/dl (32.0-35.9); MEAN PLT VOLUME 9.8 fl (7.5-11.1); MONO % 8.5 % (3.8-10.2); NEUT % 82.1 % (42.8-82.8); PLATELET COUNT 278 K/MM3 (134-434); RBC 3.29 M/mm3 (4.00-5.60); RDW 13.9 % (11.9-15.9); WHITE BLOOD COUNT 6.8 K/mm3 (4.0-10.0)
[2018-10-09 23:00] LABS: INR 1.01 (0.83-1.09); PROTHROMBIN TIME (PATIENT) 11.9 SEC (9.7-13.0)
[2018-10-09 23:36] LABS: ALK PHOS 208 U/L (45-117); ANION GAP 2 MMOL/L (8-16); BILIRUBIN,TOTAL 0.2 mg/dL (0.2-1); BLOOD UREA NITROGEN 32 mg/dL (7-18); CALCIUM 8.7 mg/dL (8.5-10.1); CHLORIDE 114 mmol/L (98-107); CO2 28 mmol/L (21-32); CREATININE 1.7 mg/dL (0.55-1.3); GLUCOSE,RANDOM 118 mg/dL (74-106); MAGNESIUM 2.3 mg/dL (1.8-2.4); N-TERMINAL BNP 18.6 pg/ml (5-125); SGOT/AST 15 U/L (15-37); SGPT/ALT 14 U/L (13-61); SODIUM 143 mmol/L (136-145)
[2018-10-09 23:38] LABS: POTASSIUM 6.2 mmol/L (3.5-5.1)
[2018-10-09] MEDS ORDERED: CALCIUM GLUCONATE 10% - 1,000 MG/10 ML VIAL IVPB ONE (23:40)
[2018-10-09] MEDS ORDERED: INSULIN REGULAR HUMAN 100 UNITS/ML *VIAL IVPUSH ONE (23:41)
[2018-10-09] MEDS ORDERED: DEXTROSE 50%-WATER - 25 GM/50 ML VIAL IVPUSH ONE (23:41)
[2018-10-09] MEDS ORDERED: HEPARIN NA (PORCINE) 5,000 UNITS/ML 1ML VIAL IVPUSH PRN ×3 (23:43)
[2018-10-09] MEDS ORDERED: HEPARIN - 25,000 UNIT in SODIUM CHLORIDE 495 ML IV SCH (23:45)
--- NOTE | 2018-10-09 23:53 | PDOC ---
*Physical Exam - Vital Signs Last Vital Signs Temp Pulse Resp BP Pulse Ox 98.8 F 124 H 20 142/67 99 10/09/18 20:15 10/09/18 20:15 10/09/18 20:15 10/09/18 20:15 10/09/18 20:15 - Physical Exam Comments: 10/09/18 23:57 GENERAL: Awake, alert, and fully oriented, in no acute distress HEAD: No signs of trauma, normocephalic, atraumatic EYES: PERRLA, EOMI, sclera anicteric, conjunctiva clear ENT: Hearing grossly normal, nares patent, oropharynx clear without exudates. Moist mucosa NECK: Normal ROM, supple, no lymphadenopathy, JVD, or masses LUNGS: No distress, speaks full sentences, clear to auscultation bilaterally HEART: Regular rate and rhythm, normal S1 and S2, no murmurs, rubs or gallops, peripheral pulses normal and equal bilaterally. ABDOMEN: Soft, nontender, normoactive bowel sounds. No guarding, no rebound. No masses EXTREMITIES : 2+ Pitting edema LLE, with absent warmth, erythema/ttp. Normal inspection, Normal range of motion. No clubbing or cyanosis. NEUROLOGICAL: Cranial nerves II through XII grossly intact. Normal speech, normal gait, no focal sensorimotor deficits SKIN: Warm, Dry, normal turgor, no rashes or lesions noted ED Treatment Course - LABORATORY CBC & Chemistry Diagram: 10/09/18 22:40 10/09/18 22:40 - ADDITIONAL ORDERS Additional order review: Laboratory Results 10/09/18 10/09/18 10/09/18 22:40 22:40 22:40 PT with INR 11.90 INR 1.01 D-Dimer 739 H Sodium 143 Potassium 6.2 H* Chloride 114 H Carbon Dioxide 28 Anion Gap 2 L BUN 32 H Creatinine 1.7 H Creat Clearance w eGFR 41.04 Random Glucose 118 H Calcium 8.7 Magnesium 2.3 Total Bilirubin 0.2 AST 15 ALT 14 Alkaline Phosphatase 208 H Creatine Kinase 103 Troponin I 0.02 B-Natriuretic Peptide 18.6 Total Protein 6.0 L Albumin 3.0 L 10/09/18 22:40 RBC 3.29 L MCV 87.0 MCHC 33.6 RDW 13.9 D MPV 9.8 Neutrophils % 82.1 Lymphocytes % 8.3 D Monocytes % 8.5 D Eosinophils % 0.5 D Basophils % 0.6 - Medications Given in the ED: ED Medications Discontinued Medications Generic Name Dose Route Start Last Admin Trade Name Beverly PRN Reason Stop Dose Admin Sodium Chloride 1,000 mls @ 1,000 mls/hr 10/09/18 22:15 10/09/18 22:48 Normal Saline - IV 10/09/18 23:14 1,000 mls/hr ASDIR STA Administration Medical Decision Making - Medical Decision Making 10/09/18 23:39 63 yo M with 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 Signout by Dr. Rony Garcia. Patient also endorses SOB, R sided pleuritic chest pain, and RLE swelling, and pain at rest x 1 week. HR 124, vitals otherwise wnl. Possible PE. EKG unremarkable, K+ 6.2, BUN/Cr: 32/1.7 ~baseline, Labs otherwise unremarkable. CXR unremarkable. Patient not candidate CTA to r/o PE d/t renal insufficiency, will treat for PE Heparin protocol infusion . Receiving calcium gluconate. Pending LLE Duplex. high Ri ED Course: 10/10/18 00:[address] Pichardo, and Dr. Glynn Admitted to tele *DC/Admit/Observation/Transfer Diagnosis at time of Disposition: Shortness of breath, Hyperkalemia Pulmonary embolism Qualifiers: Pulmonary embolism type: unspecified Chronicity: acute Acute cor pulmonale presence: without acute cor pulmonale Qualified Code(s): I26.99 - Other pulmonary embolism without acute cor pulmonale - Discharge Dispostion Condition at time of disposition: Stable Decision to Admit order: Yes - Referrals - Patient Instructions - Post Discharge Activity
[2018-10-10] MEDS ORDERED: DEXTROSE 50%-WATER - 25 GM/50 ML VIAL ONE (00:02)
[2018-10-10] MEDS ORDERED: HEPARIN INFUSION - 25,000 UNITS/500 ML INFUS.BAG IVPB ONE (00:02)
[2018-10-10] MEDS ORDERED: CALCIUM GLUCONATE 10% - 1,000 MG/10 ML VIAL ONE ×2 (00:02→20:07)
[2018-10-10] MEDS ORDERED: DEXTROSE 50%-WATER 25 GM/50 ML DISP.SYRIN ONE ×2 (00:33→20:07)
[2018-10-10] MEDS ORDERED: INSULIN REGULAR HUMAN 100 UNITS/ML *VIAL ONE ×3 (00:44→20:07)
[2018-10-10] MEDS ORDERED: MAG HYDROX/AL HYDROX/SIMETH 30 ML UNIT-DOSE CUP PO ONE (02:01)
[2018-10-10] MEDS ORDERED: MAG HYDROX/AL HYDROX/SIMETH 30 ML UNIT-DOSE CUP ONE (02:03)
[2018-10-10] MEDS ORDERED: INSULIN REGULAR HUMAN 100 UNITS/ML *VIAL IVPUSH ONE ×2 (02:06→19:52)
[2018-10-10] MEDS ORDERED: RANITIDINE HCL 150 MG TABLET (FP) PO ONE (02:11)
[2018-10-10] MEDS ORDERED: ONDANSETRON 4 MG TABLET PO ONE (02:11)
[2018-10-10] MEDS ORDERED: SODIUM CHLORIDE 1,000 ML IV SCH (02:15)
[2018-10-10] MEDS ORDERED: RANITIDINE HCL 150 MG TABLET (FP) ONE (02:18)
[2018-10-10] MEDS ORDERED: ONDANSETRON 4 MG/2 ML VIAL IVPB ONE (02:23)
[2018-10-10] MEDS ORDERED: ALBUTEROL SO4 2.5/IPRATROPIUM 0.5 INH SOL 3 ML VIAL.NEB. NEB PRN (02:42)
[2018-10-10] MEDS ORDERED: ALBUTEROL SO4 2 MG TABLET PO SCH (02:45)
--- NOTE | 2018-10-10 02:52 | HP ---
CHIEF COMPLAINT: hyperkalemia PCP: dr. boswell HISTORY OF PRESENT ILLNESS: 63 y/o male with PMH of CAD, COPD< HTN, CKD who presents to the ED after being told by his PCP that his potassium was high. Patient has had this in the past. He denies having any symptoms, the blood tests were drawn on Wednesday. He denies any recent illnesses or any recent travel. In addition, on arrival to the ED patients had told the ER staff that patient was having chest pain, however , he said that this was more due to his rib pain that he has had for year and when he bent down to fix his socks this morning the pain started acting up again - the pain was non-radiating and was not diaphoretic or nauseous at the time. he was also complaining of left leg swelling- he has not had ay recent travel but did undergo a back procedure 2 weeks ago. He has COPD and he uses 2.5 L regularly. he denies any CP/N/V fevers or chills. ER course was notable for: (1) HR 124 (2)potassium 6.4- given calcium gluconate, 5 units insulin, d50- no EKG changes seen (3) duplex negative; however, patient cannot undergo CTA and was started on heparin drip (though re-calculated wells score was 1.5) Recent Travel: denies PAST MEDICAL HISTORY: see above PAST SURGICAL HISTORY: back procedures Social History: Smoking: everyday smoker; smokes 1/2 ppd Alcohol:denies Drugs: marijuana smoker; every few nights smokes 1/2 joint Family History:denies Allergies No Known Allergies Allergy (Verified 10/09/18 20:19) HOME MEDICATIONS: Home Medications Medication Instructions Recorded Albuterol Sulfate [Ventolin -] 2 mg PO PRN 08/10/16 Tiotropium [place] [Spiriva] 1 inh PO DAILY 08/10/16 Mometasone Furoate [Asmanex Hfa] 1 puff IH BID 11/29/16 Alprazolam [Xanax] 0.5 mg PO BID 12/03/16 Aspirin [ASA -] 81 mg PO DAILY #30 tab 12/07/16 Atorvastatin Ca [Lipitor] 80 mg PO HS #30 tablet 12/07/16 Lisinopril [Prinivil] 20 mg PO DAILY #30 tablet 04/10/17 Montelukast Na [Singulair -] 10 mg PO HS #30 tablet 10/23/17 Pantoprazole Sodium [Protonix -] 40 mg PO DAILY #30 tablet.ec 10/23/17 Prednisone 10 mg PO DAILY #60 tablet 10/23/17 Famotidine [Pepcid -] 20 mg PO BID #14 tablet 02/25/18 Polyethylene Glycol 3350 [Miralax 17 gm PO BID #1 bottle 02/25/18 255 gm Btl -] REVIEW OF SYSTEMS CONSTITUTIONAL: Absent: fever, chills, diaphoresis, generalized weakness, malaise, loss of appetite, weight change HEENT: Absent: rhinorrhea, nasal congestion, throat pain, throat swelling, difficulty swallowing, mouth swelling, ear pain, eye pain, visual changes CARDIOVASCULAR: Absent: chest pain, syncope, palpitations, irregular heart rate, lightheadedness , peripheral edema RESPIRATORY: Absent: cough, shortness of breath, dyspnea with exertion, orthopnea, wheezing, stridor, hemoptysis GASTROINTESTINAL: Absent: abdominal pain, abdominal distension, nausea, vomiting, diarrhea, constipation, melena, hematochezia GENITOURINARY: Absent: dysuria, frequency, urgency, hesitancy, hematuria, flank pain, genital pain MUSCULOSKELETAL: Absent: myalgia, arthralgia, joint swelling, back pain, neck pain SKIN: Absent: rash, itching, pallor HEMATOLOGIC/IMMUNOLOGIC: Absent: easy bleeding, easy bruising, lymphadenopathy, frequent infections ENDOCRINE: Absent: unexplained weight gain, unexplained weight loss, heat intolerance, cold intolerance NEUROLOGIC: Absent: headache, focal weakness or paresthesias, dizziness, unsteady gait, seizure, mental status changes, bladder or bowel incontinence PSYCHIATRIC: Absent: anxiety, depression, suicidal or homicidal ideation, hallucinations. PHYSICAL EXAMINATION Vital Signs - 24 hr 10/09/18 20:15 Temperature 98.8 F Pulse Rate 124 H Respiratory 20 Rate Blood Pressure 142/67 O2 Sat by Pulse 99 Oximetry (%) GENERAL: Awake, alert, and fully oriented, in no acute distress. EYES: EOMI; PEERLA; no scleral icteus NECK:no JVD; no lymphadenopathy. LUNGS: Breath sounds equal, clear to auscultation bilaterally. No wheezes, and no crackles. No accessory muscle use. HEART: Regular rate and rhythm, normal S1 and S2 without murmur, rub or gallop. ABDOMEN: Soft, nontender, not distended, normoactive bowel sounds, no guarding, no rebound, no masses. No hepatomegaly or splenomegaly. MUSCULOSKELETAL: Normal range of motion at all joints. No bony deformities or tenderness. No CVA tenderness. EXTREMITIES: left lower leg slightly edematous however, non-erythemtous, non- tender upon palpation negative Homans sign NEUROLOGICAL: Cranial nerves II-XII intact. Normal speech. Normal gait. PSYCHIATRIC: Cooperative. Good eye contact. Appropriate mood and affect. SKIN: Warm, dry, normal turgor, no rashes or lesions noted, normal capillary refill. Laboratory Results - last 24 hr 10/09/18 10/09/18 10/09/18 22:40 22:40 22:40 WBC 6.8 RBC 3.29 L Hgb 9.6 L Hct 28.6 L MCV 87.0 MCH 29.2 MCHC 33.6 RDW 13.9 D Plt Count 278 MPV 9.8 Absolute Neuts (auto) 5.6 Neutrophils % 82.1 Lymphocytes % 8.3 D Monocytes % 8.5 D Eosinophils % 0.5 D Basophils % 0.6 Nucleated RBC % 0 PT with INR 11.90 INR 1.01 D-Dimer Sodium 143 Potassium 6.2 H* Chloride 114 H Carbon Dioxide 28 Anion Gap 2 L BUN 32 H Creatinine 1.7 H Creat Clearance w eGFR 41.04 POC Glucometer Random Glucose 118 H Calcium 8.7 Magnesium 2.3 Total Bilirubin 0.2 AST 15 ALT 14 Alkaline Phosphatase 208 H Creatine Kinase 103 Troponin I 0.02 B-Natriuretic Peptide 18.6 Total Protein 6.0 L Albumin 3.0 L 10/09/18 10/10/18 22:40 02:29 WBC RBC Hgb Hct MCV MCH MCHC RDW Plt Count MPV Absolute Neuts (auto) Neutrophils % Lymphocytes % Monocytes % Eosinophils % Basophils % Nucleated RBC % PT with INR INR D-Dimer 739 H Sodium Potassium Chloride Carbon Dioxide Anion Gap BUN Creatinine Creat Clearance w eGFR POC Glucometer 74 Random Glucose Calcium Magnesium Total Bilirubin AST ALT Alkaline Phosphatase Creatine Kinase Troponin I B-Natriuretic Peptide Total Protein Albumin ASSESSMENT/PLAN: 63 y/o male with PMH of CAD HTN, COPD, CKD who presents to the ED after being found to have hyperkalemia in addition to possible PE #Hyperkalemia already given D50, calcium gluconate and 5 units of Insulin- non as of now -f/u repeat BMP -monitor for EKG changes -holding lisinopril and theophylline #Suspected PE -patient started on Heparin drip -echo ordered -V/Q scan ordered given that patient cannot get CTA due to his kidney function -Dr Bradley consulted -trend trops due to history of chest pain #HTN holding patients lisinopril given hyperkalemia -monitor BP #CKD -Cr is at baseline -NS @42mls/hr -consider nephro consults as an outpatient #COPD -duonebs PRN -resume spiriva F/E/N NS @42mls/hr monitor electrolytes; rosario potassium soidum controlled diet DVT PPX: heparin drip Visit type - Emergency Visit Emergency Visit: Yes ED Registration Date: 10/09/18 Care time: The patient presented to the Emergency Department on the above date and was hospitalized for further evaluation of their emergent condition. - New Patient This patient is new to me today: Yes Date on this admission: 10/10/18 - Critical Care Critical Care patient: No
--- NOTE | 2018-10-10 02:58 | PN ---
Teaching Attending Note Name of Resident: Kylee Fraser ATTENDING PHYSICIAN STATEMENT I saw and evaluated the patient. I reviewed the resident's note and discussed the case with the resident. I agree with the resident's findings and plan as documented. SUBJECTIVE: Seen and examined; please refer to resident note for further historical documentation. Briefly, this is a 63 y/o male with a PMH significant for COPD ( current smoker), HTN, CKD, CAD, CHF (s/d), Chronic LBP. He presents to the ER at the behest of his PCP for hyperkalemia; found to be at 6-range with no EKG changes. The patient was found to have chest pain at the site of an old rib fracture which is chronic for him; he noted it when he bent down and it felt the same as any time his old rib fracture is exacerbated, and his agrees with this. He admits to being initially agitated in the ER due to not liking being in the room he is in; this is aparently when he was tachycardic and HR spontaneously lowered without intervention. He was started on heparin drip by ER for presumed PE. He denies SOB and is on 2.5L O2 ATC for his COPD. He was given 5 of insulin and D50 in the ER for this. He will be admitted to the medicine service to followup his K and to obtain a VQ scan (CKD prohibited him from this). He was noted to have leg swelling but preliminary doppler was negative. He will be admitted to the medicine service on telemetry. Of note is that the patient does tell me that he has had issues with potassium for years and none of them ever required his admission to the hospital. He is on several medications that can lead to these issues; including theophylline as well as lisinopril, especially combined with his previous CKD issues. 10 sys ROS done and negative aside from HPI PMH, PSH, Family hx, Social hx reviewed Medication reconciliation pending OBJECTIVE: VS, labs, imaging reviewed NAD, AAO, resting comfortably in bed; 2.5L O2 via NC (at baseline) RRR s1/2 no mgr; tender in R-lower chest to palpation in the area with the old rib fx. Lungs CTAB w/ sym exp NT ND +BS LLE swollen distal joint and foot CN2-12 wnl, no fnd Normal mood, appropriate affect Labs show D-dimer 700-range (ULN is 500); Cr is 1.7, K 6.2 Prelim imaging shows CXR with flattened diaphragm Venous duplex L-sided preliminarily negative for DVT VQ scan pending Echo 05/2018 reviewed; suspected mildly reduced EF with impaired relaxation. ASSESSMENT AND PLAN: Patient presents for hyperkalemia; ER suspected PE and began heparin drip 1) Rule out pulmonary embolism -Due to the fact that he had an unknown procedure several weeks ago this somewhat elevated his Well's score, but the negative duplex and the spontaneous resolution of tachycardia argues against PE. Will obtain VQ scan and if negative DC the heparin drip and start normal DVT px -CKD prohibitive of CTA overnight 2) Hyperkalemia -Treated in ER with insulin; repeat K pending 3) Recent back procedure -Obtain old records; nonacute. PRN management 4) CKD -Patient's Cr is at baseline. Monitor and trend. Encourage OP followup with nephrology 5) CHF -Appears euvolemic and with baseline home O2 requirements; no clinical signs of CHF exacerbation. Reconcile and continue home medications. Unsure if he repearted the echo as OP (recommended to by CV); will speak with them and likely reorder if this hasn't been done by then 6) CAD -CP likely due to rib fractures; doesn't appear musculoskeletal. 7) Chest Pain -Less likely ACS given the involvement with ribs. 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 Will defer further workup and management to their service. He was here in 05/2018 and was recommended to have stress test inpatient but declined doing so; unclear what has been done since he left at that time. Full Code
[2018-10-10 03:19] LABS: ANION GAP 4 MMOL/L (8-16); BLOOD UREA NITROGEN 31 mg/dL (7-18); CALCIUM 8.7 mg/dL (8.5-10.1); CHLORIDE 114 mmol/L (98-107); CO2 26 mmol/L (21-32); CREATININE 1.6 mg/dL (0.55-1.3); GLUCOSE,RANDOM 75 mg/dL (74-106); POTASSIUM 4.9 mmol/L (3.5-5.1); SODIUM 144 mmol/L (136-145)
[2018-10-10 08:17] LABS: ALBUMIN 2.8 g/dl (3.4-5.0); ALK PHOS 187 U/L (45-117); ANION GAP 2 MMOL/L (8-16); BILIRUBIN,TOTAL 0.2 mg/dL (0.2-1); BLOOD UREA NITROGEN 31 mg/dL (7-18); CALCIUM 8.8 mg/dL (8.5-10.1); CHLORIDE 113 mmol/L (98-107); CO2 28 mmol/L (21-32); CREATININE 1.5 mg/dL (0.55-1.3); GLUCOSE,RANDOM 93 mg/dL (74-106); MAGNESIUM 2.2 mg/dL (1.8-2.4); PHOSPHOROUS 4.1 mg/dL (2.5-4.9); POTASSIUM 5.4 mmol/L (3.5-5.1); SGOT/AST 14 U/L (15-37); SGPT/ALT 13 U/L (13-61); SODIUM 143 mmol/L (136-145); TOT PROT 5.2 g/dl (6.4-8.2)
[2018-10-10 08:54] LABS: INR 1.04 (0.83-1.09); PROTHROMBIN TIME (PATIENT) 12.3 SEC (9.7-13.0)
[2018-10-10 08:57] LABS: ACTIVATED PTT 57.1 SECONDS (25.2-36.5)
--- NOTE | 2018-10-10 09:54 | EKG ---
Test Reason : Blood Pressure : / mmHG Vent. Rate : 087 BPM Atrial Rate : 087 BPM P-R Int : 154 ms QRS Dur : 070 ms QT Int : 340 ms P-R-T Axes : 060 015 031 degrees QTc Int : 409 ms NORMAL SINUS RHYTHM NORMAL ECG WHEN COMPARED WITH ECG OF 03-JUN-2018 08:33, NO SIGNIFICANT CHANGE WAS FOUND Confirmed by ISAEL BOJORQUEZ MD ([id number]) on 10/10/2018 9:54:35 AM Referred By: TATI Confirmed By:ISAEL BOJORQUEZ MD
[2018-10-10] MEDS ORDERED: ASPIRIN 81 MG CHEWABLE TABLETS PO SCH (10:00)
[2018-10-10] MEDS ORDERED: ASPIRIN 81 MG CHEWABLE TABLETS ONE (10:16)
[2018-10-10 14:53] VITALS: TEMP 98.2
--- NOTE | 2018-10-10 15:18 | CON.PULM ---
Consult Consult Specialty:: PULM/CCM Referred by:: PMD Reason for Consultation:: SOB / CP - History of Present Illness Chief Complaint: SOB History of Present Illness: 63 M, COPD due to significant previous smoking history. HOme O2 @ 2.5 L C since 09/2017. Daily Prednisone 10mg, Dulera, Theophyllline, and Spiriva. No intubation. Follows with Dr Medina at [facility]. Last visit was about 1 year ago. Additional medical history of HTN, CKD, CAD, CHF, and Chronic LBP. He had a Vertebroplasty about 2 weeks ago. No personal or family history of VTE. Sent to the ER by his PMD for hyperkalemia. Reports chronic rib discomfort due to an old fracture. Apparently had 1 transient episode of tachycardia that resolved. He was started on IV Heparin drip for suspected PE. US (-) for DVT. At present he feels his breathing is at his baseline. No hemoptysis. No travel history. No sick contacts. - History Source History Provided By: Patient Limitations to Obtaining History: No Limitations - Past Medical History Cardio/Vascular: Yes: CHF (systolic (mild) LVEF by ECHO (limited study)), HTN Pulmonary: Yes: Asthma, Bronchitis, COPD, O2 Dependent, Pneumonia. No: Cancer, Previously Intubated, Pulmonary Embolus, Pulmonary Fibrosis, Sleep Apnea - Past Surgical History Past Surgical History: Yes: None - Alcohol/Substance Use Hx Alcohol Use: No History of Substance Use: reports: None - Smoking History Smoking history: Never smoked Have you smoked in the past 12 months: No Aproximately how many cigarettes per day: 10 If you are a former smoker, when did you quit?: 08/2016 - Social History ADL: Independent History of Recent Travel: No Home Medications - Allergies Allergies/Adverse Reactions: Allergies Allergy/AdvReac Type Severity Reaction Status Date / Time No Known Allergies Allergy Verified 10/09/18 20:19 - Home Medications Home Medications: Ambulatory Orders Albuterol Sulfate [Ventolin -] 2 mg PO PRN 08/10/16 Tiotropium [place] [Spiriva] 1 inh PO DAILY 08/10/16 Mometasone Furoate [Asmanex Hfa] 1 puff IH BID 11/29/16 Alprazolam [Xanax] 0.5 mg PO BID 12/03/16 Aspirin [ASA -] 81 mg PO DAILY #30 tab 12/07/16 Atorvastatin Ca [Lipitor] 80 mg PO HS #30 tablet 12/07/16 Lisinopril [Prinivil] 20 mg PO DAILY #30 tablet 12/07/16 Montelukast Na [Singulair -] 10 mg PO HS #30 tablet 10/23/17 Pantoprazole Sodium [Protonix -] 40 mg PO DAILY #30 tablet.ec 10/23/17 Prednisone 10 mg PO DAILY #60 tablet 10/23/17 Famotidine [Pepcid -] 20 mg PO BID #14 tablet 02/25/18 Polyethylene Glycol 3350 [Miralax 255 gm Btl -] 17 gm PO BID #1 bottle 02/25/18 Review of Systems - Review of Systems Constitutional: denies: Chills, Fever, Malaise, Night Sweats, Unintentional Wgt. Loss Eyes: reports: No Symptoms HENT: reports: No Symptoms Neck: reports: No Symptoms Cardiovascular: reports: Edema. denies: Chest Pain, Palpitations, Shortness of Breath Respiratory: reports: Cough, Other (chronic rib pain from an old fracture). denies: Hemoptysis, Orthopnea, Snoring, SOB, SOB on Exertion, Wheezing Gastrointestinal: reports: No Symptoms Genitourinary: reports: No Symptoms Breasts: reports: No Symptoms Reported Musculoskeletal: reports: No Symptoms Integumentary: reports: No Symptoms Neurological: reports: No Symptoms Endocrine: reports: No Symptoms Hematology/Lymphatic: reports: No Symptoms Psychiatric: reports: No Symptoms Physical Exam Vital Sings: Vital Signs Temperature 98.2 F 10/10/18 14:00 Pulse Rate 74 10/10/18 14:00 Respiratory Rate 18 10/10/18 14:00 Blood Pressure 112/74 10/10/18 14:00 O2 Sat by Pulse Oximetry (%) 99 10/10/18 14:00 Constitutional: Yes: No Distress, Calm Eyes: Yes: Conjunctiva Clear, EOM Intact HENT: Yes: Atraumatic, Normocephalic Neck: Yes: Supple, Trachea Midline Cardiovascular: Yes: Regular Rate and Rhythm Respiratory: Yes: CTA Bilaterally, Diminished, On Nasal O2. No: Accessory Muscle Use, Rales, Rhonchi, SOB, SOB on Exertion, Stridor, Tachypnea, Wheezes ...Inspection: Yes: WNL ...Clubbing: No Gastrointestinal: Yes: Normal Bowel Sounds, Soft Renal/: Yes: WNL Musculoskeletal: Yes: WNL Extremities: Yes: WNL Edema: Yes Peripheral Pulses WNL: Yes Integumentary: Yes: WNL Neurological: Yes: WNL, Alert, Oriented ...Motor Strength: WNL Psychiatric: Yes: WNL, Alert, Oriented Labs: CBC, BMP 10/09/18 22:40 10/10/18 06:30 Imaging - Results Chest X-ray: Report Reviewed, Image Reviewed Problem List - Problems (1) CKD (chronic kidney disease) Code(s): N18.9 - CHRONIC KIDNEY DISEASE, UNSPECIFIED (2) Hyperkalemia Code(s): E87.5 - HYPERKALEMIA (3) Back pain Code(s): M54.9 - DORSALGIA, UNSPECIFIED Qualifiers: Back pain location: thoracic back pain Chronicity: unspecified Back pain laterality: bilateral Qualified Code(s): M54.6 - Pain in thoracic spine (4) Hyperlipidemia Code(s): E78.5 - HYPERLIPIDEMIA, UNSPECIFIED (5) Hypertension Code(s): I10 - ESSENTIAL (PRIMARY) HYPERTENSION Assessment/Plan Low clinical suspicion of PE. Patient referred to the ER due to hyperkalemia. Rib discomfort is chronic and there is no evidence of DVT. Do not feel V/Q is necessary in this setting. Patient is on 2.5 L NC home O2 and is currently saturating 100% Given low risk of VTE and as patient seems at his baseline , there is no Pulmonary contraindication for D/C Thank you. Dr Yip
[2018-10-10] MEDS ORDERED: ACETAMINOPHEN 325 MG TABLET (FP) PO PRN (15:26)
--- NOTE | 2018-10-10 17:16 | PN ---
Physical Exam: SUBJECTIVE: Patient seen and examine 63 M, COPD due to significant previous smoking history. HOme O2 @ 2.5 L C since 09/2017. Daily Prednisone 10mg, Dulera, Theophyllline, and Spiriva. PMH HTN, CKD, CAD, CHF, and Chronic LBP. He had a Vertebroplasty about 2 weeks ago. Sent to the ER by his PMD for hyperkalemia. US (-) for DVT. At present he feels his breathing is at his baseline. Feels good Denies chest pain, nausea, vomiting, sobm palpitations OBJECTIVE: Vital Signs Period Temp Pulse Resp BP Sys/Rendon Pulse Ox Last 24 Hr 98.2 F-98.8 F 74-124 18-20 107-142/66-74 98-100 GENERAL: The patient is awake, alert, and fully oriented, in no acute distress. HEAD: Normal with no signs of trauma. EYES: PERRL, extraocular movements intact, ENT: moist mucous membranes. NECK: Trachea midline, full range of motion, supple. LUNGS: Breath sounds equal, clear to auscultation bilaterally, no wheezes, no crackles, no accessory muscle use. HEART: Regular rate and rhythm, S1, S2 without murmur, rub or gallop. ABDOMEN: Soft, nontender, nondistended, normoactive bowel sounds, no guarding, no rebound, PSYCH: Normal mood, normal affect. SKIN: Warm, dry, Laboratory Results - last 24 hr 10/09/18 10/09/18 10/09/18 22:40 22:40 22:40 WBC 6.8 RBC 3.29 L Hgb 9.6 L Hct 28.6 L MCV 87.0 MCH 29.2 MCHC 33.6 RDW 13.9 D Plt Count 278 MPV 9.8 Absolute Neuts (auto) 5.6 Neutrophils % 82.1 Lymphocytes % 8.3 D Monocytes % 8.5 D Eosinophils % 0.5 D Basophils % 0.6 Nucleated RBC % 0 PT with INR 11.90 INR 1.01 PTT (Actin FS) D-Dimer Sodium 143 Potassium 6.2 H* Chloride 114 H Carbon Dioxide 28 Anion Gap 2 L BUN 32 H Creatinine 1.7 H Creat Clearance w eGFR 41.04 POC Glucometer Random Glucose 118 H Calcium 8.7 Phosphorus Magnesium 2.3 Total Bilirubin 0.2 AST 15 ALT 14 Alkaline Phosphatase 208 H Creatine Kinase 103 Troponin I 0.02 B-Natriuretic Peptide 18.6 Total Protein 6.0 L Albumin 3.0 L Theophylline 10/09/18 10/10/18 10/10/18 22:40 02:29 02:40 WBC RBC Hgb Hct MCV MCH MCHC RDW Plt Count MPV Absolute Neuts (auto) Neutrophils % Lymphocytes % Monocytes % Eosinophils % Basophils % Nucleated RBC % PT with INR INR PTT (Actin FS) D-Dimer 739 H Sodium 144 Potassium 4.9 Chloride 114 H Carbon Dioxide 26 Anion Gap 4 L BUN 31 H Creatinine 1.6 H Creat Clearance w eGFR 44.02 POC Glucometer 74 Random Glucose 75 Calcium 8.7 Phosphorus Magnesium Total Bilirubin AST ALT Alkaline Phosphatase Creatine Kinase Troponin I B-Natriuretic Peptide Total Protein Albumin Theophylline 10/10/18 10/10/18 10/10/18 06:30 06:30 08:02 WBC RBC Hgb Hct MCV MCH MCHC RDW Plt Count MPV Absolute Neuts (auto) Neutrophils % Lymphocytes % Monocytes % Eosinophils % Basophils % Nucleated RBC % PT with INR 12.30 INR 1.04 PTT (Actin FS) 57.1 H D-Dimer Sodium 143 Potassium 5.4 H Chloride 113 H Carbon Dioxide 28 Anion Gap 2 L BUN 31 H Creatinine 1.5 H Creat Clearance w eGFR 47.42 POC Glucometer Random Glucose 93 Calcium 8.8 Phosphorus 4.1 Magnesium 2.2 Total Bilirubin 0.2 AST 14 L ALT 13 Alkaline Phosphatase 187 H Creatine Kinase Troponin I B-Natriuretic Peptide Total Protein 5.2 L Albumin 2.8 L Theophylline 2.9 L Active Medications Generic Name Dose Route Start Last Admin Trade Name Freq PRN Reason Stop Dose Admin Acetaminophen 650 mg 10/10/18 15:26 Tylenol - PO Q4H PRN PAIN Albuterol/Ipratropium 1 amp 10/10/18 02:42 Duoneb - NEB Q6H PRN SHORTNESS OF BREATH Aspirin 81 mg 10/10/18 10:00 10/10/18 10:00 Asa - PO 81 mg DAILY EFRAÍN Administration Atorvastatin Calcium 80 mg 10/10/18 22:00 Lipitor - PO HS EFRAÍN Montelukast Sodium 10 mg 10/10/18 22:00 Singulair - PO HS EFRAÍN ASSESSMENT/PLAN:63 y/o male with PMH of CAD HTN, COPD, CKD who presents to the ED after being found to have hyperkalemia in addition to possible PE #Hyperkalemia repeat K 5.4 can be because of heparin drip. heparin drip stopped as duplex negative for dvt. pt is not in repiratory ditress. Low probablitity of pe pt has reused repeat sr k at 1pm but agreed at 5 pm. hold francisco javier inhibitor and theophylline no ekg changes #HTN holding patients lisinopril given hyperkalemia -monitor BP - if elevated start ca# #CKD -Cr is at baseline -consider nephro consults as an outpatient #COPD -duonebs PRN -resume spiriva - home dose of prednisone 10 mg daily F/E/N orally allowed monitor electrolytes; rosario potassium soidum controlled diet admit med surg Visit type - Emergency Visit Emergency Visit: Yes ED Registration Date: 10/09/18 Care time: The patient presented to the Emergency Department on the above date and was hospitalized for further evaluation of their emergent condition. - New Patient This patient is new to me today: Yes Date on this admission: 10/11/18 - Critical Care Critical Care patient: No
[2018-10-10] MEDS ORDERED: predniSONE 10 MG TABLET (UD) PO SCH (17:30)
[2018-10-10] MEDS ORDERED: PATIENT'S OWN MEDICATION (NON-FORMULARY) (Tiotropium Bromide [Spiriva] 1 INH) PO SCH (17:30)
--- NOTE | 2018-10-10 18:46 | PN ---
Teaching Attending Note Name of Resident: Galindo Garcia ATTENDING PHYSICIAN STATEMENT I saw and evaluated the patient. I reviewed the resident's note and discussed the case with the resident. I agree with the resident's findings and plan as documented. SUBJECTIVE: Mr Alfredo is without complaint today. No cp, sob, n/v. OBJECTIVE: Last Vital Signs Temp Pulse Resp BP Pulse Ox 36.8 C 64 22 H 124/78 99 10/10/18 18:00 10/10/18 18:00 10/10/18 18:00 10/10/18 18:00 10/10/18 14:00 Gen: nad Pulm: ctab w/o w/r/r CV: rrr w/o m/r/g Abd: +bs, s/nt/nd Ext: no c/c/e CBC, BMP 10/09/18 22:40 10/10/18 18:22 ASSESSMENT AND PLAN: -patient originally wanted to leave AMA -however agreeing to stay to check again -if normal can discharge home -if not, patient agrees to stay and be treated -can stop heparin gtt -continue current management Problem List - Problems (1) CKD (chronic kidney disease) Code(s): N18.9 - CHRONIC KIDNEY DISEASE, UNSPECIFIED (2) Hyperkalemia Code(s): E87.5 - HYPERKALEMIA (3) Hyperlipidemia Code(s): E78.5 - HYPERLIPIDEMIA, UNSPECIFIED (4) Hypertension Code(s): I10 - ESSENTIAL (PRIMARY) HYPERTENSION
[2018-10-10 18:58] VITALS: BP 124/78; PULSE 64
[2018-10-10 19:01] LABS: ANION GAP 3 MMOL/L (8-16); BLOOD UREA NITROGEN 28 mg/dL (7-18); CALCIUM 8.4 mg/dL (8.5-10.1); CHLORIDE 112 mmol/L (98-107); CO2 25 mmol/L (21-32); CREATININE 1.5 mg/dL (0.55-1.3); GLUCOSE,RANDOM 129 mg/dL (74-106); POTASSIUM 5.8 mmol/L (3.5-5.1); SODIUM 140 mmol/L (136-145)
[2018-10-10] MEDS ORDERED: DEXTROSE 50%-WATER - 25 GM/50 ML VIAL IVPUSH ONE (19:52)
[2018-10-10] MEDS ORDERED: CALCIUM GLUCONATE 10% - 1,000 MG/10 ML VIAL IVPB ONE (20:30)
[2018-10-10] MEDS ORDERED: ATORVASTATIN CA 80 MG TABLET (FP) PO SCH (22:00)
[2018-10-10] MEDS ORDERED: PATIENT'S OWN MEDICATION (NON-FORMULARY) (Alprazolam [Xanax] 0.5 MG) PO SCH (22:00)
[2018-10-10] MEDS ORDERED: MONTELUKAST NA 10 MG TABLET PO SCH (22:00)
[2018-10-10] MEDS ORDERED: ALPRAZolam 0.25 MG TABLET PO SCH (22:00)
[2018-10-10] MEDS ORDERED: MONTELUKAST NA 10 MG TABLET ONE (22:13)
[2018-10-10] MEDS ORDERED: ALPRAZolam 0.25 MG TABLET ONE (22:13)
--- NOTE | 2018-10-11 07:12 | DS ---
Physical Exam: SUBJECTIVE: HOSPITAL COURSE: pt came in for hyperkalemia. Pt eloped last night Date of Admission:10/09/18 Date of Discharge: 10/11/18 Minutes to complete discharge: 45 Discharge Summary Reason For Visit: SEPSIS Current Active Problems CKD (chronic kidney disease) (Acute) Hyperkalemia (Acute) Pulmonary embolism (Acute) Shortness of breath (Acute) - Instructions Diet, Activity, Other Instructions: We had stopped your lisinopril because of high K. We had started you on amlodipine for BP. Avoid eating banana, oranges, coconut, lemon. Patient eloped Referrals: Mell Hernandez MD [Staff Physician] - 10/12/18 Disposition: ELOPED - Home Medications Comprehensive Discharge Medication List: Ambulatory Orders Albuterol Sulfate [Ventolin -] 2 mg PO PRN 08/10/16 Tiotropium [place] [Spiriva] 1 inh PO DAILY 08/10/16 Mometasone Furoate [Asmanex Hfa] 1 puff IH BID 11/29/16 Alprazolam [Xanax] 0.5 mg PO BID 12/03/16 Aspirin [ASA -] 81 mg PO DAILY #30 tab 12/07/16 Atorvastatin Ca [Lipitor] 80 mg PO HS #30 tablet 12/07/16 Montelukast Na [Singulair -] 10 mg PO HS #30 tablet 10/23/17 Pantoprazole Sodium [Protonix -] 40 mg PO DAILY #30 tablet.ec 10/23/17 Prednisone 10 mg PO DAILY #60 tablet 10/23/17 Famotidine [Pepcid -] 20 mg PO BID #14 tablet 02/25/18 Polyethylene Glycol 3350 [Miralax 255 gm Btl -] 17 gm PO BID #1 bottle 02/25/18 Amlodipine Besylate [Norvasc -] 5 mg PO DAILY #30 tablet 10/10/18 Problem List - Problems (1) CKD (chronic kidney disease) Code(s): N18.9 - CHRONIC KIDNEY DISEASE, UNSPECIFIED (2) Hyperkalemia Code(s): E87.5 - HYPERKALEMIA This patient is new to me today: Yes Date on this admission: 10/11/18 Emergency Visit: Yes ED Registration Date: 10/09/18 Care time: The patient presented to the Emergency Department on the above date and was hospitalized for further evaluation of their emergent condition. Critical Care patient: No - Discharge Referral Referred to [facility] No
[2018-10-11] MEDS ORDERED: TIOTROPIUM BROMIDE 2.5 MCG (SPIRIVA) RESPIMAT INHALER IH SCH (10:00)
[2018-10-11] MEDS ORDERED: PANTOPRAZOLE 40 MG TABLET (FP) PO SCH (10:00)
== END 2018-10-11 07:00 | disposition left against medical advice (07) | DRG 641 ==
LOC: JER 20:13 → JERBED 20:51
PROVIDERS: ADMIT Internal Medicine; ATTEND Internal Medicine
DX: E87.5 Hyperkalemia (principal); I13.0 Hypertensive heart and chronic kidney disease with heart failure and stage 1 through stage 4 chronic kidney disease, or unspecified chronic kidney disease; I50.20 Unspecified systolic (congestive) heart failure; N18.9 Chronic kidney disease, unspecified; J44.9 Chronic obstructive pulmonary disease, unspecified; I25.10 Atherosclerotic heart disease of native coronary artery without angina pectoris; R06.02 Shortness of breath; E78.5 Hyperlipidemia, unspecified; R07.9 Chest pain, unspecified
CPT/HCPCS: 36415; 71045-TC-FY; 80048; 80053; 80198; 82550; 82962; 83735; 83880; 84100; 84132; 84484; 85025; 85379; 85610; 85730; 93005; 93010; 93971-TC; 99285-25; J1644; J7030

== ENCOUNTER 2019-01-27 14:17 | Inpatient (IN) | payer OTHER ==
[2019-01-27] MEDS ORDERED: methylPREDNISolone NA SUCC 125 MG/2 ML VIAL IVPB ONE (14:33)
--- NOTE | 2019-01-27 14:36 | PDOC ---
Rapid Medical Evaluation Chief Complaint: Shortness of Breath Time Seen by Provider: 01/27/19 14:32 Medical Evaluation: Allergies Allergy/AdvReac Type Severity Reaction Status Date / Time No Known Allergies Allergy Verified 10/09/18 20:19 Vital Signs Temp Pulse Resp BP Pulse Ox 98.5 F 120 H 20 141/71 99 01/27/19 14:20 01/27/19 14:20 01/27/19 14:20 01/27/19 14:20 01/27/19 14:20 01/27/19 14:34 Pt c/o: sob, wheezing ,and chest tightness x 2 days, worse today, hx copd Pt on brief exam: exp wheeze jane and on inspiration to the right, sat 99% w/ home o2 at 2lnc Pt ordered for: labs, cxr, and solumedrol/duoneb Pt to proceed to the ED Discharge Disposition - Diagnosis Wheezing, Shortness of breath, Hypertension, Acute chronic obstructive pulmonary disease with respiratory distress - Discharge Dispostion Condition at time of disposition: Improved - Referrals - Patient Instructions - Post Discharge Activity
[2019-01-27] MEDS: ALBUTEROL SO4 2.5/IPRATROPIUM 0.5 INH SOL 3 ML VIAL.NEB. NEB SCH ×5 (14:50→20:50)
[2019-01-27] MEDS ORDERED: ALBUTEROL SO4 2.5/IPRATROPIUM 0.5 INH SOL 3 ML VIAL.NEB. NEB ONE ×2 (14:58→20:47)
[2019-01-27] MEDS ORDERED: methylPREDNISolone NA SUCC 125 MG/2 ML VIAL ONE ×2 (14:58→15:12)
--- NOTE | 2019-01-27 15:25 | PDOC ---
History of Present Illness - General Chief Complaint: Shortness of Breath Stated Complaint: SOB Time Seen by Provider: 01/27/19 14:32 - History of Present Illness Initial Comments: The pt is a 63M w/ a history of HTN, COPD (2L NC at home), HLD, anxiety, and LLE swelling 2/2 repeated back surgeries (2/2 chronic steroid use) who presents for evaluation of 2 days of worsening shortness of breath despite inhaler/ nebulizer use. He endorses an associated cough. Denies fevers/chills, chest pain , abdominal pain, N/V/C/D, dysuria, hematuria, or blood in his stool. Reports being intubated once before for his respiratory pathology and multiple admissions as well. 01/27/19 15:22 Past History - Past Medical History Allergies/Adverse Reactions: Allergies Allergy/AdvReac Type Severity Reaction Status Date / Time No Known Allergies Allergy Verified 10/09/18 20:19 Home Medications: Ambulatory Orders Albuterol Sulfate [Ventolin -] 2 mg PO PRN 08/10/16 Tiotropium [place] [Spiriva] 1 inh PO DAILY 08/10/16 Mometasone Furoate [Asmanex Hfa] 1 puff IH BID 11/29/16 Alprazolam [Xanax] 0.5 mg PO BID 12/03/16 Aspirin [ASA -] 81 mg PO DAILY #30 tab 12/07/16 Atorvastatin Ca [Lipitor] 80 mg PO HS #30 tablet 12/07/16 Montelukast Na [Singulair -] 10 mg PO HS #30 tablet 10/23/17 Pantoprazole Sodium [Protonix -] 40 mg PO DAILY #30 tablet.ec 10/23/17 Prednisone 10 mg PO DAILY #60 tablet 10/23/17 Famotidine [Pepcid -] 20 mg PO BID #14 tablet 02/25/18 Polyethylene Glycol 3350 [Miralax 255 gm Btl -] 17 gm PO BID #1 bottle 02/25/18 Amlodipine Besylate [Norvasc -] 5 mg PO DAILY #30 tablet 10/10/18 Anemia: No Asthma: Yes Cancer: No Cardiac Disorders: No CVA: No COPD: Yes CHF: No Dementia: No Diabetes: No GI Disorders: No Disorders: No HTN: Yes Hypercholesterolemia: Yes Liver Disease: No Seizures: No Thyroid Disease: No - Surgical History Abdominal Surgery: No Appendectomy: No Cardiac Surgery: No Cholecystectomy: No Gastric Stapling: No GI Surgery: No Lung Surgery: No Neurologic Surgery: No Orthopedic Surgery: No - Immunization History Immunization Up to Date: Yes - Suicide/Smoking/Psychosocial Hx Smoking Status: Yes Smoking History: Current every day smoker Have you smoked in the past 12 months: Yes Number of Cigarettes Smoked Daily: 1 If you are a former smoker, when did you quit?: 08/2016 Information on smoking cessation initiated: No 'Breaking Loose' booklet given: 06/27/16 Hx Alcohol Use: No Drug/Substance Use Hx: No Substance Use Type: None Hx Substance Use Treatment: No Review of Systems - Review of Systems Able to Perform ROS?: Yes Comments:: GENERAL/CONSTITUTIONAL: No fever or chills. No weakness HEAD, EYES, EARS, NOSE AND THROAT: No change in vision. No ear pain or discharge. No sore throat CARDIOVASCULAR: No chest pain RESPIRATORY: Denies hemoptysis GASTROINTESTINAL: No nausea, vomiting, diarrhea or constipation GENITOURINARY: No dysuria, frequency, or change in urination MUSCULOSKELETAL: No joint or muscle swelling or pain. No neck or back pain SKIN: No rash NEUROLOGIC: No headache, vertigo, loss of consciousness, or change in strength/ sensation ENDOCRINE: No increased thirst. No abnormal weight change HEMATOLOGIC/LYMPHATIC: No anemia, easy bleeding, or history of blood clots ALLERGIC/IMMUNOLOGIC: No hives or skin allergy 01/27/19 15:24 Is the patient limited Guamanian proficient: No *Physical Exam - Vital Signs Last Vital Signs Temp Pulse Resp BP Pulse Ox 98.5 F 120 H 20 141/71 99 01/27/19 14:20 01/27/19 14:20 01/27/19 14:20 01/27/19 14:20 01/27/19 14:20 - Physical Exam Comments: GENERAL: Awake, alert, and oriented to person/place/time, in no acute distress HEAD: No signs of trauma, normocephalic, atraumatic EYES: PERRLA, EOMI, sclera anicteric, conjunctiva clear ENT: Hearing grossly normal, nares patent, oropharynx clear without exudates. Moist mucosa LUNGS: Not in distress; diffuse b/l wheezes throughout but breath sounds equal b /l; currently receiving duo-neb treatment HEART: Tachycardic rate with regular rhythm, normal S1 and S2, no murmurs appreciated, peripheral pulses normal and equal bilaterally ABDOMEN: Soft, nontender, normoactive bowel sounds. No guarding, no rebound EXTREMITIES: Normal inspection, Normal range of motion, no edema. No clubbing or cyanosis NEUROLOGICAL: Cranial nerves II through XII grossly intact. Normal speech, no focal sensorimotor deficits SKIN: Warm, Dry 01/27/19 15:24 ED Treatment Course - LABORATORY CBC & Chemistry Diagram: 01/27/19 15:00 01/27/19 15:00 - Medications Given in the ED: ED Medications Discontinued Medications Generic Name Dose Route Start Last Admin Trade Name Freq PRN Reason Stop Dose Admin Methylprednisolone Sodium Succinate 125 mg 01/27/19 14:33 01/27/19 15:19 Solu-Medrol - IVPB 01/27/19 14:34 125 mg ONCE ONE Administration Medical Decision Making - Medical Decision Making The pt is a 63M a history of COPD (2L NC at home), HTN, HLD, and anxiety who presents for evaluation of 2 days of worsening dyspnea despite inhaler use Ddx includes asthma/COPD exacerbation, viral syndrome, ACS, PNA, anemia ED Course CMP, CBC CXR ECG Duo-neb x3 Solumedrol 125mg IV once Mg 1g IV once Will reassess s/p interventions No leukocytosis Mild anemia, near baseline 01/27/19 16:00 Pt continues to have mild b/l wheezing s/p nebs, steroids, and Mg Is saturating low 90s on 4L NC Plan for admission for COPD exacerbation 01/27/19 17:03 *DC/Admit/Observation/Transfer Diagnosis at time of Disposition: Wheezing, Shortness of breath, Acute chronic obstructive pulmonary disease with respiratory distress Hypertension Qualifiers: Hypertension type: unspecified Qualified Code(s): I10 - Essential (primary) hypertension - Discharge Dispostion Condition at time of disposition: Good Decision to Admit order: Yes - Referrals Referrals: Mell Hernandez MD [Primary Care Provider] - - Patient Instructions - Post Discharge Activity
[2019-01-27] MEDS ORDERED: MAGNESIUM SULF 50% (8.12 MEQ/2 ML-1 GM VIAL) IVPB ONE (15:27)
[2019-01-27 15:28] LABS: BASO % 0.4 % (0-2.0); HEMATOCRIT 31.7 % (35.4-49); HEMOGLOBIN 10.5 GM/dL (11.7-16.9); LYMPH % 2.6 % (8-40); MCHC 33.1 g/dl (32.0-35.9); MEAN CELL VOLUME 84.6 fl (80-96); MEAN PLT VOLUME 9.1 fl (7.5-11.1); MONO % 4.9 % (3.8-10.2); NEUT % 92.1 % (42.8-82.8); PLATELET COUNT 282 K/MM3 (134-434); RBC 3.74 M/mm3 (4.00-5.60); RDW 14.8 % (11.9-15.9)
[2019-01-27] MEDS ORDERED: MAGNESIUM 1GM/D5W - 1 GM/100 ML IVPB IVPB ONE (16:04)
--- NOTE | 2019-01-27 16:35 | PDOC ---
Documentation entered by Kristofer Ureña SCRIBE, acting as scribe for Michael Stout MD. Michael Stout MD: This documentation has been prepared by the Niranjan toribio Aiswarya, SCRIBE, under my direction and personally reviewed by me in its entirety. I confirm that the documentation accurately reflects all work, treatment, procedures, and medical decision making performed by me. Attending Attestation - Resident Resident Name: Bryon Perez - HPI HPI: 01/27/19 16:33 The patient is a 63 year old male, with a significant PMH of asthma, COPD, HTN , HLD,and anxiety, presents to the emergency department with SOB that began 2 days ago that progressively worsened today. The patients states SOB is triggered by pollen and endorses associated symptoms of cough and chest tightness, no relief with nebulizer. Patient also mentions he's on 2 1/2 O2 at home and has come to the ER for multiple times for COPD. The patient denies chest pain, headache and dizziness. Denies fever, chills, nausea, vomit, diarrhea and constipation. Denies dysuria, frequency, urgency and hematuria. Allergies: NKDA Past surgical history: None reported Social history: None reported PCP: Mary Monte - Physicial Exam PE: 01/27/19 16:33 Vitals: Triage Vital signs reviewed General Appearance: no acute distress, well nourished well developed, Head: Atraumatic, normocephalic Cardiac: Regular rate and rhythm, no murmurs, no rubs, no gallops, Lungs: +inspiratory and expiratory wheezing. Skin: Warm and dry, no rashes or lesions, no petechiae Neuro: AOX3; Cranial Nerves 2-12 grossly c intact, Strength intact to all extremities, Sensation intact to all extremities, gait normal Psych: normal mood, normal affect - Medical Decision Making 01/27/19 16:35 63 years old with past medical history significant for hypertension, asthma/ COPD hyperlipidemia anxiety chronic steroid use one intubation in the past presents to the ED with 2 day history of worsening shortness of breath and wheezing despite using his nebulizer treatment and despite being on steroids at home Patient has had multiple admissions for COPD in the past at times has required magnesium in the emergency department. States he feels that his COPD is significant enough to require magnesium today We'll treat with steroids nebs magnesium and reassess Dr. Frank to reevaluate patient and dispo
[2019-01-27 16:37] LABS: ALBUMIN 3.2 g/dl (3.4-5.0); BILIRUBIN,TOTAL 0.2 mg/dL (0.2-1); CALCIUM 9.1 mg/dL (8.5-10.1); CREATININE 1.6 mg/dL (0.55-1.3); POTASSIUM 4.6 mmol/L (3.5-5.1); TOT PROT 6.2 g/dl (6.4-8.2)
[2019-01-27] MEDS ORDERED: AZITHROMYCIN 250 MG TABLET PO ONE (17:23)
--- NOTE | 2019-01-27 17:48 | HP ---
CHIEF COMPLAINT: Shortness of breath PCP: Dr. Mell Hernandez Medical Collections Representative: Dr. Yip HISTORY OF PRESENT ILLNESS: 63yo M with h/o COPD (2LNC at home), Anxiety and HTN who presents today with 2 days of worsening shortness of breath notable with activity. Pt reports he has seasonal allergies which triggers his COPD exacerbation normally. He reports about 1-2 weeks prior he started a 2-day interval taper of his chronic steroid dose and was on the second day of 30mg today. He normally takes 10mg Prednisone daily and as a result has had vertebral fractures and tremulousness/ anxiety. Pt also endorses productive cough with white-brown sputum. Pt denies any f/c/n/v/d/constipation, headache, lightheadedness, rhinorrhea, chest pain, palpitations, abdominal pain, dysuria, polyuria. pt denies any sick contacts at home. Currently pt feels better than when he was first seen in ED, however reports slight wheezing worse than his normal. Of note, pt is due for his PFTs, however it was postponed because pt was not feeling optimal for baseline PFTs to be accurate. Recent Travel: Denies PAST MEDICAL HISTORY: COPD Anxiety HTN PAST SURGICAL HISTORY: Vertebroplasty Social History: Smoking: current; 1-2 cigarettes occassionally (at peak 1ppd) Alcohol: Denies Drugs: Denies Lives at home with and pet bird (bird is now in boarding for 1 mo.), ambulates with walker normally, 2LNC at home Family History: noncontributory Allergies No Known Allergies Allergy (Verified 10/09/18 20:19) HOME MEDICATIONS: Home Medications Medication Instructions Recorded Albuterol Sulfate [Ventolin -] 2 mg PO PRN 08/10/16 Tiotropium [place] [Spiriva] 1 inh PO DAILY 08/10/16 Mometasone Furoate [Asmanex Hfa] 1 puff IH BID 11/29/16 Alprazolam [Xanax] 0.5 mg PO BID 12/03/16 Aspirin [ASA -] 81 mg PO DAILY #30 tab 12/07/16 Atorvastatin Ca [Lipitor] 80 mg PO HS #30 tablet 12/07/16 Montelukast Na [Singulair -] 10 mg PO HS #30 tablet 10/23/17 Pantoprazole Sodium [Protonix -] 40 mg PO DAILY #30 tablet.ec 10/23/17 Prednisone 10 mg PO DAILY #60 tablet 10/23/17 Famotidine [Pepcid -] 20 mg PO BID #14 tablet 02/25/18 Polyethylene Glycol 3350 [Miralax 17 gm PO BID #1 bottle 02/25/18 255 gm Btl -] Amlodipine Besylate [Norvasc -] 5 mg PO DAILY #30 tablet 10/10/18 REVIEW OF SYSTEMS As per HPI PHYSICAL EXAMINATION Vital Signs - 24 hr 01/27/19 01/27/19 14:20 15:25 Temperature 98.5 F Pulse Rate 120 H 86 Respiratory 20 Rate Blood Pressure 141/71 O2 Sat by Pulse 99 99 Oximetry (%) GENERAL: NAd, awake, alert, and fully oriented HEENT: Nc/AT, EOMI, iMne, sclera anicteric, MMM NECK: No JVD, no lymphadenopathy LUNGS: Poor air entry at the bases, expiratory wheezes noted bilaterally. no crackles. No accessory muscle use. 4LNC SpO2 96% HEART: RRR, normal S1 and S2 without murmur ABDOMEN: Soft, Nt/ND, normoactive bowel sounds, no guarding, diathesis rectis noted. No hepatomegaly MUSCULOSKELETAL: No CVA tenderness. EXTREMITIES: 2+ DP pulses, warm, well-perfused. No calf tenderness. L ankle nonpitting trace edema PSYCHIATRIC: Cooperative. Good eye contact. Appropriate mood and affect. SKIN: Warm, dry, no rashes or lesions noted Laboratory Results 01/27/19 01/27/19 15:00 15:00 WBC 7.0 RBC 3.74 L Hgb 10.5 L Hct 31.7 L MCV 84.6 MCH 28.0 MCHC 33.1 RDW 14.8 Plt Count 282 MPV 9.1 Absolute Neuts (auto) 6.4 Neutrophils % 92.1 H Lymphocytes % 2.6 L D Monocytes % 4.9 Eosinophils % 0.0 D Basophils % 0.4 Nucleated RBC % 0 Sodium 139 Potassium 4.6 Chloride 103 Carbon Dioxide 30 Anion Gap 6 L BUN 30 H Creatinine 1.6 H Est GFR (CKD-EPI)AfAm 52.73 Est GFR (CKD-EPI)NonAf 45.50 Random Glucose 258 H Calcium 9.1 Total Bilirubin 0.2 AST 19 ALT 22 Alkaline Phosphatase 125 H Total Protein 6.2 L Albumin 3.2 L ASSESSMENT/PLAN: Acute hypoxic respiratory distress 2/2 to acute on COPD Hyperglycemia Anxiety Chronic kidney disease --likely 2/2 to decreased steroid taper too rapid in lieu of seasonal allergies --medrol 40mg q6h; likely rn cvicu be titrated down tomorrow --Duoneb QID scheduled --albuterol PRN q4h for increased wheezing --titrate O2 to SpO2 88-92% given COPD (down to 2LNC home dose) --Continue Singulair HS --continue Spiriva home dose --Hyperglycemia related to glucocorticoid use --Will use ISS and BGMs for smooth glucose control --Continue home Xanax 0.5mg BID PO --Continue Norvasc 5mg qdaily for HTN --Continue rest of home medications: Lipitor 80mg HS Protonix 40mg qdaily Asa 81mg qdaily Miralax PRN for constipation FEN: fluids: none indicated electrolyte abnormalities: None Nutrition: Regular diet PPx: DVT - Heparin TID SQ GI - already on protonix Dispo: M/S admit Case discussed with Dr. Socrates Aranda, DO - IM PGY-2 Visit type - Emergency Visit Emergency Visit: Yes Care time: The patient presented to the Emergency Department on the above date and was hospitalized for further evaluation of their emergent condition. - New Patient This patient is new to me today: Yes Date on this admission: 01/27/19 - Critical Care Critical Care patient: No
[2019-01-27] MEDS ORDERED: ALBUTEROL SO4 0.083% IH SOL 2.5 MG/3 ML VIAL.NEB. NEB PRN (17:49)
[2019-01-27] MEDS ORDERED: POLYETHYLENE GLYCOL 3350 255 GM BTL PO PRN (17:52)
[2019-01-27] MEDS ORDERED: POLYETHYLENE GLYCOL 3350 119 GM BTL PO PRN (17:56)
[2019-01-27] MEDS ORDERED: AZITHROMYCIN IVPB 500 MG/250 ML BAG IVPB ONE (18:41)
[2019-01-27] MEDS ORDERED: AZITHROMYCIN IVPB 500 MG in DEXTROSE 5%-WATER - 250 ML IVPB ONE (18:44)
--- NOTE | 2019-01-27 18:51 | PN ---
Teaching Attending Note Name of Resident: Faraz Aranda ATTENDING PHYSICIAN STATEMENT I saw and evaluated the patient. I reviewed the resident's note and discussed the case with the resident. I agree with the resident's findings and plan as documented. SUBJECTIVE:63yo M with PMH CAD, CHF and COPD on home o2 2L NC and intubated once in the past in 2005 presented to the ER with SOb x6 days. assoc with productive cough initially white and now brownish. states he increased his prednisone (chronically on 10mg ) to 60mg and was reducing by 10mg every 2days. had some initial improvement but decided to come to ER as he was just not feeling better and was supposed to reduce pred to 30mg tomorrow. was also taking some left over amoxicillin he had at home during this time. no changes to his medications. denies Cp, fever, chills, N/V/C/D, recent travel OBJECTIVE: Last Vital Signs Temp Pulse Resp BP Pulse Ox 98.1 F 112 H 20 135/71 95 01/27/19 17:48 01/27/19 17:48 01/27/19 14:20 01/27/19 17:48 01/27/19 17:48 General NAD CV S1 S2 tachy Lungs scattered wheezing, poor air entry, poor inspiratory effort Abdomen soft NT/ND extremities trace pitting edema ASSESSMENT AND PLAN: 63yo M with PMH CAD, CHF and COPD on home o2 2L NC presented to the ER with sudden onset of SOB which was reported as CP in the ER 1. acute COPD exacerbation- will start medrol 40mg Q6H, azithromycin, nebs prn and standing, singulair, inhalers. pulmonary consult 2. Acute on chronic Hypoxic respiratory failure- requiring 3L NC to maintain spO2 >90%. treat COPD. titrate down oxygen as tolerated 3. CKD- at baseline 4. CHF- no signs of volume overload. 5. HTN- controlled. cont home medication 6. dyslpidemia- statin 7. DVT ppx- hep sq
[2019-01-27] MEDS ORDERED: methylPREDNISolone NA SUCC 40 MG/1 ML VIAL ONE (21:07)
[2019-01-27] MEDS: methylPREDNISolone NA SUCC 40 MG/1 ML VIAL IVPUSH SCH (21:26)
[2019-01-27 22:11] LABS: PLATELET ESTIMATE ADEQUATE
[2019-01-27] MEDS: HEPARIN NA (PORCINE) 5,000 UNITS/ML 1ML VIAL SQ SCH (22:46)
[2019-01-27] MEDS: ALPRAZolam 0.25 MG TABLET PO SCH (22:46)
[2019-01-27] MEDS: MONTELUKAST NA 10 MG TABLET PO SCH (22:46)
[2019-01-27] MEDS: ATORVASTATIN CA 80 MG TABLET (FP) PO SCH (22:46)
[2019-01-27] MEDS: INSULIN SLIDING SCALE (NOVOLOG) 1 VIAL SQ SCH (22:47)
[2019-01-28 00:29] VITALS: BMI 22.6
[2019-01-28] MEDS: methylPREDNISolone NA SUCC 40 MG/1 ML VIAL IVPUSH SCH ×4 (03:24→21:26)
[2019-01-28] MEDS: HEPARIN NA (PORCINE) 5,000 UNITS/ML 1ML VIAL SQ SCH ×3 (05:50→21:27)
[2019-01-28] MEDS: INSULIN SLIDING SCALE (NOVOLOG) 1 VIAL SQ SCH ×4 (06:09→21:30)
[2019-01-28] MEDS: ALBUTEROL SO4 2.5/IPRATROPIUM 0.5 INH SOL 3 ML VIAL.NEB. NEB SCH ×4 (08:00→21:00)
--- NOTE | 2019-01-28 08:33 | PN ---
Progress Note (short form) - Note Progress Note: states he feels much better today. cough has resolved. denies CP, SOB, fever, chills, cough, N/V/C/D Current Medications Generic Name Dose Route Start Last Admin Trade Name Freq PRN Reason Stop Dose Admin Albuterol Sulfate 1 amp 01/27/19 17:49 Ventolin 0.083% Nebulizer Soln - NEB RQ4H PRN SHORTNESS OF BREATH Albuterol/Ipratropium 1 amp 01/27/19 20:00 01/28/19 08:00 Duoneb - NEB 1 amp RQID EFRAÍN Administration Alprazolam 0.5 mg 01/27/19 22:00 01/27/19 22:46 Xanax - PO 0.5 mg BID EFRAÍN Administration Amlodipine Besylate 5 mg 01/28/19 10:00 Norvasc - PO DAILY EFRAÍN Aspirin 81 mg 01/28/19 10:00 Asa - PO DAILY EFRAÍN Atorvastatin Calcium 80 mg 01/27/19 22:00 01/27/19 22:46 Lipitor - PO 80 mg HS EFRAÍN Administration Furosemide 40 mg 01/28/19 10:00 Lasix - PO DAILY EFRAÍN Heparin Sodium (Porcine) 5,000 unit 01/27/19 22:00 01/28/19 05:50 Heparin - SQ 5,000 unit TID EFRAÍN Administration Azithromycin 250 mg/ Dextrose 250 mls @ 250 mls/hr 01/28/19 10:00 IVPB DAILY EFRAÍN Insulin Aspart 1 vial 01/27/19 22:00 01/28/19 06:09 Novolog Vial Sliding Scale - SQ Not Given ACHS [facility] Protocol Methylprednisolone Sodium Succinate 40 mg 01/27/19 21:00 01/28/19 03:24 Solu-Medrol - IVPUSH 40 mg Q6H-IV EFRAÍN Administration Montelukast Sodium 10 mg 01/27/19 22:00 01/27/19 22:46 Singulair - PO 10 mg HS EFRAÍN Administration Pantoprazole Sodium 40 mg 01/28/19 10:00 Protonix - PO DAILY EFRAÍN Polyethylene Glycol 17 gm 01/27/19 17:56 Miralax (For Daily Use) - PO Q12H PRN CONSTIPATION Last Vital Signs Temp Pulse Resp BP Pulse Ox 98.3 F 88 19 150/80 98 01/28/19 06:00 01/28/19 06:00 01/28/19 00:22 01/28/19 06:00 01/28/19 04:00 General NAD CV S1 S2 RRR no wheezing/rales/rhonchi Lungs CTA B/L no wheezing/rales/rhonchi Abdomen soft NT/ND extremities trace pitting edema CBCD WBC 7.0 K/mm3 (4.0-10.0) 01/27/19 15:00 RBC 3.74 M/mm3 (4.00-5.60) L 01/27/19 15:00 Hgb 10.5 GM/dL (11.7-16.9) L 01/27/19 15:00 Hct 31.7 % (35.4-49) L 01/27/19 15:00 MCV 84.6 fl (80-96) 01/27/19 15:00 MCHC 33.1 g/dl (32.0-35.9) 01/27/19 15:00 RDW 14.8 % (11.9-15.9) 01/27/19 15:00 Plt Count 282 K/MM3 (134-434) 01/27/19 15:00 MPV 9.1 fl (7.5-11.1) 01/27/19 15:00 CMP Sodium 139 mmol/L (136-145) 01/27/19 15:00 Potassium 4.6 mmol/L (3.5-5.1) 01/27/19 15:00 Chloride 103 mmol/L (98-107) 01/27/19 15:00 Carbon Dioxide 30 mmol/L (21-32) 01/27/19 15:00 Anion Gap 6 MMOL/L (8-16) L 01/27/19 15:00 BUN 30 mg/dL (7-18) H 01/27/19 15:00 Creatinine 1.6 mg/dL (0.55-1.3) H 01/27/19 15:00 Calcium 9.1 mg/dL (8.5-10.1) 01/27/19 15:00 Total Bilirubin 0.2 mg/dL (0.2-1) 01/27/19 15:00 AST 19 U/L (15-37) 01/27/19 15:00 ALT 22 U/L (13-61) 01/27/19 15:00 Alkaline Phosphatase 125 U/L (45-117) H 01/27/19 15:00 Total Protein 6.2 g/dl (6.4-8.2) L 01/27/19 15:00 Albumin 3.2 g/dl (3.4-5.0) L 01/27/19 15:00 ASSESSMENT AND PLAN: 63yo M with PMH CAD, CHF and COPD on home o2 2L NC presented to the ER with sudden onset of SOB which was reported as CP in the ER 1. acute COPD exacerbation-clinically improved. will cont current dosing of medrol 40mg Q6H, will anticipate decreasing in next 24H if continues to improve. awaiting pulm eval. Cont azithromycin day 2, nebs prn and standing, singulair, inhalers. 2. Acute on chronic Hypoxic respiratory failure-improved. down to home dose of 2L NC 3. CKD- at baseline 4. CHF- no signs of volume overload. 5. HTN- controlled. cont home medication 6. dyslpidemia- statin 7. DVT ppx- hep sq 8. anticipate discharge in next 24-48H Visit type - Emergency Visit Emergency Visit: Yes ED Registration Date: 01/27/19 Care time: The patient presented to the Emergency Department on the above date and was hospitalized for further evaluation of their emergent condition. - New Patient This patient is new to me today: No - Critical Care Critical Care patient: No - Discharge Referral Referred to [facility] Med [facility] No
[2019-01-28] MEDS: PANTOPRAZOLE 40 MG TABLET (FP) PO SCH (09:24)
[2019-01-28] MEDS: amLODIPine BESYLATE 5 MG TABLET (FP) PO SCH (09:24)
[2019-01-28] MEDS: ALPRAZolam 0.25 MG TABLET PO SCH ×2 (09:24→21:29)
[2019-01-28] MEDS: FUROSEMIDE 40 MG TABLET (FP) PO SCH (09:24)
[2019-01-28] MEDS: ASPIRIN 81 MG CHEWABLE TABLETS PO SCH (09:24)
[2019-01-28 09:30] LABS: CALCIUM 9.3 mg/dL (8.5-10.1); CREATININE 1.6 mg/dL (0.55-1.3); POTASSIUM 4.8 mmol/L (3.5-5.1)
[2019-01-28] MEDS: AZITHROMYCIN IVPB 250 MG in DEXTROSE 5%-WATER - 250 ML IVPB SCH (10:22)
--- NOTE | 2019-01-28 12:23 | PN ---
Progress Note (short form) - Note Progress Note: PULMONARY CONSULTATION DICTATED 01/28/19 IMP COPD EXACERBATION ADVANCED COPD O2 DEPENDENT HTN ASHD CKD SMOKER PLAN IV STEROIDS INHALED BRONCHODILATORS ABX NASAL O2 NICODERM PATCH SMOKING CESSATION COUNSELED MONITOR LYTES,RENAL FUNCTION ZITHROMAX 250 MG PO TIW ANTI-INFLAMMATORY YEARLY LOW DOSE CHEST CT FOR LUNG CANCER SCREENING DR MCLEAN Problem List - Problems (1) Acute chronic obstructive pulmonary disease with respiratory distress Code(s): J44.9 - CHRONIC OBSTRUCTIVE PULMONARY DISEASE, UNSPECIFIED; R06.03 - ACUTE RESPIRATORY DISTRESS (2) Shortness of breath Code(s): R06.02 - SHORTNESS OF BREATH (3) Wheezing Code(s): R06.2 - WHEEZING (4) Hypertension Code(s): I10 - ESSENTIAL (PRIMARY) HYPERTENSION Qualifiers: Hypertension type: unspecified Qualified Code(s): I10 - Essential (primary ) hypertension (5) CKD (chronic kidney disease) Code(s): N18.9 - CHRONIC KIDNEY DISEASE, UNSPECIFIED (6) Hyperlipidemia Code(s): E78.5 - HYPERLIPIDEMIA, UNSPECIFIED (7) SOB (shortness of breath) Code(s): R06.02 - SHORTNESS OF BREATH (8) Chronic hypoxemic respiratory failure Code(s): J96.11 - CHRONIC RESPIRATORY FAILURE WITH HYPOXIA (9) COPD exacerbation Code(s): J44.1 - CHRONIC OBSTRUCTIVE PULMONARY DISEASE W (ACUTE) EXACERBATION (10) Tobacco abuse Code(s): Z72.0 - TOBACCO USE (11) Tobacco abuse counseling Code(s): Z71.6 - TOBACCO ABUSE COUNSELING
--- NOTE | 2019-01-28 13:18 | CONS ---
DATE OF CONSULTATION: 01/28/2019 REFERRING PHYSICIAN: Melissa Crowell M.D. HISTORY OF PRESENT ILLNESS: Patient is a 63-year-old male past medical history, there is history of advanced COPD currently on home O2, 2.5 L since September 2017. Long standing history of tobacco use, currently still smoking a couple of cigarettes daily, hypertension, chronic kidney disease, ASHD, CHF, history of chronic back pain, history of vertebroplasty in August 2018; admitted to [facility] with the complaint of 1-week history increasing shortness of breath, dyspnea on exertion and cough productive of clear occasional darkish sputum. Patient denied any fevers, chills, nausea, vomiting or diaphoresis. He states that he started developing the above symptoms and started taking prednisone taper, which did not offer significant improvement at which time he presented to the emergency room. In the ER he was treated with inhaled steroids and bronchodilators and transferred up to the Medical Floor for further management. There is no history of respiratory failure in the past. He denies any history of DVT or PE in the past. There is no history of recent travel. PAST MEDICAL HISTORY: COPD on home O2, hypertension, hyperlipidemia, anxiety, history of vertebroplasty, CHF, ASHD, chronic kidney disease. REVIEW OF SYSTEMS: Positive dyspnea on exertion, positive cough, positive chest congestion. No fever, no chills, no weight loss, no night sweats, no hemoptysis, no abdominal pain, no lower extremity edema. MEDICATIONS: Current medications include Solu-Medrol 40 every 6 hours, Zithromax, heparin, Xanax, albuterol, DuoNeb, MiraLAX, Norvasc, Lipitor, Novolog, Lasix, aspirin, Protonix. PHYSICAL EXAMINATION: General: On physical examination, patient is a well-developed, well-nourished male awake, alert, currently in no acute distress. Vitals: He is currently afebrile. Blood pressure is 148/82, respiratory rate is 18, O2 saturation is 95% on 2 L nasal cannula. HEENT: Normocephalic, atraumatic. Neck: Supple. Heart: Regular with S1, S2. Chest: Bibasilar crackles with a few scattered bilateral wheezes. Abdomen: Soft, bowel sounds positive. Extremities: No cyanosis or edema. LABORATORY STUDIES: Chest x-ray reveals no infiltrates, no effusions. WBC 7.0, hemoglobin 10.5, hematocrit 31.7, platelet count of 282,000. BUN 35, creatinine 1.6. IMPRESSION: 1. Dyspnea secondary to chronic obstructive pulmonary disease with acute exacerbation. 2. Advanced chronic obstructive pulmonary disease O2 dependent. 3. Hypertension. 4. History of congestive heart failure. 5. Chronic kidney disease. 6. Arteriosclerotic heart disease. PLAN: IV steroids, inhaled bronchodilators, supplemental O2, NicoDerm Patch, antibiotics. Also consider long-term Zithromax 250 mg t.i.w. as an anti-inflammatory. Yearly low-dose chest CT. SPENCER MCLEAN M.D. [id number]
[2019-01-28] MEDS: NICOTINE 14 MG/24 HOURS TOPICAL PATCH TD SCH (14:51)
[2019-01-28] MEDS ORDERED: INSULIN (NOVOLOG) ASPART 100 UNITS/ML 10ML VIAL ONE (21:08)
[2019-01-28] MEDS: MONTELUKAST NA 10 MG TABLET PO SCH (21:28)
[2019-01-28] MEDS: ATORVASTATIN CA 80 MG TABLET (FP) PO SCH (21:28)
[2019-01-29] MEDS: methylPREDNISolone NA SUCC 40 MG/1 ML VIAL IVPUSH SCH ×2 (02:59→10:00)
[2019-01-29] MEDS: HEPARIN NA (PORCINE) 5,000 UNITS/ML 1ML VIAL SQ SCH ×3 (06:51→22:22)
[2019-01-29] MEDS: INSULIN SLIDING SCALE (NOVOLOG) 1 VIAL SQ SCH ×4 (07:05→22:22)
[2019-01-29] MEDS: ALBUTEROL SO4 2.5/IPRATROPIUM 0.5 INH SOL 3 ML VIAL.NEB. NEB SCH ×4 (07:20→19:55)
[2019-01-29] MEDS ORDERED: predniSONE 20 MG TABLET (UD) PO ONE (09:24)
[2019-01-29] MEDS: PANTOPRAZOLE 40 MG TABLET (FP) PO SCH (10:19)
[2019-01-29] MEDS: ALPRAZolam 0.25 MG TABLET PO SCH ×2 (10:19→22:22)
[2019-01-29] MEDS: FUROSEMIDE 40 MG TABLET (FP) PO SCH (10:19)
[2019-01-29] MEDS: NICOTINE 14 MG/24 HOURS TOPICAL PATCH TD SCH (10:20)
[2019-01-29] MEDS: AZITHROMYCIN IVPB 250 MG in DEXTROSE 5%-WATER - 250 ML IVPB SCH (10:20)
[2019-01-29] MEDS: amLODIPine BESYLATE 5 MG TABLET (FP) PO SCH (10:20)
[2019-01-29] MEDS: ASPIRIN 81 MG CHEWABLE TABLETS PO SCH (10:20)
--- NOTE | 2019-01-29 10:52 | PN ---
Physical Exam: SUBJECTIVE: Patient seen and examined at bedside- no acute events overnight patient states his breathing is much improved and that he feels he is almost back at his baseline and is no longer having a cough; denies CP/N/V fevers or chills OBJECTIVE: Vital Signs Period Temp Pulse Resp BP Sys/Rendon Pulse Ox Last 24 Hr 98.3 F-98.8 F 74-104 18-18 140-153/76-90 97 GENERAL: The patient is awake, alert, and fully oriented, in no acute distress. EYES: PEERLA EOMI no scleral icterus NECK: no JVD; no lymphadenopathy LUNGS: good air entry slight expiratory wheezes B/L; no rales, rhonchi or crackles HEART: Regular rate and rhythm, S1, S2 without murmur, rub or gallop. ABDOMEN: Soft, nontender, nondistended, normoactive bowel sounds, no guarding, no rebound, no hepatosplenomegaly, no masses. EXTREMITIES: 2+ pulses, warm, well-perfused, no edema. . PSYCH: Normal mood, normal affect. SKIN: Warm, dry, normal turgor, no rashes or lesions noted Laboratory Results - last 24 hr 01/28/19 01/28/19 01/28/19 11:55 16:33 21:24 POC Glucometer 173 248 160 01/29/19 06:50 POC Glucometer 147 Active Medications Generic Name Dose Route Start Last Admin Trade Name Freq PRN Reason Stop Dose Admin Albuterol Sulfate 1 amp 01/27/19 17:49 Ventolin 0.083% Nebulizer Soln - NEB RQ4H PRN SHORTNESS OF BREATH Albuterol/Ipratropium 1 amp 01/27/19 20:00 01/29/19 07:20 Duoneb - NEB 1 amp RQID EFRAÍN Administration Alprazolam 0.5 mg 01/27/19 22:00 01/29/19 10:19 Xanax - PO 0.5 mg BID EFRAÍN Administration Amlodipine Besylate 5 mg 01/28/19 10:00 01/29/19 10:20 Norvasc - PO 5 mg DAILY EFRAÍN Administration Aspirin 81 mg 01/28/19 10:00 01/29/19 10:20 Asa - PO 81 mg DAILY EFRAÍN Administration Atorvastatin Calcium 80 mg 01/27/19 22:00 01/28/19 21:28 Lipitor - PO 80 mg HS EFRAÍN Administration Furosemide 40 mg 01/28/19 10:00 01/29/19 10:19 Lasix - PO 40 mg DAILY EFRAÍN Administration Heparin Sodium (Porcine) 5,000 unit 01/27/19 22:00 01/29/19 06:51 Heparin - SQ 5,000 unit TID EFRAÍN Administration Azithromycin 250 mg/ Dextrose 250 mls @ 250 mls/hr 01/28/19 10:00 01/29/19 10 :20 IVPB 250 mls/hr DAILY EFRAÍN Administration Insulin Aspart 1 vial 01/27/19 22:00 01/29/19 07:05 Novolog Vial Sliding Scale - SQ Not Given ACHS EFRAÍN Protocol Montelukast Sodium 10 mg 01/27/19 22:00 01/28/19 21:28 Singulair - PO 10 mg HS EFRAÍN Administration Nicotine 14 mg 01/28/19 12:30 01/29/19 10:20 Nicoderm Patch - TD 14 mg DAILY EFRAÍN Administration Pantoprazole Sodium 40 mg 01/28/19 10:00 01/29/19 10:19 Protonix - PO 40 mg DAILY EFRAÍN Administration Polyethylene Glycol 17 gm 01/27/19 17:56 Miralax (For Daily Use) - PO Q12H PRN CONSTIPATION Prednisone 40 mg 01/30/19 10:00 Deltasone - PO DAILY [facility] ASSESSMENT/PLAN: 63 y/o male with PMH of CAD, CHF, COPD (on home o2 2L), CKD, HTN, HLD, DM who presented to the ER with a 5 day history of of worsening shortness of breath with productive cough #COPD Exacerbation patients symptoms are improved almost back to baseline -Prednisone 60mg today then start 40mg tomorrow -c/w montelukast -azithromycin day 2 -duonebs and albuterol PRN -pulm consulted -nocotine patch in place #HTN c/w norvasc 5daily #CAD c/w ASA, statin #CHF not currently volume overloaded c/w lasix 40 daily #DM ISS BGMS ACHS #HLD c/w lipitor 80 daily F/E/N not on fluids monitor electroltes diabetic/sodium controlled diet dvt PPX: heparin SQ Problem List - Problems (1) Acute chronic obstructive pulmonary disease with respiratory distress Code(s): J44.9 - CHRONIC OBSTRUCTIVE PULMONARY DISEASE, UNSPECIFIED; R06.03 - ACUTE RESPIRATORY DISTRESS (2) COPD exacerbation Code(s): J44.1 - CHRONIC OBSTRUCTIVE PULMONARY DISEASE W (ACUTE) EXACERBATION (3) Shortness of breath Code(s): R06.02 - SHORTNESS OF BREATH (4) Hypertension Code(s): I10 - ESSENTIAL (PRIMARY) HYPERTENSION Qualifiers: Hypertension type: unspecified Qualified Code(s): I10 - Essential (primary ) hypertension (5) CKD (chronic kidney disease) Code(s): N18.9 - CHRONIC KIDNEY DISEASE, UNSPECIFIED (6) Hyperlipidemia Code(s): E78.5 - HYPERLIPIDEMIA, UNSPECIFIED Visit type - Emergency Visit Emergency Visit: Yes ED Registration Date: 01/27/19 Care time: The patient presented to the Emergency Department on the above date and was hospitalized for further evaluation of their emergent condition. - New Patient This patient is new to me today: Yes Date on this admission: 01/29/19 - Critical Care Critical Care patient: No
--- NOTE | 2019-01-29 12:08 | PN ---
Teaching Attending Note Name of Resident: Kylee Fraser ATTENDING PHYSICIAN STATEMENT I saw and evaluated the patient. I reviewed the resident's note and discussed the case with the resident. I agree with the resident's findings and plan as documented. SUBJECTIVE: Breathing improved. Less SOB. Cough improving. No hemoptysis. No fever/chills. OBJECTIVE: Afebrile, Hemodynamically Stable. Last Vital Signs Temp Pulse Resp BP Pulse Ox 98.4 F 74 18 146/79 97 01/29/19 05:00 01/29/19 05:00 01/28/19 23:00 01/29/19 05:00 01/28/19 21:00 HEENT - Atraumatic, Normocephalic. O2 via NC Heart - S1, S2, RRR Lungs - mildly reduced air entry with some occassional wheeze bilaterally Abdomen- soft, non-tender. Bowel Sounds normal Extremities - no calf tenderness. Laboratory Results - last 24 hr 01/28/19 01/28/19 01/29/19 16:33 21:24 06:50 POC Glucometer 248 160 147 01/29/19 11:50 POC Glucometer 235 Current Medications Generic Name Dose Route Start Last Admin Trade Name Freq PRN Reason Stop Dose Admin Albuterol Sulfate 1 amp 01/27/19 17:49 Ventolin 0.083% Nebulizer Soln - NEB RQ4H PRN SHORTNESS OF BREATH Albuterol/Ipratropium 1 amp 01/27/19 20:00 01/29/19 11:07 Duoneb - NEB 1 amp RQID EFRAÍN Administration Alprazolam 0.5 mg 01/27/19 22:00 01/29/19 10:19 Xanax - PO 0.5 mg BID EFRAÍN Administration Amlodipine Besylate 5 mg 01/28/19 10:00 01/29/19 10:20 Norvasc - PO 5 mg DAILY EFRAÍN Administration Aspirin 81 mg 01/28/19 10:00 01/29/19 10:20 Asa - PO 81 mg DAILY EFRAÍN Administration Atorvastatin Calcium 80 mg 01/27/19 22:00 01/28/19 21:28 Lipitor - PO 80 mg HS EFRAÍN Administration Furosemide 40 mg 01/28/19 10:00 01/29/19 10:19 Lasix - PO 40 mg DAILY EFRAÍN Administration Heparin Sodium (Porcine) 5,000 unit 01/27/19 22:00 01/29/19 06:51 Heparin - SQ 5,000 unit TID EFRAÍN Administration Azithromycin 250 mg/ Dextrose 250 mls @ 250 mls/hr 01/28/19 10:00 01/29/19 10 :20 IVPB 250 mls/hr DAILY EFRAÍN Administration Insulin Aspart 1 vial 01/27/19 22:00 01/29/19 11:54 Novolog Vial Sliding Scale - SQ 2 unit ACHS EFRAÍN Administration Protocol Montelukast Sodium 10 mg 01/27/19 22:00 01/28/19 21:28 Singulair - PO 10 mg HS EFRAÍN Administration Nicotine 14 mg 01/28/19 12:30 01/29/19 10:20 Nicoderm Patch - TD 14 mg DAILY EFRAÍN Administration Pantoprazole Sodium 40 mg 01/28/19 10:00 01/29/19 10:19 Protonix - PO 40 mg DAILY EFRAÍN Administration Polyethylene Glycol 17 gm 01/27/19 17:56 Miralax (For Daily Use) - PO Q12H PRN CONSTIPATION Prednisone 40 mg 01/30/19 10:00 Deltasone - PO DAILY EFRAÍN ASSESSMENT AND PLAN: 63 year old male with Chronic Systolic/Diastolic CHF and CRF sec to COPD on 2L home O2 via NC, Anxiety, presented with sudden onset of SOB which was reported as CP in the ER. 1. Acute on chronic Hypoxic respiratory Failure secondary to Acute COPD exacerbation - Improving Will transition from IV Solumedrol to oral Lasix - 60mg now and 40mg daily from tomorrow. Cont Azithromycin - day 3 Continue Bronchodilator Nebs Pulmonary following. 2. CKD 3 - Creat 1.6 - at baseline 3. Chronic Systolic/Diastolic CHF - stable. No sign of decompensation. Unclear reason or prior work-up for CHF - Stress Echo suggested by Cardiology 06/16 - unclear whether this was done - for Cardiology follow up on discharge. Continue Lasix. 4. HTN - Continue Norvasc. 5. HLD - Continue Statin 6. Active Smoker - counselled - continue Nicotine patch. DVT Px - Heparin SQ.
--- NOTE | 2019-01-29 14:27 | PN ---
Progress Note, Physician History of Present Illness: PULMONARY ALERT,FEELING BETTER,LESS DYSPNEIC - Current Medication List Current Medications: Active Medications Albuterol Sulfate (Ventolin 0.083% Nebulizer Soln -) 1 amp NEB RQ4H PRN PRN Reason: SHORTNESS OF BREATH Albuterol/Ipratropium (Duoneb -) 1 amp NEB RQID [facility] Last Admin: 01/29/19 11:07 Dose: 1 amp Alprazolam (Xanax -) 0.5 mg PO BID [facility] Last Admin: 01/29/19 10:19 Dose: 0.5 mg Amlodipine Besylate (Norvasc -) 5 mg PO DAILY [facility] Last Admin: 01/29/19 10:20 Dose: 5 mg Aspirin (Asa -) 81 mg PO DAILY [facility] Last Admin: 01/29/19 10:20 Dose: 81 mg Atorvastatin Calcium (Lipitor -) 80 mg PO HS [facility] Last Admin: 01/28/19 21:28 Dose: 80 mg Furosemide (Lasix -) 40 mg PO DAILY [facility] Last Admin: 01/29/19 10:19 Dose: 40 mg Heparin Sodium (Porcine) (Heparin -) 5,000 unit SQ TID [facility] Last Admin: 01/29/19 14:07 Dose: 5,000 unit Azithromycin 250 mg/ Dextrose 250 mls @ 250 mls/hr IVPB DAILY [facility] Last Admin: 01/29/19 10:20 Dose: 250 mls/hr Insulin Aspart (Novolog Vial Sliding Scale -) 1 vial SQ ACHS [facility]; Protocol Last Admin: 01/29/19 11:54 Dose: 2 unit Montelukast Sodium (Singulair -) 10 mg PO HS [facility] Last Admin: 01/28/19 21:28 Dose: 10 mg Nicotine (Nicoderm Patch -) 14 mg TD DAILY [facility] Last Admin: 01/29/19 10:20 Dose: 14 mg Pantoprazole Sodium (Protonix -) 40 mg PO DAILY [facility] Last Admin: 01/29/19 10:19 Dose: 40 mg Polyethylene Glycol (Miralax (For Daily Use) -) 17 gm PO Q12H PRN PRN Reason: CONSTIPATION Prednisone (Deltasone -) 40 mg PO DAILY [facility] - Objective Vital Signs: Vital Signs Temperature 98.2 F 01/29/19 10:00 Pulse Rate 88 01/29/19 10:00 Respiratory Rate 18 01/29/19 10:00 Blood Pressure 142/81 01/29/19 10:00 O2 Sat by Pulse Oximetry (%) 98 01/29/19 09:00 Constitutional: Yes: Well Nourished, Calm Eyes: Yes: WNL HENT: Yes: WNL Neck: Yes: WNL Cardiovascular: Yes: Regular Rate and Rhythm, S1, S2 Respiratory: Yes: Wheezes (SCATTERED WHEEZES) Gastrointestinal: Yes: Normal Bowel Sounds, Soft Extremities: Yes: WNL Edema: No Labs: CBC, BMP 01/27/19 15:00 Problem List - Problems (1) Acute chronic obstructive pulmonary disease with respiratory distress Code(s): J44.9 - CHRONIC OBSTRUCTIVE PULMONARY DISEASE, UNSPECIFIED; R06.03 - ACUTE RESPIRATORY DISTRESS (2) Shortness of breath Code(s): R06.02 - SHORTNESS OF BREATH (3) Wheezing Code(s): R06.2 - WHEEZING (4) Hypertension Code(s): I10 - ESSENTIAL (PRIMARY) HYPERTENSION Qualifiers: Hypertension type: unspecified Qualified Code(s): I10 - Essential (primary ) hypertension (5) CKD (chronic kidney disease) Code(s): N18.9 - CHRONIC KIDNEY DISEASE, UNSPECIFIED (6) Hyperlipidemia Code(s): E78.5 - HYPERLIPIDEMIA, UNSPECIFIED (7) SOB (shortness of breath) Code(s): R06.02 - SHORTNESS OF BREATH (8) Chronic hypoxemic respiratory failure Code(s): J96.11 - CHRONIC RESPIRATORY FAILURE WITH HYPOXIA (9) COPD exacerbation Code(s): J44.1 - CHRONIC OBSTRUCTIVE PULMONARY DISEASE W (ACUTE) EXACERBATION (10) Tobacco abuse Code(s): Z72.0 - TOBACCO USE (11) Tobacco abuse counseling Code(s): Z71.6 - TOBACCO ABUSE COUNSELING Assessment/Plan IMP COPD EXACERBATION ADVANCED COPD O2 DEPENDENT HTN ASHD CKD SMOKER PLAN STEROIDS INHALED BRONCHODILATORS ABX NASAL O2 NICODERM PATCH SMOKING CESSATION COUNSELED MONITOR LYTES,RENAL FUNCTION ZITHROMAX 250 MG PO TIW ANTI-INFLAMMATORY YEARLY LOW DOSE CHEST CT FOR LUNG CANCER SCREENING DR MCLEAN Problem List - Problems (1) Acute chronic obstructive pulmonary disease with respiratory distress Code(s): J44.9 - CHRONIC OBSTRUCTIVE PULMONARY DISEASE, UNSPECIFIED; R06.03 - ACUTE RESPIRATORY DISTRESS (2) Shortness of breath Code(s): R06.02 - SHORTNESS OF BREATH (3) Wheezing Code(s): R06.2 - WHEEZING (4) Hypertension Code(s): I10 - ESSENTIAL (PRIMARY) HYPERTENSION Qualifiers: Hypertension type: unspecified Qualified Code(s): I10 - Essential (primary ) hypertension (5) CKD (chronic kidney disease) Code(s): N18.9 - CHRONIC KIDNEY DISEASE, UNSPECIFIED (6) Hyperlipidemia Code(s): E78.5 - HYPERLIPIDEMIA, UNSPECIFIED (7) SOB (shortness of breath) Code(s): R06.02 - SHORTNESS OF BREATH (8) Chronic hypoxemic respiratory failure Code(s): J96.11 - CHRONIC RESPIRATORY FAILURE WITH HYPOXIA (9) COPD exacerbation Code(s): J44.1 - CHRONIC OBSTRUCTIVE PULMONARY DISEASE W (ACUTE) EXACERBATION (10) Tobacco abuse Code(s): Z72.0 - TOBACCO USE (11) Tobacco abuse counseling Code(s): Z71.6 - TOBACCO ABUSE COUNSELING
--- NOTE | 2019-01-29 15:29 | EKG ---
Test Reason : Blood Pressure : / mmHG Vent. Rate : 112 BPM Atrial Rate : 112 BPM P-R Int : 146 ms QRS Dur : 082 ms QT Int : 322 ms P-R-T Axes : 059 -03 026 degrees QTc Int : 439 ms SINUS TACHYCARDIA NONSPECIFIC T WAVE ABNORMALITY ABNORMAL ECG WHEN COMPARED WITH ECG OF 09-OCT-2018 23:04, COMPARED TO EKG NO SIGNIFICANT CHANGE IS FOUND Confirmed by GWYN CSEPEDES MD ([id number]) on 01/29/2019 3:28:51 PM Referred By: Confirmed By:GWYN CESPEDES MD
[2019-01-29] MEDS: MONTELUKAST NA 10 MG TABLET PO SCH (22:22)
[2019-01-29] MEDS: ATORVASTATIN CA 80 MG TABLET (FP) PO SCH (22:22)
[2019-01-30] MEDS: HEPARIN NA (PORCINE) 5,000 UNITS/ML 1ML VIAL SQ SCH ×2 (06:13→15:22)
[2019-01-30] MEDS: INSULIN SLIDING SCALE (NOVOLOG) 1 VIAL SQ SCH ×2 (06:13→15:21)
[2019-01-30 07:12] LABS: HEMATOCRIT 30.9 % (35.4-49); MCH 27.3 pg (25.7-33.7); MCHC 32.3 g/dl (32.0-35.9); MEAN CELL VOLUME 84.5 fl (80-96); MEAN PLT VOLUME 9.4 fl (7.5-11.1); PLATELET COUNT 249 K/MM3 (134-434); RBC 3.66 M/mm3 (4.00-5.60); WHITE BLOOD COUNT 11.2 K/mm3 (4.0-10.0)
[2019-01-30] MEDS: ALBUTEROL SO4 2.5/IPRATROPIUM 0.5 INH SOL 3 ML VIAL.NEB. NEB SCH ×2 (07:40→11:21)
[2019-01-30 07:46] LABS: CALCIUM 9.3 mg/dL (8.5-10.1); CREATININE 1.8 mg/dL (0.55-1.3); MAGNESIUM 2.8 mg/dL (1.8-2.4); PHOSPHOROUS 4.1 mg/dL (2.5-4.9)
[2019-01-30] MEDS: amLODIPine BESYLATE 5 MG TABLET (FP) PO SCH (09:43)
[2019-01-30] MEDS: PANTOPRAZOLE 40 MG TABLET (FP) PO SCH (09:43)
[2019-01-30] MEDS: ASPIRIN 81 MG CHEWABLE TABLETS PO SCH (09:43)
[2019-01-30] MEDS: FUROSEMIDE 40 MG TABLET (FP) PO SCH (09:44)
[2019-01-30] MEDS: NICOTINE 14 MG/24 HOURS TOPICAL PATCH TD SCH (09:47)
[2019-01-30] MEDS: ALPRAZolam 0.25 MG TABLET PO SCH (09:47)
[2019-01-30] MEDS: AZITHROMYCIN IVPB 250 MG in DEXTROSE 5%-WATER - 250 ML IVPB SCH (09:48)
[2019-01-30] MEDS ORDERED: predniSONE 20 MG TABLET (UD) PO SCH ×2 (10:00)
--- NOTE | 2019-01-30 11:00 | PN ---
Progress Note (short form) - Note Progress Note: PULMONARY States breathing is improving, close to baseline. Minimal cough. No fevers or chills. Vital Signs Period Temp Pulse Resp BP Sys/Rendon Pulse Ox Last 24 Hr 97.9 F-98.7 F 72-96 19-20 129-148/78-84 98 Gen: NAD in chair Heart: RRR Lung: decreased breath sounds at the bases Abd: soft, nontender Ext: distal edema CBC, BMP 01/30/19 05:15 01/30/19 05:15 Active Medications Albuterol Sulfate (Ventolin 0.083% Nebulizer Soln -) 1 amp NEB RQ4H PRN PRN Reason: SHORTNESS OF BREATH Albuterol/Ipratropium (Duoneb -) 1 amp NEB RQID [facility] Last Admin: 01/30/19 07:40 Dose: 1 amp Alprazolam (Xanax -) 0.5 mg PO BID [facility] Last Admin: 01/30/19 09:47 Dose: 0.5 mg Amlodipine Besylate (Norvasc -) 5 mg PO DAILY [facility] Last Admin: 01/30/19 09:43 Dose: 5 mg Aspirin (Asa -) 81 mg PO DAILY [facility] Last Admin: 01/30/19 09:43 Dose: 81 mg Atorvastatin Calcium (Lipitor -) 80 mg PO HS [facility] Last Admin: 01/29/19 22:22 Dose: 80 mg Furosemide (Lasix -) 40 mg PO DAILY [facility] Last Admin: 01/30/19 09:44 Dose: 40 mg Heparin Sodium (Porcine) (Heparin -) 5,000 unit SQ TID [facility] Last Admin: 01/30/19 06:13 Dose: 5,000 unit Azithromycin 250 mg/ Dextrose 250 mls @ 250 mls/hr IVPB DAILY [facility] Last Admin: 01/30/19 09:48 Dose: 250 mls/hr Insulin Aspart (Novolog Vial Sliding Scale -) 1 vial SQ ACHS [facility]; Protocol Last Admin: 01/30/19 06:13 Dose: 1 unit Montelukast Sodium (Singulair -) 10 mg PO HS [facility] Last Admin: 01/29/19 22:22 Dose: 10 mg Nicotine (Nicoderm Patch -) 14 mg TD DAILY [facility] Last Admin: 01/30/19 09:47 Dose: 14 mg Pantoprazole Sodium (Protonix -) 40 mg PO DAILY [facility] Last Admin: 01/30/19 09:43 Dose: 40 mg Polyethylene Glycol (Miralax (For Daily Use) -) 17 gm PO Q12H PRN PRN Reason: CONSTIPATION Prednisone (Deltasone -) 60 mg PO DAILY [facility] Last Admin: 01/30/19 09:45 Dose: 60 mg A/P Acute COPD Exacerbation Chronic Hypoxic Respiratory Failure CAD CKD HTN Smoker - prednisone taper as outpt - inhaled bronchodilators - O2 to keep SpO2 >90% - azithromycin - smoking cessation - outpt CT chest screening - can be discharged home from pulmonary standpoint
--- NOTE | 2019-01-30 15:48 | DS ---
Physical Exam: SUBJECTIVE: Patient seen and examined OBJECTIVE: Vital Signs Period Temp Pulse Resp BP Sys/Rendon Pulse Ox Last 24 Hr 97.9 F-98.7 F 72-96 19-20 129-148/78-84 98 PHYSICAL EXAM GENERAL: The patient is awake, alert, and fully oriented, in no acute distress. HEAD: Normal with no signs of trauma. EYES: PERRL, extraocular movements intact, sclera anicteric, conjunctiva clear. ENT: Ears normal, nares patent, oropharynx clear without exudates, moist mucous membranes. NECK: Trachea midline, full range of motion, supple. LUNGS: Breath sounds equal, clear to auscultation bilaterally, no wheezes, no crackles, no accessory muscle use. HEART: Regular rate and rhythm, S1, S2 without murmur, rub or gallop. ABDOMEN: Soft, nontender, nondistended, normoactive bowel sounds, no guarding, no rebound, no hepatosplenomegaly, no masses. EXTREMITIES: 2+ pulses, warm, well-perfused, no edema. NEUROLOGICAL: Cranial nerves II through XII grossly intact. Normal speech, gait not observed. PSYCH: Normal mood, normal affect. SKIN: Warm, dry, normal turgor, no rashes or lesions noted. LABS Laboratory Results - last 24 hr 01/29/19 01/29/19 01/30/19 16:11 22:21 05:15 WBC 11.2 H RBC 3.66 L Hgb 10.0 L Hct 30.9 L MCV 84.5 MCH 27.3 MCHC 32.3 RDW 15.0 Plt Count 249 MPV 9.4 Sodium Potassium Chloride Carbon Dioxide Anion Gap BUN Creatinine Est GFR (CKD-EPI)AfAm Est GFR (CKD-EPI)NonAf POC Glucometer 167 154 Random Glucose Calcium Phosphorus Magnesium 01/30/19 01/30/19 01/30/19 05:15 06:12 11:54 WBC RBC Hgb Hct MCV MCH MCHC RDW Plt Count MPV Sodium 139 Potassium 4.0 Chloride 101 Carbon Dioxide 29 Anion Gap 8 BUN 54 H Creatinine 1.8 H Est GFR (CKD-EPI)AfAm 45.73 Est GFR (CKD-EPI)NonAf 39.46 POC Glucometer 154 135 Random Glucose 164 H Calcium 9.3 Phosphorus 4.1 Magnesium 2.8 H HOSPITAL COURSE: Date of Admission:01/27/19 Date of Discharge: 01/30/19 Discharge Summary Reason For Visit: ACUTE EXACERBATION OF COPD Current Active Problems Tobacco abuse (Acute) Hypertension (Chronic) Condition: Improved - Instructions Diet, Activity, Other Instructions: You were seen in the hospital for complaints of shortness of breath. You were found to have an acute COPD exacerbation and given antibiotics and steroids. Additionally, you were seen by the sql architect. Throughout your hospital stay , your symptoms improved. You are being discharged home. MEDICAL RECOMMENDATIONS Please take the following tapered dose: Prednisone 60 mg once a day for 3 days from 01/31-02/02. Then, 50 mg once a day for 3 days from 02/03-02/05. 40 mg once a day for 3 days from 02/06-02/08. 30 mg once a day for 3 days from 02/09-02/11. 20 mg once a day for 3 days from 02/12-02/14. 10 mg once a day for 3 days from 02/15-02/17. Please also take Azithromycin 250 mg 3 times a week (Wednesday, Wednesday, and Wednesday) for 1 month. You may start taking this medication this Wednesday, February 01. Your last dose will be on March 03. You will need to see your lung doctor during this time for any medication adjustments. You may continue taking the rest of your home medications as prescribed. Continue to use oxygen to maintain to support oxygen level >90% FOLLOW UP Please follow up with your PCP, Dr. Mell Hernandez within 1 week. Please follow up with your sql architect, Dr. Yip within 1 week. You will need to have a CT scan of your chest during your outpatient follow up. If you experience worsening shortness of breath, chest pain, difficulty breathing, or other associated symptoms, please proceed to your nearest emergency room immediately. Referrals: Mell Hernandez MD [Primary Care Provider] - 1 Week Leonid Yip MD [Staff Physician] - 1 Week Disposition: HOME - Home Medications Comprehensive Discharge Medication List: Ambulatory Orders Albuterol Sulfate [Ventolin -] 2 mg PO PRN 08/10/16 Tiotropium [place] [Spiriva] 1 inh PO DAILY 08/10/16 Mometasone Furoate [Asmanex Hfa] 1 puff IH BID 11/29/16 Alprazolam [Xanax] 0.5 mg PO BID 12/03/16 Aspirin [ASA -] 81 mg PO DAILY #30 tab 12/07/16 Atorvastatin Ca [Lipitor] 80 mg PO HS #30 tablet 12/07/16 Montelukast Na [Singulair -] 10 mg PO HS #30 tablet 10/23/17 Famotidine [Pepcid -] 20 mg PO BID #14 tablet 02/25/18 Amlodipine Besylate [Norvasc -] 5 mg PO DAILY #30 tablet 10/10/18 Furosemide 40 mg PO DAILY 01/27/19 Polyethylene Glycol 3350 [Miralax 255 gm Btl -] 17 gm PO BID PRN 01/27/19 Azithromycin 250 mg PO Q48H #11 tablet 01/30/19 predniSONE [Deltasone -] See Taper PO ASDIR #63 tablet 01/30/19 - Discharge Referral [facility]erred to [facility] No
[2019-01-30 16:12] VITALS: BP 133/79; PULSE 84; TEMP 98.4
--- NOTE | 2019-01-30 16:27 | PN ---
Teaching Attending Note Name of Resident: Nancy Martinez ATTENDING PHYSICIAN STATEMENT I saw and evaluated the patient. I reviewed the resident's note and discussed the case with the resident. I agree with the resident's findings and plan as documented. SUBJECTIVE:asymptomatic. breathing improved. denies CP, SOB, fever, chills, cough, N/V/C/D OBJECTIVE: Last Vital Signs Temp Pulse Resp BP Pulse Ox 98.4 F 84 20 133/79 99 01/30/19 14:00 01/30/19 14:00 01/30/19 14:00 01/30/19 14:00 01/30/19 09:00 General NAD CV S1 S2 RRR no murmur/rub/gallop Lungs CTA B/L no wheezing/rales/rhonchi ASSESSMENT AND PLAN: 63yo M with PMH CAD, CHF and COPD on home o2 2L NC presented to the ER with sudden onset of SOB which was reported as CP in the ER 1. acute COPD exacerbation-clinically improved. switched to prednsione po. taper per pulmonary. [facility] abx use. azithro MWF. home O2 to maintain SpO2 > 90%. pulm follow up 2. Acute on chronic Hypoxic respiratory failure-improved. down to home dose of 2L NC 3. CKD- at baseline 4. CHF- no signs of volume overload. 5. HTN- controlled. cont home medication 6. dyslpidemia- statin 7. DVT ppx- hep sq 8. d/c home
== END 2019-01-30 16:24 | disposition home or self-care (01) | DRG 190 ==
LOC: JER 14:17 → J6S 17:54
PROVIDERS: ADMIT Internal Medicine; ATTEND Internal Medicine
DX: J44.1 Chronic obstructive pulmonary disease with (acute) exacerbation (principal); J96.21 Acute and chronic respiratory failure with hypoxia; I13.0 Hypertensive heart and chronic kidney disease with heart failure and stage 1 through stage 4 chronic kidney disease, or unspecified chronic kidney disease; I50.42 Chronic combined systolic (congestive) and diastolic (congestive) heart failure; F41.9 Anxiety disorder, unspecified; E78.5 Hyperlipidemia, unspecified; R73.9 Hyperglycemia, unspecified; I25.10 Atherosclerotic heart disease of native coronary artery without angina pectoris; Z99.81 Dependence on supplemental oxygen; N18.3 Chronic kidney disease, stage 3 (moderate)
CPT/HCPCS: 36415; 71045-TC-FY; 80048; 80053; 82962; 83735; 84100; 85025; 85027; 93005; 93010; 94640; 99283-25; J1644

== ENCOUNTER 2019-03-06 19:00 | Emergency (ER) | payer OTHER ==
[2019-03-06 19:06] VITALS: BMI 28.0
--- NOTE | 2019-03-06 19:06 | PDOC ---
Rapid Medical Evaluation Time Seen by Provider: 03/06/19 19:03 Medical Evaluation: Allergies Allergy/AdvReac Type Severity Reaction Status Date / Time No Known Allergies Allergy Verified 10/09/18 20:19 03/06/19 19:03 This patient had a brief in-person evaluation by me. cc: swelling of both lower legs x 3-4 days. States supposed to be taking furosemide tid but only taking once a day because he urinates too much PE: unlabored breathing, portable oxygen with nasal cannula bipedal pitting edema Orders: labs, chest xray This patient will proceed to Ed for further evaluation Discharge Disposition - Diagnosis Pedal edema - Referrals - Patient Instructions - Post Discharge Activity
--- NOTE | 2019-03-06 22:28 | PDOC ---
History of Present Illness - General Chief Complaint: Edema Stated Complaint: SWOLLEN LEGS Time Seen by Provider: 03/06/19 19:03 History Source: Patient Exam Limitations: No Limitations - History of Present Illness Initial Comments: Pt is a 63 yo M, with PMH of HTN, HTD, COPD (home O2 2L), anxiety, multiple back surgeries, and LE edema, who is presenting with complaints of worsened b/l LE edema x1 week. Pt states he is supposed to take his Lasix 80 mg PO in the AM , and 40 mg PO in the PM. Pt states this has made him "pee too much" and so he has only been taking 40 mg PO in the AM x2 weeks. Pt states he has had no productive cough, and his SOB with exertion is at his baseline. Pt states other than the LE edema, he has been "feeling ok" since his last admission. Pt denies any recent fevers/chills, headache, vision changes, syncope, chest pain, palpitations, nausea/vomiting, abdominal pain, urinary symptoms, diarrhea/ constipation. Allergies: NKDA PCP: Dr. Mell Hernandez Cards: [facility] Pulm: Phi/[facility] team Social: Pt smokes ~3 cigarettes per day. Pt denies any alcohol or drug use. Pt denies any recent travel or sick contacts. Surgical: multiple back surgeries. Family: no relevant history. 03/07/19 05:33 Past History - Travel Traveled outside of the country in the last 30 days: No Close contact w/someone who was outside of country & ill: No - Past Medical History Allergies/Adverse Reactions: Allergies Allergy/AdvReac Type Severity Reaction Status Date / Time No Known Allergies Allergy Verified 03/06/19 19:06 Home Medications: Ambulatory Orders Albuterol Sulfate [Ventolin -] 2 mg PO PRN 08/10/16 Tiotropium [place] [Spiriva] 1 inh PO DAILY 08/10/16 Mometasone Furoate [Asmanex Hfa] 1 puff IH BID 11/29/16 Alprazolam [Xanax] 0.5 mg PO BID 12/03/16 Aspirin [ASA -] 81 mg PO DAILY #30 tab 12/07/16 Atorvastatin Ca [Lipitor] 80 mg PO HS #30 tablet 12/07/16 Montelukast Na [Singulair -] 10 mg PO HS #30 tablet 10/23/17 Famotidine [Pepcid -] 20 mg PO BID #14 tablet 02/25/18 Amlodipine Besylate [Norvasc -] 5 mg PO DAILY #30 tablet 10/10/18 Furosemide 40 mg PO DAILY 01/27/19 Polyethylene Glycol 3350 [Miralax 255 gm Btl -] 17 gm PO BID PRN 01/27/19 Azithromycin 250 mg PO Q48H #11 tablet 01/30/19 predniSONE [Deltasone -] See Taper PO ASDIR #63 tablet 01/30/19 Anemia: No Asthma: Yes Cancer: No Cardiac Disorders: No CVA: No COPD: Yes CHF: No Dementia: No Diabetes: No GI Disorders: No Disorders: No HTN: Yes Hypercholesterolemia: Yes Liver Disease: No Seizures: No Thyroid Disease: No Other medical history: oxygen depedant - Surgical History Abdominal Surgery: No Appendectomy: No Cardiac Surgery: No Cholecystectomy: No Gastric Stapling: No GI Surgery: No Lung Surgery: No Neurologic Surgery: No Orthopedic Surgery: No - Immunization History Immunization Up to Date: Yes - Suicide/Smoking/Psychosocial Hx Smoking Status: Yes Smoking History: Current every day smoker Have you smoked in the past 12 months: Yes Number of Cigarettes Smoked Daily: 3 If you are a former smoker, when did you quit?: 08/2016 Information on smoking cessation initiated: Yes 'Breaking Loose' booklet given: 06/27/16 Hx Alcohol Use: No Drug/Substance Use Hx: No Substance Use Type: None Hx Substance Use Treatment: No Review of Systems - Review of Systems Able to Perform ROS?: Yes Is the patient limited Surinamese proficient: No Constitutional: Yes: Weight Stable. No: Chills, Diaphoresis, Fever, Loss of Appetite, Malaise, Weakness HEENTM: No: Blurred Vision, Double Vision, Nose Congestion, Throat Pain, Throat Swelling, Difficulty Swallowing Respiratory: Yes: Shortness of Breath (at baseline, worse with exertion), SOB with Exertion. No: Cough, Orthopnea, SOB at Rest, Productive cough, Hemoptysis Cardiac (ROS): Yes: Edema. No: Chest Pain, Irregular Heart Rate, Lightheadedness, Palpitations, Syncope, Chest Tightness ABD/GI: No: Constipated, Diarrhea, Nausea, Poor Appetite, Poor Fluid Intake, Vomiting : No: Burning, Dysuria, Frequency, Pain, Urgency Musculoskeletal: No: Back Pain, Joint Pain, Joint Swelling, Muscle Weakness Integumentary: No: Rash Neurological: No: Headache, Numbness, Paresthesia, Weakness, Unsteady Gait, Dizziness Psychiatric: No: Sleep Pattern Change, Change in Appetite Endocrine: Yes: Increased Urine (with lasix). No: Change in Weight Hematologic/Lymphatic: No: Anemia, Blood Clots, Easy Bleeding, Easy Bruising All Other Systems: Reviewed and Negative *Physical Exam - Vital Signs Last Vital Signs Temp Pulse Resp BP Pulse Ox 98.5 F 117 H 20 141/93 100 03/06/19 19:03 03/06/19 19:03 03/06/19 19:03 03/06/19 19:03 03/06/19 19:03 - Physical Exam Comments: Tachycardic (117), pt afebrile. Pt in NAD, normal body habitus. Pt alert and oriented x3. 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 No midline spinal tenderness, step-offs, or crepitus. Head normocephalic, atraumatic. Eyes PERRLA, EOMI. Oropharynx without erythema or exudates, no LAD b/l. No nasal congestion, hearing intact. Clear heart sounds, S1/S2, no JVD, or heart murmur. +pitting edema to mid shins , significant edema of b/l feet Mild expiratory wheezing and diminished breath sounds at posterior bases. No accessory muscle use. No abdominal or CVA tenderness to palpation, no rebound, no guarding. Abdomen soft, non-distended, and with normoactive bowel sounds. Skin without jaundice or rash. 03/07/19 00:44 03/07/19 05:28 Vital Signs - Vital Signs #1 Blood Pressure: 138/86 MAP: 103 BP Location: Right Arm Blood Pressure Position: Sitting Pulse Rate: 86 Respiratory Rate: 16 O2 Sat by Pulse Oximetry (%): 98 Oxygen Delivery Method: Nasal Cannula Oxygen Flow Rate: 2 ED Treatment Course - LABORATORY CBC & Chemistry Diagram: 03/06/19 23:40 03/06/19 23:40 Medical Decision Making - Medical Decision Making Pt was seen at bedside, also will be seen by attending Dr. Campbell. Pt presenting with complaints of worsened b/l LE edema x1 week. Pt states he is supposed to take his Lasix 80 mg PO in the AM, and 40 mg PO in the PM. Pt states this has made him "pee too much" and so he has only been taking 40 mg PO in the AM x2 weeks. Pt states he has had no productive cough, and his SOB with exertion is at his baseline. Pt states other than the LE edema, he has been "feeling ok" since his last admission. Pt denies any recent fevers/chills, headache, vision changes, syncope, chest pain, palpitations, nausea/vomiting, abdominal pain, urinary symptoms, diarrhea/constipation. Ordered work-up including CBC, CMP, BNP, cardiac profile, UA. Will eval for significant ACS/HF, electrolyte imbalances. Pt disposition likely to home after diuresis. Provided 40 mg IV lasix and duoneb treatment for improvement of wheezing and LE swelling. Will continue to reassess pt and monitor for symptomatic improvement. ECG: NSR, intervals WNL (HR 98, CT 156, QRS 80, QTc 446). No TWIs or significant ST segment changes. No significant changes from prior ECG (2018). 03/07/19 00:44 CBC and CMP WNL for pt Trop <.02 BNP 60 BP stable and HR improved to 80s. Pt breathing comfortably on home 2L NC. Pt states discomfort improved after diuresis and breathing treatments. Chest x-ray shows no significant infiltrate or consolidation compared to prior imaging. Considering normal lab results and imaging, pt can be discharged to home with follow-up. Pt advised to follow-up with PCP in 1-2 days. Strict return precautions provided with pt understanding. 03/07/19 00:45 03/07/19 05:30 *DC/Admit/Observation/Transfer Diagnosis at time of Disposition: Pedal edema - Discharge Dispostion Disposition: HOME Condition at time of disposition: Improved Decision to Admit order: No - Referrals Referrals: Mell Hernandez MD [Primary Care Provider] - Leonid Yip MD [Staff Physician] - Segundo Mcadams MD [Staff Physician] - - Patient Instructions Printed Discharge Instructions: DI for Peripheral Edema -- Bilateral Additional Instructions: You were seen in the ER today for swelling of your legs. The results of your labs and imaging today were normal for you and at your baseline. Please follow- up with your primary care doctor within 1-2 days to discuss your visit and make sure your symptoms have improved. Please return to the ER if you have any worsening pain, development of fevers or chills, loss of consciousness, inability to tolerate food or fluids, or any other concerns. - Post Discharge Activity
[2019-03-06] MEDS ORDERED: FUROSEMIDE 40 MG/4 ML INJECTABLE VIAL IVPUSH ONE (23:06)
[2019-03-06] MEDS ORDERED: ALBUTEROL SO4 2.5/IPRATROPIUM 0.5 INH SOL 3 ML VIAL.NEB. NEB ONE ×2 (23:07→23:52)
[2019-03-06 23:52] LABS: BASO % 0.7 % (0-2.0); EOS % 0.2 % (0-4.5); EPI CELLS 0.5 /HPF (0-5/HPF); HEMATOCRIT 31.9 % (35.4-49); HEMOGLOBIN 10.9 GM/dL (11.7-16.9); HYALINE CASTS 1 /lpf (0-8); LYMPH % 8.3 % (8-40); MCH 28.7 pg (25.7-33.7); MEAN CELL VOLUME 84.3 fl (80-96); MEAN PLT VOLUME 8.6 fl (7.5-11.1); MONO % 9.1 % (3.8-10.2); NEUT % 81.7 % (42.8-82.8); PH,URINE 5.5 (5.0-8.0); PLATELET COUNT 291 K/MM3 (134-434); RBC 3.78 M/mm3 (4.00-5.60); RDW 14.9 % (11.9-15.9); URINE APPEARANCE CLEAR; URINE BACTERIA 47.1 /hpf (NEGATIVE); URINE BILIRUBIN NEGATIVE (NEGATIVE); URINE COLOR YELLOW; URINE GLUCOSE (UA) NEGATIVE (NEGATIVE); URINE KETONE NEGATIVE (NEGATIVE); URINE LEUK ESTERASE NEGATIVE (NEGATIVE); URINE NITRITE NEGATIVE (NEGATIVE); URINE PROTEIN 2+ (NEGATIVE); URINE RBC 9 /hpf (0-4); URINE UROBILINOGEN 0.2 mg/dL (0.2-1.0); URINE WBC 0 /hpf (0-5); WHITE BLOOD COUNT 7.2 K/mm3 (4.0-10.0)
[2019-03-06] MEDS ORDERED: FUROSEMIDE 40 MG/4 ML INJECTABLE VIAL ONE (23:52)
[2019-03-07 00:02] LABS: INR 1.04 (0.83-1.09); PROTHROMBIN TIME (PATIENT) 12.3 SEC (9.7-13.0)
[2019-03-07 00:16] LABS: BILIRUBIN,TOTAL 0.2 mg/dL (0.2-1); BLOOD UREA NITROGEN 29.5 mg/dL (7-18); CALCIUM 9.4 mg/dL (8.5-10.1); CREATININE 1.5 mg/dL (0.55-1.3); N-TERMINAL BNP 60.2 pg/ml (5-125); PHOSPHOROUS 2.9 mg/dL (2.5-4.9); POTASSIUM 3.5 mmol/L (3.5-5.1); TOT PROT 6.1 g/dl (6.4-8.2)
--- NOTE | 2019-03-07 00:41 | PDOC ---
Documentation entered by Tania Camejo SCRIBE, acting as scribe for Deepti Campbell MD. Deepti Campbell MD: This documentation has been prepared by the Bashir toribio Sammi, SCRIBE, under my direction and personally reviewed by me in its entirety. I confirm that the documentation accurately reflects all work, treatment, procedures, and medical decision making performed by me. Attending Attestation - Resident Resident Name: Mahogany Macedo - ED Attending Attestation I have performed the following: I have examined & evaluated the patient, The case was reviewed & discussed with the resident, I agree w/resident's findings & plan, Exceptions are as noted - HPI HPI: 03/07/19 00:35 63-year-old male with a history of chronic renal insufficiency who has been noncompliant with his Lasix presents with increasing lower extremity edema he stopped taking his Lasix because it made him urinate too often - Physicial Exam PE: 03/07/19 00:36 lert and conversant 63-year-old male presents with significant bilateral lower extremity edema.PMH CKD He also also on supplemental oxygen and states he is always on oxygen at home head ncat neck supple lungs cta b/l cvs [id number] abd nontender extremities +3 pitting edema neuro axox3 - Medical Decision Making 03/07/19 00:39 reviewing his labs shows his potassium is within normal limits pt instructed to be complaint with his medications and followup with his PCP
[2019-03-07 01:09] VITALS: TEMP 98.2
[2019-03-07 05:33] VITALS: BP 138/86; PULSE 86
--- NOTE | 2019-03-07 12:06 | EKG ---
Test Reason : Blood Pressure : / mmHG Vent. Rate : 098 BPM Atrial Rate : 098 BPM P-R Int : 156 ms QRS Dur : 080 ms QT Int : 350 ms P-R-T Axes : 078 028 047 degrees QTc Int : 446 ms NORMAL SINUS RHYTHM SEPTAL INFARCT , AGE UNDETERMINED ABNORMAL ECG WHEN COMPARED WITH ECG OF 27-JAN-2019 17:52, SEPTAL INFARCT IS NOW PRESENT Confirmed by Neymar Calvo ([id number]) on 03/07/2019 12:05:59 PM Referred By: Confirmed By:Neymar Calvo
== END 2019-03-07 01:09 | disposition home or self-care (01) ==
LOC: JER 19:00
PROC: 3E0F7GC Introduction of Other Therapeutic Substance into Respiratory Tract, Via Natural or Artificial Opening (ICD-10-PCS; principal; 2019-03-06)
PROC: 3E033GC Introduction of Other Therapeutic Substance into Peripheral Vein, Percutaneous Approach (ICD-10-PCS; 2019-03-06)
DX: R60.0 Localized edema (principal); J44.9 Chronic obstructive pulmonary disease, unspecified; Z99.81 Dependence on supplemental oxygen; I10 Essential (primary) hypertension; F41.9 Anxiety disorder, unspecified
CPT/HCPCS: 36415; 71045-TC-FY; 80053; 81003; 82550; 83735; 83880; 84100; 84484; 85025; 85610; 93005; 93010; 99282-25

== ENCOUNTER 2019-04-04 11:54 | Emergency (ER) | payer OTHER ==
[2019-04-04 12:04] VITALS: BMI 26.2
--- NOTE | 2019-04-04 13:07 | PDOC ---
History of Present Illness - General Chief Complaint: Injury Stated Complaint: FALL Time Seen by Provider: 04/04/19 12:16 - History of Present Illness Initial Comments: 04/04/19 13:06 CHIEF COMPLAINT: rib pain HISTORY OF PRESENT ILLNESS: 63 yo PMH of HTN, HLD, COPD (home O2 2L), anxiety, multiple back surgeries, and LE edema, presents to [facility] for evaluation of chest discomfort s/p fall three days ago. Patient reports he fell onto his bed "onto my mattress" three days ago and fell onto his right elbow. He states that over the weekend he felt really uncomfortable but his chest discomfort and shortness of breath has improved greatly since then and he "just wants to make sure I didn't fracture my ribs or anything." Patient denies any other new symptoms such as cough, fever, chills, vomiting, diarrhea. No recent travel or sick contacts. PAST MEDICAL HISTORY: HTN, COPD, anxiety, FAMILY HISTORY: Denies SOCIAL HISTORY: Denies tobacco, alcohol, illicit drug use. SURGICAL HISTORY: Denies ALLERGIES: No known drug allergies REVIEW OF SYSTEMS General/Constitutional: Denies fever or chills. Denies weakness, weight change. HEENT: Denies change in vision. Denies ear pain or discharge. Denies sore throat. Cardiovascular: Denies chest pain or shortness of breath. Respiratory: Denies cough, wheezing, or hemoptysis. Gastrointestinal: Denies nausea, vomiting, diarrhea or constipation. Denies rectal bleeding. Genitourinary: Denies dysuria, frequency, or change in urination. Musculoskeletal: "I had muscular pain to my ribs, it's better now." Skin and breasts: Denies rash or easy bruising. Neurologic: Denies headache, vertigo, loss of consciousness, or loss of sensation. PHYSICAL EXAM General Appearance: Well-appearing, appropriately dressed. No apparent distress. HEENT: EOMI, PERRLA, normal ENT inspection, normal voice, TMs normal, pharynx normal. No conjunctival pallor. No photophobia, scleral icterus. Neck: Supple. Trachea midline. No tenderness, rigidity, carotid bruit, stridor , lymphadenopathy, or thyromegaly. Respiratory/Chest: Lungs CTAB. No shortness of breath, chest tenderness, respiratory distress, accessory muscle use. No crackles, rales, rhonchi, stridor , wheezing, dullness Cardiovascular: RRR. S1, S2. Vascular Pulses: Dorsalis-Pedis (R): 2+, Dorsalis-Pedis (L): 2+ Gastrointestinal/Abdominal: Normal bowel sounds. Abdomen soft, non-distended. No tenderness or rebound tenderness. No organomegaly, pulsatile mass, guarding , hernia, hepatomegaly, splenomegaly. Lymphatic: No adenopathy, tenderness. Musculoskeletal/Extremities: Normal inspection. FROM of all extremities, normal capillary refill. Pelvis Stable. No CVA tenderness. No tenderness to extremities, pedal edema, swelling, erythema or deformity. Integumentary: Appropriate color, dry, warm. 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 Fully oriented, alert. Appropriate mood/affect. Motor strength 5/5. No appreciable EOM palsy, facial droop or sensory deficit. 04/04/19 13:07 Past History - Past Medical History Allergies/Adverse Reactions: Allergies Allergy/AdvReac Type Severity Reaction Status Date / Time No Known Allergies Allergy Verified 04/04/19 11:59 Home Medications: Ambulatory Orders Albuterol Sulfate [Ventolin -] 2 mg PO PRN 08/10/16 Tiotropium [place] [Spiriva] 1 inh PO DAILY 08/10/16 Mometasone Furoate [Asmanex Hfa] 1 puff IH BID 11/29/16 Alprazolam [Xanax] 0.5 mg PO BID 12/03/16 Aspirin [ASA -] 81 mg PO DAILY #30 tab 12/07/16 Atorvastatin Ca [Lipitor] 80 mg PO HS #30 tablet 12/07/16 Montelukast Na [Singulair -] 10 mg PO HS #30 tablet 10/23/17 Famotidine [Pepcid -] 20 mg PO BID #14 tablet 02/25/18 Amlodipine Besylate [Norvasc -] 5 mg PO DAILY #30 tablet 10/10/18 Furosemide 40 mg PO DAILY 01/27/19 Polyethylene Glycol 3350 [Miralax 255 gm Btl -] 17 gm PO BID PRN 01/27/19 Azithromycin 250 mg PO Q48H #11 tablet 01/30/19 predniSONE [Deltasone -] See Taper PO ASDIR #63 tablet 01/30/19 Oxycodone HCl/Acetaminophen [Percocet 5-325 mg Tablet] 1 - 2 tab PO BID PRN #12 tab MDD 4 04/04/19 Anemia: No Asthma: Yes Cancer: No Cardiac Disorders: No CVA: No COPD: Yes CHF: No Dementia: No Diabetes: No GI Disorders: No Disorders: No HTN: Yes Hypercholesterolemia: Yes Liver Disease: No Seizures: No Thyroid Disease: No - Surgical History Abdominal Surgery: No Appendectomy: No Cardiac Surgery: No Cholecystectomy: No Gastric Stapling: No GI Surgery: No Lung Surgery: No Neurologic Surgery: No Orthopedic Surgery: No - Immunization History Immunization Up to Date: Yes - Suicide/Smoking/Psychosocial Hx Smoking Status: Yes Smoking History: Current every day smoker Have you smoked in the past 12 months: Yes Number of Cigarettes Smoked Daily: 3 If you are a former smoker, when did you quit?: 08/2016 Information on smoking cessation initiated: No 'Breaking Loose' booklet given: 06/27/16 Hx Alcohol Use: No Drug/Substance Use Hx: No Substance Use Type: None Hx Substance Use Treatment: No *Physical Exam - Vital Signs Last Vital Signs Temp Pulse Resp BP Pulse Ox 98.5 F 107 H 19 116/71 98 04/04/19 12:30 04/04/19 12:30 04/04/19 12:30 04/04/19 12:30 04/04/19 12:30 ED Treatment Course - LABORATORY CBC & Chemistry Diagram: 04/04/19 14:18 - RADIOLOGY Radiology Studies Ordered: Category Date Time Status CHEST PA & LAT [RAD] Stat Radiology 04/04/19 12:30 Completed Medical Decision Making - Medical Decision Making 04/04/19 13:14 63 yo PMH of HTN, COPD (home O2 2L), anxiety, multiple back surgeries, and LE edema, presents to [facility] for evaluation of chest discomfort s/p fall three days ago. -chest x-ray x-ray suggestive of worsening atelectasis to L lung base. Note: Patient was initially triaged to [facility]. After review of the history of present illness and physical examination by Nurse Practitioner, the patient was transfered to the main ED for higher lever of care. The patient is medically stable for transfer, ED attending and charge nurse/main ED nursing staff aware. Given pt's significant PMH, will send to ED for further workup. Case discussed with attending MD Weeks, DOROTA Glaser, and charger Laura. 04/04/19 13:27 *DC/Admit/Observation/Transfer Diagnosis at time of Disposition: Chest wall contusion - Discharge Dispostion Disposition: HOME Condition at time of disposition: Good - Prescriptions Prescriptions: Oxycodone HCl/Acetaminophen [Percocet 5-325 mg Tablet] 1 - 2 tab PO BID PRN #12 tab MDD 4 PRN Reason: Pain - Referrals Referrals: Mell Hernandez MD [Primary Care Provider] - - Patient Instructions Printed Discharge Instructions: DI for Rib Contusion Additional Instructions: Please take percocet as needed for sever pain bur do not operate heavy machinery. If symptoms continues mre than 5 days, please follow up with Dr. Hernandez. - Post Discharge Activity
[2019-04-04 14:33] LABS: BASO % 0.5 % (0-2.0); EOS % 0.1 % (0-4.5); HEMATOCRIT 34.7 % (35.4-49); HEMOGLOBIN 11.5 GM/dL (11.7-16.9); LYMPH % 2.3 % (8-40); MCH 28.9 pg (25.7-33.7); MCHC 33.3 g/dl (32.0-35.9); MEAN CELL VOLUME 86.8 fl (80-96); MEAN PLT VOLUME 9.9 fl (7.5-11.1); MONO % 5.1 % (3.8-10.2); PLATELET COUNT 168 K/MM3 (134-434); RDW 15.2 % (11.9-15.9); WHITE BLOOD COUNT 9.6 K/mm3 (4.0-10.0)
--- NOTE | 2019-04-04 14:41 | PDOC ---
*Physical Exam - Vital Signs Last Vital Signs Temp Pulse Resp BP Pulse Ox 98.5 F 107 H 19 116/71 98 04/04/19 12:30 04/04/19 12:30 04/04/19 12:30 04/04/19 12:30 04/04/19 12:30 <Tyler Weeks - Last Filed: 04/04/19 15:03> - Vital Signs Last Vital Signs Temp Pulse Resp BP Pulse Ox 98.5 F 107 H 19 116/71 98 04/04/19 12:30 04/04/19 12:30 04/04/19 12:30 04/04/19 12:30 04/04/19 12:30 - Physical Exam General Appearance: Yes: Nourished, Appropriately Dressed. No: Apparent Distress Respiratory/Chest: positive: Chest Tender (midsternal at fourth and fifth ribs bilaterally), Lungs Clear, Normal Breath Sounds. negative: Respiratory Distress , Accessory Muscle Use Cardiovascular: positive: Regular Rhythm, Tachycardia. negative: Murmur Gastrointestinal/Abdominal: positive: Soft. negative: Tenderness Extremity: positive: Normal Capillary Refill. negative: Pedal Edema Integumentary: positive: Normal Color, Warm, Moist. negative: Rash Neurologic: positive: Motor Strength 5/5 (ambulatory) <Becki Glaser - Last Filed: 04/04/19 15:36> Heart Score/ECG Review #1 ECG reviewed & interpreted by me at: 13:55 General ECG Interpretation: Sinus Rhythm, Normal Rate (98), Normal Intervals ( qtc 434), No acute ischemic changes <Tyler Weeks - Last Filed: 04/04/19 15:03> ED Treatment Course - LABORATORY CBC & Chemistry Diagram: 04/04/19 14:18 - ADDITIONAL ORDERS Additional order review: Laboratory Results 04/04/19 14:18 Creatine Kinase 159 Troponin I < 0.02 04/04/19 14:18 RBC 4.00 MCV 86.8 MCHC 33.3 RDW 15.2 MPV 9.9 D Neutrophils % 92.0 H Lymphocytes % 2.3 L D Monocytes % 5.1 Eosinophils % 0.1 Basophils % 0.5 <Tyler Weeks - Last Filed: 04/04/19 15:03> - LABORATORY CBC & Chemistry Diagram: 04/04/19 14:18 <Becki Glaser - Last Filed: 04/04/19 15:36> Medical Decision Making - Medical Decision Making 04/04/19 14:22 Patient received in signout from DOROTA Giordano from [facility]. Patient here for evaluation of chest pain which he describes an aching sensation worsened with movement over the past 3 days. Patient states 3 days ago fell onto his bed but landed on his arms causing pressure to his chest and has had pain since then. Patient states pain is worsened at night and last night took Motrin but took approximately 2 hours to fall sleep secondary to pain where he sleeps normally in a recliner on 4 pillows secondary to his COPD. Patient states is oxygen dependent and uses 3 L nasal cannula on a daily basis. Patient denies shortness of breath, palpitations, nausea, or dizziness. Had chest x-ray done from triage which showed worsening atelectasis versus scarring to the left base when compared to chest x-ray done in February 2019. Patient denies worsening shortness of breath cough, or lower extremity edema. Labs reviewed from yesterday which was ordered by his PCP, Dr. Hernandez. No cardiac profile EKG on file Patient ordered for EKG CBC chemistry and cardiac profile. Patient states pain is 1/10 and does not want anything for pain presently 04/04/19 15:32 Laboratory Tests 04/04/19 04/04/19 14:18 14:18 WBC 9.6 Hgb 11.5 L Hct 34.7 L Absolute Neuts (auto) 8.8 H Neutrophils % 92.0 H Neutrophils % (Manual) 91.3 H Lymphocytes % 2.3 L D Lymphocytes % (Manual) 4.8 L Monocytes % (Manual) 3 L Creatine Kinase 159 Troponin I < 0.02 04/04/19 15:32 Pt will be given a few tablets of Percocet for pain at night patient also recommended if symptoms continue despite taking medication to consider further workup including imaging of the chest such as a CAT scan. <eBcki Glaser - Last Filed: 04/04/19 15:36> *DC/Admit/Observation/Transfer <Tyler Weeks - Last Filed: 04/04/19 15:03> <Becki Glaser - Last Filed: 04/04/19 15:36> Diagnosis at time of Disposition: Chest wall contusion - Discharge Dispostion Disposition: HOME Condition at time of disposition: Good - Referrals Referrals: Mell Hernandez MD [Primary Care Provider] - - Patient Instructions Printed Discharge Instructions: DI for Rib Contusion Additional Instructions: Please take percocet as needed for sever pain bur do not operate heavy machinery. If symptoms continues mre than 5 days, please follow up with Dr. Hernandez. - Post Discharge Activity
[2019-04-04 15:03] LABS: ANISOCYTOSIS 0; MACROCYTOSIS 0; PLATELET ESTIMATE NORMAL
[2019-04-04 15:46] VITALS: BP 105/58; PULSE 98; TEMP 98.1
--- NOTE | 2019-04-04 16:02 | EKG ---
Test Reason : Blood Pressure : / mmHG Vent. Rate : 098 BPM Atrial Rate : 098 BPM P-R Int : 152 ms QRS Dur : 078 ms QT Int : 340 ms P-R-T Axes : 052 -13 024 degrees QTc Int : 434 ms NORMAL SINUS RHYTHM LATERAL INFARCT ABNORMAL ECG Confirmed by MD CALLY, PIEDAD ([id number]) on 04/04/2019 4:01:39 PM Referred By: Confirmed By:PIEDAD ALAMO MD
== END 2019-04-04 15:46 | disposition home or self-care (01) ==
LOC: JER 11:54 → JERFT 11:54 → JER 15:46
DX: S20.219A Contusion of unspecified front wall of thorax, initial encounter (principal); W06.XXXA Fall from bed, initial encounter; Y93.89 Activity, other specified; Y92.032 Bedroom in apartment as the place of occurrence of the external cause; Y99.8 Other external cause status; I10 Essential (primary) hypertension; E78.00 Pure hypercholesterolemia, unspecified; J44.9 Chronic obstructive pulmonary disease, unspecified; J45.909 Unspecified asthma, uncomplicated; Z99.81 Dependence on supplemental oxygen
CPT/HCPCS: 36415; 71046-TC-FY; 82550; 82553; 84484; 85025; 93005; 93010; 99283-25

== ENCOUNTER 2019-04-08 15:51 | Inpatient (IN) | payer OTHER ==
--- NOTE | 2019-04-08 16:11 | PDOC ---
History of Present Illness <Christi Meyers - Last Filed: 04/10/19 07:47> - General History Source: Patient, Family Exam Limitations: No Limitations - History of Present Illness Initial Comments: 04/11/19 15:02 63 yo M, with PMH of HTN, HTD, COPD (home O2 3L), anxiety, multiple back surgeries, LE edema and recent fall with L rib contusion seen on 04/04/19 in the ED and discharged with percocet for pain at night, now presents with worsening left sided chest pain that is rated 10/10 intermittent, radiating into the L arm ongoing for 4-5 days associated with some diaphoresis but without nausea, vomiting or lightheadedness. The pain is worse with movement, palpation of the chest wall and with deep breathing. The patient reports he has not had a similar pain prior to his fall. He denies any fever, abdominal pain, dysuria, diarrhea but admits to occasional constipation for several weeks. The patient has no other complaints at bedside. Patient took PCP: Mary Drill Rig Operator: Phi <Nu Gray - Last Filed: 04/11/19 15:04> - General Stated Complaint: CHEST PAIN Time Seen by Provider: 04/08/19 16:10 Past History - Past Medical History Anemia: No Asthma: Yes Cancer: No Cardiac Disorders: No CVA: No COPD: Yes CHF: No Dementia: No Diabetes: No GI Disorders: No Disorders: No HTN: Yes Hypercholesterolemia: Yes Liver Disease: No Seizures: No Thyroid Disease: No - Surgical History Abdominal Surgery: No Appendectomy: No Cardiac Surgery: No Cholecystectomy: No Gastric Stapling: No GI Surgery: No Lung Surgery: No Neurologic Surgery: No Orthopedic Surgery: No - Immunization History Immunization Up to Date: Yes - Suicide/Smoking/Psychosocial Hx Smoking Status: Yes Smoking History: Current every day smoker Have you smoked in the past 12 months: Yes Number of Cigarettes Smoked Daily: 3 If you are a former smoker, when did you quit?: 08/2016 'Breaking Loose' booklet given: 06/27/16 Hx Alcohol Use: No Drug/Substance Use Hx: No Substance Use Type: None Hx Substance Use Treatment: No <Christi Meyers - Last Filed: 04/10/19 07:47> <Nu Gray - Last Filed: 04/11/19 15:04> - Past Medical History Allergies/Adverse Reactions: Allergies Allergy/AdvReac Type Severity Reaction Status Date / Time No Known Allergies Allergy Verified 04/08/19 16:20 Home Medications: Ambulatory Orders Alprazolam [Xanax] 0.5 mg PO TID 12/03/16 Furosemide 40 mg PO BID 01/27/19 Amlodipine Besylate 5 mg PO DAILY 04/08/19 Fluticasone/Umeclidin/Vilanter [Trelegy Ellipta 100-62.5-25] 1 each IH DAILY 06/17 Lisinopril 5 mg PO DAILY 04/08/19 Pantoprazole Sodium 40 mg PO DAILY 04/08/19 Acetaminophen [Tylenol .Regular Strength -] 650 mg PO Q6H PRN tablet 04/09/19 Aspirin Coated [Ecotrin -] 81 mg PO DAILY 30 Days #30 tablet.ec 04/09/19 Furosemide [Lasix -] 80 mg PO BID@0600,1400 tablet 04/09/19 Gabapentin 300 mg PO DAILY 04/09/19 Gabapentin [Neurontin -] 300 mg PO DAILY capsule 04/09/19 Prednisone 10 mg PO DAILY 04/09/19 Review of Systems - Review of Systems Able to Perform ROS?: Yes Comments:: 04/11/19 15:02 ROS GENERAL/CONSTITUTIONAL: No fever or chills. No weakness. HEAD, EYES, EARS, NOSE AND THROAT: No change in vision. No ear pain or discharge. No sore throat. CARDIOVASCULAR: See HPI RESPIRATORY: No cough, wheezing, or hemoptysis. GASTROINTESTINAL: No nausea, vomiting, diarrhea or constipation. GENITOURINARY: No dysuria, frequency, or change in urination. MUSCULOSKELETAL: No joint or muscle swelling or pain. No neck or back pain. SKIN: No rash, no wounds NEUROLOGIC: No headache, vertigo, loss of consciousness, or change in strength/ sensation. <Nu Gray - Last Filed: 04/11/19 15:04> *Physical Exam - Vital Signs Last Vital Signs Temp Pulse Resp BP Pulse Ox 97.5 F L 64 18 131/78 100 04/09/19 06:00 04/09/19 06:00 04/09/19 06:00 04/09/19 06:00 04/08/19 23:00 - Physical Exam Comments: 04/11/19 15:02 PE GENERAL: Awake, alert, and fully oriented, in no acute distress, anxious appearing HEAD: No signs of trauma, normocephalic, atraumatic EYES: EOMI, sclera anicteric, conjunctiva clear ENT: oropharynx clear without exudates. Moist mucosa NECK: Normal ROM, supple LUNGS: No distress, speaks full sentences, decreased breath sounds throughout, occasional inspiratory wheeze HEART: Regular rate and rhythm, normal S1 and S2, no murmurs, rubs or gallops, peripheral pulses normal and equal bilaterally. CHEST: mild tenderness to chest wall, pain not reproducible with arm movement on palapaation ABDOMEN: Soft, nontender, normoactive bowel sounds. No guarding, no rebound. No masses EXTREMITIES : Normal inspection, Normal range of motion, 2+ pitting edema LLE ( baseline), No clubbing or cyanosis. NEUROLOGICAL: Cranial nerves II through XII grossly intact. Normal speech, no focal sensorimotor deficits SKIN: Warm, Dry, normal turgor, no rashes or lesions noted <Nu Gray - Last Filed: 04/11/19 15:04> ED Treatment Course - LABORATORY CBC & Chemistry Diagram: 04/08/19 16:51 04/08/19 16:51 <Christi Meyers - Last Filed: 04/10/19 07:47> - LABORATORY CBC & Chemistry Diagram: 04/09/19 05:50 04/09/19 05:50 - ADDITIONAL ORDERS Additional order review: 04/08/19 16:51 RBC 3.97 L MCV 86.9 MCHC 33.2 RDW 15.0 MPV 9.9 Neutrophils % 95.7 H Lymphocytes % 1.7 L D Monocytes % 1.6 L Eosinophils % 0.0 D Basophils % 1.0 - RADIOLOGY Radiology Studies Ordered: Category Date Time Status DUPLEX VASCUL US-2LEGS [US] Stat Ultrasound 04/08/19 18:46 Completed - Medications Given in the ED: ED Medications Discontinued Medications Generic Name Dose Route Start Last Admin Trade Name Freq PRN Reason Stop Dose Admin Acetaminophen 1,000 mg 04/08/19 17:17 04/08/19 17:54 Ofirmev Injection - IVPB 04/08/19 17:18 1,000 mg ONCE ONE Administration Aspirin 325 mg 04/08/19 17:17 04/08/19 17:54 Asa - PO 04/08/19 17:18 325 mg ONCE ONE Administration Morphine Sulfate 0.5 mg 04/08/19 21:00 04/08/19 21:24 Morphine Injection - IVPUSH 0.5 mg Q6H EFRAÍN Administration Nitroglycerin 0.4 mg 04/08/19 17:17 04/08/19 18:04 Nitrostat - SL 04/08/19 17:18 Not Given ONCE ONE <Nu Gray - Last Filed: 04/11/19 15:04> Medical Decision Making - Medical Decision Making 04/08/19 16:12 63 yo M, with PMH of HTN, HTD, COPD (home O2 3L), anxiety, multiple back surgeries, LE edema and recent fall with L rib contusion seen on 04/04/19 in the ED and discharged with percocet for pain at night, now presents with worsening left sided chest pain that is rated 10/10 intermittent, radiating into the L arm ongoing for 4-5 days associated with some diaphoresis but without nausea, vomiting or lightheadedness. The pain is worse with movement, palpation of the chest wall and with deep breathing. The patient reports he has not had a similar pain prior to his fall. He denies any fever, abdominal pain, dysuria, diarrhea but admits to occasional constipation for several weeks. The patient has no other complaints at bedside. Patient took PCP: Mary Drill Rig Operator: Phi OLIVARES GENERAL/CONSTITUTIONAL: No fever or chills. No weakness. HEAD, EYES, EARS, NOSE AND THROAT: No change in vision. No ear pain or discharge. No sore throat. CARDIOVASCULAR: See HPI RESPIRATORY: No cough, wheezing, or hemoptysis. GASTROINTESTINAL: No nausea, vomiting, diarrhea or constipation. GENITOURINARY: No dysuria, frequency, or change in urination. MUSCULOSKELETAL: No joint or muscle swelling or pain. No neck or back pain. SKIN: No rash NEUROLOGIC: No headache, vertigo, loss of consciousness, or change in strength/ sensation. PE GENERAL: Awake, alert, and fully oriented, in no acute distress, anxious appearing HEAD: No signs of trauma, normocephalic, atraumatic EYES: EOMI, sclera anicteric, conjunctiva clear ENT: oropharynx clear without exudates. Moist mucosa NECK: Normal ROM, supple LUNGS: No distress, speaks full sentences, decreased breath sounds throughout, occasional inspiratory wheeze HEART: Regular rate and rhythm, normal S1 and S2, no murmurs, rubs or gallops, peripheral pulses normal and equal bilaterally. CHEST: mild tenderness to chest wall, pain not reproducible with arm movement on palapaation ABDOMEN: Soft, nontender, normoactive bowel sounds. No guarding, no rebound. No masses EXTREMITIES : Normal inspection, Normal range of motion, 2+ pitting edema LLE ( baseline), No clubbing or cyanosis. NEUROLOGICAL: Cranial nerves II through XII grossly intact. Normal speech, no focal sensorimotor deficits SKIN: Warm, Dry, normal turgor, no rashes or lesions noted MDM 63 yo M, with PMH of HTN, HTD, COPD (home O2 3L), anxiety, multiple back surgeries, LE edema and recent fall with L rib contusion seen on 04/04/19 in the ED and discharged with percocet for pain at night, now presents with worsening left sided chest pain that is rated 10/10 intermittent, radiating into the L arm ongoing for 4-5 days associated with some diaphoresis but without nausea, vomiting or lightheadedness. DDX including but not limited to: acs vs copd excerbation vs msk r/o pna r/o PE W/U: - cbc, cmp, trop, bnp, ekg, cxr TX: - asa, nitro, tylenol ED Course: Heart Score: 4 labs wnl cxr: no acute infiltrate ddimer: 751 (prior 730s in sep) Duplex pending EKG: sinus tachycardia rhythm HR 121, no interval abnormalities, narrow QRS, ST and T wave segments and morphology normal. Case discussed with medicine team residnet Dr. Martinez. plan for admission Christi Meyers, PGY2 Emergency Medicine <Christi Meyers - Last Filed: 04/10/19 07:47> *DC/Admit/Observation/Transfer - Discharge Dispostion Decision to Admit order: Yes <Christi Meyers - Last Filed: 04/10/19 07:47> - Discharge Dispostion Decision to Admit order: Yes <Nu Gray - Last Filed: 04/11/19 15:04> Diagnosis at time of Disposition: Chest pain Qualifiers: Chest pain type: unspecified Qualified Code(s): R07.9 - Chest pain, unspecified Metz's cyst of knee Qualifiers: Laterality: unspecified laterality Qualified Code(s): M71.20 - Synovial cyst of popliteal space [Metz], unspecified knee CKD (chronic kidney disease) Qualifiers: Chronic kidney disease stage: stage 3 (moderate) Qualified Code(s): N18.3 - Chronic kidney disease, stage 3 (moderate) - Discharge Dispostion Disposition: HOME Condition at time of disposition: Improved
[2019-04-08 17:00] LABS: HEMATOCRIT 34.5 % (35.4-49); HEMOGLOBIN 11.5 GM/dL (11.7-16.9); LYMPH % 1.7 % (8-40); MCH 28.9 pg (25.7-33.7); MCHC 33.2 g/dl (32.0-35.9); MEAN CELL VOLUME 86.9 fl (80-96); MEAN PLT VOLUME 9.9 fl (7.5-11.1); MONO % 1.6 % (3.8-10.2); NEUT % 95.7 % (42.8-82.8); PLATELET COUNT 195 K/MM3 (134-434); RBC 3.97 M/mm3 (4.00-5.60); WHITE BLOOD COUNT 8.2 K/mm3 (4.0-10.0)
[2019-04-08] MEDS ORDERED: ACETAMINOPHEN 1000 MG/100 ML VIAL (NON FORMULARY) IVPB ONE (17:17)
[2019-04-08] MEDS ORDERED: ASPIRIN 325 MG TABLET PO ONE (17:17)
[2019-04-08 17:27] LABS: ALBUMIN 3.7 g/dl (3.4-5.0); BILIRUBIN,TOTAL 0.2 mg/dL (0.2-1); BLOOD UREA NITROGEN 42.4 mg/dL (7-18); CALCIUM 9.8 mg/dL (8.5-10.1); CREATININE 1.6 mg/dL (0.55-1.3); POTASSIUM 4.2 mmol/L (3.5-5.1); TOT PROT 6.6 g/dl (6.4-8.2)
[2019-04-08] MEDS ORDERED: NITROGLYCERIN SUBLINGUAL 1/150 0.4 MG TAB ONE (17:53)
[2019-04-08] MEDS ORDERED: ASPIRIN 325 MG TABLET ONE (17:53)
[2019-04-08] MEDS: NITROGLYCERIN SUBLINGUAL 1/150 0.4 MG TAB SL ONE ×2 (17:54→18:04)
[2019-04-08] MEDS ORDERED: ACETAMINOPHEN INJECTION 100 ML IVPB ONE (17:54)
--- NOTE | 2019-04-08 18:04 | PDOC ---
Documentation entered by Darian Brand SCRIBE, acting as scribe for Nu Gray MD. Nu Gray MD: This documentation has been prepared by the Sunday toribio Daniel, SCRIBE, under my direction and personally reviewed by me in its entirety. I confirm that the documentation accurately reflects all work, treatment, procedures, and medical decision making performed by me. Attending Attestation - Resident Resident Name: Christi Meyers - ED Attending Attestation I have performed the following: I have examined & evaluated the patient, The case was reviewed & discussed with the resident, I agree w/resident's findings & plan - HPI HPI: 04/08/19 17:16 The patient is a 63 year old male with a past medical history of HTN, HLD, COPD (home O2 3L), and chronic lower extremity edema here today for evaluation of chest pain. The patient reports that he fell 4 days ago and was diagnosed here with a rib contusion on 04/04/19. He reports that his chest pain began after being seen here and describes it as 10/10, burning, left sided, intermittent, radiates down his arm, and is worse with movement, palpation of his chest, and deep breaths. He notes associated diaphoresis. +bilateral LE swelling, with LLE worse than RLE. His PMD placed him on Lasix which he has been taking x 3 weeks with improved LE edema, but still present. Last duplex was more than 2 months ago and neg for DVT. Patient denies headache, lightheadedness. Denies fever, chills. Denies shortness of breath. Denies nausea, vomiting, diarrhea, abdominal pain. has been taking percocet as needed with some improvement. Allergies: NKA PCP: Mell Hernandez 04/08/19 19:22 04/08/19 19:23 - Physicial Exam PE: 04/08/19 17:17 NAD, well appearing, EOMI, PERRL, MMM, nl conjunctiva, anicteric; neck supple. lungs clear, RRR, abdomen soft nontender. Back nontender. [place] x4, no focal neuro deficits. No peripheral edema. normal color for ethnicity, WWP. - Medical Decision Making 04/08/19 18:03 See HPI for details. Prior notes reviewed, including admissions, discharges and consultations. Vital signs reviewed, tachycardia, sats 100% on 3L NC home O2 Vital Signs Temp Pulse Resp BP Pulse Ox 98.0 F 122 H 20 124/62 100 04/08/19 16:18 04/08/19 16:18 04/08/19 16:18 04/08/19 16:18 04/08/19 16:59 DDx chest pain: ACS, coronary vasospasm, NSTEMI, arrhythmia, unstable angina, PE , dissection, PUD, esophageal spasm, GERD, gastritis, costochondritis, pneumonia , pleurisy, pericarditis/myocarditis. dehydration, electrolyte/metabolic derangements. DVT/PE laboratory results and imaging reviewed, basic labs and lytes wnl, notable for baseline Cr elevation; LFTs normal CXR_no acute chest pathology Cardiac panel_neg trop, reassuring, EKG sinus tachycardia at 121 bpm, no interval abnormalities, narrow QRS, ST and T wave segments and morphology normal. Nonspecific T wave abnormalities ED course -interventions: ASA, nitro, reassess - no e/o shingles or rash. no infectious sx. - considering ACS and/or DVT/PE given LE findings/edema and tachycardia, will need further workup. duplex to check for dvt, dimer for tachy/chest pain, eval for PE given risk factors and LE swelling eval for ACS, serial trop/ekg, medical management, telemetry admit to hospitalist service for continued management, tele and r/o ACS 04/08/19 19:21
[2019-04-08 18:20] LABS: PLATELET ESTIMATE NORMAL
--- NOTE | 2019-04-08 19:49 | PDOC ---
*Physical Exam - Vital Signs Last Vital Signs Temp Pulse Resp BP Pulse Ox 98.0 F 101 H 18 145/90 100 04/08/19 16:18 04/08/19 18:45 04/08/19 18:45 04/08/19 18:45 04/08/19 18:45 ED Treatment Course - LABORATORY CBC & Chemistry Diagram: 04/08/19 16:51 04/08/19 16:51 - ADDITIONAL ORDERS Additional order review: Laboratory Results 04/08/19 04/08/19 04/08/19 18:47 16:51 16:51 D-Dimer 751 H Sodium Potassium Chloride Carbon Dioxide Anion Gap BUN Creatinine Est GFR (CKD-EPI)AfAm Est GFR (CKD-EPI)NonAf Random Glucose Calcium Total Bilirubin AST ALT Alkaline Phosphatase Troponin I < 0.02 B-Natriuretic Peptide 60.2 Total Protein Albumin 04/08/19 16:51 D-Dimer Sodium 143 Potassium 4.2 Chloride 107 Carbon Dioxide 28 Anion Gap 9 BUN 42.4 H Creatinine 1.6 H Est GFR (CKD-EPI)AfAm 52.73 Est GFR (CKD-EPI)NonAf 45.50 Random Glucose 149 H Calcium 9.8 Total Bilirubin 0.2 AST 13 L ALT 16 Alkaline Phosphatase 110 Troponin I B-Natriuretic Peptide Total Protein 6.6 Albumin 3.7 04/08/19 16:51 RBC 3.97 L MCV 86.9 MCHC 33.2 RDW 15.0 MPV 9.9 Neutrophils % 95.7 H Lymphocytes % 1.7 L D Monocytes % 1.6 L Eosinophils % 0.0 D Basophils % 1.0 - Medications Given in the ED: ED Medications Discontinued Medications Generic Name Dose Route Start Last Admin Trade Name Beverly PRN Reason Stop Dose Admin Acetaminophen 1,000 mg 04/08/19 17:17 04/08/19 17:54 Ofirmev Injection - IVPB 04/08/19 17:18 1,000 mg ONCE ONE Administration Aspirin 325 mg 04/08/19 17:17 04/08/19 17:54 Asa - PO 04/08/19 17:18 325 mg ONCE ONE Administration Nitroglycerin 0.4 mg 04/08/19 17:17 04/08/19 18:04 Nitrostat - SL 04/08/19 17:18 Not Given ONCE ONE Medical Decision Making - Medical Decision Making 04/08/19 19:48 Patient Name: LEWIS VALIENTE THIS IS A PRELIMINARY REPORT FROM [facility] DATE OF SERVICE: 2019-04-08 18:19:55 IMAGES: 4 EXAM: CHEST PA \T\ LAT HISTORY: Chest pain. COMPARISON: None. FINDINGS: No acute cardiac or pulmonary disease. Exaggerated thoracic kyphosis with evidence for kyphoplasty in the upper lumbar levels with severe compression deformity seen in the lower thoracic levels. IMPRESSION: 1. No acute cardiac or pulmonary disease. 2. Evidence for prior kyphoplasty with severe compression deformities of the lower thoracic levels. Please correlate clinically for acuity. Pt will be admitted to the hospitalists 04/08/19 19:48 CTA and INR are pending. 04/08/19 19:49 Pt's ddimer was 730s in Sep BUN/CR and renal insuffieciency is nothing new either 04/08/19 20:02 Patient Name: LEWIS VALIENTE THIS IS A PRELIMINARY REPORT FROM [facility] DATE OF SERVICE: 2019-04-08 19:20:08 IMAGES: 43 EXAM: DUPLEX VASCULAR US-2 LEGS HISTORY: Left lower extremity swelling and pain. Evaluate for DVT. COMPARISON: None. FINDINGS: Sonographic grayscale and color Doppler images were obtained of the bilateral lower extremity deep venous structures. Normal flow and compressibility throughout. No masses. Probable small Metz's cyst on the left. IMPRESSION: Negative bilateral lower extremity venous Doppler *DC/Admit/Observation/Transfer Diagnosis at time of Disposition: Chest pain - Discharge Dispostion Condition at time of disposition: Stable - Referrals - Patient Instructions - Post Discharge Activity
--- NOTE | 2019-04-08 19:58 | HP ---
CHIEF COMPLAINT: Lt sided chest pain PCP: Dr. Mell Hernandez HISTORY OF PRESENT ILLNESS: This is a 63 y/o M with a PMH of HFpEF (last echo poor study no EF shown), GERD, COPD (on 3L at home uses all day except when showering since 10/18), HTN, HLD, prediabetes, anxiety (s/p fall due to dizziness with associated rib contusion 04/02) who presented with first time left sided burning 10/10 chest pain that radiates to his left shoulder. This pain is reproducible upon palpation and decreases in pain when at rest or sleeping. The pain is exacerbated with any motion. Pt failed exercise stress test 1-2 yrs ago due to his max HR being too high for the study as per patient. Pt was followed by Dr. mcadams while he was an inpatient the last time he was here (1 wk ago ) and he recommended doing a cardiac cath but pt did not follow up. He endorses associated SOB due to pain (pt at baseline can walk 7 steps before pt gets SOB) . He sees Dr. Yip for his COPD and was recently placed on trelegy and pt believes this has caused him to feel more SOB. Pt denies any recent sick contacts, fevers, chills, nausea, vomiting. Patient has chronic lower extremity edema worse on left side than right side and sees Dr. Hathaway as an o/p and he recently adjusted his lasix dose from 40mg daily to 80mg BID. ER course was notable for: (1) EKG- showing normal sinus rythym, trops Negative X2, previous lateral infarct (2) B/L duple LE negative (3) CXR looks mildly fluid overloaded, echo ordered, D dimer 751. Recent Travel: none PAST MEDICAL HISTORY: see above in HPI PAST SURGICAL HISTORY: cataracts b/l 1 yr ago, vertebrplasty Social History: Smokinppd X 40 yrs now only 2 ciggarettes a day Alcohol: none Drugs: none Family History: nothing pertinent Allergies No Known Allergies Allergy (Verified 04/08/19 16:20) HOME MEDICATIONS: Home Medications Medication Instructions Recorded Mometasone Furoate [Asmanex Hfa] 1 puff IH BID 11/29/16 Alprazolam [Xanax] 0.5 mg PO TID 04/06/17 Famotidine [Pepcid -] 20 mg PO BID #14 tablet 02/25/18 Furosemide 40 mg PO DAILY 01/27/19 Oxycodone HCl/Acetaminophen 1 - 2 tab PO BID PRN #12 tab MDD 4 04/04/19 [Percocet 5-325 mg Tablet] predniSONE [Deltasone -] 40 mg PO DAILY 04/08/19 REVIEW OF SYSTEMS Negative except as in HPI PHYSICAL EXAMINATION Vital Signs - 24 hr 04/08/19 04/08/19 04/08/19 16:18 16:59 18:45 Temperature 98.0 F Pulse Rate 122 H Pulse Rate [ 101 H Left Radial] Respiratory 20 18 Rate Blood Pressure 124/62 Blood Pressure 145/90 [Right Arm] O2 Sat by Pulse 100 100 100 Oximetry (%) GENERAL: Awake, alert, and fully oriented, in no acute distress. HEAD: Normal with no signs of trauma. EYES: Pupils equal, round and reactive to light, extraocular movements intact, sclera anicteric, conjunctiva clear. No lid lag. EARS, NOSE, THROAT: Ears normal, nares patent, oropharynx clear without exudates. Moist mucous membranes. NECK: Normal range of motion, supple without lymphadenopathy, JVD, or masses. LUNGS: Breath sounds reduced, poor aeration b/l better at the bases, clear to auscultation bilaterally. No wheezes, and no crackles. No accessory muscle use. HEART: Regular rate and rhythm, normal S1 and S2 without murmur, rub or gallop. ABDOMEN: Soft, nontender, not distended, normoactive bowel sounds, no guarding, no rebound. MUSCULOSKELETAL: Normal range of motion at all joints. No bony deformities or tenderness. No CVA tenderness. UPPER EXTREMITIES: 2+ pulses, warm, well-perfused. cyanosis present in fingers. No clubbing. No peripheral edema. LOWER EXTREMITIES: 2+ pulses, warm, well-perfused. No calf tenderness. 2+ pitting peripheral edema worse on L>R. NEUROLOGICAL: Cranial nerves II-XII intact. Normal speech. Normal gait. PSYCHIATRIC: Cooperative. Good eye contact. Appropriate mood and affect. SKIN: Warm, dry, no rashes or lesions noted. Laboratory Results - last 24 hr 04/08/19 04/08/19 04/08/19 16:51 16:51 16:51 WBC 8.2 RBC 3.97 L Hgb 11.5 L Hct 34.5 L MCV 86.9 MCH 28.9 MCHC 33.2 RDW 15.0 Plt Count 195 MPV 9.9 Absolute Neuts (auto) 7.8 Neutrophils % 95.7 H Neutrophils % (Manual) 90.0 H Band Neutrophils % 5.0 Lymphocytes % 1.7 L D Lymphocytes % (Manual) 3.0 L D Monocytes % 1.6 L Monocytes % (Manual) 2 L Eosinophils % 0.0 D Basophils % 1.0 Nucleated RBC % 0 Platelet Estimate Normal Platelet Comment No clumping noted D-Dimer Sodium 143 Potassium 4.2 Chloride 107 Carbon Dioxide 28 Anion Gap 9 BUN 42.4 H Creatinine 1.6 H Est GFR (CKD-EPI)AfAm 52.73 Est GFR (CKD-EPI)NonAf 45.50 Random Glucose 149 H Calcium 9.8 Total Bilirubin 0.2 AST 13 L ALT 16 Alkaline Phosphatase 110 Troponin I B-Natriuretic Peptide 60.2 Total Protein 6.6 Albumin 3.7 04/08/19 04/08/19 16:51 18:47 WBC RBC Hgb Hct MCV MCH MCHC RDW Plt Count MPV Absolute Neuts (auto) Neutrophils % Neutrophils % (Manual) Band Neutrophils % Lymphocytes % Lymphocytes % (Manual) Monocytes % Monocytes % (Manual) Eosinophils % Basophils % Nucleated RBC % Platelet Estimate Platelet Comment D-Dimer 751 H Sodium Potassium Chloride Carbon Dioxide Anion Gap BUN Creatinine Est GFR (CKD-EPI)AfAm Est GFR (CKD-EPI)NonAf Random Glucose Calcium Total Bilirubin AST ALT Alkaline Phosphatase Troponin I < 0.02 B-Natriuretic Peptide Total Protein Albumin ASSESSMENT/PLAN: This is a 63 y/o M with a PMH of HFpEF (last echo 06/16 poor study no EF shown) , GERD, COPD (on 3L at home uses all day except when showering since 10/18), HTN , HLD, prediabetes, anxiety (s/p fall due to dizziness with associated rib contusion 04/02) who presented with first time left sided burning 10/10 chest pain that radiates to his left shoulder. #Lt sided chest pain - ACS has been r/o due to negative trops X2 no EKG st changes - Needs to f/u with Dr. Mcadams for cardiac cath - currently most likely 2/2 to rib contusion induced costochondritis, chest pain reproducable to palpation and is worsened by changes in body position - percocet for pain 1-2 tabs BID. Elevated D dimer - modified wells score of [address] yip r/o PE w welss of 0 and no need for V/Q scan at that time and it is a lower D dimer on this admission so not concerned for PE. - Duplex b/l LE's negaitive - probably 2/2 to STEFAN #COPD - Dr. Yip- trelegy new medication - continue 3L O2 NC keep SaO2>90% - pt not wheezing or hypoxic no need for ABG at this time - no need for duonebs at this time - c/w prednisone 40mg daily #CKD IIIa - Continue lasix 80 PO BID as per Dr. Hathaway's recent change in medication - Consult Dr. Hathaway -F/U urine #GERD - Continue pantoprazole 40mg #HTN - c/w amlodipine 5mg, lisinopril 5mg Visit type - Emergency Visit Emergency Visit: Yes ED Registration Date: 04/08/19 Care time: The patient presented to the Emergency Department on the above date and was hospitalized for further evaluation of their emergent condition. - New Patient This patient is new to me today: Yes Date on this admission: 04/09/19 - Critical Care Critical Care patient: No ATTENDING PHYSICIAN STATEMENT I saw and evaluated the patient. I reviewed the resident's note and discussed the case with the resident. I agree with the resident's findings and plan as documented. SUBJECTIVE: OBJECTIVE: ASSESSMENT AND PLAN:
--- NOTE | 2019-04-08 20:29 | PN ---
Teaching Attending Note Name of Resident: Pranay Castro ATTENDING PHYSICIAN STATEMENT I saw and evaluated the patient. I reviewed the resident's note and discussed the case with the resident. I agree with the resident's findings and plan as documented. Seen and examined; please refer to resident note for further historical information. Briefly, this is a 63 y/o male presenting to the ER with CP. Last year he was seen in may for chest pain and had stress test recommended ; couldn't complete due to back pain on treadmill and refused nuclear. D-dimer only mildly elevated; pending BNP. Some findings c/w CHF. On 10/09/2018 I admitted the patient for similar presentation; D-dimer essentially identical and was worked up in ER and empirically treated for PE (Wells score 0 at that time, again is zero; chest discomfort due to chronic rib fractures, pulmonary recommended against VQ scan at that time and he had negative venous dopplers). Bringing to medicine on telemetry. VS, labs, imaging reviewed NAD, AAO, resting in bed NC AT EOMI PERRLA RRR s1/2 Lungs CTAB, w/ sym exp NT ND +BS CN2-12 wnl, no fnd EKG reviewed CXR reviewed; possible fluid overload. BNP not done-pending Echo from 05/2018 reviewed; poor image quality but global mildly reduced LVEF with likely diastolic dysfunction ASSESSMENT AND PLAN: Patient presents with chest pain # Hx S/D-CHF # Hx COPD # Normocytic anemia # Neutrophilia without leukocytosis # Elevated D-dimer -Mildly elevated to 700 # CKD-III -At baseline # Tobacco abuse # Chronic lower back pain s/p vertebroplasty # Chronic rib fractures Presentation is identical to when I admitted in 09/2018 in terms of the mild D- dimer elevation; negative LE dopplers again and Well's score is 0. As stated, pulm recommended against VQ at that time. Less likely PE in this setting; can discuss tomorrow AM but no need for urgent pulmonary consult overnight. Would not empirically anticoagulate given current information. Checking BNP as some elements of hx can construe CHF and his CXR looks mildly overloaded. Consider consulting his irrigation manager for the ongoing chest pain; has been offered cath in the past. Full Code
[2019-04-08] MEDS ORDERED: morphine CARPU-JECT 4 MG/1 ML DISP.SYRIN IVPUSH SCH (21:00)
[2019-04-08] MEDS ORDERED: ACETAMINOPHEN 325 MG TABLET (FP) PO PRN (21:00)
[2019-04-08] MEDS ORDERED: MORPHINE SULFATE 2 MG/ML VIAL ONE (21:20)
[2019-04-08] MEDS ORDERED: HEPARIN NA (PORCINE) 5,000 UNITS/ML 1ML VIAL ONE (22:21)
[2019-04-08] MEDS: HEPARIN NA (PORCINE) 5,000 UNITS/ML 1ML VIAL SQ SCH (22:27)
[2019-04-08 23:07] LABS: INR 1.02 (0.83-1.09)
[2019-04-09 02:03] VITALS: BMI 26.9
[2019-04-09] MEDS: MORPHINE SULFATE 2 MG/ML VIAL IVPUSH PRN ×2 (04:15→10:09)
[2019-04-09] MEDS: ALPRAZolam 0.25 MG TABLET PO SCH ×3 (06:24→15:09)
[2019-04-09 08:11] LABS: BASO % 0.3 % (0-2.0); EOS % 0.3 % (0-4.5); HEMATOCRIT 30.5 % (35.4-49); HEMOGLOBIN 10.4 GM/dL (11.7-16.9); MCH 29.6 pg (25.7-33.7); MCHC 34.2 g/dl (32.0-35.9); MEAN CELL VOLUME 86.5 fl (80-96); MEAN PLT VOLUME 10.5 fl (7.5-11.1); MONO % 9.5 % (3.8-10.2); NEUT % 80.9 % (42.8-82.8); PLATELET COUNT 186 K/MM3 (134-434); RBC 3.52 M/mm3 (4.00-5.60); RDW 14.6 % (11.9-15.9); WHITE BLOOD COUNT 6.6 K/mm3 (4.0-10.0)
--- NOTE | 2019-04-09 08:36 | PN ---
Physical Exam: SUBJECTIVE: Patient seen and examined OBJECTIVE: Vital Signs Period Temp Pulse Resp BP Sys/Rendon Pulse Ox Last 24 Hr 97.5 F-98.5 F 64-122 18-20 109-151/62-90 100-100 GENERAL: The patient is awake, alert, and fully oriented, in no acute distress. HEAD: Normal with no signs of trauma. EYES: PERRL, extraocular movements intact, sclera anicteric, conjunctiva clear. No ptosis. ENT: Ears normal, nares patent, oropharynx clear without exudates, moist mucous membranes. NECK: Trachea midline, full range of motion, supple. LUNGS: Breath sounds equal, clear to auscultation bilaterally, no wheezes, no crackles, no accessory muscle use. HEART: Regular rate and rhythm, S1, S2 without murmur, rub or gallop. ABDOMEN: Soft, nontender, nondistended, normoactive bowel sounds, no guarding, no rebound, no hepatosplenomegaly, no masses. EXTREMITIES: 2+ pulses, warm, well-perfused, no edema. NEUROLOGICAL: Cranial nerves II through XII grossly intact. Normal speech, gait not observed. PSYCH: Normal mood, normal affect. SKIN: Warm, dry, normal turgor, no rashes or lesions noted Laboratory Results - last 24 hr 04/08/19 04/08/19 04/08/19 16:51 16:51 16:51 WBC 8.2 RBC 3.97 L Hgb 11.5 L Hct 34.5 L MCV 86.9 MCH 28.9 MCHC 33.2 RDW 15.0 Plt Count 195 MPV 9.9 Absolute Neuts (auto) 7.8 Neutrophils % 95.7 H Neutrophils % (Manual) 90.0 H Band Neutrophils % 5.0 Lymphocytes % 1.7 L D Lymphocytes % (Manual) 3.0 L D Monocytes % 1.6 L Monocytes % (Manual) 2 L Eosinophils % 0.0 D Basophils % 1.0 Nucleated RBC % 0 Platelet Estimate Normal Platelet Comment No clumping noted PT with INR INR PTT (Actin FS) D-Dimer Sodium 143 Potassium 4.2 Chloride 107 Carbon Dioxide 28 Anion Gap 9 BUN 42.4 H Creatinine 1.6 H Est GFR (CKD-EPI)AfAm 52.73 Est GFR (CKD-EPI)NonAf 45.50 Random Glucose 149 H Calcium 9.8 Total Bilirubin 0.2 AST 13 L ALT 16 Alkaline Phosphatase 110 Creatine Kinase Troponin I B-Natriuretic Peptide 60.2 Total Protein 6.6 Albumin 3.7 04/08/19 04/08/19 04/08/19 16:51 18:47 22:16 WBC RBC Hgb Hct MCV MCH MCHC RDW Plt Count MPV Absolute Neuts (auto) Neutrophils % Neutrophils % (Manual) Band Neutrophils % Lymphocytes % Lymphocytes % (Manual) Monocytes % Monocytes % (Manual) Eosinophils % Basophils % Nucleated RBC % Platelet Estimate Platelet Comment PT with INR INR PTT (Actin FS) D-Dimer 751 H Sodium Potassium Chloride Carbon Dioxide Anion Gap BUN Creatinine Est GFR (CKD-EPI)AfAm Est GFR (CKD-EPI)NonAf Random Glucose Calcium Total Bilirubin AST ALT Alkaline Phosphatase Creatine Kinase 85 Troponin I < 0.02 < 0.02 B-Natriuretic Peptide Total Protein Albumin 04/08/19 04/08/19 04/09/19 22:16 22:16 05:50 WBC 6.6 RBC 3.52 L Hgb 10.4 L Hct 30.5 L MCV 86.5 MCH 29.6 MCHC 34.2 RDW 14.6 Plt Count 186 MPV 10.5 Absolute Neuts (auto) 5.3 Neutrophils % 80.9 Neutrophils % (Manual) Band Neutrophils % Lymphocytes % 9.0 D Lymphocytes % (Manual) Monocytes % 9.5 D Monocytes % (Manual) Eosinophils % 0.3 D Basophils % 0.3 Nucleated RBC % 0 Platelet Estimate Platelet Comment PT with INR 12.00 INR 1.02 PTT (Actin FS) 34.9 D-Dimer Sodium Potassium Chloride Carbon Dioxide Anion Gap BUN Creatinine Est GFR (CKD-EPI)AfAm Est GFR (CKD-EPI)NonAf Random Glucose Calcium Total Bilirubin AST ALT Alkaline Phosphatase Creatine Kinase Troponin I B-Natriuretic Peptide Total Protein Albumin Active Medications Generic Name Dose Route Start Last Admin Trade Name Freq PRN Reason Stop Dose Admin Acetaminophen 650 mg 04/08/19 21:00 Tylenol - PO Q6H PRN Fever Or Pain Alprazolam 0.5 mg 04/09/19 06:00 04/09/19 06:24 Xanax - PO 0.5 mg TID EFRAÍN Administration Amlodipine Besylate 5 mg 04/09/19 10:00 Norvasc - PO DAILY [facility] Gabapentin 300 mg 04/09/19 10:00 Neurontin - PO DAILY EFRAÍN Heparin Sodium (Porcine) 5,000 unit 04/08/19 22:00 04/08/19 22:27 Heparin - SQ 5,000 unit BID EFRAÍN Administration Lisinopril 5 mg 04/09/19 10:00 Prinivil PO DAILY EFRAÍN Morphine Sulfate 0.5 mg 04/08/19 21:42 04/09/19 04:15 Morphine Sulfate IVPUSH 0.5 mg Q6H PRN Administration PAIN LEVEL 6-10 Non-Formulary Medication 1 each 04/09/19 10:00 Fluticasone/Umeclidin/Vilanter [Trelegy Ellipta 100-62.5-25] IH DAILY EFRAÍN Pantoprazole Sodium 40 mg 04/09/19 10:00 Protonix - PO DAILY EFRAÍN Prednisone 10 mg 04/09/19 10:00 Deltasone - PO DAILY [facility] ASSESSMENT/PLAN: 63 y/o M W HTN, HLD, prediabetes, anxiety,HFpEF (last echo 06/16 poor study no EF shown), GERD, COPD (on 3L at home uses all day except when showering since ), P/W left sided chest pain, so far has had negative cardiac markers, no dynamic EKG changes, has chronic Q in the septal lead, pending Echo. DVT studeies doen as he has + D dimer which was negative for DVT. Chest pain: non anginal in the patient with mots likely CVD, has had recent chest contusion, the chest pain mostly of MSK origin, Pending TTE Will start him on ASA, Statin Will C/W BP control and monitoring Has a legal services professional out side whom he will F/U with.(with Dr. Mcadams for cardiac cath was suipposed to get cardiac cath) Will start on low dose BB while he is in the hospital and evaluate the COPD response to the medication HTN, Most likely HFPEF: C/W CCB, is on Lasix, amlodipine 5mg, lisinopril 5mg Pain managemnet:percocet COPD well controlled Will CW home medication C/W home dose O2 NC, goal O2 in low 90. #CKD IIIa - Continue lasix 80 PO BID as per Dr. Hathaway's recent change in medication - Consult Dr. Hathaway -F/U urine #GERD - Continue pantoprazole 40mg FC Diet: cardiac
[2019-04-09 08:53] LABS: ALBUMIN 3.2 g/dl (3.4-5.0); BILIRUBIN,TOTAL 0.2 mg/dL (0.2-1); CALCIUM 9.8 mg/dL (8.5-10.1); CREATININE 1.4 mg/dL (0.55-1.3); MAGNESIUM 2.3 mg/dL (1.8-2.4); POTASSIUM 3.9 mmol/L (3.5-5.1); TOT PROT 5.6 g/dl (6.4-8.2)
[2019-04-09] MEDS: GABAPENTIN 300 MG CAPSULE (FP) PO SCH ×2 (09:55→10:03)
[2019-04-09] MEDS: HEPARIN NA (PORCINE) 5,000 UNITS/ML 1ML VIAL SQ SCH (09:56)
[2019-04-09] MEDS: metoPROLOL SUCCINATE 25 MG TAB.SR.24H (FP) PO SCH ×2 (09:56→10:03)
[2019-04-09] MEDS ORDERED: ASPIRIN COATED 81 MG TABLET.EC PO SCH (10:00)
[2019-04-09] MEDS ORDERED: PANTOPRAZOLE 40 MG TABLET (FP) PO SCH (10:00)
[2019-04-09] MEDS ORDERED: LISINOPRIL 5 MG TABLET (FP) PO SCH (10:00)
[2019-04-09] MEDS ORDERED: amLODIPine BESYLATE 5 MG TABLET (FP) PO SCH (10:00)
[2019-04-09] MEDS ORDERED: predniSONE 10 MG TABLET (UD) PO SCH (10:00)
[2019-04-09 10:06] LABS: EPI CELLS 0.3 /HPF (0-5/HPF); HYALINE CASTS 1 /lpf (0-8); URINE APPEARANCE CLEAR; URINE BACTERIA 25.3 /hpf (NEGATIVE); URINE BILIRUBIN NEGATIVE (NEGATIVE); URINE COLOR YELLOW; URINE GLUCOSE (UA) NEGATIVE (NEGATIVE); URINE KETONE NEGATIVE (NEGATIVE); URINE LEUK ESTERASE NEGATIVE (NEGATIVE); URINE NITRITE NEGATIVE (NEGATIVE); URINE PROTEIN NEGATIVE (NEGATIVE); URINE RBC 2 /hpf (0-4); URINE UROBILINOGEN 0.2 mg/dL (0.2-1.0); URINE WBC 0 /hpf (0-5)
--- NOTE | 2019-04-09 11:42 | CON.CARD ---
Consult Consult Specialty:: Cardiology for Dr. Mcadams Referred by:: Hospitalist Medicine Reason for Consultation:: Chest pain - History of Present Illness Chief Complaint: Chest pain History of Present Illness: 62yo male with asthma, cad, chf, copd on chronic 2L home o2, ambulates with walker assistance presents with atypical non-exertional chest wall pain after fall 4 days ago and was diagnosed here with a rib contusion on 04/04/19. He characterizes as sharp, burning, left sided, intermittent, radiates down under his arm, and is worse with movement, palpation of his chest, and deep breaths c/ w splinting. Also reports +bilateral LE swelling, with LLE worse than RLE. His PMD placed him on Lasix which he has been taking x 3 weeks with improved LE edema, but still present. Duplex in ER neg for DVT. Has been using capsaicin cream with some relief of chest wall discomfort. - History Source History Provided By: Patient Limitations to Obtaining History: No Limitations - Past Medical History Cardio/Vascular: Yes: CHF (systolic (mild) LVEF by ECHO (limited study)), HTN Pulmonary: Yes: Asthma, Bronchitis, COPD, O2 Dependent, Pneumonia. No: Cancer, Previously Intubated, Pulmonary Embolus, Pulmonary Fibrosis, Sleep Apnea - Past Surgical History Past Surgical History: Yes: None - Alcohol/Substance Use Hx Alcohol Use: No History of Substance Use: reports: None - Smoking History Smoking history: Current every day smoker Have you smoked in the past 12 months: Yes Aproximately how many cigarettes per day: 3 If you are a former smoker, when did you quit?: 08/2016 - Social History ADL: Independent History of Recent Travel: No Home Medications - Allergies Allergies/Adverse Reactions: Allergies Allergy/AdvReac Type Severity Reaction Status Date / Time No Known Allergies Allergy Verified 04/08/19 16:20 - Home Medications Home Medications: Ambulatory Orders Alprazolam [Xanax] 0.5 mg PO TID 12/03/16 Furosemide 40 mg PO BID 01/27/19 Amlodipine Besylate 5 mg PO DAILY 04/08/19 Fluticasone/Umeclidin/Vilanter [Trelegy Ellipta 100-62.5-25] 1 each IH DAILY 06/17 Lisinopril 5 mg PO DAILY 04/08/19 Pantoprazole Sodium 40 mg PO DAILY 04/08/19 Gabapentin 300 mg PO DAILY 04/09/19 Prednisone 10 mg PO DAILY 04/09/19 Review of Systems - Review of Systems Cardiovascular: reports: Chest Pain Vital Signs: Vital Signs Temperature 98.0 F 04/09/19 09:53 Pulse Rate 100 H 04/09/19 09:53 Respiratory Rate 20 04/09/19 09:53 Blood Pressure 130/89 04/09/19 09:53 O2 Sat by Pulse Oximetry (%) 100 04/09/19 09:53 Constitutional: Yes: No Distress, Calm Neck: Yes: Supple Respiratory: Yes: Regular, Diminished, On Nasal O2, Other (Reproducible left- side chest wall tenderness) Gastrointestinal: Yes: Normal Bowel Sounds, Soft Cardiovascular: Yes: Regular Rate and Rhythm JVD: No Carotid Bruit: No Heart Sounds: Yes: S1, S2 Edema: Yes - Other Data Labs, Other Data: CBC, BMP 04/09/19 05:50 04/09/19 05:50 INR, PTT INR 1.02 (0.83-1.09) 04/08/19 22:16 Troponin, BNP 04/08/19 04/08/19 04/08/19 16:51 16:51 22:16 Troponin I < 0.02 < 0.02 B-Natriuretic Peptide 60.2 Troponin, BNP 04/08/19 04/08/19 04/08/19 16:51 16:51 22:16 Troponin I < 0.02 < 0.02 B-Natriuretic Peptide 60.2 ST @ 121 Echo: Report Reviewed Ejection Fraction %: LVEF > or = 40 % Imaging - Results Chest X-ray: Report Reviewed (NAD) Ultrasound: Report Reviewed (No DVT bilaterally) Problem List - Problems (1) Atypical chest pain Code(s): R07.89 - OTHER CHEST PAIN (2) Chest wall contusion Code(s): S20.219A - CONTUSION OF UNSPECIFIED FRONT WALL OF THORAX, INIT ENCNTR Qualifiers: Encounter type: subsequent encounter Laterality: left Qualified Code(s): S20.212D - Contusion of left front wall of thorax, subsequent encounter (3) CKD (chronic kidney disease) Code(s): N18.9 - CHRONIC KIDNEY DISEASE, UNSPECIFIED Qualifiers: Chronic kidney disease stage: stage 3 (moderate) Qualified Code(s): N18.3 - Chronic kidney disease, stage 3 (moderate) (4) Hyperlipidemia Code(s): E78.5 - HYPERLIPIDEMIA, UNSPECIFIED Qualifiers: Hyperlipidemia type: pure hypercholesterolemia Qualified Code(s): E78.00 - Pure hypercholesterolemia, unspecified; E78.0 - Pure hypercholesterolemia (5) Hypertension Code(s): I10 - ESSENTIAL (PRIMARY) HYPERTENSION Qualifiers: Hypertension type: unspecified Qualified Code(s): I10 - Essential (primary ) hypertension Assessment/Plan Echo from 05/2018 reviewed; poor image quality but global mildly reduced LVEF with likely diastolic dysfunction, no sig valve abnl 1. Atypical chest wall pain post chest wall contusion post fall 2. Home-O2 and steroid-dependent COPD with h/o flares 3. Acute on CKD3 resolving 4. Chronic lower back pain due to prednisone-associated compression fractures s/ p vertebroplasty with gait instability requiring walker assistance 5. Chronic rib fractures 6. Diastolic dysfunction 7. Hypertension 8. Hyperlipidemia 9. CAD P:1. Ruled out for SD, analgesic balm as needed, incentive spirometer as needed , d/c echo order, may be performed as outpatient 2. Continue Lasix 40 bid, Norvasc 5 qd, lisinopril 5 qd, ASA 81 qd 3. BD, smoking cessation, O2 as needed, chronic prednisone with GI protection 4. Outpatient cardiology f/u with Dr. Mcadams to discuss LHC vs pharmacologic stress testing as patient did not tolerate ETT. 5. Thank you for consultative opportunity
[2019-04-09] MEDS ORDERED: METHYL SALICYLATE/MENTHOL OINT 30 GM TUBE TP SCH (12:15)
[2019-04-09] MEDS: FUROSEMIDE 40 MG TABLET (FP) PO SCH ×2 (13:15→13:19)
[2019-04-09 14:10] VITALS: BP 146/87; PULSE 97; TEMP 98.2
--- NOTE | 2019-04-09 14:21 | EKG ---
Test Reason : Blood Pressure : / mmHG Vent. Rate : 121 BPM Atrial Rate : 121 BPM P-R Int : 150 ms QRS Dur : 074 ms QT Int : 320 ms P-R-T Axes : 056 -17 018 degrees QTc Int : 454 ms SINUS TACHYCARDIA OTHERWISE NORMAL ECG WHEN COMPARED WITH ECG OF 04-APR-2019 13:55, NO SIGNIFICANT CHANGE WAS FOUND Confirmed by MD Mayorga Daniel ([id number]) on 04/09/2019 2:20:55 PM Referred By: Confirmed By:Darian Mayorga MD
--- NOTE | 2019-04-09 15:52 | DS ---
Physical Exam: SUBJECTIVE: Patient seen and examined, has no complaints at this time OBJECTIVE: Vital Signs Period Temp Pulse Resp BP Sys/Rendon Pulse Ox Last 24 Hr 97.5 F-98.5 F 64-122 18-22 109-151/62-90 100-100 PHYSICAL EXAM GENERAL: The patient is awake, alert, and fully oriented, in no acute distress. HEAD: Normal with no signs of trauma. EYES: PERRL, extraocular movements intact, sclera anicteric, conjunctiva clear. ENT: Ears normal, nares patent, oropharynx clear without exudates, moist mucous membranes. NECK: Trachea midline, full range of motion, supple. LUNGS: Breath sounds equal, clear to auscultation bilaterally, no wheezes, no crackles, no accessory muscle use. has point tenderness over the Left side of the chest wall HEART: Regular rate and rhythm, S1, S2 without murmur, rub or gallop. ABDOMEN: Soft, nontender, nondistended, normoactive bowel sounds, no guarding, no rebound, no hepatosplenomegaly, no masses. EXTREMITIES: 2+ pulses, warm, well-perfused, no edema. NEUROLOGICAL: Cranial nerves II through XII grossly intact. Normal speech, gait not observed. PSYCH: Normal mood, normal affect. SKIN: Warm, dry, normal turgor, no rashes or lesions noted. LABS Laboratory Results - last 24 hr 04/08/19 04/08/19 04/08/19 16:51 16:51 16:51 WBC 8.2 RBC 3.97 L Hgb 11.5 L Hct 34.5 L MCV 86.9 MCH 28.9 MCHC 33.2 RDW 15.0 Plt Count 195 MPV 9.9 Absolute Neuts (auto) 7.8 Neutrophils % 95.7 H Neutrophils % (Manual) 90.0 H Band Neutrophils % 5.0 Lymphocytes % 1.7 L D Lymphocytes % (Manual) 3.0 L D Monocytes % 1.6 L Monocytes % (Manual) 2 L Eosinophils % 0.0 D Basophils % 1.0 Nucleated RBC % 0 Platelet Estimate Normal Platelet Comment No clumping noted PT with INR INR PTT (Actin FS) D-Dimer Sodium 143 Potassium 4.2 Chloride 107 Carbon Dioxide 28 Anion Gap 9 BUN 42.4 H Creatinine 1.6 H Est GFR (CKD-EPI)AfAm 52.73 Est GFR (CKD-EPI)NonAf 45.50 Random Glucose 149 H Calcium 9.8 Magnesium Total Bilirubin 0.2 AST 13 L ALT 16 Alkaline Phosphatase 110 Creatine Kinase Troponin I B-Natriuretic Peptide 60.2 Total Protein 6.6 Albumin 3.7 Urine Color Urine Appearance Urine pH Ur Specific Vanduser Urine Protein Urine Glucose (UA) Urine Ketones Urine Blood Urine Nitrite Urine Bilirubin Urine Urobilinogen Ur Leukocyte Esterase Urine WBC (Auto) Urine RBC (Auto) Urine Casts (Auto) U Epithel Cells (Auto) Urine Bacteria (Auto) 04/08/19 04/08/19 04/08/19 16:51 18:47 22:16 WBC RBC Hgb Hct MCV MCH MCHC RDW Plt Count MPV Absolute Neuts (auto) Neutrophils % Neutrophils % (Manual) Band Neutrophils % Lymphocytes % Lymphocytes % (Manual) Monocytes % Monocytes % (Manual) Eosinophils % Basophils % Nucleated RBC % Platelet Estimate Platelet Comment PT with INR INR PTT (Actin FS) D-Dimer 751 H Sodium Potassium Chloride Carbon Dioxide Anion Gap BUN Creatinine Est GFR (CKD-EPI)AfAm Est GFR (CKD-EPI)NonAf Random Glucose Calcium Magnesium Total Bilirubin AST ALT Alkaline Phosphatase Creatine Kinase 85 Troponin I < 0.02 < 0.02 B-Natriuretic Peptide Total Protein Albumin Urine Color Urine Appearance Urine pH Ur Specific Vanduser Urine Protein Urine Glucose (UA) Urine Ketones Urine Blood Urine Nitrite Urine Bilirubin Urine Urobilinogen Ur Leukocyte Esterase Urine WBC (Auto) Urine RBC (Auto) Urine Casts (Auto) U Epithel Cells (Auto) Urine Bacteria (Auto) 04/08/19 04/08/19 04/09/19 22:16 22:16 05:50 WBC 6.6 RBC 3.52 L Hgb 10.4 L Hct 30.5 L MCV 86.5 MCH 29.6 MCHC 34.2 RDW 14.6 Plt Count 186 MPV 10.5 Absolute Neuts (auto) 5.3 Neutrophils % 80.9 Neutrophils % (Manual) Band Neutrophils % Lymphocytes % 9.0 D Lymphocytes % (Manual) Monocytes % 9.5 D Monocytes % (Manual) Eosinophils % 0.3 D Basophils % 0.3 Nucleated RBC % 0 Platelet Estimate Platelet Comment PT with INR 12.00 INR 1.02 PTT (Actin FS) 34.9 D-Dimer Sodium Potassium Chloride Carbon Dioxide Anion Gap BUN Creatinine Est GFR (CKD-EPI)AfAm Est GFR (CKD-EPI)NonAf Random Glucose Calcium Magnesium Total Bilirubin AST ALT Alkaline Phosphatase Creatine Kinase Troponin I B-Natriuretic Peptide Total Protein Albumin Urine Color Urine Appearance Urine pH Ur Specific Vanduser Urine Protein Urine Glucose (UA) Urine Ketones Urine Blood Urine Nitrite Urine Bilirubin Urine Urobilinogen Ur Leukocyte Esterase Urine WBC (Auto) Urine RBC (Auto) Urine Casts (Auto) U Epithel Cells (Auto) Urine Bacteria (Auto) 04/09/19 04/09/19 05:50 09:41 WBC RBC Hgb Hct MCV MCH MCHC RDW Plt Count MPV Absolute Neuts (auto) Neutrophils % Neutrophils % (Manual) Band Neutrophils % Lymphocytes % Lymphocytes % (Manual) Monocytes % Monocytes % (Manual) Eosinophils % Basophils % Nucleated RBC % Platelet Estimate Platelet Comment PT with INR INR PTT (Actin FS) D-Dimer Sodium 144 Potassium 3.9 Chloride 107 Carbon Dioxide 31 Anion Gap 6 L BUN 42.0 H Creatinine 1.4 H Est GFR (CKD-EPI)AfAm 61.97 Est GFR (CKD-EPI)NonAf 53.47 Random Glucose 84 Calcium 9.8 Magnesium 2.3 Total Bilirubin 0.2 AST 12 L ALT 14 Alkaline Phosphatase 93 Creatine Kinase Troponin I B-Natriuretic Peptide Total Protein 5.6 L Albumin 3.2 L Urine Color Yellow Urine Appearance Clear Urine pH 5.0 Ur Specific Vanduser 1.013 Urine Protein Negative Urine Glucose (UA) Negative Urine Ketones Negative Urine Blood 1+ H Urine Nitrite Negative Urine Bilirubin Negative Urine Urobilinogen 0.2 Ur Leukocyte Esterase Negative Urine WBC (Auto) 0 Urine RBC (Auto) 2 Urine Casts (Auto) 1 U Epithel Cells (Auto) 0.3 Urine Bacteria (Auto) 25.3 HOSPITAL COURSE: 63 y/o M W HTN, HLD, prediabetes, anxiety,HFpEF (last echo 06/16 poor study no EF shown), GERD, COPD (on 3L at home uses all day except when showering since ), P/W left sided chest pain, so far has had negative cardiac markers, no dynamic EKG changes, has chronic Q in the septal lead, pending Echo. DVT studeies doen as he has + D dimer which was negative for DVT.Chest pain: non anginal in the patient with mots likely CVD, has had recent chest contusion, the chest pain mostly of MSK origin, He was started on ASA, Statin.Has a metallographer out side whom he will F/U with.(with Dr. Mcadams for cardiac cath was suipposed to get cardiac cath), Will start on low dose BB while he is in the hospital and evaluate the COPD response to the medication. he was evaluated by card in hospital and no need for further intervention at this time Date of Admission:04/08/19 Date of Discharge: 04/09/19 Minutes to complete discharge: 40 Discharge Summary Reason For Visit: CHEST PAIN Current Active Problems Atypical chest pain (Acute) Chest pain (Acute) Condition: Stable - Instructions Referrals: Mell Hernandez MD [Primary Care Provider] - - Home Medications Comprehensive Discharge Medication List: Ambulatory Orders Alprazolam [Xanax] 0.5 mg PO TID 12/03/16 Furosemide 40 mg PO BID 01/27/19 Amlodipine Besylate 5 mg PO DAILY 04/08/19 Fluticasone/Umeclidin/Vilanter [Trelegy Ellipta 100-62.5-25] 1 each IH DAILY 06/17 Lisinopril 5 mg PO DAILY 04/08/19 Pantoprazole Sodium 40 mg PO DAILY 04/08/19 Gabapentin 300 mg PO DAILY 04/09/19 Prednisone 10 mg PO DAILY 04/09/19 This patient is new to me today: Yes Date on this admission: 04/09/19 Emergency Visit: Yes ED Registration Date: 04/08/19 Care time: The patient presented to the Emergency Department on the above date and was hospitalized for further evaluation of their emergent condition. Critical Care patient: No - Discharge Referral Referred to [facility] Med [facility].: No
[2019-04-09] MEDS ORDERED: ATORVASTATIN CA 40 MG TABLET (FP) PO SCH (22:00)
== END 2019-04-09 16:37 | disposition home or self-care (01) | DRG 313 ==
LOC: JER 15:51 → JERBED 19:34 → OBSVTOIN 19:48 → J4W 04-09 00:31
PROVIDERS: ADMIT Internal Medicine; ATTEND Internal Medicine
DX: R07.89 Other chest pain (principal); I13.0 Hypertensive heart and chronic kidney disease with heart failure and stage 1 through stage 4 chronic kidney disease, or unspecified chronic kidney disease; I50.20 Unspecified systolic (congestive) heart failure; N18.3 Chronic kidney disease, stage 3 (moderate); J44.9 Chronic obstructive pulmonary disease, unspecified; K21.9 Gastro-esophageal reflux disease without esophagitis; F17.210 Nicotine dependence, cigarettes, uncomplicated; D64.9 Anemia, unspecified; E78.5 Hyperlipidemia, unspecified; I25.10 Atherosclerotic heart disease of native coronary artery without angina pectoris
CPT/HCPCS: 36415; 71046-TC-FY; 80053; 81003; 82550; 83735; 83880; 84484; 85025; 85379; 85610; 85730; 93005; 93010; 93970-TC; 99285-25; G0378; J0131; J1644

== ENCOUNTER 2019-10-14 11:37 | Emergency (ER) | payer OTHER ==
[2019-10-14 11:59] VITALS: BMI 27.3
[2019-10-14] MEDS ORDERED: morphine CARPU-JECT 2 MG/1 ML DISP.SYRIN IVPUSH ONE (12:42)
--- NOTE | 2019-10-14 13:08 | PDOC ---
History of Present Illness - General Chief Complaint: Pain Stated Complaint: ABD PAIN Time Seen by Provider: 10/14/19 12:04 History Source: Patient Exam Limitations: No Limitations - History of Present Illness Initial Comments: 10/14/19 13:03 64-year-old male with history of osteoporosis and is followed by Dr. Wells presents to ED with complaints of multiple joint pain 1 day after receiving an injection of Prolia. Patient states received the injection on the sixth and by the next day on the seventh his symptoms began. Patient also states was nauseous and had abdominal cramping greater in the epigastric region. Patient denies fever, chills, nausea, headache, jaw pain, redness or pain at the injection site, change in bowel pattern, change in urine pattern, chest pain, or shortness of breath patient is oxygen dependent due to COPD, currently on 2 L nasal cannula but denies any worsening respiratory symptoms. Is this a multiple visit Asthma Patient?: No Timing/Duration: 1 week Severity: mild Associated Symptoms: reports: other Past History - Travel Traveled outside of the country in the last 30 days: No Close contact w/someone who was outside of country & ill: No - Past Medical History Allergies/Adverse Reactions: Allergies Allergy/AdvReac Type Severity Reaction Status Date / Time No Known Allergies Allergy Verified 10/14/19 11:55 Home Medications: Ambulatory Orders Alprazolam [Xanax] 0.5 mg PO TID 12/03/16 Furosemide 40 mg PO BID 01/27/19 Amlodipine Besylate 5 mg PO DAILY 04/08/19 Fluticasone/Umeclidin/Vilanter [Trelegy Ellipta 100-62.5-25] 1 each IH DAILY 06/17 Lisinopril 5 mg PO DAILY 04/08/19 Pantoprazole Sodium 40 mg PO DAILY 04/08/19 Acetaminophen [Tylenol .Regular Strength -] 650 mg PO Q6H PRN tablet 04/09/19 Aspirin Coated [Ecotrin -] 81 mg PO DAILY 30 Days #30 tablet.ec 04/09/19 Furosemide [Lasix -] 80 mg PO BID@0600,1400 tablet 04/09/19 Gabapentin 300 mg PO DAILY 04/09/19 Gabapentin [Neurontin -] 300 mg PO DAILY capsule 04/09/19 Prednisone 10 mg PO DAILY 04/09/19 Polyethylene Glycol 3350 [Miralax (For Daily Use) -] 17 gm PO BID #1 bottle Anemia: No Asthma: Yes Cancer: No Cardiac Disorders: No CVA: No COPD: Yes CHF: No Dementia: No Diabetes: No GI Disorders: No Disorders: No HTN: Yes Hypercholesterolemia: Yes Liver Disease: No Seizures: No Thyroid Disease: No - Surgical History Abdominal Surgery: No Appendectomy: No Cardiac Surgery: No Cholecystectomy: No Gastric Stapling: No GI Surgery: No Lung Surgery: No Neurologic Surgery: No Orthopedic Surgery: No - Immunization History Immunization Up to Date: Yes - Psycho Social/Smoking Cessation Hx Smoking Status: Yes Smoking History: Current every day smoker Have you smoked in the past 12 months: Yes Number of Cigarettes Smoked Daily: 6 If you are a former smoker, when did you quit?: 08/2016 Information on smoking cessation initiated: No 'Breaking Loose' booklet given: 06/27/16 Hx Alcohol Use: No Drug/Substance Use Hx: No Substance Use Type: None Hx Substance Use Treatment: No Patient Lives Alone: No Lives with/in: spouse/SO Review of Systems - Review of Systems Able to Perform ROS?: Yes Constitutional: No: Symptoms Reported HEENTM: No: Symptoms Reported Respiratory: No: Symptoms reported Cardiac (ROS): No: Symptoms Reported ABD/GI: Yes: Nausea, Vomiting. No: Abdominal cramping : No: Symptoms Reported Musculoskeletal: Yes: Joint Pain, Joint Stiffness. No: Joint Swelling Integumentary: No: Symptoms Reported Neurological: No: Symptoms reported *Physical Exam - Vital Signs Last Vital Signs Temp Pulse Resp BP Pulse Ox 98.6 F 113 H 20 117/67 100 10/14/19 11:56 10/14/19 11:56 10/14/19 11:56 10/14/19 11:56 10/14/19 11:56 - Physical Exam General Appearance: Yes: Nourished, Appropriately Dressed. No: Apparent Distress HEENT: positive: EOMI, HALLEY, TMs Normal, Pharynx Normal. negative: Pale Conjunctivae Neck: positive: Supple Respiratory/Chest: positive: Lungs Clear, Normal Breath Sounds. negative: Respiratory Distress, Accessory Muscle Use Cardiovascular: positive: Regular Rhythm, Regular Rate. negative: Murmur Gastrointestinal/Abdominal: positive: Normal Bowel Sounds, Soft, Distended, Tenderness (epigastric). negative: Guarding, Rebound, Hernia, Mass Musculoskeletal: negative: CVA Tenderness Extremity: positive: Normal Inspection Integumentary: positive: Normal Color, Warm, Moist Neurologic: positive: Motor Strength 5/5 (ambulatory) ED Treatment Course - LABORATORY CBC & Chemistry Diagram: 10/14/19 13:22 10/14/19 13:22 - RADIOLOGY Radiology Studies Ordered: Category Date Time Status KUB (KID UR & BLAD) [RAD] Stat Radiology 10/14/19 12:43 Ordered Medical Decision Making - Medical Decision Making 10/14/19 13:11 Chief complaint: Patient with multiple joint discomfort 24 hours after receiving Prolia for osteoporosis patient states also with abdominal distention and Abdominal cramping greater in the epigastric region. Patient is oxygen dependent but has no respiratory complaints. Exam: Vital signs stable patient with abdominal distention with epigastric tenderness. Otherwise no other acute findings on exam. Plan: Labs including calcium and magnesium, urine EKG and KUB 10/14/19 14:46 Laboratory Tests 10/14/19 13:22 WBC 7.7 RBC 3.77 L Hgb 11.1 L Hct 33.3 L Neutrophils % 89.6 H Lymphocytes % 4.8 L D Abdominal x-ray shows moderate amount of fecal retention without signs of SBO. Due to distention and history patient will have abdominal/pelvic CT without contrast 10/14/19 15:14 Laboratory Tests 10/14/19 10/14/19 13:22 13:22 Sodium 142 Potassium 4.8 Chloride 111 H Carbon Dioxide 26 Anion Gap 5 L BUN 33.9 H Creatinine 1.5 H Random Glucose 116 H Calcium 8.2 L Magnesium 2.6 H Total Bilirubin 0.1 L Lipase 282 Patient states needs to take his Xanax. He normally takes it 2-3 times a day for anxiety. Patient has is on medication. administered 1 tablet 10/14/19 15:59 CT shows no evidence of appendicitis or diverticulitis. There is an approximate 3.7 x 3 cm isodense left renal cortical structure seen laterally at the mid to upper pole which appears increased in size in comparison to CT from 07/2016 along with increased intraluminal density. Correlation with a nonemergent MRIs is suggested. a small umbilical hernia seen which appears mildly increased in size containing fat only. Patient will be discharged home with recommendation to take mag citrate and follow-up PCP taking copy of CAT scan with him Discharge - Discharge Information Problems reviewed: Yes Clinical Impression/Diagnosis: Constipation Condition: Good Disposition: HOME - Additional Discharge Information Prescriptions: Polyethylene Glycol 3350 [Miralax (For Daily Use) -] 17 gm PO BID #1 bottle - Follow up/Referral Referrals: Mell Hernandez MD [Primary Care Provider] - - Patient Discharge Instructions Patient Printed Discharge Instructions: Increased Dietary Fiber May Improve Constipation Conditions With Pelvic Leonel, DI for Constipation Additional Instructions: Take miralax as prescribed Otherwise increase your ambulation and add roughage and high-fiber foods to your diet - Post Discharge Activity
[2019-10-14] MEDS ORDERED: MORPHINE SULFATE 2 MG/ML VIAL ONE (13:12)
[2019-10-14 14:13] LABS: BASO % 0.2 % (0-2.0); EOS % 0.6 % (0-4.5); HEMATOCRIT 33.3 % (35.4-49); HEMOGLOBIN 11.1 GM/dL (11.7-16.9); LYMPH % 4.8 % (8-40); MCH 29.5 pg (25.7-33.7); MCHC 33.5 g/dl (32.0-35.9); MEAN CELL VOLUME 88.2 fl (80-96); MEAN PLT VOLUME 9.6 fl (7.5-11.1); MONO % 4.8 % (3.8-10.2); NEUT % 89.6 % (42.8-82.8); PLATELET COUNT 213 K/MM3 (134-434); RBC 3.77 M/mm3 (4.00-5.60); RDW 13.6 % (11.9-15.9); WHITE BLOOD COUNT 7.7 K/mm3 (4.0-10.0)
[2019-10-14 14:44] LABS: ALBUMIN 3.6 g/dl (3.4-5.0); BILIRUBIN,TOTAL 0.1 mg/dL (0.2-1); BLOOD UREA NITROGEN 33.9 mg/dL (7-18); CALCIUM 8.2 mg/dL (8.5-10.1); CREATININE 1.5 mg/dL (0.55-1.3); POTASSIUM 4.8 mmol/L (3.5-5.1); TOT PROT 6.5 g/dl (6.4-8.2)
[2019-10-14 14:46] LABS: MAGNESIUM 2.6 mg/dL (1.8-2.4)
[2019-10-14 16:34] VITALS: BP 121/68; PULSE 79; TEMP 98.3
--- NOTE | 2019-10-16 10:24 | EKG ---
Test Reason : Blood Pressure : / mmHG Vent. Rate : 090 BPM Atrial Rate : 090 BPM P-R Int : 154 ms QRS Dur : 072 ms QT Int : 358 ms P-R-T Axes : 050 -14 -02 degrees QTc Int : 437 ms NORMAL SINUS RHYTHM NORMAL ECG WHEN COMPARED WITH ECG OF 08-APR-2019 15:58, NO SIGNIFICANT CHANGE WAS FOUND Confirmed by José Miguel Mcgrath ([id number]) on 10/16/2019 10:23:44 AM Referred By: Confirmed By:José Miguel Mcgrath
== END 2019-10-14 16:33 | disposition home or self-care (01) ==
LOC: JER 11:37
PROC: 3E023NZ Introduction of Analgesics, Hypnotics, Sedatives into Muscle, Percutaneous Approach (ICD-10-PCS; principal; 2019-10-14)
DX: K59.00 Constipation, unspecified (principal); M81.0 Age-related osteoporosis without current pathological fracture; J44.9 Chronic obstructive pulmonary disease, unspecified; J45.998 Other asthma; I10 Essential (primary) hypertension; E78.00 Pure hypercholesterolemia, unspecified; Z99.81 Dependence on supplemental oxygen; F17.210 Nicotine dependence, cigarettes, uncomplicated
CPT/HCPCS: 36415; 74018-TC-FY; 74176-TC; 80053; 83690; 83735; 85025; 93005; 93010; 99285-25